=== PATIENT | female | born 1975 | race African-American/Black ===

== ENCOUNTER 2017-03-23 15:27 | Inpatient (IN) | payer MEDICARE, MEDICAID ==
[~2017-03-23] VITALS: Ht 160 cm; Wt 70.3 kg
[~2017-03-23 15:27] MED LIST: ALPR1TAB2 PO; CARI350T PO; DCS100C PO; OXYC15TA79 PO; OXYC80TA39 PO; PANT40TA2 PO; SENN-1 PO
[2017-03-23] MEDS ORDERED: DEXAMETHASONE 4 MG TAB (DECADRON) PO SCH (20:00)
--- OUTSIDE RECORDS SUMMARY | 2017-03-23 21:21 | XMS REPORT | CCD ---
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 Name Role Phone LILIAN MEREDITH, EDY Guerra Attphys EDY QUINTANA MDsuyasir Allergies Allergy Code Allergy Type Reaction Status No Known Drug Allergies 0 Drug allergy Active Active Medications Medication Code Dose Units Frequency Route Modification Start Date/Time Nafcillin Sodium 10GM Injection Powder for Solution 763072 1 TABLET DAILY BY MOUTH 10/29/2015 12:08 Prescription Detail 1 TABLET BY MOUTH DAILY Polyethylene Glycol 3350 17GM/1Dose Oral Powder for Solution 935145 17 GRAM BEDTIME BY MOUTH 10/22/2015 14: 14 Prescription Detail 17 GRAM BY MOUTH BEDTIME Senna-Time S 50MG-8.6MG Oral Tablet 303912 2 EACH TWO TIMES A DAY BY MOUTH 10/22/2015 14:14 Prescription Detail 2 EACH BY MOUTH TWO TIMES A DAY Lidoderm 5% Topical application Patch, Extended Release 3370180 1 PATCH NEEDED TOPICAL APPLICATION 10/21 14:13 Prescription Detail 1 PATCH TOPICAL APPLICATION NEEDED 12 hours on 12 hours off Milk Of Magnesia 400MG/5ML Oral Suspension 192912 30 MILLILITER NEEDED BY MOUTH 10/22/2015 14:13 Prescription Detail 30 MILLILITER BY MOUTH NEEDED Bisac-Evac 10MG Rectal Suppository 016551 10 MILLIGRAMS NEEDED RECTALLY 10/22/2015 14:11 Prescription Detail 10 MILLIGRAMS RECTALLY NEEDED take if go without stool 48 hours OxyCONTIN 80MG Oral Tablet, Extended Release 1105045 110 MILLIGRAMS EVERY 12 HOURS ORAL 10/04/2015 10:23 Prescription Detail 110 MILLIGRAMS ORAL EVERY 12 HOURS ALPRAZolam 2MG Oral Tablet 664399 2 MILLIGRAMS THREE TIMES A DAY ORAL 08/11/2015 14:08 Prescription Detail 2 MILLIGRAMS ORAL THREE TIMES A DAY Soma 350MG Oral Tablet 426250 350 MILLIGRAMS THREE TIMES A DAY ORAL 11/27/2013 09:50 Prescription Detail 350 MILLIGRAMS ORAL THREE TIMES A DAY Problems Problem Code Start Date Resolved Date Status Constipation 68625669 Active Bacteremia 2306859 10/23/2015 Active Procedures Procedure Code Procedure Type Date CX CHEST 1 VIEW [id number] [facility] 05/21/2016 CULTURE BLOOD 82305297 [facility] 05/21/2016 COMPREHENSIVE METABOLIC PANEL 698442295 [facility] 2016 CBC W/ AUTO DIFF (RFLX MAN DIFF IF IND) 6050856 [facility] 05/21/2016 LACTIC ACID 0662252 [facility] 05/21/2016 ^CBC W/AUTO DIFF 6611852 [facility] 05/21/2016 Results COMPREHENSIVE METABOLIC PANEL - Collect Date/Time: 05/21/2016 20:44 Test Name Code Test Result Test Units Test Ref Range GLUCOSE 2345-7 154 MG/DL L=70 H=100 SODIUM 2951-2 140 MEQ/L L=135 H=148 POTASSIUM 2823-3 3.7 MEQ/L L=3.5 H=5.3 CHLORIDE 2075-0 108 MEQ/L L=96 H=110 CO2 2028-9 23 MEQ/L L=22 H=29 BUN 3094-0 15 MG/DL L=8 H=22 CREATININE 2160-0 0.8 MG/DL L=0.6 H=1.6 SGOT/AST 1920-8 25 IU/L L=10 H=40 SGPT/ALT 1742-6 14 IU/L L=8 H=54 ALK PHOS 6768-6 67 IU/L L=35 H=115 TOTAL PROTEIN 2885-2 7.4 G/DL L=5.5 H=8.5 ALBUMIN 1751-7 3.2 G/DL L=3.1 H=5.4 TOTAL BILI 1975-2 0.7 MG/DL L=0.0 H=1.5 CALCIUM 87817-1 9.0 MG/DL L=8.2 H=10.6 AGE 41 yrs GFR NonAA 78 GFR AA 95 eGFR >60 N/A eGFR AA* >60 N/A CBC W/ AUTO DIFF (RFLX MAN DIFF IF IND) - Collect Date/Time: 05/21/2016 20:44 Test Name Code Test Result Test Units Test Ref Range WBC 33978-1 9.4 TH/CMM L=4.5 H=10.8 RBC 789-8 3.39 ML/CMM L=4.20 H=5.40 HGB 718-7 7.5 G/DL L=12.0 H=16.0 HCT 4544-3 27.1 % L=37.0 H=47.0 MCV 80 FL L=81 H=99 MCH 22.1 PG L=27.0 H=33.0 MCHC 27.7 G/DL L=31.0 H=36.0 RDW SD 63 FL L=36 H=50 RDW CV 22.4 % L=0.0 H=14.8 MPV 9.4 FL L=9.3 H=12.5 PLT 777-3 200 TH/CMM L=130 H=440 NRBC# 0.00 TH/CMM L=0.00 H=0.00 NRBC% 0.0 /100WBC L=0.0 H=2.0 %NEUT 73.0 % %LYMP 20.8 % %MONO 4.9 % %EOS 0.1 % %BASO 0.2 % #NEUT 6.85 TH/CMM L=2.10 H=8.20 #LYMP 1.95 TH/CMM L=0.90 H=5.20 #MONO 0.46 TH/CMM L=0.16 H=1.00 #EOS 0.01 TH/CMM L=0.00 H=0.80 #BASO 0.02 TH/CMM L=0.00 H=0.20 MANUAL DIFF NOT IND N/A LACTIC ACID - Collect Date/Time: 05/21/2016 20:44 Test Name Code Test Result Test Units Test Ref Range LACTIC ACID 2524-7 2.1 mmol/L L=0.5 H=1.6 Function Status Unknown or Not Available. History of Immunizations Unknown or Not Available. Plan of Treatment Unknown or Not Available. Social History Smoking Status Code Start Date End Date Never smoker [id number] Vital Signs Unknown or Not Available. Function Status Unknown or Not Available. Goals Unknown or Not Available. ASSESSMENTS Unknown or Not Available. Health Concerns Section Unknown or Not Available.
--- OUTSIDE RECORDS SUMMARY | 2017-03-23 21:21 | XMS REPORT | CCD ---
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 Name Role Phone [facility], XIOMARA DO Attphys [facility], XIOMARA DO Prisurg Allergies Allergy Code Allergy Type Reaction Status No Known Drug Allergies 0 Drug allergy Active Active Medications Medication Code Dose Units Frequency Route Modification Start Date/Time ALPRAZolam 1MG Oral Tablet 090375 1 MILLIGRAMS THREE TIMES A DAY ORAL 10/23/2016 15:55 Prescription Detail 1 MILLIGRAMS ORAL THREE TIMES A DAY Atenolol 25MG Oral Tablet 603801 25 MILLIGRAMS DAILY ORAL 10/23/2016 15:55 Prescription Detail 25 MILLIGRAMS ORAL DAILY Dexamethasone 2MG Oral Tablet 735918 2 MILLIGRAMS DAILY ORAL 10/23/2016 15:55 Prescription Detail 2 MILLIGRAMS ORAL DAILY Keflex 500MG Oral Capsule 650276 1 TABLET DAILY BY MOUTH 10/23/2016 15:55 Prescription Detail 1 TABLET BY MOUTH DAILY Klor-Con 10 10MEQ Oral Tablet, Extended Release 436472 10 MEQ TWO TIMES A DAY ORAL 10/23/2016 15:55 Prescription Detail 10 MEQ ORAL TWO TIMES A DAY levETIRAcetam 750MG Oral Tablet 350086 2 TABLET TWO TIMES A DAY ORAL 10/23/2016 15:55 Prescription Detail 2 TABLET ORAL TWO TIMES A DAY OxyCONTIN 40MG Oral Tablet, Extended Release 7007741 80 MILLIGRAMS EVERY 12 HOURS BY MOUTH 10/23/2016 15: 55 Prescription Detail 80 MILLIGRAMS BY MOUTH EVERY 12 HOURSMay increase to home doses pending review with PCP raNITIdine 150 150MG Oral Tablet 592927 150 MILLIGRAMS TWO TIMES A DAY ORAL 10/23/2016 15:55 Prescription Detail 150 MILLIGRAMS ORAL TWO TIMES A DAY Sucralfate 1GM Oral Tablet 652845 1 GM BEFORE MEALS AND BED ORAL 10/23/2016 15:55 Prescription Detail 1 GM ORAL BEFORE MEALS AND BED oxyCODONE HCl 5MG Oral Tablet 9544252 4 TABLET NEEDED EVERY 4 HR BY MOUTH 10/23/2016 15:54 Prescription Detail 4 TABLET BY MOUTH NEEDED EVERY 4 HRMay increase per PCP to home doses pending review Protonix 40MG Oral Tablet, Enteric Coated 911835 40 MILLIGRAMS DAILY BY MOUTH 10/23/2016 15:54 Prescription Detail 40 MILLIGRAMS BY MOUTH DAILY Polyethylene Glycol 3350 17GM/1Dose Oral Powder for Solution 297843 17 GRAM BEDTIME BY MOUTH 10/22/2015 14: 14 Prescription Detail 17 GRAM BY MOUTH BEDTIME Milk Of Magnesia 400MG/5ML Oral Suspension 988025 30 MILLILITER NEEDED BY MOUTH 10/22/2015 14:13 Prescription Detail 30 MILLILITER BY MOUTH NEEDED Bisac-Evac 10MG Rectal Suppository 742376 10 MILLIGRAMS NEEDED RECTALLY 10/22/2015 14:11 Prescription Detail 10 MILLIGRAMS RECTALLY NEEDED take if go without stool 48 hours Problems Problem Code Start Date Resolved Date Status Metastatic cancer to the breast 04969820 10/22/2016 Active UTI 73046443 10/22/2016 Active Constipation 88355138 10/22/2016 Resolved Bacteremia 8723462 10/23/2015 10/22/2016 Resolved Procedures Procedure Code Procedure Type Date CT CERVICAL W/O CONTRAST 961749771 SNOMED CT 06/24/2016 CT HEAD W/O CONTRAST 379767325 SNOMED CT 06/24/2016 CULTURE BLOOD 54608550 SNOMED CT 06/24/2016 UA ROUTINE C&S IF IND 993963538 SNOMED CT 06/24/[address] 06/24/2016 C REACTIVE PROTEIN 09105383 SNOMED CT 06/24/2016 TROPONIN-I ADV 471392632 SNOMED CT 06/24/2016 COMPREHENSIVE METABOLIC PANEL 800742870 SNOMED CT 2016 CBC W/ AUTO DIFF (RFLX MAN DIFF IF IND) 4855585 SNOMED CT 06/24/2016 HOLTER MONITOR UP TO [address] 2016 ^UA WITH MICRO 520574480 SNOMED CT 06/24/2016 ^CBC W/ MANUAL DIFF 60481008 SNOMED CT 06/24/2016 Results COMPREHENSIVE METABOLIC PANEL - Collect Date/Time: 06/24/2016 19:30 Test Name Code Test Result Test Units Test Ref Range GLUCOSE 2345-7 186 MG/DL L=70 H=100 SODIUM 2951-2 140 MEQ/L L=135 H=148 POTASSIUM 2823-3 3.9 MEQ/L L=3.5 H=5.3 CHLORIDE 2075-0 110 MEQ/L L=96 H=110 CO2 2028-9 22 MEQ/L L=22 H=29 BUN 3094-0 21 MG/DL L=8 H=22 CREATININE 2160-0 0.8 MG/DL L=0.6 H=1.6 SGOT/AST 1920-8 36 IU/L L=10 H=40 SGPT/ALT 1742-6 23 IU/L L=8 H=54 ALK PHOS 6768-6 64 IU/L L=35 H=115 TOTAL PROTEIN 2885-2 7.3 G/DL L=5.5 H=8.5 ALBUMIN 1751-7 3.5 G/DL L=3.1 H=5.4 TOTAL BILI 1975-2 0.6 MG/DL L=0.0 H=1.5 CALCIUM 80550-0 8.9 MG/DL L=8.2 H=10.6 AGE 41 yrs GFR NonAA 78 GFR AA 95 eGFR >60 N/A eGFR AA* >60 N/A CPK - Collect Date/Time: 06/24/2016 19:30 Test Name Code Test Result Test Units Test Ref Range CPK 2157-6 46 IU/L L=0 H=235 CBC W/ AUTO DIFF (RFLX MAN DIFF IF IND) - Collect Date/Time: 06/24/2016 19:30 Test Name Code Test Result Test Units Test Ref Range WBC 16855-2 11.0 TH/CMM L=4.5 H=10.8 RBC 789-8 3.87 ML/CMM L=4.20 H=5.40 HGB 718-7 9.6 G/DL L=12.0 H=16.0 HCT 4544-3 32.0 % L=37.0 H=47.0 MCV 83 FL L=81 H=99 MCH 24.8 PG L=27.0 H=33.0 MCHC 30.0 G/DL L=31.0 H=36.0 RDW SD 60 FL L=36 H=50 RDW CV 20.1 % L=0.0 H=14.8 MPV 9.8 FL L=9.3 H=12.5 PLT 777-3 139 TH/CMM L=130 H=440 NRBC# 0.00 TH/CMM L=0.00 H=0.00 NRBC% 0.0 /100WBC L=0.0 H=2.0 %NEUT 74.8 % %LYMP 18.5 % %MONO 5.6 % %EOS 0.1 % %BASO 0.1 % #NEUT 8.25 TH/CMM L=2.10 H=8.20 #LYMP 2.04 TH/CMM L=0.90 H=5.20 #MONO 0.62 TH/CMM L=0.16 H=1.00 #EOS 0.01 TH/CMM L=0.00 H=0.80 #BASO 0.01 TH/CMM L=0.00 H=0.20 SEGS 64 % BANDS 12 % LYMPHS 19 % MONOS 5 % MANUAL DIFF SEE BELOW N/A ANISO 1+ N/A POIK 1+ N/A HYPO 1+ N/A PT/PTT - Collect Date/Time: 06/24/2016 19:30 Test Name Code Test Result Test Units Test Ref Range PROTIME 5964-2 10.6 SEC L=9.9 H=11.9 INR 57552-6 1.0 PTT 3173-2 24.7 SEC L=22.2 H=37.2 UA ROUTINE C&S IF IND - Collect Date/Time: 06/24/2016 21:12 Test Name Code Test Result Test Units Test Ref Range COLOR YELLOW N/A NL: YELLOW APPEARANCE CLEAR N/A NL: CLEAR SPEC GRAV 1.020 N/A NL: 1.002 - 1.022 pH 6.5 N/A NL: 5 - 9 PROTEIN NEGATIVE N/A NL: NEGATIVE mg/dl GLUCOSE 250 N/A NL: NEGATIVE mg/dl KETONE NEGATIVE N/A NL: NEGATIVE mg/dl BILIRUBIN NEGATIVE N/A NL: NEGATIVE BLOOD NEGATIVE N/A NL: NEGATIVE NITRITE NEGATIVE N/A NL: NEGATIVE LEUK SCREEN NEGATIVE N/A NL: NEGATIVE MICRO INDICATED? SEE BELOW N/A WBC/HPF 0-5 N/A NL: NEGATIVE RBC/HPF RARE N/A NL: NEGATIVE CASTS/LPF NEGATIVE N/A NL: NEGATIVE CRYSTALS NEGATIVE N/A NL: NEGATIVE MUCOUS THRDS FEW N/A NL: NEGATIVE BACTERIA NEGATIVE N/A NL: NEGATIVE EPITH CELLS FEW SQUAMOUS N/A NL: NEGATIVE TRICHOMONAS NEGATIVE N/A NL: NEGATIVE YEAST NEGATIVE N/A NL: NEGATIVE CULT SET UP? NO N/A C REACTIVE PROTEIN - Collect Date/Time: 06/24/2016 19:30 Test Name Code Test Result Test Units Test Ref Range C REACTIVE PROTEIN 1987- 0.7 MG/DL L=0.0 H= 1.0 TROPONIN-I ADV - Collect Date/Time: 06/24/2016 19:30 Test Name Code Test Result Test Units [place] [address]-3 <0.04 ng/mL L=0.04 H= 0.40 Function Status Unknown or Not Available. History of Immunizations Unknown or Not Available. Plan of Treatment Unknown or Not Available. Social History Smoking Status Code Start Date End Date Never smoker [id number] Vital Signs Unknown or Not Available. Function Status Unknown or Not Available. Goals Unknown or Not Available. ASSESSMENTS Unknown or Not Available. Health Concerns Section Unknown or Not Available.
--- OUTSIDE RECORDS SUMMARY | 2017-03-23 21:21 | XMS REPORT | CCD ---
Author Author KENISHA KANG Organization Unknown Address [address] [facility] [address] [place], [place] [id number] Care Team Providers Care Technical Support Representative Name Role Phone ADALI BERNAL DO Attphys [facility], LORNA Lauren W., DOMINIQUE Guerra NASST B., AL NASST M., STEVEN Rodríguez NASST C., BRIAN NASST G., JACOB NASST F., HUDSON NASST B., KIERA NASST Vital Signs Vital Sign Value Unit Date/Time Recent/Initial? Weight Measured 123 lbs 08/10/2015 02:22 Initial VS Height 63 in 08/10/2015 02:22 Initial VS BMI (Body Mass Index) 21.79 kg/m^2 08/10/2015 02:22 Initial VS BSA (Body Surface Area) 1.57 m^2 08/10/2015 02:22 Initial VS Weight Measured 123 lbs 08/10/2015 02:30 Most Recent VS Height 63 in 08/10/2015 02:30 Most Recent VS BMI (Body Mass Index) 21.79 kg/m^2 08/10/2015 02:30 Most Recent VS BSA (Body Surface Area) 1.57 m^2 08/10/2015 02:30 Most Recent VS BP Systolic 123 mmHg 08/10/2015 02:30 Initial VS BP Diastolic 85 mmHg 08/10/2015 02:30 Initial VS Respiratory Rate 20 bpm 08/10/2015 02:30 Initial VS Heart Rate 83 bpm 08/10/2015 02:30 Initial VS O2 % BldC Oximetry 99 % 08/10/2015 02:30 Initial VS Body Temperature 96.2 degrees 08/10/2015 02:30 Initial VS BP Systolic 102 mmHg 08/11/2015 10:51 Most Recent VS BP Diastolic 61 mmHg 08/11/2015 10:51 Most Recent VS Respiratory Rate 16 bpm 08/11/2015 10:51 Most Recent VS Heart Rate 85 bpm 08/11/2015 10:51 Most Recent VS O2 % BldC Oximetry 97 % 08/11/2015 10:51 Most Recent VS Body Temperature 98.1 degrees 08/11/2015 10:51 Most Recent VS Allergies Allergy Code Allergy Type Reaction Status No Known Drug Allergies 0 No known drug allergies Active Procedures Procedure Code Procedure Type Date CT CERVICAL W/O CONTRAST 242557981 SNOMED CT 08/09/2015 CT HEAD W/O CONTRAST 186532888 SNOMED CT 08/09/2015 TROPONIN-I ADV 547412472 SNOMED CT 08/10/2015 COMPREHENSIVE METABOLIC PANEL 150108294 [facility] CT 2015 CBC W/ AUTO DIFF (RFLX MAN DIFF IF IND) 0629266 SNOMED CT 08/09/2015 ^CBC W/AUTO DIFF 5339477 SNOMED CT 08/09/2015 History of Immunizations Unknown or Not Available. Problems Problem Code Start Date Resolved Date Status Constipation 30465332 Active Bacteremia 7511984 10/23/2015 Active Esophageal dysmotility 663468549 11/08/2014 08/10/2015 Resolved Chronic intractable pain 125464874 11/08/2014 08/10/2015 Resolved Syncope and collapse 541789720 08/10/2015 10/03/2015 Resolved Acute chest pain 951027341 10/03/2015 10/20/2015 Resolved Anemia 214283378 10/03/2015 10/20/2015 Resolved Hypokalemia 78766163 10/03/2015 10/20/2015 Resolved Closed injury of head 691031945137 08/10/2015 10/03/2015 Resolved Results COMPREHENSIVE METABOLIC PANEL - Collect Date/Time: 08/10/2015 00:15 Test Name Code Test Result Test Units Test Ref Range GLUCOSE 2345-7 129 MG/DL L=70 H=100 SODIUM 2951-2 140 MEQ/L L=135 H=148 POTASSIUM 2823-3 3.9 MEQ/L L=3.5 H=5.3 CHLORIDE 2075-0 107 MEQ/L L=96 H=110 CO2 2028-9 24 MEQ/L L=22 H=29 BUN 3094-0 12 MG/DL L=8 H=22 CREATININE 2160-0 0.8 MG/DL L=0.6 H=1.6 SGOT/AST 1920-8 37 IU/L L=10 H=40 SGPT/ALT 1742-6 26 IU/L L=8 H=54 ALK PHOS 6768-6 56 IU/L L=35 H=115 TOTAL PROTEIN 2885-2 6.9 G/DL L=5.5 H=8.5 ALBUMIN 1751-7 3.8 G/DL L=3.1 H=5.4 TOTAL BILI 1975-2 0.4 MG/DL L=0.0 H=1.5 CALCIUM 06408-6 9.2 MG/DL L=8.2 H=10.6 AGE 40 yrs GFR NonAA 79 GFR AA 96 eGFR >60 N/A eGFR AA* >60 N/A CBC W/ AUTO DIFF (RFLX MAN DIFF IF IND) - Collect Date/Time: 08/10/2015 00:15 Test Name Code Test Result Test Units Test Ref Range WBC 78916-5 5.9 TH/CMM L=4.5 H=10.8 RBC 789-8 3.72 ML/CMM L=4.20 H=5.40 HGB 718-7 9.7 G/DL L=12.0 H=16.0 HCT 4544-3 31.9 % L=37.0 H=47.0 MCV 86 FL L=81 H=99 MCH 26.1 PG L=27.0 H=33.0 MCHC 30.4 G/DL L=31.0 H=36.0 RDW SD 55 FL L=36 H=50 RDW CV 17.7 % L=0.0 H=14.8 MPV 12.1 FL L=9.3 H=12.5 PLT 777-3 187 TH/CMM L=130 H=440 NRBC# 0.00 TH/CMM L=0.00 H=0.00 NRBC% 0.0 /100WBC L=0.0 H=2.0 %NEUT 78.3 % %LYMP 18.1 % %MONO 2.7 % %EOS 0.0 % %BASO 0.2 % #NEUT 4.62 TH/CMM L=2.10 H=8.20 #LYMP 1.07 TH/CMM L=0.90 H=5.20 #MONO 0.16 TH/CMM L=0.16 H=1.00 #EOS 0.00 TH/CMM L=0.00 H=0.80 #BASO 0.01 TH/CMM L=0.00 H=0.20 MANUAL DIFF NOT IND N/A PT/PTT - Collect Date/Time: 08/10/2015 00:15 Test Name Code Test Result Test Units Test Ref Range PROTIME 69986-9 10.7 SEC L=9.9 H=11.9 INR 1.0 PTT 3173-2 27.0 SEC L=22.2 H=37.2 TROPONIN-I ADV - Collect Date/Time: 08/10/2015 00:15 Test Name Code Test Result Test Units [place] [address]-6 <0.04 ng/mL L=0.04 H= 0.40 Active Medications Medications Administered During Visit Medication Dose Units Frequency Route Date/ Time of Last Dose ALPRAZOLAM [XANAX] TABLET : 1 MG 2 MG TID PO 08/11/2015 13:33 ZOLPIDEM [AMBIEN] TABLET : 5 MG 10 MG BEDTIME PO 08/10/2015 20:46 CARISOPRODOL [SOMA] TAB : 350 MG 350 MG TID PO 08/11/2015 13:33 OXYCODONE 5 MG IMMEDIATE RELEASE TAB 50 MG BID PO 08/11/2015 08:45 OXYCODONE E-R (OXYCONTIN)TAB: 40 MG 80 MG X1 PO 08/10/2015 14:53 OXYCODONE E-R (OXYCONTIN)TAB: 40 MG 80 MG DAILY PO 08/11/2015 08:46 OXYCODONE E-R (OXYCONTIN)TAB: 40 MG 30 MG BEDTIME PO 08/10/2015 20:46 Encounters Encounter Diagnosis Diagnosis Code Start Date Syncope and collapse R55 08/10/2015 Social History Smoking Status Code Start Date End Date Never smoker [id number] Patient Decision Aids Patient Decision Aid PAIN MANAGEMENT AT HOME Syncope Discharge Instructions You were admitted to [facility] on 08/10/2015 01:40 with a principal diagnosis of Syncope and collapse You had the following tests done: CBC W/ AUTO DIFF (RFLX MAN DIFF IF IND) COMPREHENSIVE METABOLIC PANEL PT/PTT TROPONIN-I ADV You were discharged from [facility] on 08/11/2015 17:20 Should you have any questions prior to discharge, please contact a member of your healthcare team. If you have left the hospital and have any questions, please contact your primary care physician. HOME DIET: Regular, As tolerated. CONDITION AT DISMISSAL Stable. HOME MEDICATION INSTRUCTIONS: Take only the medications listed , Verbalizes understanding of instructions. HOME MEDS RETURNED TO PATIENT: Yes, home medication Oxycontin 30mg returned to pt in home bottle (6) tabs ACTIVITY INSTRUCTIONS(list limitations): Activity as Tolerated , if someone could stay or check on you tonight until home health nurse arrives in am RETURN TO WORK/SCHOOL: N/A. WEIGHT MONITORING DISCUSSED (CHF PT) No. SPECIAL INSTRUCTIONS: NA RELEVANT CONTACT INFORMATION: Physician:Dr Quinn, Specialist: Dr Priest. SCRIPTS WRITTEN BY DOCTOR GIVEN TO PATIENT? No-none written by physician:,Dr Bernal IMMUNIZATIONS GIVEN DURING HOSPITALIZATION: patient requesting not to receive either vaccination, none given PAIN MANAGEMENT: "Pain Management at Home" instruct given. Verbalizes understanding of instructions, CCD report and information on syncope FOLLOW UP CARE - SEE YOUR PHYSICIAN: Please call in the morning August [address] Quinn needs to see you on follow up from hospital stay; keep scheduled appointments with Dr Priest-as Dr at appointment time in regards to the Oxycodone immediate release if the dosage needs to be adjusted due to break through pain FOLLOW UP APPOINTMENT: Call to make appt when office is open , unable to schedule any appts due to weekend hrs PENDINGS TESTS: as scheduled with Dr Priest FOLLOW-UP OUTPATIENT SERVICES: [facility] arranged, nurse should call you in the morning to start services daily and per routine for safety/physical-occupational therapies for strengthening, medication monitoring for pain control, possible bath ai for bathing due to weakness, and bowel mangement due to constipation RETURN TO HOSPITAL FOR RE-ADMISSION ON: NA PRIMARY CARE PHYSICIAN OR PRACTITIONER: Chapito Quinn DO, [phone]. Dr Priest CONTACT PHYSICIAN IF YOU EXPERIENCE ANY: call Dr Bernal with any questions or concerns PERSONAL ITEMS RETURNED: Yes. Bring these instructions to next visit? Yes. INSTRUCTIONS GIVEN AND DISCHARGE TO: Patient/family VOICES UNDERSTANDING OF INSTRUCTIONS: Yes. INSTRUCTIONS GIVEN BY (TYPE IN NAME AND DATE) Dominique Crystal RN on 08-11-15 CHIEF COMPLAINT: Syncope, Fall Chief Complaint and Reason For Visit Chief Complaint Date of Onset SYNCOPE HEAD INJURY Function Status Unknown or Not Available. Plan of Care Unknown or Not Available. Referral/Transition of Care Unknown or Not Available.
--- OUTSIDE RECORDS SUMMARY | 2017-03-23 21:21 | XMS REPORT | CCD ---
Author Author LALO MARRUFO Unknown Address [address] [address] [place] [address] Care Team Providers Care Account Leader Name Role Phone ALO DOBHAVANI Attphys ALO KU BHAVANI Stephanie Prisurg Allergies Allergy Code Allergy Type Reaction Status No Known Drug Allergies 0 Drug allergy Active Active Medications Medication Code Dose Units Frequency Route Modification Start Date/Time ALPRAZolam 1MG Oral Tablet 953945 1 MILLIGRAMS THREE TIMES A DAY ORAL 10/23/2016 15:55 Prescription Detail 1 MILLIGRAMS ORAL THREE TIMES A DAY Atenolol 25MG Oral Tablet [id number] 25 MILLIGRAMS DAILY ORAL 10/23/2016 15:55 Prescription Detail 25 MILLIGRAMS ORAL DAILY Dexamethasone 2MG Oral Tablet 272618 2 MILLIGRAMS DAILY ORAL 10/23/2016 15:55 Prescription Detail 2 MILLIGRAMS ORAL DAILY Keflex 500MG Oral Capsule 760652 1 TABLET DAILY BY MOUTH 10/23/2016 15:55 Prescription Detail 1 TABLET BY MOUTH DAILY Klor-Con 10 10MEQ Oral Tablet, Extended Release 345587 10 MEQ TWO TIMES A DAY ORAL 10/23/2016 15:55 Prescription Detail 10 MEQ ORAL TWO TIMES A DAY levETIRAcetam 750MG Oral Tablet 358310 2 TABLET TWO TIMES A DAY ORAL 10/23/2016 15:55 Prescription Detail 2 TABLET ORAL TWO TIMES A DAY OxyCONTIN 40MG Oral Tablet, Extended Release 3181124 80 MILLIGRAMS EVERY 12 HOURS BY MOUTH 10/23/2016 15: 55 Prescription Detail 80 MILLIGRAMS BY MOUTH EVERY 12 HOURSMay increase to home doses pending review with PCP raNITIdine 150 150MG Oral Tablet 726937 150 MILLIGRAMS TWO TIMES A DAY ORAL 10/23/2016 15:55 Prescription Detail 150 MILLIGRAMS ORAL TWO TIMES A DAY Sucralfate 1GM Oral Tablet 817477 1 GM BEFORE MEALS AND BED ORAL 10/23/2016 15:55 Prescription Detail 1 GM ORAL BEFORE MEALS AND BED oxyCODONE HCl 5MG Oral Tablet 7502242 4 TABLET NEEDED EVERY 4 HR BY MOUTH 10/23/2016 15:54 Prescription Detail 4 TABLET BY MOUTH NEEDED EVERY 4 HRMay increase per PCP to home doses pending review Protonix 40MG Oral Tablet, Enteric Coated 875395 40 MILLIGRAMS DAILY BY MOUTH 10/23/2016 15:54 Prescription Detail 40 MILLIGRAMS BY MOUTH DAILY Polyethylene Glycol 3350 17GM/1Dose Oral Powder for Solution 702482 17 GRAM BEDTIME BY MOUTH 10/22/2015 14: 14 Prescription Detail 17 GRAM BY MOUTH BEDTIME Milk Of Magnesia 400MG/5ML Oral Suspension 130347 30 MILLILITER NEEDED BY MOUTH 10/22/2015 14:13 Prescription Detail 30 MILLILITER BY MOUTH NEEDED Bisac-Evac 10MG Rectal Suppository 894383 10 MILLIGRAMS NEEDED RECTALLY 10/22/2015 14:11 Prescription Detail 10 MILLIGRAMS RECTALLY NEEDED take if go without stool 48 hours Problems Problem Code Start Date Resolved Date Status Metastatic cancer to the breast 60078726 10/22/2016 Active UTI 06434081 10/22/2016 Active Constipation 20066048 10/22/2016 Resolved Bacteremia 4176593 10/23/2015 10/22/2016 Resolved Procedures Procedure Code Procedure Type Date CT HEAD W/O CONTRAST 542156242 SNOMED CT 07/27/2016 CX CHEST [address] 07/27/2016 CULTURE URINE 120905248 SNOMED CT 07/27/[address] 07/27/2016 RAPID DRUG SCREEN 644944685 SNOMED CT 07/27/2016 UA ROUTINE C&S IF IND 891956765 SNOMED CT 07/27/2016 TROPONIN-I ADV 239511491 SNOMED CT 07/27/2016 COMPREHENSIVE METABOLIC PANEL 387165088 SNOMED CT 2016 CBC W/ AUTO DIFF (RFLX MAN DIFF IF IND) 8200766 SNOMED CT 07/27/2016 ^CULTURE AEROBIC ID [id number] SNOMED CT 07/27/2016 ^CULTURE URINE IDENTIFICATION 938287223 SNOMED CT 2016 ^CBC W/ MANUAL DIFF 42119610 SNOMED CT 07/27/2016 ^UA WITH MICRO 486705478 SNOMED CT 07/27/2016 Results COMPREHENSIVE METABOLIC PANEL - Collect Date/Time: 07/27/2016 06:45 Test Name Code Test Result Test Units Test Ref Range GLUCOSE 2345-7 101 MG/DL L=70 H=100 SODIUM 2951-2 140 MEQ/L L=135 H=148 POTASSIUM 2823-3 3.2 MEQ/L L=3.5 H=5.3 CHLORIDE 2075-0 107 MEQ/L L=96 H=110 CO2 2028-9 23 MEQ/L L=22 H=29 BUN 3094-0 16 MG/DL L=8 H=22 CREATININE 2160-0 0.7 MG/DL L=0.6 H=1.6 SGOT/AST 1920-8 31 IU/L L=10 H=40 SGPT/ALT 1742-6 21 IU/L L=8 H=54 ALK PHOS 6768-6 71 IU/L L=35 H=115 TOTAL PROTEIN 2885-2 7.7 G/DL L=5.5 H=8.5 ALBUMIN 1751-7 3.5 G/DL L=3.1 H=5.4 TOTAL BILI 1975-2 0.8 MG/DL L=0.0 H=1.5 CALCIUM 04888-0 9.2 MG/DL L=8.2 H=10.6 AGE 41 yrs GFR NonAA 91 GFR AA 110 eGFR >60 N/A eGFR AA* >60 N/A CPK - Collect Date/Time: 07/27/2016 06:45 Test Name Code Test Result Test Units Test Ref Range CPK 2157-6 105 IU/L L=0 H=235 RAPID DRUG SCREEN - Collect Date/Time: 07/27/2016 06:48 Test Name Code Test Result Test Units Test Ref Range Cannabinoids (THC) NEGATIVE N/A NEG: < 50 ng/ ml Phencyclidine (PCP) NEGATIVE N/A NEG: < 25 ng/ ml Cocaine NEGATIVE N/A NEG: < 300 ng/ml Methamphetamine NEGATIVE N/A NEG: < 1000 ng/ml Opiates NEGATIVE N/A NEG: < 300 ng/ml Amphetamine NEGATIVE N/A NEG: < 1000 ng/ml Benzodiazepines NON-NEGATIVE N/A NEG: < 300 ng/ ml Tricyclic Antidepres NEGATIVE N/A NEG: < 300 ng/ ml Methadone NEGATIVE N/A NEG: < 300 ng/ml Barbiturates NEGATIVE N/A NEG: < 200 ng/ml Oxycodone NON-NEGATIVE N/A NEG: < 100 ng/ml Propoxyphene (PPX) NEGATIVE N/A NEG: < 300 ng/ ml CBC W/ AUTO DIFF (RFLX MAN DIFF IF IND) - Collect Date/Time: 07/27/2016 06:45 Test Name Code Test Result Test Units Test Ref Range WBC 66850-5 7.6 TH/CMM L=4.5 H=10.8 RBC 789-8 4.24 ML/CMM L=4.20 H=5.40 HGB 718-7 10.5 G/DL L=12.0 H=16.0 HCT 4544-3 35.0 % L=37.0 H=47.0 MCV 83 FL L=81 H=99 MCH 24.8 PG L=27.0 H=33.0 MCHC 30.0 G/DL L=31.0 H=36.0 RDW SD 62 FL L=36 H=50 RDW CV 20.9 % L=0.0 H=14.8 MPV 9.5 FL L=9.3 H=12.5 PLT 777-3 131 TH/CMM L=130 H=440 NRBC# 0.00 TH/CMM L=0.00 H=0.00 NRBC% 0.0 /100WBC L=0.0 H=2.0 %NEUT 60.9 % %LYMP 29.9 % %MONO 6.9 % %EOS 1.3 % %BASO 0.3 % #NEUT 4.60 TH/CMM L=2.10 H=8.20 #LYMP 2.26 TH/CMM L=0.90 H=5.20 #MONO 0.52 TH/CMM L=0.16 H=1.00 #EOS 0.10 TH/CMM L=0.00 H=0.80 #BASO 0.02 TH/CMM L=0.00 H=0.20 SEGS 60 % BANDS 7 % LYMPHS 28 % MONOS 4 % EOS 1 % MANUAL DIFF SEE BELOW N/A ANISO 1+ N/A POIK 1+ N/A PT/PTT - Collect Date/Time: 07/27/2016 06:45 Test Name Code Test Result Test Units Test Ref Range PROTIME 5964-2 10.7 SEC L=9.9 H=11.9 INR 87543-6 1.0 PTT 3173-2 27.4 SEC L=22.2 H=37.2 UA ROUTINE C&S IF IND - Collect Date/Time: 07/27/2016 06:48 Test Name Code Test Result Test Units Test Ref Range COLOR YELLOW N/A NL: YELLOW APPEARANCE CLEAR N/A NL: CLEAR SPEC GRAV 1.020 N/A NL: 1.002 - 1.022 pH 6.5 N/A NL: 5 - 9 PROTEIN TRACE N/A NL: NEGATIVE mg/dl GLUCOSE NEGATIVE N/A NL: NEGATIVE mg/dl KETONE NEGATIVE N/A NL: NEGATIVE mg/dl BILIRUBIN NEGATIVE N/A NL: NEGATIVE BLOOD NEGATIVE N/A NL: NEGATIVE NITRITE NEGATIVE N/A NL: NEGATIVE LEUK SCREEN LARGE N/A NL: NEGATIVE MICRO INDICATED? SEE BELOW N/A WBC/HPF 100-200 N/A NL: NEGATIVE RBC/HPF 0-5 N/A NL: NEGATIVE CASTS/LPF NEGATIVE N/A NL: NEGATIVE CRYSTALS NEGATIVE N/A NL: NEGATIVE MUCOUS THRDS FEW N/A NL: NEGATIVE BACTERIA FEW N/A NL: NEGATIVE EPITH CELLS FEW SQUAMOUS N/A NL: NEGATIVE TRICHOMONAS NEGATIVE N/A NL: NEGATIVE YEAST NEGATIVE N/A NL: NEGATIVE CULT SET UP? YES N/A TROPONIN-I ADV - Collect Date/Time: 07/27/2016 06:45 Test Name Code Test Result Test Units [place] [address]-3 <0.04 ng/mL L=0.04 H= 0.40 Function Status Unknown or Not Available. History of Immunizations Unknown or Not Available. Plan of Treatment Unknown or Not Available. Social History Smoking Status Code Start Date End Date Never smoker [id number] Vital Signs Unknown or Not Available. Function Status Unknown or Not Available. Goals Unknown or Not Available. ASSESSMENTS Unknown or Not Available. Health Concerns Section Unknown or Not Available.
--- OUTSIDE RECORDS SUMMARY | 2017-03-23 21:21 | XMS REPORT ---
Author Author Indio Westfall [facility] Address [address] [place], [place] [address] Care Team Providers Care Contracts Intern Name Role Phone Indio Westfall PCP Unavailable Allergies and Adverse Reactions Name Reaction Notes NO KNOWN DRUG ALLERGIES Plan of Treatment Not available. Medications Active Name Start Date Estimated Completion Date SIG Comments Tykerb 250 mg oral tablet take 1 tablet by oral route daily Dr Priest OxyContin 80 mg oral tablet,oral only,ext.rel.12 hr take 1 tablet (80 mg ) by oral route every 12 hours and 30 mg Oxycontin BID Soma 350 mg oral tablet take 1 tablet (350 mg) by oral route 3 times per day and at bedtime Xanax 1 mg oral tablet take 1 tablet (1 mg) by oral route 3 times per day oxycodone 30 mg oral tablet take 1 tablet by oral route every 6 hours as needed Reglan 10 mg oral tablet 11/19/2014 02/17/2015 take 1 tablet (10 mg) by oral route 4 times per day 30 minutes before meals and at bedtime for 30 days Name Start Date Expiration Date SIG Comments zolpidem 10 mg oral tablet 09/17/2009 12/16/2009 take 1 tablet (10 mg) by oral route daily for 30 days OxyContin 20 mg oral tablet extended release 12 hr 10/08/2009 11/07/2009 take 1 tablet by oral route 2 times a day for 30 days Lortab 7.5-500 mg oral tablet 10/21/2009 11/04/2009 take 1 tablet by oral route every 6 hours as needed for pain for 14 days Protonix 40 mg oral tablet,delayed release (/EC) 11/19/2014 12/19/2014 take 1 tablet (40 mg) by oral route 2 for 30 days Discontinued Name Start Date Discontinued Date SIG Comments tamoxifen 20 mg oral tablet 11/19/2014 take 1 tablet (20 mg) by oral route once daily Dr Nabbout Paxil 20 mg oral tablet 09/11/2009 09/11/2009 take 1 tablet (20 mg) by oral route once daily for 30 days does not mix with tamoxifen that she is also on bupropion HCl 100 mg oral tablet 09/11/2009 09/11/2009 take 1 tablet by oral route daily for 30 days can't take with tamoxifen Ativan 0.5 mg oral tablet 09/11/2009 09/11/2009 take 1 tablet by oral route 2 times a day for 30 days carisoprodol 350 mg oral tablet 10/25/2014 11/19/2014 take 1 tablet (350 mg) by oral route 3 times per day and at bedtime for 30 days Xanax 1 mg oral tablet 10/25/2014 11/19/2014 take 1 tablet (1 mg) by oral route 3 times per day for 30 days Reglan 10 mg oral tablet 11/19/2014 take 1 tablet by oral route Problem List Description Status Onset Helicobacter Pylori (H. Pylori) Infection Active Vital Signs Date Time BP-Sys(mm[Hg] BP-Anisa(mm[Hg]) HR(bpm) RR(rpm) Temp WT HT HC BMI BSA BMI Percentile O2 Sat(%) 12/24/2014 11:52:00 AM 96 mmHg 52 mmHg 101 bpm 16 rpm 98.1 F 100 lbs 63 in 17.71 kg/m2 1.42 m2 98 % 11/19/2014 10:59:00 AM 94 mmHg 66 mmHg 108 bpm 20 rpm 97.9 F 101.562 lbs 63 in 17.9908 kg/m 1.431 m 10/02/2009 11:36:00 AM 90 mmHg 60 mmHg 112 lbs 09/10/2009 9:16:00 AM 98 mmHg 60 mmHg 64 bpm 16 rpm 96.9 F 111.5 lbs 07/15/2009 3:27:00 PM 110 mmHg 60 mmHg 113.562 lbs 05/13/2009 10:49:00 AM 120 mmHg 70 mmHg 113 lbs Social History Name Description Comments Tobacco Current some day smoker History of Procedures Date Ordered Description Order Status 10/02/2009 12:00 AM Toradol 60 Mg IM,[facility]#[id number]~[place] Reviewed 10/08/2009 12:00 AM OSTEOPATH MANJ 1-2 REGIONS Reviewed 11/20/2014 6:39 AM EGD DIAGNOSTIC BRUSH WASH Reviewed Results Summary Data and Description Results 11/26/2013 5:30 AM WBC 4.4 RBC 3.50 HGB 10.0 g/dLHCT 30.60 %MCV 87.0 fLMCH 28.60 pgMCHC 32.70 g/dLRDW CV 14.30 %MPV 10.80 fLPLT 106 %NEUT 39.60 %%LYMP 50.20 %%MONO 6.80 %%EOS 3.20 %%BASO 0.20 %#NEUT 1.75 #LYMP 2.22 #MONO 0.30 #EOS 0.14 #BASO 0.01 GLUCOSE 94.0 mg/dLSODIUM 141.0 mmol/LPOTASSIUM 3.30 mmol/ LCHLORIDE 109.0 mmol/LCO2 23.0 mmol/LBUN 4.0 mg/dLCREATININE 0.60 mg/dLSGOT/AST 22.0 IU/LSGPT/ALT 8.0 IU/LALK PHOS 58.0 IU/LTOTAL PROTEIN 6.20 g/dLALBUMIN 3.10 g/dLTOTAL BILI 0.30 mg/dLCALCIUM 7.80 mg/dLeGFR 60 11/11/2014 3:00 PM WBC 4.6 RBC 4.14 HGB 11.40 g/dLHCT 35.70 %MCV 86.0 fLMCH 27.50 pgMCHC 31.90 g/dLRDW CV 14.60 %MPV 11.10 fLPLT 126 %NEUT 51.60 %%LYMP 40.10 %%MONO 6.10 %%EOS 2.20 %%BASO 0.0 %#NEUT 2.37 #LYMP 1.84 #MONO 0.28 #EOS 0.10 #BASO 0.00 PREALBUMIN 16.0 mg/dLGLUCOSE 107.0 mg/dLSODIUM 140.0 mmol/ LPOTASSIUM 3.80 mmol/LCHLORIDE 107.0 mmol/LCO2 25.0 mmol/LBUN 7.0 mg/ dLCREATININE 0.70 mg/dLSGOT/AST 33.0 IU/LSGPT/ALT 14.0 IU/LALK PHOS 79.0 IU/ LTOTAL PROTEIN 6.90 g/dLALBUMIN 3.50 g/dLTOTAL BILI 0.40 mg/dLCALCIUM 9.0 mg/ dLeGFR >60 mL/min/1.73 m2 History Of Immunizations Not available. 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 Pylori) Infection History of Breast Cancer, Stage IV Nov 19 2014 11:08AM Dysphagia Nov 19 2014 11:08AM Dyskinesia of esophagus Nov 19 2014 11:08AM Dysphagia Dec 24 2014 11:55AM Breast Neoplasm, Malignant Dec 24 2014 11:55AM Payers Insurance Name Company Name Plan Name Plan Number Policy Number Policy Group Number Start Date Medicare Part B Medicare Of [place] [id number] N/A [employer] [place] [employer] [place] [id number] N/A [place] [employer] [place] [employer] [place]g [id number] N/A History of Encounters Visit Date Visit Type Provider 12/24/2014 Office visit Indio Westfall MD 11/19/2014 Office visit Indio Westfall MD 11/08/2014 [facility] Indio Westfall MD 08/11/2014 [facility] Orquidea Dorman MD 11/25/2013 [facility] Indio Westfall MD 11/24/2013 [facility] Indio Westfall MD 11/23/2013 [facility] Indio Westfall MD 10/08/2009 Office visit Chapito Quinn DO 10/02/2009 Office visit Chapito Contrerasr DO 09/10/2009 Office visit Chapito Contrerasr DO 09/09/2009 Voided Tish Radha FARLEYP 07/15/2009 Office visit Chapito Quinn DO 05/13/2009 Office visit Chapito Contrerasr DO 03/07/2009 Office visit Chapito Quinn DO 02/20/2009 Office visit Chapito Quinn DO 01/24/2009 Office visit Chapito Quinn DO 12/24/2008 Office visit Chapito Quinn DO
--- OUTSIDE RECORDS SUMMARY | 2017-03-23 21:22 | XMS REPORT | Referral Summary ---
Author Author [facility] Organization [facility] Address Unknown Phone Unavailable Care Team Providers Care Sand Car Worker Name Role Phone No PCP, Pt States PCP Encounter VC Date(s): 03/10/15 - 03/11/15 [facility] [address] [place] [address] Discharge Disposition: 01-Home or Self Care Attending Physician: Homar Barbour DO Admitting Physician: Homar Barbour DO Vital Signs Most recent to 1 oldest [Reference Range]: Temperature Tympanic 37.1 degC [36.6-38.1 degC] (03/10/15 2:24 PM) Temperature Temporal 36.6 degC Artery [36.3-37.8 (03/11/15 8:01 AM) degC] Peripheral Pulse 74 bpm Rate [60-100 bpm] (03/10/15 2:24 PM) Heart Rate Monitored 92 bpm [60-100 bpm] (03/11/15 1:00 PM) Respiratory Rate 16 br/min [14-20 br/min] (03/10/15 2:24 PM) Blood Pressure 108/77 mmHg [90-140/60-90 mmHg] (03/11/15 1:00 PM) Mean Arterial 87 mmHg Pressure, Cuff (03/11/15 1:00 PM) SpO2 99 % (03/11/15 1:00 PM) Problem List Condition Effective Dates Status Health Status Informant Acute Resolved pain(Confirmed) Knowledge Resolved deficit(Confirmed)1 Tissue perfusion Resolved alteration(Confirmed )2 Tobacco Active patient user(Confirmed) 1Problem added automatically by system based on initiation of Knowledge Deficit Plan of Care 2Problem added automatically by system based on initiation of Tissue Perfusion Cerebral Plan of Care Allergies, Adverse Reactions, Alerts No Known Allergies Medications dexamethasone 4 mg oral tablet 4 mg 1 tabs, Oral, q6hr (scheduled), # 120 tabs, 0 Refill(s), Indication: cerebral edema Start Date: 03/11/15 Stop Date: 04/11/15 Status: Ordered oxyCODONE 40 mg, Oral, q3hr, as needed for pain, every 3 to 4 hour, 0 Refill(s) Start Date: 03/10/15 Status: Ordered OxyCONTIN 30 mg, Oral, q12hr, 0 Refill(s) Start Date: 03/10/15 Status: Ordered OxyCONTIN 80 mg, Oral, q12hr, 0 Refill(s) Start Date: 03/10/15 Status: Ordered Soma 350 mg, Oral, TID, 0 Refill(s) Start Date: 03/10/15 Status: Ordered Xanax 2 mg, Oral, TID, as needed for anxiety, 0 Refill(s) Start Date: 03/10/15 Status: Ordered Results Hematology Most recent to 1 oldest [Reference Range]: WBC [4.8-10.8 6.2 10*3/uL 10*3/uL] (03/10/15 2:52 PM) RBC [4.00-5.20] 3.94 *LOW* (03/10/15 2:52 PM) Hgb [12.0-16.0 10.8 gm/dL gm/dL] *LOW* (03/10/15 2:52 PM) Hct [37.0-47.0 %] 34.4 % *LOW* (03/10/15 2:52 PM) MCV [82.0-99.0 fL] 87.3 fL (03/10/15 2:52 PM) MCH [27.0-32.0 pg] 27.4 pg (03/10/15 2:52 PM) MCHC [32.0-36.0 31.4 gm/dL gm/dL] *LOW* (03/10/15 2:52 PM) RDW [11.5-14.5 %] 16.0 % *HI* (03/10/15 2:52 PM) Platelet [150-400 129 10*3/uL 10*3/uL] *LOW* (03/10/15 2:52 PM) MPV [9.4-12.4 fL] 10.2 fL (03/10/15 2:52 PM) Immature 0.2 % Granulocytes (03/10/15 2:52 PM) [0.0-1.0 %] Neutrophils [51-75 84 % %] *HI* (03/10/15 2:52 PM) Lymphocytes [20-46 15 % %] *LOW* (03/10/15 2:52 PM) Monocytes [4-11 %] 1 % *LOW* (03/10/15 2:52 PM) Eosinophils [0-4 %] 0 % (03/10/15 2:52 PM) Basophils [0-2 %] 0 % (03/10/15 2:52 PM) Neutro Absolute 5.20 10*3 [1.90-7.00 10*3] (03/10/15 2:52 PM) Lymph Absolute 0.90 10*3 [0.80-3.30 10*3] (03/10/15 2:52 PM) [place] Absolute 0.05 10*3 [0.30-1.00 10*3] *LOW* (03/10/15 2:52 PM) Eos Absolute 0.00 10*3 [0.00-0.50 10*3] (03/10/15 2:52 PM) Baso Absolute 0.00 10*3 [0.00-0.20 10*3] (03/10/15 2:52 PM) Nucleated RBC 0.0 /100 WBC Automated [0 /100 (03/10/15 2:52 PM) WBC] Chemistry Most recent to 1 oldest [Reference Range]: Sodium Lvl [136-144 138 mEq/L mEq/L] (03/10/15 2:52 PM) Potassium Lvl 4.0 mEq/L [3.6-5.1 mEq/L] (03/10/15 2:52 PM) Chloride [99-109 106 mEq/L mEq/L] (03/10/15 2:52 PM) CO2 [22-32 mEq/L] 25 mEq/L (03/10/15 2:52 PM) AGAP [3-20] 7 (03/10/15 2:52 PM) BUN [4-20 mg/dL] 11 mg/dL (03/10/15 2:52 PM) Glucose Lvl [70-100 102 mg/dL mg/dL] *HI* (03/10/15 2:52 PM) Creatinine Lvl 0.63 mg/dL [0.44-1.03 mg/dL] (03/10/15 2:52 PM) eGFR [>60] >60 1 (03/10/15 2:52 PM) Calcium Lvl 8.7 mg/dL [8.6-10.0 mg/dL] (03/10/15 2:52 PM) Albumin Lvl [3.5-4.8 3.5 gm/dL gm/dL] (03/10/15 2:52 PM) Magnesium Lvl 2.3 mg/dL [1.8-2.5 mg/dL] (03/10/15 2:52 PM) Phosphorus [2.4-4.7 2.7 mg/dL 2 mg/dL] (03/10/15 2:52 PM) Chol [0-200 mg/dL] 148 mg/dL (03/10/15 2:52 PM) Trig [0-150 mg/dL] 105 mg/dL (03/10/15 2:52 PM) HDL [>40 mg/dL] 50 mg/dL (03/10/15 2:52 PM) LDL [0-100 mg/dL] 77 mg/dL (03/10/15 2:52 PM) VLDL Cholesterol 21 mg/dL [0-30 mg/dL] (03/10/15 2:52 PM) Cardiac Risk 3.0 [0.0-5.0] (03/10/15 2:52 PM) Hgb A1c [4.1-5.6 %] 5.4 % (03/10/15 2:52 PM) eAvg Glucose 108.3 mg/dL (03/10/15 2:52 PM) 1Result Comment: Multiply eGFR results by 1.21 for race. 2Result Comment: High dosages of liposomal Amphotericin B (AmBisome) therapy or other drug preparations that use a liposomal envelope to facilitate drug delivery may cause falsely elevated results for phosphorus. Toxicology Most recent to 1 oldest [Reference Range]: U Amphetamine Scrn Negative (03/10/15 4:45 PM) U Cocaine Scrn Negative (03/10/15 4:45 PM) U Cannab Scrn Negative (03/10/15 4:45 PM) U Opiate Scrn Positive *ABN* (03/10/15 4:45 PM) U PCP Scrn Negative (03/10/15 4:45 PM) U Benzodiazepine Positive Scrn *ABN* (03/10/15 4:45 PM) U Barbiturate Scrn Negative (03/10/15 4:45 PM) Methadone Lvl Negative (03/10/15 4:45 PM) Tricyclics Not Detected 1 (03/10/15 4:45 PM) 1Result Comment: Cut-off concentrations: Amphetamines: 1000 ng/mL Cocaine: 300 ng/mL Cannabinoid: 50 ng/mL Opiate: 300 ng/mL Phencyclidine (PCP): 25 ng/mL Benzodiazepine: 200 ng/mL Barbiturate: 200 ng/mL Methadone: 300 ng/mL Tricyclic: 300 ng/mL The urine drug screen assays are qualitative screens. A more specific GC/MS method must be performed to obtain a confirmed analytical result. Unconfirmed screening results must not be used for non-medical purposes(e.g. employment or legal testing) Urinalysis Most recent to 1 oldest [Reference Range]: UA Color Dk Yellow (03/10/15 4:46 PM) UA Appear Clear (03/10/15 4:46 PM) UA pH [5.0-8.0] 8.0 (03/10/15 4:46 PM) UA Leuk Est Negative [Negative] (03/10/15 4:46 PM) UA Nitrite Negative [Negative] (03/10/15 4:46 PM) UA Protein Negative [Negative] (03/10/15 4:46 PM) UA Glucose Trace [Negative] *ABN* (03/10/15 4:46 PM) UA Ketones Pos 2+ [Negative] *ABN* (03/10/15 4:46 PM) UA Urobilinogen 8.0 mg/dL [<1.0 mg/dL] *ABN* (03/10/15 4:46 PM) UA Bili [Negative] Negative (03/10/15 4:46 PM) UA Blood [Negative] Negative (03/10/15 4:46 PM) UA Spec Grav 1.020 [1.003-1.030] (03/10/15 4:46 PM) Type Clean Catch (03/10/15 4:46 PM) Immunizations No data available for this section Procedures Procedure Date Related Diagnosis Body Site Hysterectomy 2004 Breast augmentation 2004 Mastectomy 2004 Social History Social History Type Response Smoking Status Current some day smoker; Type: Cigarettes Assessment and Plan No data available for this section
--- OUTSIDE RECORDS SUMMARY | 2017-03-23 21:22 | XMS REPORT | CCD ---
Author Author LALO MARRUFO Unknown Address [address] [place], [place] [address] Care Team Providers Care Grip Assembler Name Role Phone LILIAN MEREDITH, EDY Wilhelm EDY QUINTANA MD Vital Signs Unknown or Not Available. Allergies Allergy Code Allergy Type Reaction Status No Known Drug Allergies 0 No known drug allergies Active Procedures Unknown or Not Available. History of Immunizations Unknown or Not Available. Problems Problem Code Start Date Resolved Date Status Constipation 68299114 Active Bacteremia [id number] 10/23/2015 Active Results Unknown or Not Available. Active Medications Medications Administered During Visit Unknown or Not Available. Encounters Encounter Diagnosis Diagnosis Code Start Date Hypokalemia E876 11/12/2015 Social History Smoking Status Code Start Date End Date Never smoker [id number] Patient Decision Aids Unknown or Not Available. Discharge Instructions You were admitted to [facility] on 11/12/2015 13:05 with a principal diagnosis of Hypokalemia You were discharged from [facility] on 11/12/2015 14:54 Should you have any questions prior to discharge, please contact a member of your healthcare team. If you have left the hospital and have any questions, please contact your primary care physician. Chief Complaint and Reason For Visit Chief Complaint Date of Onset LOW POTASSIUM Function Status Unknown or Not Available. Plan of Care Unknown or Not Available. Referral/Transition of Care Unknown or Not Available.
--- OUTSIDE RECORDS SUMMARY | 2017-03-23 21:22 | XMS REPORT ---
Author Author Chapito Quinn V [facility] Address [address] [place], [place] [id number] Care Team Providers Care Fisher Scallop Name Role Phone Chapito Quinn V PCP Unavailable Allergies and Adverse Reactions Name Reaction Notes NO KNOWN DRUG ALLERGIES Plan of Treatment Not available. Medications Active Name Start Date Estimated Completion Date SIG Comments Tykerb Oral Tablet 250 mg take 1 tablet by oral route daily Dr Priest OxyContin oral tablet,oral only,ext.rel.12 hr 80 mg take 1 tablet (80 mg ) by oral route every 12 hours and 30 mg Oxycontin BID Soma oral tablet 350 mg take 1 tablet (350 mg) by oral route 3 times per day and at bedtime Xanax oral tablet 1 mg take 1 tablet (1 mg) by oral route 3 times per day oxycodone oral tablet 30 mg take 1 tablet by oral route every 6 hours as needed Protonix oral tablet,delayed release (DR/EC) 40 mg 11/19/2014 12/19/2014 take 1 tablet (40 mg) by oral route 2 for 30 days Reglan oral tablet 10 mg 11/19/2014 02/17/2015 take 1 tablet (10 mg) by oral route 4 times per day 30 minutes before meals and at bedtime for 30 days Name Start Date Expiration Date SIG Comments Zolpidem Oral Tablet 10 mg 09/17/2009 12/16/2009 take 1 tablet (10 mg) by oral route daily for 30 days OxyContin Oral Tablet Sustained Release 12 hr 20 mg 10/08/2009 11/07/2009 take 1 tablet by oral route 2 times a day for 30 days Lortab Oral Tablet 7.5-500 mg 10/21/2009 11/04/2009 take 1 tablet by oral route every 6 hours as needed for pain for 14 days Discontinued Name Start Date Discontinued Date SIG Comments Tamoxifen Oral Tablet 20 mg 11/19/2014 take 1 tablet (20 mg) by oral route once daily Dr Priest Paxil Oral Tablet 20 mg 09/11/2009 09/11/2009 take 1 tablet (20 mg) by oral route once daily for 30 days does not mix with tamoxifen that she is also on Bupropion HCl Oral Tablet 100 mg 09/11/2009 09/11/2009 take 1 tablet by oral route daily for 30 days can't take with tamoxifen Ativan Oral Tablet 0.5 mg 09/11/2009 09/11/2009 take 1 tablet by oral route 2 times a day for 30 days carisoprodol oral tablet 350 mg 10/25/2014 11/19/2014 take 1 tablet (350 mg) by oral route 3 times per day and at bedtime for 30 days Xanax Oral Tablet 1 mg 10/25/2014 11/19/2014 take 1 tablet (1 mg) by oral route 3 times per day for 30 days Reglan oral tablet 10 mg 11/19/2014 take 1 tablet by oral route Problem List Description Status Onset Helicobacter Pylori (H. Pylori) Infection Active Vital Signs Date Time BP-Sys(mm[Hg] BP-Anisa(mm[Hg]) HR(bpm) RR(rpm) Temp WT HT HC BMI BSA BMI Percentile O2 Sat(%) 11/19/2014 10:59:00 AM 94 mmHg 66 mmHg 108 bpm 20 rpm 97.9 F 101.562 lbs 63 in 17.99 kg/m2 1.43 m2 10/02/2009 11:36:00 AM 90 mmHg 60 mmHg 112 lbs 09/10/2009 9:16:00 AM 98 mmHg 60 mmHg 64 bpm 16 rpm 96.9 F 111.5 lbs 07/15/2009 3:27:00 PM 110 mmHg 60 mmHg 113.562 lbs 05/13/2009 10:49:00 AM 120 mmHg 70 mmHg 113 lbs Social History Name Description Comments Tobacco Current some day smoker History of Procedures Date Ordered Description Order Status 10/08/2009 12:00 AM OSTEOPATH MANJ 1-2 REGIONS [...] Dyskinesia of esophagus Nov 19 2014 11:08AM Payers Insurance Name Company Name Plan Name Plan Number Policy Number Policy Group Number Start Date Medicare Part B Medicare Of [place] [id number] N/A [employer] [place] [employer] [place] [facility] [id number] N/A [place] [employer] [place] [employer] [id number] N/A History of Encounters Visit Date Visit Type Provider 11/19/2014 Office visit Indio Westfall MD 08/11/2014 [facility] Orquidea Dorman MD 11/25/2013 [facility] Indio Westfall MD 11/24/2013 [facility] Indio Westfall MD 11/23/2013 [facility] Indio Westfall MD 10/08/2009 Office visit Chapito Gifford Cheyenne DO 10/02/2009 Office visit Chapito V. Cheyenne DO 09/10/2009 Office visit Chapito V. Cheyenne DO 09/09/2009 Voided Tish Radha [employer] 07/15/2009 Office visit Chapito V. Cheyenne DO 05/13/2009 Office visit Chapito V. Cheyenne DO 03/07/2009 Office visit Chapito V. Cheyenne DO 02/20/2009 Office visit Chapito V. Cheyenne DO 01/24/2009 Office visit Chapito V. Cheyenne DO 12/24/2008 Office visit Chapito V. Cheyenne DO
--- OUTSIDE RECORDS SUMMARY | 2017-03-23 21:22 | XMS REPORT | Referral Summary ---
Author Author [facility] Organization [facility] Address Unknown Phone Unavailable Care Team Providers Care Helix Coil Winder Name Role Phone No PCP, Pt States PCP Encounter VC Date(s): 03/13/15 - 04/18/15 [facility] [address] [place] [address] Final: Malignant neoplasm of unspecified site of left female breast Final: Secondary malignant neoplasm of brain Final: Personal history of antineoplastic chemotherapy Final: Personal history of irradiation Discharge Disposition: 01-Home or Self Care Attending Physician: Luis E Cat MD Referring Physician: Mario Priest MD Vital Signs No data available for this section Problem List Condition Effective Dates Status Health Status Informant Acute Resolved pain(Confirmed) Knowledge Resolved deficit(Confirmed)1 Tissue perfusion Resolved alteration(Confirmed )2 Tobacco Active patient user(Confirmed) 1Problem added automatically by system based on initiation of Knowledge Deficit Plan of Care 2Problem added automatically by system based on initiation of Tissue Perfusion Cerebral Plan of Care Allergies, Adverse Reactions, Alerts No Known Allergies Medications oxyCODONE 40 mg, Oral, q3hr, as needed [...] Refill(s) Start Date: 03/10/15 Status: Ordered Results No data available for this section Immunizations No data available for this section Procedures Procedure Date Related Diagnosis Body Site Hysterectomy 2005 Breast augmentation 2004 Mastectomy 2004 Social History Social History Type Response Smoking Status Current some day smoker; Type: Cigarettes Assessment and Plan No data available for this section
--- OUTSIDE RECORDS SUMMARY | 2017-03-23 21:23 | XMS REPORT | CCD ---
Author Author LALO MARRUFO Unknown Address [address] [place], [place] [id number] Care Team Providers Care Museum Guide Name Role Phone MARIO HOSPITALISTMIRI MD Attphys [facility], LORNA MEREDITH Prisurg S., MORIS Brown NASST G., KARLEE NASST B., GARLAND NASST M., LATISHA NASST C., MICHELLE FUENTES NASST M., SOURAV Manning NASST K., RICHARD Rodríguez NASST R., LATISHA Rodríguez NASST R., GLORIA Reardon NASST O., JEREMY Curtis NASST Vital Signs Vital Sign Value Unit Date/Time Recent/Initial? Weight Measured 127.6 lbs 10/19/2015 09:00 Initial VS Height 63 in 10/19/2015 09:00 Initial VS BMI (Body Mass Index) 22.6 kg/m^2 10/19/2015 09:00 Initial VS BSA (Body Surface Area) 1.6 m^2 10/19/2015 09:00 Initial VS BP Systolic 106 mmHg 10/19/2015 09:00 Initial VS BP Diastolic 69 mmHg 10/19/2015 09:00 Initial VS Respiratory Rate 18 bpm 10/19/2015 09:00 Initial VS Heart Rate 108 bpm 10/19/2015 09:00 Initial VS O2 % BldC Oximetry 95 % 10/19/2015 09:00 Initial VS Body Temperature 99.6 degrees 10/19/2015 09:00 Initial VS BP Systolic 124 mmHg 10/22/2015 10:38 Most Recent VS BP Diastolic 82 mmHg 10/22/2015 10:38 Most Recent VS Respiratory Rate 18 bpm 10/22/2015 10:38 Most Recent VS Heart Rate 89 bpm 10/22/2015 10:38 Most Recent VS O2 % BldC Oximetry 96 % 10/22/2015 10:38 Most Recent VS Body Temperature 97.6 degrees 10/22/2015 10:38 Most Recent VS Allergies Allergy Code Allergy Type Reaction Status No Known Drug Allergies 0 No known drug allergies Active Procedures Procedure Code Procedure Type Date ABDOMEN 2 VIEW DECUB/UPRIGHT 577094330 SNOMED CT 2015 CX CHEST [address] 10/19/2015 ABDOMEN 2 VIEW DECUB/UPRIGHT 148648286 SNOMED CT 2015 BASIC METABOLIC PANEL 721955724 SNOMED CT 10/22/2015 CBC W/ AUTO DIFF (RFLX MAN DIFF IF IND) 1444170 SNOMED CT 10/22/2015 VANCOMYCIN TROUGH 830496540 SNOMED CT 10/22/2015 COMPREHENSIVE METABOLIC PANEL 903205556 SNOMED CT 2015 CBC W/ AUTO DIFF (RFLX MAN DIFF IF IND) 5797520 SNOMED CT 10/21/[address] 10/20/2015 RENAL FUNCTION PANEL 373039894 SNOMED CT 10/20/2015 CBC W/ AUTO DIFF (RFLX MAN DIFF IF IND) 1269574 SNOMED CT 10/20/2015 CULTURE BLOOD 93474205 SNOMED CT 10/19/2015 CULTURE BLOOD 05944408 SNOMED CT 10/19/2015 UA ROUTINE C&S IF IND 783890912 SNOMED CT 10/19/[address] 10/19/2015 COMPREHENSIVE METABOLIC PANEL 824744961 SNOMED CT 2015 CBC W/ AUTO DIFF (RFLX MAN DIFF IF IND) 5748715 SNOMED CT 10/19/2015 ^CBC W/AUTO DIFF 9219891 SNOMED CT 10/22/2015 ^CBC W/AUTO DIFF 0914065 SNOMED CT 10/21/2015 ^CBC W/AUTO DIFF 9369348 SNOMED CT 10/20/2015 ^UA AUTO DIPSTICK ONLY 816751027 SNOMED CT 10/19/2015 ^CBC W/AUTO DIFF 4933646 SNOMED CT 10/19/2015 History of Immunizations Unknown or Not Available. Problems Problem Code Start Date Resolved Date Status Constipation 95884931 Active Bacteremia 8922909 10/23/2015 Active Acute chest pain 356043763 10/03/2015 10/20/2015 Resolved Anemia 130715142 10/03/2015 10/20/2015 Resolved Hypokalemia 67386815 10/03/2015 10/20/2015 Resolved Results BASIC METABOLIC PANEL - Collect Date/Time: 10/22/2015 06:55 Test Name Code Test Result Test Units Test Ref Range GLUCOSE 2345-7 94 MG/DL L=70 H=100 SODIUM 2951-2 140 MEQ/L L=135 H=148 POTASSIUM 2823-3 3.8 MEQ/L L=3.5 H=5.3 CHLORIDE 2075-0 108 MEQ/L L=96 H=110 CO2 2028-9 28 MEQ/L L=22 H=29 BUN 3094-0 5 MG/DL L=8 H=22 CREATININE 2160-0 0.7 MG/DL L=0.6 H=1.6 CALCIUM 88321-3 8.6 MG/DL L=8.2 H=10.6 AGE 40 yrs GFR NonAA 92 GFR AA 112 eGFR >60 N/A eGFR AA* >60 N/A COMPREHENSIVE METABOLIC PANEL - Collect Date/Time: 10/21/2015 06:15 Test Name Code Test Result Test Units Test Ref Range GLUCOSE 2345-7 87 MG/DL L=70 H=100 SODIUM 2951-2 142 MEQ/L L=135 H=148 POTASSIUM 2823-3 3.6 MEQ/L L=3.5 H=5.3 CHLORIDE 2075-0 110 MEQ/L L=96 H=110 CO2 2028-9 26 MEQ/L L=22 H=29 BUN 3094-0 5 MG/DL L=8 H=22 CREATININE 2160-0 0.6 MG/DL L=0.6 H=1.6 SGOT/AST 1920-8 25 IU/L L=10 H=40 SGPT/ALT 1742-6 16 IU/L L=8 H=54 ALK PHOS 6768-6 49 IU/L L=35 H=115 TOTAL PROTEIN 2885-2 5.3 G/DL L=5.5 H=8.5 ALBUMIN 1751-7 3.0 G/DL L=3.1 H=5.4 TOTAL BILI 1975-2 0.5 MG/DL L=0.0 H=1.5 CALCIUM 68088-4 8.2 MG/DL L=8.2 H=10.6 AGE 40 yrs GFR NonAA 110 GFR AA 133 eGFR >60 N/A eGFR AA* >60 N/A COMPREHENSIVE METABOLIC PANEL - Collect Date/Time: 10/19/2015 02:45 Test Name Code Test Result Test Units Test Ref Range GLUCOSE 2345-7 139 MG/DL L=70 H=100 SODIUM 2951-2 139 MEQ/L L=135 H=148 POTASSIUM 2823-3 4.1 MEQ/L L=3.5 H=5.3 CHLORIDE 2075-0 107 MEQ/L L=96 H=110 CO2 2028-9 21 MEQ/L L=22 H=29 BUN 3094-0 12 MG/DL L=8 H=22 CREATININE 2160-0 0.7 MG/DL L=0.6 H=1.6 SGOT/AST 1920-8 37 IU/L L=10 H=40 SGPT/ALT 1742-6 18 IU/L L=8 H=54 ALK PHOS 6768-6 65 IU/L L=35 H=115 TOTAL PROTEIN 2885-2 7.2 G/DL L=5.5 H=8.5 ALBUMIN 1751-7 3.9 G/DL L=3.1 H=5.4 TOTAL BILI 1975-2 0.8 MG/DL L=0.0 H=1.5 CALCIUM 35157-9 9.4 MG/DL L=8.2 H=10.6 AGE 40 yrs GFR NonAA 92 GFR AA 112 eGFR >60 N/A eGFR AA* >60 N/A RENAL FUNCTION PANEL - Collect Date/Time: 10/20/2015 06:15 Test Name Code Test Result Test Units Test Ref Range GLUCOSE 2345-7 109 MG/DL L=70 H=100 SODIUM 2951-2 140 MEQ/L L=135 H=148 POTASSIUM 2823-3 3.9 MEQ/L L=3.5 H=5.3 CHLORIDE 2075-0 110 MEQ/L L=96 H=110 CO2 2028-9 22 MEQ/L L=22 H=29 BUN 3094-0 11 MG/DL L=8 H=22 CREATININE 2160-0 0.7 MG/DL L=0.6 H=1.6 ALBUMIN 1751-7 3.1 G/DL L=3.1 H=5.4 CALCIUM 92368-0 8.3 MG/DL L=8.2 H=10.6 PHOSPHORUS 2777-1 3.2 MG/DL L=2.5 H=4.5 AGE 40 yrs GFR NonAA 92 GFR AA 112 eGFR >60 N/A eGFR AA* >60 N/A VANCOMYCIN TROUGH - Collect Date/Time: 10/22/2015 08:30 Test Name Code Test Result Test Units Test Ref Range VANC TROUGH 4092-3 13.2 UG/ML L=10.0 H=20.0 CBC W/ AUTO DIFF (RFLX MAN DIFF IF IND) - Collect Date/Time: 10/22/2015 06:55 Test Name Code Test Result Test Units Test Ref Range WBC 29285-2 5.7 TH/CMM L=4.5 H=10.8 RBC 789-8 3.29 ML/CMM L=4.20 H=5.40 HGB 718-7 8.2 G/DL L=12.0 H=16.0 HCT 4544-3 27.0 % L=37.0 H=47.0 MCV 82 FL L=81 H=99 MCH 24.9 PG L=27.0 H=33.0 MCHC 30.4 G/DL L=31.0 H=36.0 RDW SD 52 FL L=36 H=50 RDW CV 17.6 % L=0.0 H=14.8 MPV 10.1 FL L=9.3 H=12.5 PLT 777-3 152 TH/CMM L=130 H=440 NRBC# 0.00 TH/CMM L=0.00 H=0.00 NRBC% 0.0 /100WBC L=0.0 H=2.0 %NEUT 54.4 % %LYMP 34.6 % %MONO 8.4 % %EOS 2.1 % %BASO 0.2 % #NEUT 3.11 TH/CMM L=2.10 H=8.20 #LYMP 1.98 TH/CMM L=0.90 H=5.20 #MONO 0.48 TH/CMM L=0.16 H=1.00 #EOS 0.12 TH/CMM L=0.00 H=0.80 #BASO 0.01 TH/CMM L=0.00 H=0.20 MANUAL DIFF NOT IND N/A CBC W/ AUTO DIFF (RFLX MAN DIFF IF IND) - Collect Date/Time: 10/21/2015 06:15 Test Name Code Test Result Test Units Test Ref Range WBC 83619-0 5.0 TH/CMM L=4.5 H=10.8 RBC 789-8 3.21 ML/CMM L=4.20 H=5.40 HGB 718-7 8.1 G/DL L=12.0 H=16.0 HCT 4544-3 26.7 % L=37.0 H=47.0 MCV 83 FL L=81 H=99 MCH 25.2 PG L=27.0 H=33.0 MCHC 30.3 G/DL L=31.0 H=36.0 RDW SD 54 FL L=36 H=50 RDW CV 17.7 % L=0.0 H=14.8 MPV 11.6 FL L=9.3 H=12.5 PLT 777-3 163 TH/CMM L=130 H=440 NRBC# 0.00 TH/CMM L=0.00 H=0.00 NRBC% 0.0 /100WBC L=0.0 H=2.0 %NEUT 51.6 % %LYMP 38.0 % %MONO 7.8 % %EOS 2.2 % %BASO 0.2 % #NEUT 2.56 TH/CMM L=2.10 H=8.20 #LYMP 1.89 TH/CMM L=0.90 H=5.20 #MONO 0.39 TH/CMM L=0.16 H=1.00 #EOS 0.11 TH/CMM L=0.00 H=0.80 #BASO 0.01 TH/CMM L=0.00 H=0.20 MANUAL DIFF NOT IND N/A CBC W/ AUTO DIFF (RFLX MAN DIFF IF IND) - Collect Date/Time: 10/20/2015 06:15 Test Name Code Test Result Test Units Test Ref Range WBC 09413-8 5.2 TH/CMM L=4.5 H=10.8 RBC 789-8 3.18 ML/CMM L=4.20 H=5.40 HGB 718-7 7.9 G/DL L=12.0 H=16.0 HCT 4544-3 26.6 % L=37.0 H=47.0 MCV 84 FL L=81 H=99 MCH 24.8 PG L=27.0 H=33.0 MCHC 29.7 G/DL L=31.0 H=36.0 RDW SD 55 FL L=36 H=50 RDW CV 18.2 % L=0.0 H=14.8 MPV 9.9 FL L=9.3 H=12.5 PLT 777-3 151 TH/CMM L=130 H=440 NRBC# 0.00 TH/CMM L=0.00 H=0.00 NRBC% 0.0 /100WBC L=0.0 H=2.0 %NEUT 52.0 % %LYMP 37.9 % %MONO 7.6 % %EOS 2.1 % %BASO 0.2 % #NEUT 2.68 TH/CMM L=2.10 H=8.20 #LYMP 1.95 TH/CMM L=0.90 H=5.20 #MONO 0.39 TH/CMM L=0.16 H=1.00 #EOS 0.11 TH/CMM L=0.00 H=0.80 #BASO 0.01 TH/CMM L=0.00 H=0.20 MANUAL DIFF NOT IND N/A CBC W/ AUTO DIFF (RFLX MAN DIFF IF IND) - Collect Date/Time: 10/19/2015 02:45 Test Name Code Test Result Test Units Test Ref Range WBC 00205-9 4.7 TH/CMM L=4.5 H=10.8 RBC 789-8 3.74 ML/CMM L=4.20 H=5.40 HGB 718-7 9.2 G/DL L=12.0 H=16.0 HCT 4544-3 30.6 % L=37.0 H=47.0 MCV 82 FL L=81 H=99 MCH 24.6 PG L=27.0 H=33.0 MCHC 30.1 G/DL L=31.0 H=36.0 RDW SD 51 FL L=36 H=50 RDW CV 17.6 % L=0.0 H=14.8 MPV 10.7 FL L=9.3 H=12.5 PLT 777-3 191 TH/CMM L=130 H=440 NRBC# 0.00 TH/CMM L=0.00 H=0.00 NRBC% 0.0 /100WBC L=0.0 H=2.0 %NEUT 77.3 % %LYMP 21.0 % %MONO 1.3 % %EOS 0.0 % %BASO 0.0 % #NEUT 3.65 TH/CMM L=2.10 H=8.20 #LYMP 0.99 TH/CMM L=0.90 H=5.20 #MONO 0.06 TH/CMM L=0.16 H=1.00 #EOS 0.00 TH/CMM L=0.00 H=0.80 #BASO 0.00 TH/CMM L=0.00 H=0.20 MANUAL DIFF NOT IND N/A UA ROUTINE C&S IF IND - Collect Date/Time: 10/19/2015 07:55 Test Name Code Test Result Test Units Test Ref Range COLOR YELLOW N/A NL: YELLOW APPEARANCE CLEAR N/A NL: CLEAR SPEC GRAV >=1.030 N/A NL: 1.002 - 1.022 pH 5.0 N/A NL: 5 - 9 PROTEIN NEGATIVE N/A NL: NEGATIVE mg/dl GLUCOSE NEGATIVE N/A NL: NEGATIVE mg/dl KETONE NEGATIVE N/A NL: NEGATIVE mg/dl BILIRUBIN NEGATIVE N/A NL: NEGATIVE BLOOD NEGATIVE N/A NL: NEGATIVE NITRITE NEGATIVE N/A NL: NEGATIVE LEUK SCREEN NEGATIVE N/A NL: NEGATIVE MICRO INDICATED? NOT INDICATED N/A AMYLASE - Collect Date/Time: 10/19/2015 02:45 Test Name Code Test Result Test Units Test Ref Range AMYLASE 1798-8 84 IU/L L=25 H=125 MAGNESIUM - Collect Date/Time: 10/20/2015 06:15 Test Name Code Test Result Test Units Test Ref Range MAGNESIUM 31996-3 2.0 MG/DL L=1.7 H=2.8 Active Medications Medication Code Dose Units Frequency Route Modification Start Date/Time Nafcillin Sodium 10GM Injection Powder for Solution 728718 1 TABLET DAILY BY MOUTH 10/29/2015 12:08 Prescription Detail 1 TABLET BY MOUTH DAILY Polyethylene Glycol 3350 17GM/1Dose Oral Powder for Solution 690381 17 GRAM BEDTIME BY MOUTH 10/22/2015 14: 14 Prescription Detail 17 GRAM BY MOUTH BEDTIME Senna-Time S 50MG-8.6MG Oral Tablet 738214 2 EACH TWO TIMES A DAY BY MOUTH 10/22/2015 14:14 Prescription Detail 2 EACH BY MOUTH TWO TIMES A DAY Lidoderm 5% Topical application Patch, Extended Release 1854764 1 PATCH NEEDED TOPICAL APPLICATION 10/21 14:13 Prescription Detail 1 PATCH TOPICAL APPLICATION NEEDED 12 hours on 12 hours off Milk Of Magnesia 400MG/5ML Oral Suspension 313333 30 MILLILITER NEEDED BY MOUTH 10/22/2015 14:13 Prescription Detail 30 MILLILITER BY MOUTH NEEDED Bisac-Evac 10MG Rectal Suppository 350316 10 MILLIGRAMS NEEDED RECTALLY 10/22/2015 14:11 Prescription Detail 10 MILLIGRAMS RECTALLY NEEDED take if go without stool 48 hours OxyCONTIN 80MG Oral Tablet, Extended Release [id number] 110 MILLIGRAMS EVERY 12 HOURS ORAL 10/04/2015 10:23 Prescription Detail 110 MILLIGRAMS ORAL EVERY 12 HOURS ALPRAZolam 2MG Oral Tablet 867500 2 MILLIGRAMS THREE TIMES A DAY ORAL 08/11/2015 14:08 Prescription Detail 2 MILLIGRAMS ORAL THREE TIMES A DAY Soma 350MG Oral Tablet 673352 350 MILLIGRAMS THREE TIMES A DAY ORAL 11/27/2013 09:50 Prescription Detail 350 MILLIGRAMS ORAL THREE TIMES A DAY Medications Administered During Visit Medication Dose Units Frequency Route Date/ Time of Last Dose NS 1000 ML IV [PREDEFINED] (7983) CONT IV IV 10/22/2015 07:02 HYDROmorphone [DILAUDID] INJ: 2MG/ML 1 MG PRN Q 1 HR IVP 10/22/2015 03:08 CARISOPRODOL [SOMA] TAB : 350 MG 350 MG TID PO 10/22/2015 08:28 ALPRAZOLAM [XANAX] TABLET : 1 MG 2 MG PRN Q 8 HRS PO 10/22/2015 03:01 OXYCODONE E-R (OXYCONTIN)TAB: 40 MG 120 MG Q12H PO 10/22/2015 08:28 MILK OF MAGNESIA:12OZ 30 ML PRN PO 2015 13:23 JAMILA-COLACE (NEW FORMULATION) TABLET 2 TAB BID PO 10/22/2015 08:28 POLYETHYLENE [MIRALAX] POWDER: 17 GM 17 GM BEDTIME PO 10/21/2015 21:32 ENOXAPARIN 40 MG/0.4ML YELLOW [LOVENOX] 40 MG DAILY SUB Q 10/19/2015 17:02 MAGNESIUM CITRATE SOLUTION 10 OZ 10 OZ X1 PO 10/20/2015 11:44 VANCOMYCIN [PREDEFINED] ADV IV : 1000MG DAILY IVPB 10/20/2015 16:33 VANCOMYCIN [PREDEFINED] ADV IV : 750MG Q8H IVPB 10/22/2015 08:28 LIDOCAINE [LIDODERM] PATCH 5% 1 PATCH PRN TOPICAL 10/22/2015 08:28 MAGNESIUM CITRATE SOLUTION 10 OZ 10 OZ X1 PO 10/21/2015 16:50 BISACODYL [DULCOLAX] SUPP : 10 MG 10 MG PRN RECTALLY 10/22/2015 08:28 Encounters Encounter Diagnosis Diagnosis Code Start Date Other constipation K5909 10/20/2015 Social History Smoking Status Code Start Date End Date Never smoker [id number] Patient Decision Aids Unknown or Not Available. Discharge Instructions You were admitted to [facility] on 10/20/2015 21:05 with a principal diagnosis of Other constipation You had the following tests done: AMYLASE BASIC METABOLIC PANEL CBC W/ AUTO DIFF (RFLX MAN DIFF IF IND) CBC W / AUTO DIFF (RFLX MAN DIFF IF IND) CBC W/ AUTO DIFF (RFLX MAN DIFF IF IND) CBC W/ AUTO DIFF (RFLX MAN DIFF IF IND) COMPREHENSIVE METABOLIC PANEL COMPREHENSIVE METABOLIC PANEL MAGNESIUM RENAL FUNCTION PANEL UA ROUTINE C&S IF IND VANCOMYCIN TROUGH You were discharged from [facility] on 10/22/2015 15:00 Should you have any questions prior to discharge, please contact a member of your healthcare team. If you have left the hospital and have any questions, please contact your primary care physician. HOME DIET: PREVIOUS CONDITION AT DISMISSAL Stable. HOME MEDICATION INSTRUCTIONS: Take only the medications listed above.. HOME MEDS RETURNED TO PATIENT: N/A. ACTIVITY INSTRUCTIONS(list limitations): TOLERATED WEIGHT MONITORING DISCUSSED (CHF PT) Weigh daily, at same time. SCRIPTS WRITTEN BY DOCTOR GIVEN TO PATIENT? Yes, for what?. MIRALAX AT BEDTIME, SENNA S TWO TIMES A DAY, MILK OF MAGNESIA 30 CC NEEDED, LIDODERM TOPICAL PATCH NEEDED 12 HOURS ON, 12 HOURS OFF, BISAC- EVAC 10 MG RECTAL SUPPOSITORY NEEDED IF GO WITHOUT STOOL FOR 48 HOURS IMMUNIZATIONS GIVEN DURING HOSPITALIZATION: NONE FOLLOW UP CARE - SEE YOUR PHYSICIAN: DR. QUINN October AT 9: 45 AM PRIMARY CARE PHYSICIAN OR PRACTITIONER: Chapito Quinn DO, [phone]. CONTACT PHYSICIAN IF YOU EXPERIENCE ANY: ANY FURTHER FEVERS, CHILLS, ALTERED MENTAL STATUS, SHORTNESS OF AIR, CHEST PAIN, NO STOOL FOR TWO DAYS. PERSONAL ITEMS RETURNED: Yes. Bring these instructions to next visit? Yes. INSTRUCTIONS GIVEN AND DISCHARGE TO: Patient. VOICES UNDERSTANDING OF INSTRUCTIONS: Yes. INSTRUCTIONS GIVEN BY (TYPE IN NAME AND DATE) IRIS GOOD SMOKING CESSATION: Smoking and second hand smoke is harmful, to your health.. Smoking has been linked to cancer, cardiac disease, COPD, and asthma.. For more information you can call:, [phone]-FQL-STOP, or [phone]-[facility].. A pamphlet on smoking was given to you, at admission.. CHIEF COMPLAINT: PT COMPLAINS OF NO BM-CONSTIPATED. Chief Complaint and Reason For Visit Chief Complaint Date of Onset CONSTIPATION Function Status Unknown or Not Available. Plan of Care Unknown or Not Available. Referral/Transition of Care Unknown or Not Available.
--- OUTSIDE RECORDS SUMMARY | 2017-03-23 21:23 | XMS REPORT | CCD ---
Author Author ADALGISA APONTE Organization Unknown Address [address] [facility] [address] [place] [address] Care Team Providers Care Swine Extension Field Specialist Name Role Phone RYLIE PHYS, MILDRED ER Attphys RYLIE PHYS, MILDRED ER Prisurg Allergies Allergy Code Allergy Type Reaction Status No Known Drug Allergies 0 Drug allergy Active Active Medications Medication Code Dose Units Frequency Route Modification Start Date/Time Nafcillin Sodium 10GM Injection Powder for Solution 368408 1 TABLET DAILY BY MOUTH 10/29/2015 12:08 Prescription Detail 1 TABLET BY MOUTH DAILY Polyethylene Glycol 3350 17GM/1Dose Oral Powder for Solution 620588 17 GRAM BEDTIME BY MOUTH 10/22/2015 14: 14 Prescription Detail 17 GRAM BY MOUTH BEDTIME Senna-Time S 50MG-8.6MG Oral Tablet 801833 2 EACH TWO TIMES A DAY BY MOUTH 10/22/2015 14:14 Prescription Detail 2 EACH BY MOUTH TWO TIMES A DAY Lidoderm 5% Topical application Patch, Extended Release 0297980 1 PATCH NEEDED TOPICAL APPLICATION 10/21 14:13 Prescription Detail 1 PATCH TOPICAL APPLICATION NEEDED 12 hours on 12 hours off Milk Of Magnesia 400MG/5ML Oral Suspension 487135 30 MILLILITER NEEDED BY MOUTH 10/22/2015 14:13 Prescription Detail 30 MILLILITER BY MOUTH NEEDED Bisac-Evac 10MG Rectal Suppository 298862 10 MILLIGRAMS NEEDED RECTALLY 10/22/2015 14:11 Prescription Detail 10 MILLIGRAMS RECTALLY NEEDED take if go without stool 48 hours OxyCONTIN 80MG Oral Tablet, Extended Release 9366766 110 MILLIGRAMS EVERY 12 HOURS ORAL 10/04/2015 10:23 Prescription Detail 110 MILLIGRAMS ORAL EVERY 12 HOURS ALPRAZolam 2MG Oral Tablet 995497 2 MILLIGRAMS THREE TIMES A DAY ORAL 08/11/2015 14:08 Prescription Detail 2 MILLIGRAMS ORAL THREE TIMES A DAY Soma 350MG Oral Tablet 585612 350 MILLIGRAMS THREE TIMES A DAY ORAL 11/27/2013 09:50 Prescription Detail 350 MILLIGRAMS ORAL THREE TIMES A DAY Problems Problem Code Start Date Resolved Date Status Constipation 28698364 Active Bacteremia 4717348 10/23/2015 Active Procedures Procedure Code Procedure Type Date BEDSIDE GLUCOSE 50737051 SNOMED CT 02/13/2016 UA ROUTINE C&S IF IND 097194961 SNOMED CT 02/13/2016 COMPREHENSIVE METABOLIC PANEL 333554758 [facility] CT 2015 CBC W/ AUTO DIFF (RFLX MAN DIFF IF IND) 4042449 [facility] CT 02/13/2016 ^UA WITH MICRO 406673823 SNOMED CT 02/13/2016 ^CBC W/ MANUAL DIFF 24872841 [facility] CT 02/13/2016 Results BEDSIDE GLUCOSE - Collect Date/Time: 02/13/2016 11:54 Test Name Code Test Result Test Units Test Ref Range GLUCOSE POCT 120 MG/DL L=70 H=100 COMPREHENSIVE METABOLIC PANEL - Collect Date/Time: 02/13/2016 12:15 Test Name Code Test Result Test Units Test Ref Range GLUCOSE 2345-7 115 MG/DL L=70 H=100 SODIUM 2951-2 143 MEQ/L L=135 H=148 POTASSIUM 2823-3 2.9 MEQ/L L=3.5 H=5.3 CHLORIDE 2075-0 110 MEQ/L L=96 H=110 CO2 2028-9 22 MEQ/L L=22 H=29 BUN 3094-0 12 MG/DL L=8 H=22 CREATININE 2160-0 0.7 MG/DL L=0.6 H=1.6 SGOT/AST 1920-8 39 IU/L L=10 H=40 SGPT/ALT 1742-6 11 IU/L L=8 H=54 ALK PHOS 6768-6 73 IU/L L=35 H=115 TOTAL PROTEIN 2885-2 6.9 G/DL L=5.5 H=8.5 ALBUMIN 1751-7 3.8 G/DL L=3.1 H=5.4 TOTAL BILI 1975-2 0.8 MG/DL L=0.0 H=1.5 CALCIUM 23690-3 9.4 MG/DL L=8.2 H=10.6 AGE 40 yrs GFR NonAA 92 GFR AA 112 eGFR >60 N/A eGFR AA* >60 N/A CBC W/ AUTO DIFF (RFLX MAN DIFF IF IND) - Collect Date/Time: 02/13/2016 12:15 Test Name Code Test Result Test Units Test Ref Range WBC 40734-5 5.4 TH/CMM L=4.5 H=10.8 RBC 789-8 3.35 ML/CMM L=4.20 H=5.40 HGB 718-7 8.0 G/DL L=12.0 H=16.0 HCT 4544-3 26.4 % L=37.0 H=47.0 MCV 79 FL L=81 H=99 MCH 23.9 PG L=27.0 H=33.0 MCHC 30.3 G/DL L=31.0 H=36.0 RDW SD 44 FL L=36 H=50 RDW CV 15.6 % L=0.0 H=14.8 PLT 777-3 111 TH/CMM L=130 H=440 NRBC# 0.00 TH/CMM L=0.00 H=0.00 NRBC% 0.0 /100WBC L=0.0 H=2.0 %NEUT 69.1 % %LYMP 22.7 % %MONO 7.8 % %EOS 0.0 % %BASO 0.2 % #NEUT 3.71 TH/CMM L=2.10 H=8.20 #LYMP 1.22 TH/CMM L=0.90 H=5.20 #MONO 0.42 TH/CMM L=0.16 H=1.00 #EOS 0.00 TH/CMM L=0.00 H=0.80 #BASO 0.01 TH/CMM L=0.00 H=0.20 SEGS 67 % BANDS 8 % LYMPHS 21 % MONOS 4 % MANUAL DIFF SEE BELOW N/A HYPO 2++ N/A PT/PTT - Collect Date/Time: 02/13/2016 12:15 Test Name Code Test Result Test Units Test Ref Range PROTIME 5964-2 11.7 SEC L=9.9 H=11.9 INR 38140-6 1.1 PTT 3173-2 28.4 SEC L=22.2 H=37.2 UA ROUTINE C&S IF IND - Collect Date/Time: 02/13/2016 12:30 Test Name Code Test Result Test Units Test Ref Range COLOR YELLOW N/A NL: YELLOW APPEARANCE CLEAR N/A NL: CLEAR SPEC GRAV <=1.005 N/A NL: 1.002 - 1.022 pH 6.5 N/A NL: 5 - 9 PROTEIN NEGATIVE N/A NL: NEGATIVE mg/dl GLUCOSE NEGATIVE N/A NL: NEGATIVE mg/dl KETONE NEGATIVE N/A NL: NEGATIVE mg/dl BILIRUBIN NEGATIVE N/A NL: NEGATIVE BLOOD TRACE-INTACT N/A NL: NEGATIVE NITRITE NEGATIVE N/A NL: NEGATIVE LEUK SCREEN NEGATIVE N/A NL: NEGATIVE MICRO INDICATED? SEE BELOW N/A WBC/HPF RARE N/A NL: NEGATIVE RBC/HPF 0-5 N/A NL: NEGATIVE CASTS/LPF NEGATIVE N/A NL: NEGATIVE CRYSTALS NEGATIVE N/A NL: NEGATIVE MUCOUS THRDS NEGATIVE N/A NL: NEGATIVE BACTERIA NEGATIVE N/A NL: NEGATIVE EPITH CELLS NEGATIVE N/A NL: NEGATIVE TRICHOMONAS NEGATIVE N/A NL: NEGATIVE YEAST NEGATIVE N/A NL: NEGATIVE CULT SET UP? NO N/A Function Status Unknown or Not Available. History of Immunizations Unknown or Not Available. Plan of Treatment Unknown or Not Available. Social History Smoking Status Code Start Date End Date Never smoker [id number] Vital Signs Unknown or Not Available. Function Status Unknown or Not Available. Goals Unknown or Not Available. ASSESSMENTS Unknown or Not Available. Health Concerns Section Unknown or Not Available.
--- OUTSIDE RECORDS SUMMARY | 2017-03-23 21:23 | XMS REPORT | CCD ---
Author Author KENISHA KANG Organization Unknown Address [address] [facility] [address] [place] [address] Care Team Providers Care Anchorman Name Role Phone RYLIE PHYS, MILDRED ER Attphys RYLIE PHYS, MILDRED ER Prisurg Allergies Allergy Code Allergy Type Reaction Status No Known Drug Allergies 0 Drug allergy Active Active Medications Medication Code Dose Units Frequency Route Modification Start Date/Time Nafcillin Sodium 10GM Injection Powder for Solution 927634 1 TABLET DAILY BY MOUTH 10/29/2015 12:08 Prescription Detail 1 TABLET BY MOUTH DAILY Polyethylene Glycol 3350 17GM/1Dose Oral Powder for Solution 304533 17 GRAM BEDTIME BY MOUTH 10/22/2015 14: 14 Prescription Detail 17 GRAM BY MOUTH BEDTIME Senna-Time S 50MG-8.6MG Oral Tablet 944748 2 EACH TWO TIMES A DAY BY MOUTH 10/22/2015 14:14 Prescription Detail 2 EACH BY MOUTH TWO TIMES A DAY Lidoderm 5% Topical application Patch, Extended Release 9186473 1 PATCH NEEDED TOPICAL APPLICATION 10/21 14:13 Prescription Detail 1 PATCH TOPICAL APPLICATION NEEDED 12 hours on 12 hours off Milk Of Magnesia 400MG/5ML Oral Suspension 255941 30 MILLILITER NEEDED BY MOUTH 10/22/2015 14:13 Prescription Detail 30 MILLILITER BY MOUTH NEEDED Bisac-Evac 10MG Rectal Suppository 517158 10 MILLIGRAMS NEEDED RECTALLY 10/22/2015 14:11 Prescription Detail 10 MILLIGRAMS RECTALLY NEEDED take if go without stool 48 hours OxyCONTIN 80MG Oral Tablet, Extended Release 9595257 110 MILLIGRAMS EVERY 12 HOURS ORAL 10/04/2015 10:23 Prescription Detail 110 MILLIGRAMS ORAL EVERY 12 HOURS ALPRAZolam 2MG Oral Tablet 535983 2 MILLIGRAMS THREE TIMES A DAY ORAL 08/11/2015 14:08 Prescription Detail 2 MILLIGRAMS ORAL THREE TIMES A DAY Soma 350MG Oral Tablet 823532 350 MILLIGRAMS THREE TIMES A DAY ORAL 11/27/2013 09:50 Prescription Detail 350 MILLIGRAMS ORAL THREE TIMES A DAY Problems Problem Code Start Date Resolved Date Status Constipation 73782751 Active Bacteremia 6194887 10/23/2015 Active Procedures Procedure Code Procedure Type Date BEDSIDE GLUCOSE 54598858 [facility] CT 02/13/2016 UA ROUTINE C&S IF IND 981092002 SNOMED CT 02/13/2016 COMPREHENSIVE METABOLIC PANEL 249508718 [facility] CT 2015 CBC W/ AUTO DIFF (RFLX MAN DIFF IF IND) 0548959 [facility] CT 02/13/2016 ^UA WITH MICRO 138778022 SNOMED CT 02/13/2016 ^CBC W/ MANUAL DIFF 33511937 [facility] CT 02/13/2016 Results BEDSIDE GLUCOSE - Collect [...] BILI 1975-2 0.8 MG/DL L=0.0 H=1.5 CALCIUM 15079-7 9.4 MG/DL L=8.2 H=10.6 AGE 40 yrs GFR NonAA 92 GFR AA 112 eGFR >60 N/A eGFR AA* >60 N/A CBC W/ AUTO DIFF (RFLX MAN DIFF IF IND) - Collect Date/Time: 02/13/2016 12:15 Test Name Code Test Result Test Units Test Ref Range WBC 02432-5 5.4 TH/CMM L=4.5 H=10.8 RBC 789-8 3.35 [...] PROTIME 5964-2 11.7 SEC L=9.9 H=11.9 INR 53247-0 1.1 PTT 3173-2 28.4 SEC L=22.2 H=37.2 [...] Code Start Date End Date Never smoker [id number] Vital Signs Unknown or Not Available. Function Status Unknown or Not Available. Goals Unknown or Not Available. ASSESSMENTS Unknown or Not Available. Health Concerns Section Unknown or Not Available.
--- OUTSIDE RECORDS SUMMARY | 2017-03-23 21:23 | XMS REPORT | CCD ---
Author Author LALO MARRUFO Unknown Address [address] [facility] [address] [place], [place] [id number] Care Team Providers Care Child Care Name Role Phone ANA LILIA SINGER MD Attphys S., MORIS Brown NASST M., SOURAV Manning NASST L., ELIANE Ibarra NASST S., DEION NASST K., MIRI NASST S., GREGORY Rodríguez NASST V., MARSHALL A NASST G., SUNSHINE NASST R., BALBIR NASST F., MARIAH NASST R., CHEO L NASST J., KENISHA NASST S., TINA NASST D., KRIS S NASST B., KIERA NASST T., TOBY PAZ NASST G., VALENTINA NASST B., GARLAND NASST A., WALTER NASST W., ANNALISA NASST M., LATISHA NASST B., AL NASST S., ALEIDA NASST C., RICHARD L NASST Vital Signs Vital Sign Value Unit Date/Time Recent/Initial? Weight Measured 130.8 lbs 10/23/2015 12:10 Initial VS Height 63 in 10/23/2015 12:10 Initial VS BMI (Body Mass Index) 23.17 kg/m^2 10/23/2015 12:10 Initial VS BSA (Body Surface Area) 1.62 m^2 10/23/2015 12:10 Initial VS BP Systolic 111 mmHg 10/23/2015 12:10 Initial VS BP Diastolic 68 mmHg 10/23/2015 12:10 Initial VS Respiratory Rate 18 bpm 10/23/2015 12:10 Initial VS Heart Rate 108 bpm 10/23/2015 12:10 Initial VS O2 % BldC Oximetry 98 % 10/23/2015 12:10 Initial VS Body Temperature 98.6 degrees 10/23/2015 12:10 Initial VS BP Systolic 142 mmHg 10/29/2015 14:57 Most Recent VS BP Diastolic 89 mmHg 10/29/2015 14:57 Most Recent VS Respiratory Rate 18 bpm 10/29/2015 14:57 Most Recent VS Heart Rate 72 bpm 10/29/2015 14:57 Most Recent VS O2 % BldC Oximetry 97 % 10/29/2015 14:57 Most Recent VS Body Temperature 98.6 degrees 10/29/2015 14:57 Most Recent VS Allergies Allergy Code Allergy Type Reaction Status No Known Drug Allergies 0 No known drug allergies Active Procedures Procedure Code Procedure Type Date Removal of Vascular Access Device from Trunk Subcutaneous Tissue and Fasci [id number] ICD-10 PCS 10/29/2015 Insertion of Infusion Device into Right Subclavian Vein, Percutaneous Appr [id number] ICD-10 PCS 10/29/2015 CX CHEST [address] 10/29/2015 US VENOUS UPP OR LOW EXT BILATERAL 192919377 SNOMED CT CX CHEST [address] 10/23/2015 US ECHO 2D COMP WITH DOPP AND COLOR 54776254 SNOMED CT CULTURE MISC 274095540 SNOMED CT 10/29/2015 CULTURE MISC 080002875 SNOMED CT 10/29/[address] 10/29/2015 RENAL FUNCTION PANEL 494542231 SNOMED CT 10/29/2015 CBC W/ AUTO DIFF (RFLX MAN DIFF IF IND) 9067788 SNOMED CT 10/29/[address] 10/28/2015 RENAL FUNCTION PANEL 838350655 SNOMED CT 10/28/2015 CBC W/ AUTO DIFF (RFLX MAN DIFF IF IND) 6588340 SNOMED CT 10/28/2015 CULTURE BLOOD 24551405 SNOMED CT 10/27/[address] 10/27/2015 RENAL FUNCTION PANEL 897200738 SNOMED CT 10/27/2015 CBC W/ AUTO DIFF (RFLX MAN DIFF IF IND) 2040844 SNOMED CT 10/27/2015 RENAL FUNCTION PANEL 984911852 SNOMED CT 10/26/[address] 10/26/2015 CBC W/ AUTO DIFF (RFLX MAN DIFF IF IND) 3498276 SNOMED CT 10/26/2015 CULTURE BLOOD 04268571 SNOMED CT 10/24/2015 CULTURE BLOOD 93827813 SNOMED CT 10/24/2015 CBC W/ AUTO DIFF (RFLX MAN DIFF IF IND) 1649095 SNOMED CT 10/25/2015 BASIC METABOLIC PANEL 640427183 SNOMED CT 10/25/2015 BASIC METABOLIC PANEL 949411116 SNOMED CT 10/24/2015 CBC W/ AUTO DIFF (RFLX MAN DIFF IF IND) 6391452 SNOMED CT 10/24/2015 COMPREHENSIVE METABOLIC PANEL 037407097 SNOMED CT 2015 CBC W/ AUTO DIFF (RFLX MAN DIFF IF IND) 3961127 SNOMED CT 10/23/2015 CULTURE BLOOD 54503974 SNOMED CT 10/23/2015 CULTURE BLOOD 67135467 SNOMED CT 10/23/2015 ^CBC W/AUTO DIFF 2334790 SNOMED CT 10/29/2015 ^CBC W/AUTO DIFF 8302507 SNOMED CT 10/28/2015 ^SENSITIVITY 940894746 SNOMED CT 10/23/2015 ^CBC W/AUTO DIFF 6769840 SNOMED CT 10/27/2015 ^CBC W/AUTO DIFF 5233870 SNOMED CT 10/26/2015 ^CBC W/AUTO DIFF 2917870 SNOMED CT 10/25/2015 ^CBC W/AUTO DIFF 5306754 SNOMED CT 10/24/2015 ^CBC W/AUTO DIFF 5764112 SNOMED CT 10/23/2015 History of Immunizations Unknown or Not Available. Problems Problem Code Start Date Resolved Date Status Constipation [id number] Active Bacteremia 8827251 10/23/2015 Active Results BASIC METABOLIC PANEL - Collect Date/Time: 10/25/2015 07:00 Test Name Code Test Result Test Units Test Ref Range GLUCOSE 2345-7 95 MG/DL L=70 H=100 SODIUM 2951-2 140 MEQ/L L=135 H=148 POTASSIUM 2823-3 3.2 MEQ/L L=3.5 H=5.3 CHLORIDE 2075-0 106 MEQ/L L=96 H=110 CO2 2028-9 27 MEQ/L L=22 H=29 BUN 3094-0 4 MG/DL L=8 H=22 CREATININE 2160-0 0.7 MG/DL L=0.6 H=1.6 CALCIUM 36362-3 8.2 MG/DL L=8.2 H=10.6 AGE 40 yrs GFR NonAA 92 GFR AA 112 eGFR >60 N/A eGFR AA* >60 N/A BASIC METABOLIC PANEL - Collect Date/Time: 10/24/2015 06:15 Test Name Code Test Result Test Units Test Ref Range GLUCOSE 2345-7 100 MG/DL L=70 H=100 SODIUM 2951-2 143 MEQ/L L=135 H=148 POTASSIUM 2823-3 3.5 MEQ/L L=3.5 H=5.3 CHLORIDE 2075-0 108 MEQ/L L=96 H=110 CO2 2028-9 27 MEQ/L L=22 H=29 BUN 3094-0 12 MG/DL L=8 H=22 CREATININE 2160-0 0.7 MG/DL L=0.6 H=1.6 CALCIUM 04531-3 8.8 MG/DL L=8.2 H=10.6 AGE 40 yrs GFR NonAA 92 GFR AA 112 eGFR >60 N/A eGFR AA* >60 N/A COMPREHENSIVE METABOLIC PANEL - Collect Date/Time: 10/23/2015 13:00 Test Name Code Test Result Test Units Test Ref Range GLUCOSE 2345-7 96 MG/DL L=70 H=100 SODIUM 2951-2 139 MEQ/L L=135 H=148 POTASSIUM 2823-3 3.4 MEQ/L L=3.5 H=5.3 CHLORIDE 2075-0 104 MEQ/L L=96 H=110 CO2 2028-9 28 MEQ/L L=22 H=29 BUN 3094-0 12 MG/DL L=8 H=22 CREATININE 2160-0 0.7 MG/DL L=0.6 H=1.6 SGOT/AST 1920-8 47 IU/L L=10 H=40 SGPT/ALT 1742-6 24 IU/L L=8 H=54 ALK PHOS 6768-6 70 IU/L L=35 H=115 TOTAL PROTEIN 2885-2 6.9 G/DL L=5.5 H=8.5 ALBUMIN 1751-7 3.9 G/DL L=3.1 H=5.4 TOTAL BILI 1975-2 0.8 MG/DL L=0.0 H=1.5 CALCIUM 50048-1 10.0 MG/DL L=8.2 H=10.6 AGE 40 yrs GFR NonAA 92 GFR AA 112 eGFR >60 N/A eGFR AA* >60 N/A RENAL FUNCTION PANEL - Collect Date/Time: 10/29/2015 06:45 Test Name Code Test Result Test Units Test Ref Range GLUCOSE 2345-7 99 MG/DL L=70 H=100 SODIUM 2951-2 140 MEQ/L L=135 H=148 POTASSIUM 2823-3 3.1 MEQ/L L=3.5 H=5.3 CHLORIDE 2075-0 104 MEQ/L L=96 H=110 CO2 2028-9 27 MEQ/L L=22 H=29 BUN 3094-0 9 MG/DL L=8 H=22 CREATININE 2160-0 0.8 MG/DL L=0.6 H=1.6 ALBUMIN 1751-7 3.5 G/DL L=3.1 H=5.4 CALCIUM 28429-8 9.3 MG/DL L=8.2 H=10.6 PHOSPHORUS 2777-1 4.4 MG/DL L=2.5 H=4.5 AGE 40 yrs GFR NonAA 79 GFR AA 96 eGFR >60 N/A eGFR AA* >60 N/A RENAL FUNCTION PANEL - Collect Date/Time: 10/28/2015 07:10 Test Name Code Test Result Test Units Test Ref Range GLUCOSE 2345-7 130 MG/DL L=70 H=100 SODIUM 2951-2 139 MEQ/L L=135 H=148 POTASSIUM 2823-3 3.6 MEQ/L L=3.5 H=5.3 CHLORIDE 2075-0 103 MEQ/L L=96 H=110 CO2 2028-9 25 MEQ/L L=22 H=29 BUN 3094-0 7 MG/DL L=8 H=22 CREATININE 2160-0 0.7 MG/DL L=0.6 H=1.6 ALBUMIN 1751-7 3.5 G/DL L=3.1 H=5.4 CALCIUM 67466-9 9.6 MG/DL L=8.2 H=10.6 PHOSPHORUS 2777-1 4.4 MG/DL L=2.5 H=4.5 AGE 40 yrs GFR NonAA 92 GFR AA 112 eGFR >60 N/A eGFR AA* >60 N/A RENAL FUNCTION PANEL - Collect Date/Time: 10/27/2015 06:25 Test Name Code Test Result Test Units Test Ref Range GLUCOSE 2345-7 140 MG/DL L=70 H=100 SODIUM 2951-2 139 MEQ/L L=135 H=148 POTASSIUM 2823-3 3.3 MEQ/L L=3.5 H=5.3 CHLORIDE 2075-0 103 MEQ/L L=96 H=110 CO2 2028-9 25 MEQ/L L=22 H=29 BUN 3094-0 5 MG/DL L=8 H=22 CREATININE 2160-0 0.7 MG/DL L=0.6 H=1.6 ALBUMIN 1751-7 3.7 G/DL L=3.1 H=5.4 CALCIUM 09026-0 9.6 MG/DL L=8.2 H=10.6 PHOSPHORUS 2777-1 3.9 MG/DL L=2.5 H=4.5 AGE 40 yrs GFR NonAA 92 GFR AA 112 eGFR >60 N/A eGFR AA* >60 N/A RENAL FUNCTION PANEL - Collect Date/Time: 10/26/2015 10:20 Test Name Code Test Result Test Units Test Ref Range GLUCOSE 2345-7 105 MG/DL L=70 H=100 SODIUM 2951-2 139 MEQ/L L=135 H=148 POTASSIUM 2823-3 3.3 MEQ/L L=3.5 H=5.3 CHLORIDE 2075-0 104 MEQ/L L=96 H=110 CO2 2028-9 27 MEQ/L L=22 H=29 BUN 3094-0 5 MG/DL L=8 H=22 CREATININE 2160-0 0.7 MG/DL L=0.6 H=1.6 ALBUMIN 1751-7 3.8 G/DL L=3.1 H=5.4 CALCIUM 50644-0 9.1 MG/DL L=8.2 H=10.6 PHOSPHORUS 2777-1 3.6 MG/DL L=2.5 H=4.5 AGE 40 yrs GFR NonAA 92 GFR AA 112 eGFR >60 N/A eGFR AA* >60 N/A CBC W/ AUTO DIFF (RFLX MAN DIFF IF IND) - Collect Date/Time: 10/29/2015 06:45 Test Name Code Test Result Test Units Test Ref Range WBC 21362-9 7.0 TH/CMM L=4.5 H=10.8 RBC 789-8 3.47 ML/CMM L=4.20 H=5.40 HGB 718-7 8.5 G/DL L=12.0 H=16.0 HCT 4544-3 28.0 % L=37.0 H=47.0 MCV 81 FL L=81 H=99 MCH 24.5 PG L=27.0 H=33.0 MCHC 30.4 G/DL L=31.0 H=36.0 RDW SD 55 FL L=36 H=50 RDW CV 18.9 % L=0.0 H=14.8 MPV 8.7 FL L=9.3 H=12.5 PLT 777-3 136 TH/CMM L=130 H=440 NRBC# 0.00 TH/CMM L=0.00 H=0.00 NRBC% 0.0 /100WBC L=0.0 H=2.0 %NEUT 61.3 % %LYMP 27.4 % %MONO 9.2 % %EOS 1.9 % %BASO 0.1 % #NEUT 4.26 TH/CMM L=2.10 H=8.20 #LYMP 1.91 TH/CMM L=0.90 H=5.20 #MONO 0.64 TH/CMM L=0.16 H=1.00 #EOS 0.13 TH/CMM L=0.00 H=0.80 #BASO 0.01 TH/CMM L=0.00 H=0.20 MANUAL DIFF NOT IND N/A CBC W/ AUTO DIFF (RFLX MAN DIFF IF IND) - Collect Date/Time: 10/28/2015 07:10 Test Name Code Test Result Test Units Test Ref Range WBC 72880-0 5.4 TH/CMM L=4.5 H=10.8 RBC 789-8 3.55 ML/CMM L=4.20 H=5.40 HGB 718-7 8.8 G/DL L=12.0 H=16.0 HCT 4544-3 28.9 % L=37.0 H=47.0 MCV 81 FL L=81 H=99 MCH 24.8 PG L=27.0 H=33.0 MCHC 30.4 G/DL L=31.0 H=36.0 RDW SD 56 FL L=36 H=50 RDW CV 18.6 % L=0.0 H=14.8 MPV 9.5 FL L=9.3 H=12.5 PLT 777-3 145 TH/CMM L=130 H=440 NRBC# 0.00 TH/CMM L=0.00 H=0.00 NRBC% 0.0 /100WBC L=0.0 H=2.0 %NEUT 52.6 % %LYMP 35.3 % %MONO 8.9 % %EOS 2.8 % %BASO 0.2 % #NEUT 2.85 TH/CMM L=2.10 H=8.20 #LYMP 1.91 TH/CMM L=0.90 H=5.20 #MONO 0.48 TH/CMM L=0.16 H=1.00 #EOS 0.15 TH/CMM L=0.00 H=0.80 #BASO 0.01 TH/CMM L=0.00 H=0.20 MANUAL DIFF NOT IND N/A CBC W/ AUTO DIFF (RFLX MAN DIFF IF IND) - Collect Date/Time: 10/27/2015 06:25 Test Name Code Test Result Test Units Test Ref Range WBC 33479-0 5.8 TH/CMM L=4.5 H=10.8 RBC 789-8 3.64 ML/CMM L=4.20 H=5.40 HGB 718-7 8.9 G/DL L=12.0 H=16.0 HCT 4544-3 29.6 % L=37.0 H=47.0 MCV 81 FL L=81 H=99 MCH 24.5 PG L=27.0 H=33.0 MCHC 30.1 G/DL L=31.0 H=36.0 RDW SD 55 FL L=36 H=50 RDW CV 18.6 % L=0.0 H=14.8 MPV 9.4 FL L=9.3 H=12.5 PLT 777-3 135 TH/CMM L=130 H=440 NRBC# 0.00 TH/CMM L=0.00 H=0.00 NRBC% 0.0 /100WBC L=0.0 H=2.0 %NEUT 63.8 % %LYMP 25.8 % %MONO 7.6 % %EOS 2.2 % %BASO 0.3 % #NEUT 3.71 TH/CMM L=2.10 H=8.20 #LYMP 1.50 TH/CMM L=0.90 H=5.20 #MONO 0.44 TH/CMM L=0.16 H=1.00 #EOS 0.13 TH/CMM L=0.00 H=0.80 #BASO 0.02 TH/CMM L=0.00 H=0.20 MANUAL DIFF NOT IND N/A CBC W/ AUTO DIFF (RFLX MAN DIFF IF IND) - Collect Date/Time: 10/26/2015 10:20 Test Name Code Test Result Test Units Test Ref Range WBC 08203-7 7.2 TH/CMM L=4.5 H=10.8 RBC 789-8 3.54 ML/CMM L=4.20 H=5.40 HGB 718-7 8.8 G/DL L=12.0 H=16.0 HCT 4544-3 28.8 % L=37.0 H=47.0 MCV 81 FL L=81 H=99 MCH 24.9 PG L=27.0 H=33.0 MCHC 30.6 G/DL L=31.0 H=36.0 RDW SD 56 FL L=36 H=50 RDW CV 18.6 % L=0.0 H=14.8 MPV 9.3 FL L=9.3 H=12.5 PLT 777-3 139 TH/CMM L=130 H=440 NRBC# 0.00 TH/CMM L=0.00 H=0.00 NRBC% 0.0 /100WBC L=0.0 H=2.0 %NEUT 61.9 % %LYMP 28.4 % %MONO 6.1 % %EOS 3.0 % %BASO 0.3 % #NEUT 4.47 TH/CMM L=2.10 H=8.20 #LYMP 2.05 TH/CMM L=0.90 H=5.20 #MONO 0.44 TH/CMM L=0.16 H=1.00 #EOS 0.22 TH/CMM L=0.00 H=0.80 #BASO 0.02 TH/CMM L=0.00 H=0.20 MANUAL DIFF NOT IND N/A CBC W/ AUTO DIFF (RFLX MAN DIFF IF IND) - Collect Date/Time: 10/25/2015 07:00 Test Name Code Test Result Test Units Test Ref Range WBC 04159-8 5.9 TH/CMM L=4.5 H=10.8 RBC 789-8 3.07 ML/CMM L=4.20 H=5.40 HGB 718-7 7.5 G/DL L=12.0 H=16.0 HCT 4544-3 25.1 % L=37.0 H=47.0 MCV 82 FL L=81 H=99 MCH 24.4 PG L=27.0 H=33.0 MCHC 29.9 G/DL L=31.0 H=36.0 RDW SD 55 FL L=36 H=50 RDW CV 18.6 % L=0.0 H=14.8 MPV 8.9 FL L=9.3 H=12.5 PLT 777-3 110 TH/CMM L=130 H=440 NRBC# 0.00 TH/CMM L=0.00 H=0.00 NRBC% 0.0 /100WBC L=0.0 H=2.0 %NEUT 51.5 % %LYMP 37.5 % %MONO 8.4 % %EOS 2.0 % %BASO 0.3 % #NEUT 3.05 TH/CMM L=2.10 H=8.20 #LYMP 2.23 TH/CMM L=0.90 H=5.20 #MONO 0.50 TH/CMM L=0.16 H=1.00 #EOS 0.12 TH/CMM L=0.00 H=0.80 #BASO 0.02 TH/CMM L=0.00 H=0.20 MANUAL DIFF NOT IND N/A CBC W/ AUTO DIFF (RFLX MAN DIFF IF IND) - Collect Date/Time: 10/24/2015 06:15 Test Name Code Test Result Test Units Test Ref Range WBC 24853-5 6.9 TH/CMM L=4.5 H=10.8 RBC 789-8 3.21 ML/CMM L=4.20 H=5.40 HGB 718-7 8.0 G/DL L=12.0 H=16.0 HCT 4544-3 26.2 % L=37.0 H=47.0 MCV 82 FL L=81 H=99 MCH 24.9 PG L=27.0 H=33.0 MCHC 30.5 G/DL L=31.0 H=36.0 RDW SD 54 FL L=36 H=50 RDW CV 18.4 % L=0.0 H=14.8 MPV 10.8 FL L=9.3 H=12.5 PLT 777-3 156 TH/CMM L=130 H=440 NRBC# 0.00 TH/CMM L=0.00 H=0.00 NRBC% 0.0 /100WBC L=0.0 H=2.0 %NEUT 57.1 % %LYMP 34.7 % %MONO 6.8 % %EOS 1.0 % %BASO 0.1 % #NEUT 3.92 TH/CMM L=2.10 H=8.20 #LYMP 2.39 TH/CMM L=0.90 H=5.20 #MONO 0.47 TH/CMM L=0.16 H=1.00 #EOS 0.07 TH/CMM L=0.00 H=0.80 #BASO 0.01 TH/CMM L=0.00 H=0.20 MANUAL DIFF NOT IND N/A CBC W/ AUTO DIFF (RFLX MAN DIFF IF IND) - Collect Date/Time: 10/23/2015 13:00 Test Name Code Test Result Test Units Test Ref Range WBC 07130-1 8.0 TH/CMM L=4.5 H=10.8 RBC 789-8 3.35 ML/CMM L=4.20 H=5.40 HGB 718-7 8.3 G/DL L=12.0 H=16.0 HCT 4544-3 26.9 % L=37.0 H=47.0 MCV 80 FL L=81 H=99 MCH 24.8 PG L=27.0 H=33.0 MCHC 30.9 G/DL L=31.0 H=36.0 RDW SD 52 FL L=36 H=50 RDW CV 17.9 % L=0.0 H=14.8 MPV 11.5 FL L=9.3 H=12.5 PLT 777-3 176 TH/CMM L=130 H=440 NRBC# 0.00 TH/CMM L=0.00 H=0.00 NRBC% 0.0 /100WBC L=0.0 H=2.0 %NEUT 66.4 % %LYMP 22.8 % %MONO 10.3 % %EOS 0.0 % %BASO 0.1 % #NEUT 5.33 TH/CMM L=2.10 H=8.20 #LYMP 1.83 TH/CMM L=0.90 H=5.20 #MONO 0.83 TH/CMM L=0.16 H=1.00 #EOS 0.00 TH/CMM L=0.00 H=0.80 #BASO 0.01 TH/CMM L=0.00 H=0.20 MANUAL DIFF NOT IND N/A MAGNESIUM - Collect Date/Time: 10/29/2015 06:45 Test Name Code Test Result Test Units Test Ref Range MAGNESIUM 16817-8 1.9 MG/DL L=1.7 H=2.8 MAGNESIUM - Collect Date/Time: 10/28/2015 07:10 Test Name Code Test Result Test Units Test Ref Range MAGNESIUM 58353-8 1.9 MG/DL L=1.7 H=2.8 MAGNESIUM - Collect Date/Time: 10/27/2015 06:25 Test Name Code Test Result Test Units Test Ref Range MAGNESIUM 73799-4 2.1 MG/DL L=1.7 H=2.8 MAGNESIUM - Collect Date/Time: 10/26/2015 10:20 Test Name Code Test Result Test Units Test Ref Range MAGNESIUM 89209-3 2.4 MG/DL L=1.7 H=2.8 Active Medications Medication Code Dose Units Frequency Route Modification Start Date/Time Nafcillin Sodium 10GM Injection Powder for Solution 187767 1 TABLET DAILY BY MOUTH 10/29/2015 12:08 Prescription Detail 1 TABLET BY MOUTH DAILY Polyethylene Glycol 3350 17GM/1Dose Oral Powder for Solution 006710 17 GRAM BEDTIME BY MOUTH 10/22/2015 14: 14 Prescription Detail 17 GRAM BY MOUTH BEDTIME Senna-Time S 50MG-8.6MG Oral Tablet 676147 2 EACH TWO TIMES A DAY BY MOUTH 10/22/2015 14:14 Prescription Detail 2 EACH BY MOUTH TWO TIMES A DAY Lidoderm 5% Topical application Patch, Extended Release 3194057 1 PATCH NEEDED TOPICAL APPLICATION 10/21 14:13 Prescription Detail 1 PATCH TOPICAL APPLICATION NEEDED 12 hours on 12 hours off Milk Of Magnesia 400MG/5ML Oral Suspension 544414 30 MILLILITER NEEDED BY MOUTH 10/22/2015 14:13 Prescription Detail 30 MILLILITER BY MOUTH NEEDED Bisac-Evac 10MG Rectal Suppository 478914 10 MILLIGRAMS NEEDED RECTALLY 10/22/2015 14:11 Prescription Detail 10 MILLIGRAMS RECTALLY NEEDED take if go without stool 48 hours OxyCONTIN 80MG Oral Tablet, Extended Release 5334694 110 MILLIGRAMS EVERY 12 HOURS ORAL 10/04/2015 10:23 Prescription Detail 110 MILLIGRAMS ORAL EVERY 12 HOURS ALPRAZolam 2MG Oral Tablet 379449 2 MILLIGRAMS THREE TIMES A DAY ORAL 08/11/2015 14:08 Prescription Detail 2 MILLIGRAMS ORAL THREE TIMES A DAY Soma 350MG Oral Tablet 421131 350 MILLIGRAMS THREE TIMES A DAY ORAL 11/27/2013 09:50 Prescription Detail 350 MILLIGRAMS ORAL THREE TIMES A DAY Medications Administered During Visit Medication Dose Units Frequency Route Date/ Time of Last Dose NS 1000 ML IV [PREDEFINED] (7983) CONT IV IV 10/24/2015 22:27 NAFCILLIN CONTINUOUS INFUS (PREDEFINED) CONT IV IV 10/29/2015 05:03 CARISOPRODOL [SOMA] TAB : 350 MG 350 MG TID PO 10/28/2015 14:34 ALPRAZOLAM [XANAX] TABLET : 1 MG 2 MG TID PO 10/28/2015 14:34 OXYCODONE E-R (OXYCONTIN)TAB: 40 MG 120 MG Q12H PO 10/28/2015 21:06 SENNOSIDES 8.6 MG [SENOKOT] TABLET 2 MG BID PO 10/28/2015 08:47 POLYETHYLENE [MIRALAX] POWDER: 17 GM 17 GM BEDTIME PO 10/26/2015 21:43 MILK OF MAGNESIA:12OZ 30 ML PRN PO 2015 16:24 LIDOCAINE [LIDODERM] PATCH 5% 1 PATCH DAILY TOPICAL 10/29/2015 10:50 LIDOCAINE PATCH REMOVAL 1 EA HS TOPICAL 06/2015 21:02 ENOXAPARIN 40 MG/0.4ML YELLOW [LOVENOX] 40 MG DAILY SUB Q 10/29/2015 10:50 LACTULOSE SOLN 10GM/15 ML(PO) UDC 15 ML Q8H PO 10/27/2015 05:21 BISACODYL [DULCOLAX] SUPP : 10 MG 10 MG X1 RECTALLY 10/24/2015 10:35 OXYCODONE 5 MG IMMEDIATE RELEASE TAB 1 TAB PRN Q 6 HRS PO 10/29/2015 10:50 POTASSIUM CHL [K DUR] TABLET: 20 MEQ 40 MEQ X1 PO 10/26/2015 12:00 CARISOPRODOL [SOMA] TAB : 350 MG 350 MG TID PO 10/29/2015 10:50 ALPRAZOLAM [XANAX] TABLET : 1 MG 2 MG TID PO 10/29/2015 10:50 Encounters Encounter Diagnosis Diagnosis Code Start Date Bloodstream infection due to central venous catheter, initial encounter [id number] 10/23/2015 Social History Smoking Status Code Start Date End Date Never smoker [id number] Patient Decision Aids Unknown or Not Available. Discharge Instructions You were admitted to [facility] on 10/23/2015 11:55 with a principal diagnosis of Bloodstream infection due to central venous catheter, initial encounter You had the following procedures done: Removal of Vascular Access Device from Trunk Subcutaneous Tissue and Fasci Insertion of Infusion Device into Right Subclavian Vein, Percutaneous Appr You had the following tests done: BASIC METABOLIC PANEL BASIC METABOLIC PANEL CBC W/ AUTO DIFF (RFLX MAN DIFF IF IND) CBC W/ AUTO DIFF (RFLX MAN DIFF IF IND) CBC W/ AUTO DIFF (RFLX MAN DIFF IF IND) CBC W/ AUTO DIFF (RFLX MAN DIFF IF IND) CBC W/ AUTO DIFF (RFLX MAN DIFF IF IND) CBC W/ AUTO DIFF (RFLX MAN DIFF IF IND ) CBC W/ AUTO DIFF (RFLX MAN DIFF IF IND) COMPREHENSIVE METABOLIC PANEL MAGNESIUM MAGNESIUM MAGNESIUM MAGNESIUM RENAL FUNCTION PANEL RENAL FUNCTION PANEL RENAL FUNCTION PANEL RENAL FUNCTION PANEL You were discharged from [facility] on 10/29/2015 16:00 Should you have any questions prior to discharge, please contact a member of your healthcare team. If you have left the hospital and have any questions, please contact your primary care physician. HOME DIET: Regular. CONDITION AT DISMISSAL Stable. ACTIVITY INSTRUCTIONS(list limitations): Activity as Tolerated. FOLLOW UP CARE - SEE YOUR PHYSICIAN: primary care physcian in one week, Make own appointment. VOICES UNDERSTANDING OF INSTRUCTIONS: Yes. INSTRUCTIONS GIVEN BY (TYPE IN NAME AND DATE) A BRIDGER RN FOLLOW UP APPOINTMENT: DR. DIEZ IN A MONTH, MAKE YOUR OWN APPT. CONTACT PHYSICIAN IF YOU EXPERIENCE ANY: Shortness of Breath, fever, CHILLS AND SWEATS FOLLOW-UP OUTPATIENT SERVICES: Blood Work to be drawn on: WEDNESDAY, SEND TO PCP CBC WITH DIFF, BMP, ESR, CRP CHIEF COMPLAINT: PATIENT WAS CALLED WITH RESULTS OF BLOOD CULTURE-STAPH AUREUS AND INSTRUCTED TO COME BACK TO HOSPITAL FOR DIRECT ADMISSION. Chief Complaint and Reason For Visit Chief Complaint Date of Onset STAPH AUREUS IN BLOOD Function Status Unknown or Not Available. Plan of Care Unknown or Not Available. Referral/Transition of Care Unknown or Not Available.
--- OUTSIDE RECORDS SUMMARY | 2017-03-23 21:23 | XMS REPORT | CCD ---
Author Author JENNIFER RAMÍREZ Organization Unknown Address [address] [place], [place] [id number] Care Team Providers Care Export Manager Name Role Phone JAROCHO ER, XIOMARA DO Attphys DRYDEN ER, XIOMARA DO Prisurg Vital Signs Unknown or Not Available. Allergies Allergy Code Allergy Type Reaction Status No Known Drug Allergies 0 No known drug allergies Active Procedures Procedure Code Procedure Type Date CBC W/ AUTO DIFF (RFLX MAN DIFF IF IND) 8996239 SNOMED CT 04/22/2015 COMPREHENSIVE METABOLIC PANEL 894385282 SNOMED CT 2014 ^CBC W/AUTO DIFF [id number] SNOMED CT 04/22/2015 MRI BRAIN INC STEM W/WO CONTRAST 448787789 SNOMED CT 04/22 History of Immunizations Unknown or Not Available. Problems Problem Code Start Date Resolved Date Status Esophageal dysmotility 585520774 11/08/2014 Active Chronic intractable pain 715291632 11/08/2014 Active Results COMPREHENSIVE METABOLIC PANEL - Collect Date/Time: 04/22/2015 08:15 Test Name Code Test Result Test Units Test Ref Range GLUCOSE 2345-7 210 MG/DL L=70 H=100 SODIUM 2951-2 140 MEQ/L L=135 H=148 POTASSIUM 2823-3 3.9 MEQ/L L=3.5 H=5.3 CHLORIDE 2075-0 106 MEQ/L L=96 H=110 CO2 2028-9 23 MEQ/L L=22 H=29 BUN 3094-0 14 MG/DL L=8 H=22 CREATININE 2160-0 0.7 MG/DL L=0.6 H=1.6 SGOT/AST 1920-8 25 IU/L L=10 H=40 SGPT/ALT 1742-6 17 IU/L L=8 H=54 ALK PHOS 6768-6 63 IU/L L=35 H=115 TOTAL PROTEIN 2885-2 6.7 G/DL L=5.5 H=8.5 ALBUMIN 1751-7 3.6 G/DL L=3.1 H=5.4 TOTAL BILI 1975-2 0.3 MG/DL L=0.0 H=1.5 CALCIUM 34282-8 9.0 MG/DL L=8.2 H=10.6 AGE 40 yrs GFR NonAA 92 GFR AA 112 eGFR >60 N/A eGFR AA* >60 N/A CBC W/ AUTO DIFF (RFLX MAN DIFF IF IND) - Collect Date/Time: 04/22/2015 08:15 Test Name Code Test Result Test Units Test Ref Range WBC 40795-6 6.1 TH/CMM L=4.5 H=10.8 RBC 789-8 3.49 ML/CMM L=4.20 H=5.40 HGB 718-7 9.6 G/DL L=12.0 H=16.0 HCT 4544-3 30.5 % L=37.0 H=47.0 MCV 87 FL L=81 H=99 MCH 27.5 PG L=27.0 H=33.0 MCHC 31.5 G/DL L=31.0 H=36.0 RDW SD 54 FL L=36 H=50 RDW CV 17.0 % L=0.0 H=14.8 MPV 8.8 FL L=9.3 H=12.5 PLT 777-3 145 TH/CMM L=130 H=440 NRBC# 0.00 TH/CMM L=0.00 H=0.00 NRBC% 0.0 /100WBC L=0.0 H=2.0 %NEUT 81.6 % %LYMP 16.3 % %MONO 2.1 % %EOS 0.0 % %BASO 0.0 % #NEUT 4.96 TH/CMM L=2.10 H=8.20 #LYMP 0.99 TH/CMM L=0.90 H=5.20 #MONO 0.13 TH/CMM L=0.16 H=1.00 #EOS 0.00 TH/CMM L=0.00 H=0.80 #BASO 0.00 TH/CMM L=0.00 H=0.20 MANUAL DIFF NOT IND N/A Active Medications Medication Code Dose Units Frequency Route Modification Start Date/Time OxyCONTIN 40MG Oral Tablet, Extended Release [id number] 80 MILLIGRAMS EVERY 12 HOURS BY MOUTH 11/15/2014 15: 16 Prescription Detail 80 MILLIGRAMS BY MOUTH EVERY 12 HOURS PARoxetine HCl 20MG Oral Tablet 245824 20 MILLIGRAMS DAILY BY MOUTH 11/15/2014 15:16 Prescription Detail 20 MILLIGRAMS BY MOUTH DAILY ALPRAZolam 1MG Oral Tablet 213225 1 MILLIGRAMS NEEDED BY MOUTH 11/15/2014 15:15 Prescription Detail 1 MILLIGRAMS BY MOUTH NEEDED Omeprazole 20MG Oral Capsule, Delayed Release 583788 20 MILLIGRAMS DAILY ORAL 11/15/2014 15:15 Prescription Detail 20 MILLIGRAMS ORAL DAILY oxyCODONE HCl 30MG Oral Tablet [id number] 30 MILLIGRAMS NEEDED EVERY 4 HR ORAL 11/15/2014 15:15 Prescription Detail 30 MILLIGRAMS ORAL NEEDED EVERY 4 HR PARoxetine HCl 20MG Oral Tablet 014977 20 MILLIGRAMS DAILY ORAL 11/15/2014 15:15 Prescription Detail 20 MILLIGRAMS ORAL DAILY Polyethylene Glycol 3350 17GM/1Dose Oral Powder for Solution 955672 17 GRAM DAILY BY MOUTH 11/15/2014 15: 15 Prescription Detail 17 GRAM BY MOUTH DAILY Zolpidem Tartrate 5MG Oral Tablet 308922 10 MILLIGRAMS NEEDED BY MOUTH 11/15/2014 15:15 Prescription Detail 10 MILLIGRAMS BY MOUTH NEEDED Oxycontin 40MG Oral Tablet, Extended Release [id number] 80 MILLIGRAMS EVERY 12 HOURS BY MOUTH 11/27/2013 09: 50 Prescription Detail 80 MILLIGRAMS BY MOUTH EVERY 12 HOURS Soma 350MG Oral Tablet 729519 350 MILLIGRAMS THREE TIMES A DAY ORAL 11/27/2013 09:50 Prescription Detail 350 MILLIGRAMS ORAL THREE TIMES A DAY Sucralfate 1GM/10ML Oral Suspension 096950 1 GRAM BEFORE MEALS AND BED BY MOUTH 11/27/2013 09:50 Prescription Detail 1 GRAM BY MOUTH BEFORE MEALS AND BED Xanax 1MG Oral Tablet 215591 1 MILLIGRAMS THREE TIMES A DAY ORAL 11/27/2013 09:50 Prescription Detail 1 MILLIGRAMS ORAL THREE TIMES A DAY Medications Administered During Visit Unknown or Not Available. Encounters Encounter Diagnosis Diagnosis Code Start Date Malignant neoplasm of unspecified site of left female breast [id number] 04/22/2015 Social History Smoking Status Code Start Date End Date Never smoker [id number] Patient Decision Aids Unknown or Not Available. Discharge Instructions You were admitted to [facility] on 04/22/2015 with a principal diagnosis of Malignant neoplasm of unspecified site of left female breast. You were discharged from [facility] on 04/22/2015. Should you have any questions prior to discharge, please contact a member of your healthcare team. If you have left the hospital and have any questions, please contact your primary care physician. Chief Complaint and Reason For Visit Chief Complaint Date of Onset SYNCOPE Function Status Unknown or Not Available. Plan of Care Unknown or Not Available. Referral/Transition of Care Unknown or Not Available.
--- OUTSIDE RECORDS SUMMARY | 2017-03-23 21:24 | XMS REPORT ---
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 Name Role Phone Indio Westfall PCP Unavailable [...] Status 10/02/2009 12:00 AM Toradol 60 Mg IM,[facility]#[id number]~[place] Reviewed 10/08/2009 12:00 AM OSTEOPATH MANJ 1-2 [...] Breast Neoplasm, Malignant Dec 24 2014 11:55AM Dysphagia, oral phase Feb 15 2015 7:35AM Breast Cancer, Personal History Feb 15 2015 7:35AM Payers Insurance Name Company Name Plan Name Plan Number Policy Number Policy Group Number Start Date Medicare Part B Medicare Of [place] [id number] N/A [employer] [place] [employer] [place] [facility] [id number] N/A [place] Prog [id number] N/A History of Encounters Visit Date Visit Type Provider 02/12/2015 Procedures Indio Westfall MD 12/24/2014 Office visit Indio Westfall MD 11/19/2014 Office visit Indio Westfall MD 11/08/2014 Hospital Indio Westfall MD 08/11/2014 [facility] Orquidea Dorman MD 11/25/2013 [facility] Indio Westfall MD 11/24/2013 [facility] Indio Westfall MD 11/23/2013 [facility] Indio Westfall MD 10/08/2009 Office visit Chapito Quinn DO 10/02/2009 Office visit Chapito Quinn DO 09/10/2009 Office visit Chapito Quinn DO 09/09/2009 Voided Tish HAAS 07/15/2009 Office visit Chapito Quinn DO 05/13/2009 Office visit Chapito Quinn DO 03/07/2009 Office visit Chapito Quinn DO 02/20/2009 Office visit Chapito Quinn DO 01/24/2009 Office visit Chapito Quinn DO 12/24/2008 Office visit Chapito Quinn DO
--- OUTSIDE RECORDS SUMMARY | 2017-03-23 21:24 | XMS REPORT | CCD ---
Author Author KENISHA KANG Organization Unknown Address [address] [facility] [address] [place] [address] Care Team Providers Care Superintendent Service Name Role Phone LILIAN MEREDITH, EDY Guerra Attphys EDY QUINTANA MDsuyasir Allergies Allergy Code Allergy Type Reaction Status No Known Drug Allergies 0 Drug allergy Active Active Medications Medication Code Dose Units Frequency Route Modification Start Date/Time Nafcillin Sodium 10GM Injection Powder for Solution 634571 1 TABLET DAILY BY MOUTH 10/29/2015 12:08 Prescription Detail 1 TABLET BY MOUTH DAILY Polyethylene Glycol 3350 17GM/1Dose Oral Powder for Solution 964591 17 GRAM BEDTIME BY MOUTH 10/22/2015 14: 14 Prescription Detail 17 GRAM BY MOUTH BEDTIME Senna-Time S 50MG-8.6MG Oral Tablet 530778 2 EACH TWO TIMES A DAY BY MOUTH 10/22/2015 14:14 Prescription Detail 2 EACH BY MOUTH TWO TIMES A DAY Lidoderm 5% Topical application Patch, Extended Release 5422333 1 PATCH NEEDED TOPICAL APPLICATION 10/21 14:13 Prescription Detail 1 PATCH TOPICAL APPLICATION NEEDED 12 hours on 12 hours off Milk Of Magnesia 400MG/5ML Oral Suspension 377663 30 MILLILITER NEEDED BY MOUTH 10/22/2015 14:13 Prescription Detail 30 MILLILITER BY MOUTH NEEDED Bisac-Evac 10MG Rectal Suppository 362943 10 MILLIGRAMS NEEDED RECTALLY 10/22/2015 14:11 Prescription Detail 10 MILLIGRAMS RECTALLY NEEDED take if go without stool 48 hours OxyCONTIN 80MG Oral Tablet, Extended Release [id number] 110 MILLIGRAMS EVERY 12 HOURS ORAL 10/04/2015 10:23 Prescription Detail 110 MILLIGRAMS ORAL EVERY 12 HOURS ALPRAZolam 2MG Oral Tablet 542242 2 MILLIGRAMS THREE TIMES A DAY ORAL 08/11/2015 14:08 Prescription Detail 2 MILLIGRAMS ORAL THREE TIMES A DAY Soma 350MG Oral Tablet 791663 350 MILLIGRAMS THREE TIMES A DAY ORAL 11/27/2013 09:50 Prescription Detail 350 MILLIGRAMS ORAL THREE TIMES A DAY Problems Problem Code Start Date Resolved Date Status Constipation 77074379 Active Bacteremia 9829723 10/23/2015 Active Procedures Procedure Code Procedure Type Date CX CHEST 1 VIEW 034589644 [facility] 05/21/2016 CULTURE BLOOD 44403741 [facility] 05/21/2016 COMPREHENSIVE METABOLIC PANEL 291056381 [facility] 2016 CBC W/ AUTO DIFF (RFLX MAN DIFF IF IND) 5604935 [facility] 05/21/2016 LACTIC ACID 4269058 [facility] 05/21/2016 ^CBC W/AUTO DIFF 9760720 [facility] 05/21/2016 Results COMPREHENSIVE METABOLIC PANEL - [...] BILI 1975-2 0.7 MG/DL L=0.0 H=1.5 CALCIUM 96199-8 9.0 MG/DL L=8.2 H=10.6 AGE 41 yrs GFR NonAA 78 GFR AA 95 eGFR >60 N/A eGFR AA* >60 N/A CBC W/ AUTO DIFF (RFLX MAN DIFF IF IND) - Collect Date/Time: 05/21/2016 20:44 Test Name Code Test Result Test Units Test Ref Range WBC 93240-3 9.4 TH/CMM L=4.5 H=10.8 RBC 789-8 3.39 [...] Code Start Date End Date Never smoker 676002037 Vital Signs Unknown or Not Available. Function Status Unknown or Not Available. Goals Unknown or Not Available. ASSESSMENTS Unknown or Not Available. Health Concerns Section Unknown or Not Available.
--- OUTSIDE RECORDS SUMMARY | 2017-03-23 21:24 | XMS REPORT ---
Author Author [facility] Organization [facility] Address [address] [place], [place] [address] Care Team Providers Care Supervisor Show Operations Name Role Phone PCP Unavailable Allergies and Adverse Reactions Name Reaction Notes NO KNOWN DRUG ALLERGIES Plan of Treatment Not available. Medications Active Name Start Date Estimated Completion Date SIG Comments Tykerb Oral Tablet 250 mg take 1 tablet by oral route daily Dr Priest Tamoxifen Oral Tablet 20 mg take 1 tablet (20 mg) by oral route once daily Dr Priest carisoprodol oral tablet 350 mg 10/25/2014 11/24/2014 take 1 tablet (350 mg) by oral route 3 times per day and at bedtime for 30 days Xanax Oral Tablet 1 mg 10/25/2014 02/22/2015 take 1 tablet (1 mg) by oral route 3 times per day for 30 days Name Start Date Expiration [...] Name Start Date Discontinued Date SIG Comments Paxil Oral Tablet 20 mg 09/11/2009 09/11/2009 [...] 2 times a day for 30 days Problem List Description Status Onset Helicobacter Pylori (H. Pylori) Infection Active Vital Signs Date Time BP-Sys(mm[Hg] BP-Anisa(mm[Hg]) HR(bpm) RR(rpm) Temp WT HT HC BMI BSA BMI Percentile O2 Sat(%) 10/02/2009 11:36:00 AM 90 mmHg 60 mmHg 112 lbs 09/10/2009 9:16:00 AM 98 mmHg 60 mmHg 64 bpm 16 rpm 96.9 F 111.5 lbs 07/15/2009 3:27:00 PM 110 mmHg 60 mmHg 113.562 lbs 05/13/2009 10:49:00 AM 120 mmHg 70 mmHg 113 lbs Social History Not available. History of Procedures Date Ordered Description Order Status 10/08/2009 12:00 AM OSTEOPATH MANJ 1-2 REGIONS Reviewed Results Summary Data and Description Results [...] g/dLTOTAL BILI 0.30 mg/dLCALCIUM 7.80 mg/dLeGFR 60 History Of Immunizations Not available. History of [...] 2009 11:35AM Helicobacter Pylori (H. Pylori) Infection Payers Insurance Name Company Name Plan Name Plan Number Policy Number Policy Group Number Start Date Medicare Part B Medicare Of [place] [id number] N/A [employer] [place] State Plan [employer] [place] State [facility] [id number] N/A [place] Program [place] Prog [id number] N/A History of Encounters Visit Date Visit Type Provider 08/11/2014 [facility] Orquidea Dorman MD 11/25/2013 [facility] Indio Westfall MD 11/24/2013 [facility] Indio Westfall MD 11/23/2013 [facility] Indio Westfall MD 10/08/2009 Office visit Chapito Gifford [place] DO 10/02/2009 Office visit Chapito VYing [place] DO 09/10/2009 Office visit Chapito VYing [place] DO 09/09/2009 Voided Tish Radha HAAS 07/15/2009 Office visit Chapito Gifford [place] DO 05/13/2009 Office visit Chapito VYing [place] DO 03/07/2009 Office visit Chapito Gifford [place] DO 02/20/2009 Office visit Chapito Gifford [place] DO 01/24/2009 Office visit Chapito VYing [place] DO 12/24/2008 Office visit Chapito V. [place] DO
--- OUTSIDE RECORDS SUMMARY | 2017-03-23 21:24 | XMS REPORT | Referral Summary ---
Author Author [facility] Organization [facility] Address Unknown Phone Unavailable Care Team Providers Care Shipfitter Helper Name Role Phone No PCP, Pt States PCP Encounter VC Date(s): 02/13/16 - 02/16/16 [facility] [address] [place] [address] [phone] Discharge Disposition: 01-Home or Self Care Attending Physician: Ildefonso Trmamell MD Admitting Physician: Dashawn De Leon JR, MD Vital Signs Most recent to 1 oldest [Reference Range]: Temperature Axillary 36.6 degC [35.2-36.7 degC] (02/16/16 11:54 AM) Temperature Oral 36.5 degC [35.8-37.3 degC] (02/16/16 4:00 PM) Temperature Tympanic 36.8 degC [36.6-38.1 degC] (02/13/16 4:21 PM) Temperature Temporal 37.1 degC Artery [36.3-37.8 (02/14/16 11:27 AM) degC] Peripheral Pulse 71 bpm Rate [60-100 bpm] (02/16/16 4:00 PM) Heart Rate Monitored 76 bpm [60-100 bpm] (02/14/16 9:00 AM) Respiratory Rate 18 br/min [14-20 br/min] (02/16/16 4:00 PM) Blood Pressure 129/79 mmHg [90-140/60-90 mmHg] (02/16/16 4:00 PM) Mean Arterial 84 mmHg Pressure, Cuff (02/14/16 9:00 AM) SpO2 98 % (02/16/16 4:00 PM) Problem List Condition Effective Dates Status Health Status Informant Acute Active pain(Confirmed) Alteration in Active nutrition(Confirmed) 1 At risk of pressure Active sore(Confirmed) Knowledge Resolved deficit(Confirmed)2 Tissue perfusion Resolved alteration(Confirmed )3 Tobacco Active patient user(Confirmed) 1Problem added automatically by system based on initiation of Alteration in Nutrition Plan of Care 2Problem added automatically by system based on initiation of Knowledge Deficit Plan of Care 3Problem added automatically by system based on initiation of Tissue Perfusion Cerebral Plan of Care Allergies, Adverse Reactions, Alerts No Known Allergies Medications dexamethasone 4 mg oral tablet 4 mg 1 tabs, Oral, q6hr, Dr Priest will decide next week on F/U how to do the taper dose, # 90 tabs, 0 Refill(s) Start Date: 02/16/16 Stop Date: 03/19/16 Status: Ordered Dilantin 100 mg oral capsule, extended release 300 mg 3 caps, Oral, Daily, # 270 caps, 0 Refill(s) Start Date: 02/16/16 Status: Ordered Keppra 750 mg oral tablet 1,500 mg 2 tabs, Oral, BID, # 120 tabs, 0 Refill(s) Start Date: 02/16/16 Status: Ordered oxyCODONE 40 mg, Oral, q3hr, as needed for pain, every 3 to 4 hour, 0 Refill(s) Start Date: 03/10/15 Status: Ordered OxyCONTIN 80 mg, Oral, q12hr, 0 Refill(s) Start Date: 03/10/15 Status: Ordered pantoprazole 40 mg oral delayed release tablet 40 mg 1 tabs, Oral, Before Breakfast, # 30 tabs, 0 Refill(s) Start Date: 02/16/16 Status: Ordered Senokot 8.6 mg oral tablet 8.6 mg 1 tabs, Oral, Daily, Constipation, # 30 tabs, 0 Refill(s) Start Date: 02/16/16 Stop Date: 03/19/16 Status: Ordered Xanax 2 mg, Oral, TID, as needed for anxiety, 0 Refill(s) Start Date: 03/10/15 Status: Ordered Results Hematology Most recent to 1 oldest [Reference Range]: WBC [4.8-10.8 5.4 10*3/uL 10*3/uL] (02/16/16 6:11 AM) RBC [4.00-5.20] 3.10 *LOW* (02/16/16 6:11 AM) Hgb [12.0-16.0 7.4 gm/dL gm/dL] *LOW* (02/16/16 6:11 AM) Hct [37.0-47.0 %] 23.8 % *LOW* (02/16/16 6:11 AM) MCV [82.0-99.0 fL] 76.8 fL *LOW* (02/16/16 6:11 AM) MCH [27.0-32.0 pg] 23.9 pg *LOW* (02/16/16 6:11 AM) MCHC [32.0-36.0 31.1 gm/dL gm/dL] *LOW* (02/16/16 6:11 AM) RDW [11.5-14.5 %] 15.9 % *HI* (02/16/16 6:11 AM) Platelet [150-400 100 10*3/uL 10*3/uL] *LOW* (02/16/16 6:11 AM) Immature 0.4 % Granulocytes (02/15/16 4:50 AM) [0.0-1.0 %] Neutrophils [51-75 90 % %] *HI* (02/16/16 6:11 AM) Band Man [0-8 %] 1 % (02/16/16 6:11 AM) Lymphocytes [20-46 8 % %] *LOW* (02/16/16 6:11 AM) Monocytes [4-11 %] 1 % *LOW* (02/16/16 6:11 AM) Eosinophils [0-4 %] 0 % (02/16/16 6:11 AM) Basophils [0-2 %] 0 % (02/16/16 6:11 AM) Neutro Absolute 4.91 10*3 [1.90-7.00 10*3] (02/16/16 6:11 AM) Lymph Absolute 0.43 10*3 [0.80-3.30 10*3] *LOW* (02/16/16 6:11 AM) [place] Absolute 0.05 10*3 [0.30-1.00 10*3] *LOW* (02/16/16 6:11 AM) Eos Absolute 0.00 10*3 [0.00-0.50 10*3] (02/16/16 6:11 AM) Baso Absolute 0.00 10*3 [0.00-0.20 10*3] (02/16/16 6:11 AM) Hypochrom Occasional *ABN* (02/16/16 6:11 AM) Microcyte Present *ABN* (02/16/16 6:11 AM) Schistocyte Occasional *ABN* (02/16/16 6:11 AM) Nucleated RBC 0.0 /100 WBC Automated [0 /100 (02/16/16 6:11 AM) WBC] Differential Reviewed (02/16/16 6:11 AM) Chemistry Most recent to 1 oldest [Reference Range]: Sodium Lvl [136-144 136 mEq/L mEq/L] (02/16/16 6:11 AM) Potassium Lvl 3.7 mEq/L [3.6-5.1 mEq/L] (02/16/16 6:11 AM) Chloride [99-109 108 mEq/L mEq/L] (02/16/16 6:11 AM) CO2 [22-32 mEq/L] 22 mEq/L (02/16/16 6:11 AM) AGAP [3-20] 6 (02/16/16 6:11 AM) BUN [4-20 mg/dL] 13 mg/dL (02/16/16 6:11 AM) Glucose Lvl [70-100 122 mg/dL mg/dL] *HI* (02/16/16 6:11 AM) Creatinine Lvl 0.67 mg/dL [0.44-1.03 mg/dL] (02/16/16 6:11 AM) eGFR [>60] >60 1 (02/16/16 6:11 AM) Calcium Lvl 8.5 mg/dL [8.6-10.0 mg/dL] *LOW* (02/16/16 6:11 AM) Albumin Lvl [3.5-4.8 3.4 gm/dL gm/dL] *LOW* (02/15/16 4:50 AM) Total Protein 7.0 gm/dL [6.1-7.9 gm/dL] (02/15/16 4:50 AM) ALT [14-54 U/L] 14 U/L (02/15/16 4:50 AM) AST [15-41 U/L] 39 U/L (02/15/16 4:50 AM) Alk Phos [26-104 60 U/L U/L] (02/15/16 4:50 AM) Bili Total [0.2-1.2 1.1 mg/dL 2 mg/dL] (02/15/16 4:50 AM) Bili Direct [0.0-0.2 0.2 mg/dL mg/dL] (02/15/16 4:50 AM) Bili Indirect 0.9 mg/dL [0.0-1.0 mg/dL] (02/15/16 4:50 AM) Magnesium Lvl 2.3 mg/dL [1.8-2.5 mg/dL] (02/16/16 6:11 AM) Phosphorus [2.4-4.7 3.2 mg/dL 3 mg/dL] (02/14/16 4:19 AM) Troponin [<0.06 <0.05 ng/mL ng/mL] (02/13/16 3:03 PM) Blood Glucose, 139 mg/dL Capillary [70-100 *HI* mg/dL] (02/16/16 11:50 AM) 1Result Comment: Multiply eGFR results by 1.21 for race. 2Result Comment: Naproxen, specifically the metabolite O-desmethylnaproxen, may cause spurious elevation in Total Bilirubin levels. 3Result Comment: High dosages of liposomal Amphotericin B (AmBisome) therapy or other drug preparations that use a liposomal envelope to facilitate drug delivery may cause falsely elevated results for phosphorus. Therapeutic Drug Monitoring Most recent to 1 oldest [Reference Range]: Phenytoin Total Lvl 8 ug/mL [10-20 ug/mL] *LOW* (02/16/16 6:11 AM) Phenytoin Free 0.9 ug/mL [1.0-2.0 ug/mL] *LOW* (02/16/16 6:11 AM) Urinalysis Most recent to 1 oldest [Reference Range]: UA Color Yellow (02/13/16 5:13 PM) UA Appear Clear (02/13/16 5:13 PM) UA pH [5.0-8.0] 7.0 (02/13/16 5:13 PM) UA Leuk Est Negative [Negative] (02/13/16 5:13 PM) UA Nitrite Negative [Negative] (02/13/16 5:13 PM) UA Protein Negative [Negative] (02/13/16 5:13 PM) UA Glucose Negative [Negative] (02/13/16 5:13 PM) UA Ketones Negative [Negative] (02/13/16 5:13 PM) UA Urobilinogen Negative [<1.0] (02/13/16 5:13 PM) UA Bili [Negative] Negative (02/13/16 5:13 PM) UA Blood [Negative] Pos 1+ *ABN* (02/13/16 5:13 PM) UA Spec Grav 1.010 [1.003-1.030] (02/13/16 5:13 PM) Type Clean Catch (02/13/16 5:13 PM) UA WBC [0-4] 0-2 (02/13/16 5:13 PM) UA RBC [0-2] 0-2 (02/13/16 5:13 PM) Epithelial Cells 0-2 (02/13/16 5:13 PM) UA Bacteria None Seen (02/13/16 5:13 PM) Immunizations No data available for this section Procedures Procedure Date Related Diagnosis Body Site Hysterectomy 2004 Breast augmentation 2003 Mastectomy 2004 Social History Social History Type Response Smoking Status Current some day smoker; Type: Cigarettes Assessment and Plan No data available for this section
--- OUTSIDE RECORDS SUMMARY | 2017-03-23 21:25 | XMS REPORT | CCD ---
Author Author LALO MARRUFO Unknown Address [address] [facility] [address] [place], [place] [address] Care Team Providers Care Stenocaptioner Name Role Phone JORGE WATTS MD Attphys JORGE WATTS MD Prisurg Vital Signs Unknown or Not Available. Allergies Allergy Code Allergy Type Reaction Status No Known Drug Allergies 0 No known drug allergies Active Procedures Procedure Code Procedure Type Date CT HEAD W/O CONTRAST 818291594 SNOMED CT 10/10/2015 CX CHEST [address] 10/10/2015 TROPONIN-I ADV 241188032 SNOMED CT 10/10/2015 COMPREHENSIVE METABOLIC PANEL 523912633 SNOMED CT 2015 CBC W/ AUTO DIFF (RFLX MAN DIFF IF IND) 0236133 SNOMED CT 10/10/2015 ^CBC W/AUTO DIFF 5225082 SNOMED CT 10/10/2015 History of Immunizations Unknown or Not Available. Problems Problem Code Start Date Resolved Date Status Constipation 08668195 Active Bacteremia 6973078 10/23/2015 Active Acute chest pain 648603929 10/03/2015 10/20/2015 Resolved Anemia 213214293 10/03/2015 10/20/2015 Resolved Hypokalemia 25280532 10/03/2015 10/20/2015 Resolved Results COMPREHENSIVE METABOLIC PANEL - Collect Date/Time: 10/10/2015 12:30 Test Name Code Test Result Test Units Test Ref Range GLUCOSE 2345-7 109 MG/DL L=70 H=100 SODIUM 2951-2 141 MEQ/L L=135 H=148 POTASSIUM 2823-3 3.8 MEQ/L L=3.5 H=5.3 CHLORIDE 2075-0 106 MEQ/L L=96 H=110 CO2 2028-9 25 MEQ/L L=22 H=29 BUN 3094-0 9 MG/DL L=8 H=22 CREATININE 2160-0 0.6 MG/DL L=0.6 H=1.6 SGOT/AST 1920-8 48 IU/L L=10 H=40 SGPT/ALT 1742-6 21 IU/L L=8 H=54 ALK PHOS 6768-6 71 IU/L L=35 H=115 TOTAL PROTEIN 2885-2 7.1 G/DL L=5.5 H=8.5 ALBUMIN 1751-7 3.9 G/DL L=3.1 H=5.4 TOTAL BILI 1975-2 0.8 MG/DL L=0.0 H=1.5 CALCIUM 46314-9 9.6 MG/DL L=8.2 H=10.6 AGE 40 yrs GFR NonAA 110 GFR AA 133 eGFR >60 N/A eGFR AA* >60 N/A CBC W/ AUTO DIFF (RFLX MAN DIFF IF IND) - Collect Date/Time: 10/10/2015 12:30 Test Name Code Test Result Test Units Test Ref Range WBC 84837-4 4.2 TH/CMM L=4.5 H=10.8 RBC 789-8 3.72 ML/CMM L=4.20 H=5.40 HGB 718-7 9.3 G/DL L=12.0 H=16.0 HCT 4544-3 30.6 % L=37.0 H=47.0 MCV 82 FL L=81 H=99 MCH 25.0 PG L=27.0 H=33.0 MCHC 30.4 G/DL L=31.0 H=36.0 RDW SD 52 FL L=36 H=50 RDW CV 17.5 % L=0.0 H=14.8 MPV 10.5 FL L=9.3 H=12.5 PLT 777-3 171 TH/CMM L=130 H=440 NRBC# 0.00 TH/CMM L=0.00 H=0.00 NRBC% 0.0 /100WBC L=0.0 H=2.0 %NEUT 63.7 % %LYMP 27.9 % %MONO 7.4 % %EOS 0.0 % %BASO 0.0 % #NEUT 2.68 TH/CMM L=2.10 H=8.20 #LYMP 1.17 TH/CMM L=0.90 H=5.20 #MONO 0.31 TH/CMM L=0.16 H=1.00 #EOS 0.00 TH/CMM L=0.00 H=0.80 #BASO 0.00 TH/CMM L=0.00 H=0.20 MANUAL DIFF NOT IND N/A TROPONIN-I ADV - Collect Date/Time: 10/10/2015 12:30 Test Name Code Test Result Test Units [place] [address]-1 <0.04 ng/mL L=0.04 H= 0.40 Active Medications Medication Code Dose Units Frequency Route Modification Start Date/Time Nafcillin Sodium 10GM Injection Powder for Solution 628907 1 TABLET DAILY BY MOUTH 10/29/2015 12:08 Prescription Detail 1 TABLET BY MOUTH DAILY Polyethylene Glycol 3350 17GM/1Dose Oral Powder for Solution 955722 17 GRAM BEDTIME BY MOUTH 10/22/2015 14: 14 Prescription Detail 17 GRAM BY MOUTH BEDTIME Senna-Time S 50MG-8.6MG Oral Tablet 526431 2 EACH TWO TIMES A DAY BY MOUTH 10/22/2015 14:14 Prescription Detail 2 EACH BY MOUTH TWO TIMES A DAY Lidoderm 5% Topical application Patch, Extended Release 4215105 1 PATCH NEEDED TOPICAL APPLICATION 10/21 14:13 Prescription Detail 1 PATCH TOPICAL APPLICATION NEEDED 12 hours on 12 hours off Milk Of Magnesia 400MG/5ML Oral Suspension 016852 30 MILLILITER NEEDED BY MOUTH 10/22/2015 14:13 Prescription Detail 30 MILLILITER BY MOUTH NEEDED Bisac-Evac 10MG Rectal Suppository 245621 10 MILLIGRAMS NEEDED RECTALLY 10/22/2015 14:11 Prescription Detail 10 MILLIGRAMS RECTALLY NEEDED take if go without stool 48 hours OxyCONTIN 80MG Oral Tablet, Extended Release 1135534 110 MILLIGRAMS EVERY 12 HOURS ORAL 10/04/2015 10:23 Prescription Detail 110 MILLIGRAMS ORAL EVERY 12 HOURS ALPRAZolam 2MG Oral Tablet 298409 2 MILLIGRAMS THREE TIMES A DAY ORAL 08/11/2015 14:08 Prescription Detail 2 MILLIGRAMS ORAL THREE TIMES A DAY Soma 350MG Oral Tablet 723742 350 MILLIGRAMS THREE TIMES A DAY ORAL 11/27/2013 09:50 Prescription Detail 350 MILLIGRAMS ORAL THREE TIMES A DAY Medications Administered During Visit Unknown or Not Available. Encounters Encounter Diagnosis Diagnosis Code Start Date Syncope and collapse R55 10/10/2015 Social History Smoking Status Code Start Date End Date Never smoker 374496240 Patient Decision Aids Unknown or Not Available. Discharge Instructions You were admitted to [facility] on 10/10/2015 11:48 with a principal diagnosis of Syncope and collapse You had the following tests done: CBC W/ AUTO DIFF (RFLX MAN DIFF IF IND) COMPREHENSIVE METABOLIC PANEL TROPONIN-I ADV You were discharged from [facility] on 10/10/2015 13:46 Should you have any questions prior to [...]
--- OUTSIDE RECORDS SUMMARY | 2017-03-23 21:25 | XMS REPORT | Continuity of Care Document ---
Author Author [facility] Organization [facility] Address Unknown Phone Unavailable Allergies Active Description Code Type Severity Reaction Onset Reported/Identified Relationship to Patient Clinical Status Yes NKANo Known Allergies NKA Miscellaneous Allergy Unknown N/ A 10/08/2005 Medications Problems Date Dx Coded Attending Type Code Diagnosis Diagnosed By 02/25/2009 Ot 198.89 02/25/2009 Ot 300.00 02/25/2009 Ot V10.3 03/04/2009 Ot 198.89 03/04/2009 Ot V10.3 03/04/2009 Ot V58.11 08/10/2014 Ot 198.89 08/10/2014 Ot 300.00 08/10/2014 Ot V10.3 08/10/2014 Ot 198.89 08/10/2014 Ot V10.3 08/10/2014 Ot V58.11 08/10/2014 Ot 174.9 08/11/2014 RENETTA TOMLINSON DO Ot 174.9 MALIGN NEOPL BREAST NOS 08/11/2014 RENETTA TOMLINSON DO Ot 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 Visit Date/Time Discharge Status Pt. Type Provider Facility Loc./Unit Complaint [id number] 08/10/2014 10:51:00 2014 12:35:00 DIS Outpatient REENTTA TOMLINSON DO [facility] SDC ESOPHAGEAL STRICTURE [id number] 03/23/2017 21:16:00 ACT Inpatient FUAD MEREDITH, TOBI Reardon [facility] IRF HEMORRHAGIC BRAIN TUMOR, SEIZURE [id number] 08/10/2014 10:13:00 Document Registration [id number] 03/20/2009 10:42:00 Document Registration [id number] 03/05/2009 00:00:00 Document Registration [id number] 12/04/2008 10:34:00 Document Registration [id number] 11/27/2008 17:14:00 Document Registration [id number] 03/09/2017 15:53:07 03/09/2017 23: 59:59 CLS Outpatient Jeancarlos, W Lucho [id number] 03/05/2017 12:21:23 03/05/2017 23: 59:59 CLS Outpatient JeancarlosMarylou [id number] 02/11/2017 16:30:25 02/11/2017 23: 59:59 CLS Outpatient Jeancarlos, Marylou Yepez [id number] 11/06/2016 12:58:23 11/06/2016 23: 59:59 CLS Outpatient Zeb Lomas [id number] 10/08/2016 13:23:18 10/08/2016 23: 59:59 CLS Outpatient Jeancarlos, W Lucho [id number] 10/02/2016 11:29:49 10/02/2016 23: 59:59 CLS Outpatient JeancarlosMarylou [id number] 04/06/2016 14:48:07 04/06/2016 23: 59:59 CLS Outpatient Jeancarlos Marylou Yepez [id number] 01/01/2016 15:42:39 01/01/2016 23: 59:59 CLS Outpatient Dorothea Bethea [id number] 12/20/2015 10:32:32 12/20/2015 23: 59:59 CLS Outpatient JeancarlosMarylou [id number] 11/08/2015 09:46:03 11/08/2015 23: 59:59 CLS Outpatient Dorothea Bethea [id number] 11/03/2015 21:28:04 11/03/2015 23: 59:59 CLS Outpatient Indio Westfall [id number] 10/28/2015 08:41:34 10/28/2015 23: 59:59 CLS Outpatient Marylou Arshad [id number] 10/28/2015 08:39:53 10/28/2015 23: 59:59 CLS Outpatient Marylou Arshad [id number] 10/28/2015 08:00:24 10/28/2015 23: 59:59 CLS Outpatient Marylou Arshad [id number] 10/25/2015 00:09:28 10/25/2015 23: 59:59 CLS Outpatient Dorothea Bethea [id number] 10/21/2015 11:27:42 10/21/2015 23: 59:59 CLS Outpatient Jaime Lagos [id number] 07/24/2015 17:46:44 07/24/2015 23: 59:59 CLS Outpatient Marylou Arshad [id number] 06/16/2015 19:10:06 06/16/2015 23: 59:59 CLS Outpatient Marylou Arshad [id number] 04/28/2015 18:15:59 04/28/2015 23: 59:59 CLS Outpatient Marylou Arshad [id number] 03/26/2015 12:55:30 03/26/2015 23: 59:59 CLS Outpatient Malou Indio [id number] 02/12/2015 12:11:05 02/12/2015 23: 59:59 CLS Outpatient Indio Westfall [id number] 12/26/2014 16:15:21 12/26/2014 23: 59:59 CLS Outpatient Cebolla Indio [id number] 12/24/2014 12:39:29 12/24/2014 23: 59:59 CLS Outpatient Cebolla Indio [id number] 12/03/2014 22:24:00 12/03/2014 23: 59:59 CLS Outpatient CebollaIndio [id number] 01/31/2014 11:47:31 01/31/2014 23: 59:59 CLS Outpatient CebollaIndio [id number] 12/07/2013 16:58:15 12/07/2013 23: 59:59 CLS Outpatient CebollaIndio [id number] 11/27/2013 22:28:54 11/27/2013 23: 59:59 NAA Outpatient Indio Westfall
--- OUTSIDE RECORDS SUMMARY | 2017-03-23 21:25 | XMS REPORT | CCD ---
Author Author LALO MARRUFO Unknown Address [address] [facility] [address] [place], [place] [id number] Care Team Providers Care Webbing Seamer Pound Net Name Role Phone [facility] MD Attphys [facility], LORNA MEREDITH Prisurg S., MORIS Brown [...] Procedure Type Date ABDOMEN 2 VIEW DECUB/UPRIGHT 961104590 SNOMED CT 2015 CX CHEST [address] 10/19/2015 ABDOMEN 2 VIEW DECUB/UPRIGHT 683478795 SNOMED CT 2015 BASIC METABOLIC PANEL 029965120 SNOMED CT 10/22/2015 CBC W/ AUTO DIFF (RFLX MAN DIFF IF IND) 7771069 SNOMED CT 10/22/2015 VANCOMYCIN TROUGH 639763116 SNOMED CT 10/22/2015 COMPREHENSIVE METABOLIC PANEL 044108714 SNOMED CT 2015 CBC W/ AUTO DIFF (RFLX MAN DIFF IF IND) 6686233 SNOMED CT 10/21/[address] 10/20/2015 RENAL FUNCTION PANEL 595576021 SNOMED CT 10/20/2015 CBC W/ AUTO DIFF (RFLX MAN DIFF IF IND) 2652826 SNOMED CT 10/20/2015 CULTURE BLOOD 54068435 SNOMED CT 10/19/2015 CULTURE BLOOD 12368851 SNOMED CT 10/19/2015 UA ROUTINE C&S IF IND 032072886 SNOMED CT 10/19/[address] 10/19/2015 COMPREHENSIVE METABOLIC PANEL 983417628 SNOMED CT 2015 CBC W/ AUTO DIFF (RFLX MAN DIFF IF IND) 1549043 SNOMED CT 10/19/2015 ^CBC W/AUTO DIFF 8709253 SNOMED CT 10/22/2015 ^CBC W/AUTO DIFF 6255537 SNOMED CT 10/21/2015 ^CBC W/AUTO DIFF 3191643 SNOMED CT 10/20/2015 ^UA AUTO DIPSTICK ONLY 776802402 SNOMED CT 10/19/2015 ^CBC W/AUTO DIFF 1529458 SNOMED CT 10/19/2015 History of Immunizations Unknown or Not Available. Problems Problem Code Start Date Resolved Date Status Constipation 92470311 Active Bacteremia 2168707 10/23/2015 Active Acute chest pain 447258170 10/03/2015 10/20/2015 Resolved Anemia 172893284 10/03/2015 10/20/2015 Resolved Hypokalemia 97673944 10/03/2015 10/20/2015 Resolved Results BASIC METABOLIC PANEL [...] CREATININE 2160-0 0.7 MG/DL L=0.6 H=1.6 CALCIUM 81850-4 8.6 MG/DL L=8.2 H=10.6 AGE 40 yrs [...] BILI 1975-2 0.5 MG/DL L=0.0 H=1.5 CALCIUM 77645-6 8.2 MG/DL L=8.2 H=10.6 AGE 40 yrs [...] BILI 1975-2 0.8 MG/DL L=0.0 H=1.5 CALCIUM 61865-9 9.4 MG/DL L=8.2 H=10.6 AGE 40 yrs [...] ALBUMIN 1751-7 3.1 G/DL L=3.1 H=5.4 CALCIUM 29035-5 8.3 MG/DL L=8.2 H=10.6 PHOSPHORUS 2777-1 3.2 [...] Result Test Units Test Ref Range WBC 84869-3 5.7 TH/CMM L=4.5 H=10.8 RBC 789-8 3.29 [...] Result Test Units Test Ref Range WBC 44395-5 5.0 TH/CMM L=4.5 H=10.8 RBC 789-8 3.21 [...] Result Test Units Test Ref Range WBC 23115-7 5.2 TH/CMM L=4.5 H=10.8 RBC 789-8 3.18 [...] Result Test Units Test Ref Range WBC 36653-8 4.7 TH/CMM L=4.5 H=10.8 RBC 789-8 3.74 [...] Result Test Units Test Ref Range MAGNESIUM 67090-7 2.0 MG/DL L=1.7 H=2.8 Active Medications Medication Code Dose Units Frequency Route Modification Start Date/Time Nafcillin Sodium 10GM Injection Powder for Solution 573416 1 TABLET DAILY BY MOUTH 10/29/2015 12:08 Prescription Detail 1 TABLET BY MOUTH DAILY Polyethylene Glycol 3350 17GM/1Dose Oral Powder for Solution 904508 17 GRAM BEDTIME BY MOUTH 10/22/2015 14: 14 Prescription Detail 17 GRAM BY MOUTH BEDTIME Senna-Time S 50MG-8.6MG Oral Tablet 953290 2 EACH TWO TIMES A DAY BY MOUTH 10/22/2015 14:14 Prescription Detail 2 EACH BY MOUTH TWO TIMES A DAY Lidoderm 5% Topical application Patch, Extended Release 6919560 1 PATCH NEEDED TOPICAL APPLICATION 10/21 14:13 Prescription Detail 1 PATCH TOPICAL APPLICATION NEEDED 12 hours on 12 hours off Milk Of Magnesia 400MG/5ML Oral Suspension 377068 30 MILLILITER NEEDED BY MOUTH 10/22/2015 14:13 Prescription Detail 30 MILLILITER BY MOUTH NEEDED Bisac-Evac 10MG Rectal Suppository 464894 10 MILLIGRAMS NEEDED RECTALLY 10/22/2015 14:11 Prescription Detail 10 MILLIGRAMS RECTALLY NEEDED take if go without stool 48 hours OxyCONTIN 80MG Oral Tablet, Extended Release 6921777 110 MILLIGRAMS EVERY 12 HOURS ORAL 10/04/2015 10:23 Prescription Detail 110 MILLIGRAMS ORAL EVERY 12 HOURS ALPRAZolam 2MG Oral Tablet 154102 2 MILLIGRAMS THREE TIMES A DAY ORAL 08/11/2015 14:08 Prescription Detail 2 MILLIGRAMS ORAL THREE TIMES A DAY Soma 350MG Oral Tablet 939904 350 MILLIGRAMS THREE TIMES A DAY ORAL [...] Code Start Date End Date Never smoker 103893477 Patient Decision Aids Unknown or Not Available. Discharge Instructions You were admitted to [facility] on 10/20/2015 21:05 with a principal [...] IND VANCOMYCIN TROUGH You were discharged from [facility] on 10/22/2015 15:00 Should you have [...] CARE PHYSICIAN OR PRACTITIONER: Chapito Quinn DO, . CONTACT PHYSICIAN IF YOU EXPERIENCE ANY: ANY [...] asthma.. For more information you can call:, [phone]-STOP, or [phone].. A pamphlet on smoking was given to you, at admission.. CHIEF COMPLAINT: PT COMPLAINS OF NO BM-CONSTIPATED. Chief Complaint and Reason For Visit Chief Complaint Date of Onset CONSTIPATION Function Status Unknown or Not Available. Plan of Care Unknown or Not Available. Referral/Transition of Care Unknown or Not Available.
--- NOTE | 2017-03-23 23:15 | HISTORY AND PHYSICAL ---
DATE OF SERVICE: CHIEF COMPLAINT: The patient is aphasic. HISTORY OF PRESENT ILLNESS: The patient is a 42-year-old female with history of breast cancer with prior metastases to the left frontal lobe region, which was treated with CyberKnife radiosurgery. She showed progressive enlargement of the cystic component of the mass and showed worsening aphasia as well as increased weakness. The patient was admitted to [facility] in [place], [place] and underwent left frontal craniotomy with resection of cystic brain tumor. The patient unfortunately sustained aphasia and right hemiparesis from left frontal parietal parafalcine cortex ischemic stroke associated with left frontal necrotic cystic cavity. The patient was placed on steroids to decrease edema, placed on Keppra for continued treatment of seizure history. The patient had a decline in functional independence and was referred to inpatient rehabilitation unit [facility]. The patient lives in [place] with her daughter assisting. Her daughter presents with her to unit this evening. She states the patient had been independent prior to this, although disabled due to cancer. Case was discussed with hospitalist from [place] with Dr. Blandon. The family still wants ongoing therapy. They declined hospice or DNR status. The patient had steroid-induced hyperglycemia and Levemir was added to treatment. She has a right hemiparesis, is mute, aphasic and has involuntary movements, tremors in the right arm. The patient's daughter does not appear to be concerned regarding this. The patient is able to squeeze my hand with her left hand. She is on a pureed diet with honey-thickened liquids, crushed pills. Her Dobbhoff has been removed this morning. The patient had urinary retention and a Griffiths catheter was placed. Hyponatremia was mild and resolved. She has had pancytopenia from chemo which is mild stable. There was concern for a pneumonia, but this apparently has resolved. The patient is on a steroid taper. She is utilizing generic Percocet for pain control. Hypertension has been controlled with atenolol. Currently, she is fairly dependent. PAST MEDICAL HISTORY: Right breast cancer with mets to bone and brain status post chemo, seizure disorder controlled with Keppra, recent stroke as per above, urinary retention, hyponatremia, steroid-induced hyperglycemia, hypertension, pancytopenia from prior chemotherapy, improved. PAST SURGICAL HISTORY: Right mastectomy, craniotomy on 03/12/2017. ALLERGIES: No known medication allergies. FAMILY HISTORY: Noncontributory. SOCIAL HISTORY: Disabled, daughter reports had been independent with her at home in [facility]. REVIEW OF SYSTEMS: Ten-point review of systems significant for swallowing disorder, aphasia, right-sided weakness, tremors. MEDICATIONS: Atenolol 25 mg p.o. daily, Keppra 2000 mg p.o. b.i.d., Protonix 40 mg p.o. b.i.d., MiraLax 17 grams p.o. at bedtime, Senokot-S 1 tablet p.o. b.i.d., Carafate 1 gram p.o. b.i.d., Decadron 4 mg p.o. q.8 hours for five days, Zofran 4 mg p.o. q.6 hours, Percocet 7.5/325 one tablet p.o. q.4 hours p.r.n. moderate pain.Insulin for steroid induced Hyperglycemia. PHYSICAL EXAMINATION: GENERAL: Significant for a female appearing stated age, lying in bed in no acute distress with involuntary seizure like movement noted in the right upper limb. VITAL SIGNS: Within normal limits. She is afebrile. HEENT: She has a dysphagia, on modified diet. She has aphasia. Vision and hearing appears grossly intact. No oral lesion is noted. NECK: Supple without mass. The craniotomy site is clean and dry, incision healing. HEART: Regular rhythm. LUNGS: Clear. ABDOMEN: Soft, nontender. Bowel sounds present. EXTREMITIES: No leg edema, no calf tenderness. MUSCULOSKELETAL: The patient has functional passive range of motion of all four extremities. NEUROLOGIC: She has a flaccid right upper limb. Strength decreased in the right lower limb as well. She has involuntary movements in the right upper limb suggestive of seizure activity. Sensation difficult to assess. She has a fair + strength on the left. Cognition difficult to fully assess. Fuctional status.Bladder griffiths She is dependent. ASSESSMENT AND PLAN: 1. Ambulatory dysfunction secondary to left cerebrovascular accident with left ischemic cerebrovascular accident with right hemiparesis, aphasia, and dysphagia. 2. Hypertension, controlled with medication. 3. History of right breast cancer with metastases to bone and brain, status post chemotherapy. 4. Status post craniotomy with resection of cystic brain tumor on 03/12/2017, Dr. Grundmeyer. 5. Seizure disorder on Keppra. 6. Urinary retention. 7. History of pancytopenia from chemotherapy. We will recheck labs 8. History of hyponatremia. We will recheck labs. 9. Gastrointestinal prophylaxis, proton-pump inhibitors. 10. Deep vein thrombosis prophylaxis, sequential compression devices. 11. POstop steroid taper 12. Steroid induced hyperglycemia PLAN: The patient will have a comprehensive program of inpatient rehabilitation with a goal of maximizing level of functional independence prior to discharge home with her daughter. The therapies will be with cardiac and seizure and fall precautions and on a 07/11 schedule due to the patients debility. The patient will have PT, OT 90 minutes per day each discipline 5 days a week when not being seen by speech therapy for gait, strengthening, conditioning, balance, ADLs, any patient, family, caregiver training necessary, any adaptive equipment and training necessary. Speech therapy do cognitive speech and swallow assessment and treat as indicated five days a week, 30 to 45 minutes per day for 2 weeks. Rehabilitation nursing to assist with bowel, bladder, skin, wound care, medication administration, pain management. Social service to assist with discharge planning and community reentry. We will consult Dr. Joel to assist with postoperative medical care for this out of town patient.Consult Pastoral care.Monitor accucheks and adjuste insulin as needed ESTIMATED LENGTH OF STAY: Three weeks. PROGNOSIS: Rehab prognosis appears fair at least short term for maximizing level functional independence prior to discharge home with family. DIET: Pureed with honey-thick liquids. CODE STATUS: Assumed full code from hospitalist's communication by phone today. Check admission labs. Job ID: [id number] DocumentID: [id number] Dictated Date: 03/23/2017 22:01:06 Reversing [place] Date: 03/23/2017 23:14:15 Dictated By: TOBI BLANDON MD [facility]
[2017-03-24] MEDS: ONDANSETRON 4 MG (ZOFRAN) ORAL DISSOLVE TAB PO SCH ×5 (00:36→20:53)
[2017-03-24] MEDS: LEVETIRACETAM 1,000 MG (KEPPRA) TABLET PO SCH ×3 (02:57→20:54)
[2017-03-24 05:46] LABS: BASOPHILS % (AUTO) 0 % (0-10); EOSINOPHILS # (AUTO) 0.1 10^3/uL (0.0-0.3); EOSINOPHILS % (AUTO) 1 % (0-10); LYMPHOCYTES # (AUTO) 1.2 X 10^3 (1.0-4.0); LYMPHOCYTES % (AUTO) 13 % (12-44); MEAN CORPUSCULAR HEMOGLOBIN 27 PG (25-34); MEAN CORPUSCULAR HGB CONC 32 G/DL (32-36); MEAN CORPUSCULAR VOLUME 85 FL (80-99); MONOCYTES # (AUTO) 0.5 X 10^3 (0.0-1.0); MONOCYTES % (AUTO) 6 % (0-12); NEUTROPHILS # (AUTO) 7.6 X 10^3 (1.8-7.8); NEUTROPHILS % (AUTO) 81 % (42-75); PLATELET COUNT 85 10^3/uL (130-400); RED BLOOD COUNT 4.25 10^6/uL (4.35-5.85); RED CELL DISTRIBUTION WIDTH 21.4 % (10.0-14.5); WHITE BLOOD COUNT 9.4 10^3/uL (4.3-11.0)
[2017-03-24 06:00] VITALS: BP 105/66
[2017-03-24 06:12] LABS: ALANINE AMINOTRANSFERASE 86 U/L (0-55); ALBUMIN 2.9 GM/DL (3.2-4.5); ANION GAP 8 MMOL/L (5-14); ASPARTATE AMINO TRANSFERASE 47 U/L (5-34); BILIRUBIN,TOTAL 1.8 MG/DL (0.1-1.0); BLOOD UREA NITROGEN 29 MG/DL (7-18); BUN/CREATININE RATIO 53; CALCIUM 8.4 MG/DL (8.5-10.1); CARBON DIOXIDE 27 MMOL/L (21-32); CHLORIDE 109 MMOL/L (98-107); CREATININE SERUM 0.55 MG/DL (0.60-1.30); GFR ESTIMATED > 60; GLUCOSE 78 MG/DL (70-105); POTASSIUM 3.6 MMOL/L (3.6-5.0); SODIUM 144 MMOL/L (135-145); TOTAL PROTEIN 5.8 GM/DL (6.4-8.2)
[2017-03-24] MEDS ORDERED: INFLUENZA TRIvalent 2017-2018 0.5 ML/45 MCG SYR IM ONE (07:30)
--- NOTE | 2017-03-24 09:00 | Physical Therapy Evaluation ---
PT Evaluation-General Medical Diagnosis Admission Date Mar 23, 2017 at 21:16 Medical Diagnosis: R Hemiparesis, Stroke, Seizure Onset Date: Mar 12, 2017 Therapy Diagnosis Therapy Diagnosis: R sided weakness, impaired mobility, balance Height/Weight Height (Feet): 5 Height (Inches): 3.00 Weight (Pounds): 104 Weight (Ounces): 8.0 Precautions Precautions/Isolations: Fall Prevention, Standard Precautions Weight Bear Status Right Lower Extremity: Right Weight Bearing/Tolerated Left Lower Extremity: Left Weight Bearing/Tolerated Referral Physician: Barber Reason for Referral: Evaluation/Treatment Medical History Pertinent Medical History: HTN Additional Medical History R breast cancer, seizure disorder, stroke, hyponatremia, urinary retention, hyperglycemia, HTN Surg-R mastectomy, craniometry Reviewed History: Yes Social History Unable to assess due to patient lack of responsiveness verbally and nonverbally Prior/Core FIM Prior Level of Function Functional [place]ablo Measure 0=Not Assessed/NA 4=Minimal Assistance 1=Total Assistance 5=Supervision or Setup 2=Maximal Assistance 6=Modified [place] 3=Moderate Assistance 7=Complete Diablo unable to obtain PT Evaluation-Current Subjective Patient is heavily sleeping in bed upon PT entering the room. PT is able to wake up this patient. Patient appeared to be mute. When asked yes or no questions, patient has a seizure-like or tremor response typically. Patient does respond "yes" verbally one time when asked if she is tired. Pain Comment: Patient may have reported yes when asked if she was in pain. Pt/Family Goals Patient goals for therapy are not known due to nonverbal status. Objective Patient Orientation: Unable to Assess, Non-Verbal/Aphasic Attachments: Spicer Catheter Patient occasionally responds to a yes or no question with a tremor-like response. It is hard to tell what she is trying to signify by her movement. ROM/Strength ROM Upper Extremities PROM of the upper extremities are grossly WNL. ROM Lower Extremities Patient lower extremities can be moved passively WNL. Strength Upper Extremities Unable to assess. Patient has some voluntary control of L UE shown by resisting PT when tried to move. Strenght Lower Extremities Unable to assess. Patient demonstrated being able to lift L foot slightly when seated. Integumentary/Posture Integumentary Grossly intact Bowel Incontinence: Yes Bladder Incontinence: Spicer Cath Posture Very little trunk and head control noted. Neuromuscular (Tone, Coordination, Reflexes) Tone appears flaccid throughout R side. Coordination hard to assess due to lack of movement. Sensory Vision: Unable to Assess Hearing: Unable to Assess Sensation Up. Extremities Unable to assess due to aphasic nature. Sensation Lower Extremities Unable to assess due to aphasic nature. Transfers Functional Diablo Measure 0=Not Assessed/NA 4=Minimal Assistance 1=Total Assistance 5=Supervision or Setup 2=Maximal Assistance 6=Modified [place] 3=Moderate Assistance 7=Complete IndependenceIRFPAI Quality Coding Scale 6 Independent with activity with or without an assistive device 5 Patient requires set up or clean up by helper. Patient completes activity by themselves 4 Supervision or touching assist (CGA). [place] provide cues , steadying assist 3 The helper provides less than half the effort to complete the activity 2 The helper provides more than half the effort to complete the activity 1 Dependent. The helper does all the effort to complete an activity 7 Patient refused to complete or attempt activity 9 The patient did not perform the activity before the current illness or injury 88 Not attempted due to Medical conditions or safety concerns Transfers (B, C, W/C) (FIM): 1 Scootin Rollin Roll Left to Right (QC): 1 Supine to/from Sit: 1 Sit to/from Stand: 1 bed t/f WC(FIM only if WC use): 1 Sit to Lying (QC): 1 Lying to Sitting/Side of Bed(Q: 1 Sit to Stand (QC): 1 Chair/Lxy-ld-Hlmrj Xfer(QC): 1 Car Transfer (QC): 88 PT completes all transfers as patient seems completely dependent. Patient effort and understanding is hard to assess due to aphasic nature. Gait Does the Patient Walk?: No and Walking Goal IS indicated Mode of Locomotion: Wheelchair Wheelchair Training Does the Pt Use a Wheelchair?: Yes Wheelchair (FIM): 1 Wheelchair Distance (FIM): 1=up to 49 ft Distance: 40' Wheelchair Level of Assist: 1 Wheel 50 ft with 2 turns (QC): 1 Wheel 150 ft (QC): 1 Type of Wheelchair: Manual Patient either does not understand PT instructions for W/C propulsion or is resistive to attempt propulsion with left hand. Patient seemed resistant to place L hand on W/C for propulsion when PT attempted cueing. Stairs If not tested on admit;explain Patient is dependent for mobility. Balance Sitting Static: Poor Sitting Dynamic: Poor Standing Static: Poor Standing Dynamic: Poor Special Test Comments Patient requires max assist from PT to maintain sitting balance. Treatment PT performed sit to stand transfers in the parallel bars as well as working on sitting balance in a chair. Assessment/Needs Patient is currently functioning at a low level. Patient being aphasic makes it difficult to assess patient pain, effort, or understanding of cueing or direction. PT will continue to work with patient on weight bearing activities as well as balance training to promote neuroplasticity in an effort to improve patient trunk and extremity control. Rehab Potential: Poor PT Short Term Goals Short Term Goals Time Frame: Mar 31, 2017 Transfers (B,C,W/C) (FIM): 2 Wheelchair (FIM): 2 Wheelchair Distance: 50' Wheelchair Level of Assist: 4 PT Occupational Health Nurse Supervisor Goals Snf Goals PT Occupational Health Nurse Supervisor Goals Time Frame: Apr 14, 2017 Transfers (B,C,W/C) (FIM): 3 Sit to Lying (QC): 2 Lying-Sitting on Side/Bed(QC): 2 Sit to Stand (QC): 2 Rollin Roll Left to Right (QC): 2 Chair/Fzd-vm-Zgzop Xfer(QC): 2 Car Transfer (QC): 2 Does the Patient Walk: No and Walking Goal NOT indicated Wheelchair (FIM): 4 Distance: 150' Wheelchair Level of Assist: 4 Wheel 50 feet with 2 turns (QC: 3 PT Plan Problem List Problem List: Activity Tolerance, Functional Strength, Safety, Balance, Transfer, Bed Mobility, ROM Treatment/Plan Treatment Plan: Continue Plan of Care Treatment Plan: Bed Mobility, Concurrent Therapy, Education, Functional Activity Tony, Functional Strength, Group Therapy, Safety, Therapeutic Exercise , Transfers Treatment Duration: Apr 19, 2017 Frequency: Modified Program (IRF) Estimated Hrs Per Day: 1.5 hours per day Patient and/or Family Agrees t: Yes 07/11 Safety Risks/Education Patient Education: Transfer Techniques, Reviewed Precautions, Correct Positioning, W/C Management, Safety Issues Teaching Recipient: Patient Teaching Methods: Demonstration, Discussion Response to Teaching: Unable to Return Demonstration, Reinforcement Needed Discharge Recommendations Plan Patient will perform bed mobility and transfer training, balance and endurance training, functional strengthening, and education to improve functional mobility and independence at home. Therapy D/C Recommendations: Assisted Living, Home w/ Family Support, Detention Placement, Retirement (TCU/NH) Equpiment Recommendations-D/C: Manual Wheelchair Time/GCodes Time In: 800 Time Out: 900 Total Billed Treatment Time: 60 Total Billed Treatment 1 visit CAITLYNHigh 30 min FA x 2 30 min VALDEMAR LALA PT Mar 24, 2017 09:00
[2017-03-24] MEDS: SUCRALFATE 1 GM (CARAFATE) TAB PO SCH ×3 (09:11→20:55)
[2017-03-24] MEDS: POLYETHYLENE GLYCOL 17 GM (MIRALAX) PACK PO SCH ×2 (09:11→20:58)
[2017-03-24] MEDS: PANTOPRAZOLE 20 MG TABLET (PROTONIX) PO SCH ×2 (09:11→09:12)
[2017-03-24] MEDS: SENNA W/DOCUSATE (SENOKOT S) TABLET PO SCH ×2 (09:12→09:13)
[2017-03-24] MEDS: oxyCODONE/APAP 7.5-325 MG (PERCOCET 7.5) TABLET PO PRN ×2 (09:13→18:56)
[2017-03-24] MEDS: ATENOLOL 25 MG (TENORMIN) TAB PO SCH (09:14)
--- NOTE | 2017-03-24 09:33 | PM&R Post Admission Assessment ---
Post Admission Physician Asses The preadmission screen agrees with the post admission assessment that the patient is a fair candidate for inpatient rehabilitation. The patient will have a comprehensive program of inpatient rehabilitation with a goal of maximizing level of functional independence prior to discharge home with family. The patient will have PT/OT ninety minutes per day, each discipline, five days a week for gait, strengthening, conditioning, balance, ADLs, any patient/family/caregiver training as necessary. Speech therapy to do cognitive speech and dysphaiga assessment and treat as indicated 5 days a week for 30-45 minutes per day for 2 weeks with PT/Ot seeing the patient less those days to make a total of 3 hours of therapy per day. Rehabilitation nursing to assist with bowel, bladder, skin, wound care, medication administration, pain management Spicer catheter care. Sewing Teacher to assist with discharge planning, community reentry. SCD's for DVT prophylaxis. She appears to be motivated to participate in three hours of therapy a day. and has a supportive daughter who presents to unit with her upon admission . She should hopefully be able to tolerate three hours of therapy a day from a medical and surgical standpoint although she may require a 15/7 therapy schedule initially. She should hopefully benefit from the three hours of therapy a day. She has a reasonable discharge plan, reasonable discharge rehabilitation goals and a supportive family. She has various comorbidities that need to be closely monitored with medications and treatments adjusted on a daily basis as needed. These include: Metastatic breast ca to the brain Seizure disorder Thrombocytopenia CVA with RT HP aphasia and dysphagia Electrolyte disorder Barriers to discharge for this patient who had been independent prior to this are for her to be modified independent to supervision for ADLs and mobility skills prior to discharge home with her daughter, so as to lessen the burden of the caregivers. Risks for this patient include: 1. Fall 2. Fracture 3. DVT 4. Pulmonary embolism 5. Wound infection 6. Skin breakdown 7. Contractures 8. Poorly controlled pain 9. Ongoing Urinary retention 10. UTI 11. Respiratory infection 12. Aspiration 13. recurrent seizure 14. Poorly controlled HTN Estimated Length of Stay: 21 days Prognosis: Rehab prognosis appears fair for goal of discharge home with daughter supervision to min assist for ADLs and mobility skills..The family declines hospice or DNR status at this time TOBI MERIDA MD Mar 24, 2017 09:33
[2017-03-24] MEDS ORDERED: ATEN25TA PO (10:56)
[2017-03-24] MEDS ORDERED: OXYC80TA35 PO (11:05)
[2017-03-24] MEDS ORDERED: DEXA2TAB PO (11:05)
[2017-03-24] MEDS ORDERED: ALPR1TAB7 PO (11:05)
[2017-03-24] MEDS ORDERED: CARI350T27 PO (11:05)
[2017-03-24] MEDS ORDERED: OXYC20TA3 PO (11:05)
[2017-03-24] MEDS ORDERED: LEVE750T5 PO (11:05)
[2017-03-24] MEDS ORDERED: POTA10TA10 PO (11:05)
[2017-03-24] MEDS ORDERED: RANI150T11 PO (11:05)
[2017-03-24] MEDS ORDERED: OXYC30TA77 PO (11:05)
[2017-03-24] MEDS ORDERED: SUCR1TAB PO (11:05)
--- NOTE | 2017-03-24 13:00 | Occupational Therapy Eval ---
OT Evaluation-General/PLF Medical Diagnosis Admission Date Mar 23, 2017 at 21:16 Medical Diagnosis: R Hemiparesis, Stroke, Seizure Onset Date: Mar 12, 2017 Therapy Diagnosis Therapy Diagnosis: impaired self care skills Height/Weight Height (Feet): 5 Height (Inches): 3.00 Weight (Pounds): 104 Weight (Ounces): 8.0 Precautions Precautions/Isolations: Seizure, Fall Prevention, Standard Precautions Safety Interventions: Bed Exit Alarm, Move Closer to Desk Referral Physician: Barber Medical History Pertinent Medical History: HTN Additional Medical History breast cancer with mets to left frontal region ,seizure, hyponatremia, steroid induced hyperglycemia Current History pt had left frontal craniotomy with resection of cystic brain tumor on 03/12/17 Reviewed History: Yes Social History Pt unable to provide information regarding home set up and no family is available ADL-Prior Level of Function ADL PLOF Comments Pt is non-verbal, unable to answer questions regarding PLOF. OT Current Status Subjective Pt sitting in chair with RN present. Pt is non-verbal except for an occasional "yes" during treatment, but unknown if accurate. Pt also states "hey" several times, but no further verbalizations during session. Mental Status/Objective Patient Orientation: Unable to Assess Attachments: Spicer Catheter Current Upper Extremity ROM UE PROM is grossly functional. Pt does not demonstrate any active movement of right UE. Right thumb is in adducted position. Pt is unable to follow commands for ROM testing of left UE, but moves extremity actively. Upper Extremity Coordination Impaired right side. Left UE difficult to assess secondary to inability to follow commands and pt's impaired ability to participate in functional tasks. Upper Extremity Sensation Unable to assess at this time. Upper Extremity Strength Right UE 0/5 Left UE: unable to formally assess secondary to impaired ability to follow commands. ADL-Treatment ADL-Current Pt sitting in chair with RN present when therapist arrives. RN is feeding pt breakfast. Pt is on a modified diet. Assisted pt with feeding. Pt requires total assist to scoop and bring every bite to mouth. Pt is able to chew and swallow. Pt able to hold banana in left hand, but unable to manage bite size without assistance. Increased time required for feeding. Oral care completed with mouth swab after eating. Total assist required. Sponge bath completed with pt seated in chair. Attempted to have pt wash face. Washcloth was placed in left hand and pt was assisted to bring to face. Pt does not initiate washing face and requires total assist to complete task. Pt does not assist with bathing tasks, requires total assist. Pt dependent to stand while buttocks is washed. Pt does not initiate UE dressing even with verbal and tactile cues. Dons pullover nightgown with total assist. Pt dependent to doff/don socks. Comb was placed in pt's left hand, but pt does not raise arm or attempt to bring toward head. Pt dependent to comb hair. Pt sitting in recliner chair with needs met after session. Functional [place] Measure 0=Not Assessed/NA 4=Minimal Assistance 1=Total Assistance 5=Supervision or Setup 2=Maximal Assistance 6=Modified [place] 3=Moderate Assistance 7=Complete IndependenceIRFPAI Quality Coding Scale 6 Independent with activity with or without an assistive device 5 Patient requires set up or clean up by helper. Patient completes activity by themselves 4 Supervision or touching assist (CGA). [place] provide cues , steadying assist 3 The helper provides less than half the effort to complete the activity 2 The helper provides more than half the effort to complete the activity 1 Dependent. The helper does all the effort to complete an activity 7 Patient refused to complete or attempt activity 9 The patient did not perform the activity before the current illness or injury 88 Not attempted due to Medical conditions or safety concerns Eating (FIM): 1 Eating (QC): 1 Grooming (FIM): 1 Oral Hygiene (QC): 1 Bathing (FIM): 1 Shower/Bathe Self (QC): 1 Upper Body Dressing (FIM): 1 Upper Body Dressing (QC): 1 On/Off Footwear (QC): 1 Education OT Patient Education: Rehab process Teaching Recipient: Patient Response to Teaching: Unable to Comprehend OT Short Term Goals Short Term Goals Time Frame: Mar 31, 2017 Grooming(FIM): 2 Toilet/Commode Transfer(FIM): 2 Additional Short Term Goals: 3-ImproveStrength/Tony 1=Demonstrate adherence to instructed precautions during ADL tasks. 2=Patient will verbalize/demonstrate understanding of assistive devices/ modifications for ADL. 3=Patient will improve strength/tolerance for activity to enable patient to perform ADL's. OT Treer Goals Treer Goals Time Frame: Apr 14, 2017 Eating (FIM): 3 Eating (QC): 3 Groomin Oral Hygiene (QC): 3 Bathing(FIM): 2 Shower/Bathe Self (QC): 2 Upper Body Dressing(FIM): 3 Upper Body Dressing (QC): 3 Lower Body Dressing(FIM): 2 Lower Body Dressing (QC): 2 On/Off Footwear (QC): 2 Toileting(FIM): 3 Toileting Hygiene (QC): 3 Toilet/Commode Transfer(FIM): 3 Toilet/Commode Transfer (QC): 3 Shower Transfer(FIM): 3 Additional Goals: 3-ImproveStrength/Tony 1=Demonstrate adherence to instructed precautions during ADL tasks. 2=Patient will verbalize/demonstrate understanding of assistive devices/ modifications for ADL. 3=Patient will improve strength/tolerance for activity to enable patient to perform ADL's. Goals established to promote increased functional independence and decrease caregiver burden OT Education/Plan Problem List/Assessment Assessment: Decreased Activ Tolerance, Decreased Safety Aware, Decreased UE Strength, Dependent Transfers, Impaired Bed Mobility, Impaired Cognition, Impaired Coordination, Impaired Funct Balance, Impaired I ADL's, Impaired Self- Care Skills Pt demonstrated impaired ability to perform functional tasks and mobility. Pt has no active movement of right UE and is essentially non-verbal. Pt to benefit from skilled OT intervention for ADL training, transfers, strengthening, and caregiver training to promote increased functional performance and decrease caregiver burden. Discharge Recommendations Plan/Recommendations: Continue POC Treatment Plan/Plan of Care Treatment,Training & Education: Yes Patient would benefit from OT for education, treatment and training to promote independence in ADL's, mobility, safety and/or upper extremity function for ADL' s. Plan of Care: ADL Retraining, Cognitive Retraining, Functional Mobility, Group Exercise/Act as Ind, UE Funct Exercise/Act, UE Neuromus Re-Ed/Coord, Visual/ Perceptual Retrain Treatment Duration: Apr 14, 2017 Frequency: Modified Program (IRF) (07/11) Estimated Hrs Per Day: 1.5 hours per day Rehab Potential: Poor Time/GCodes Start Time: 10:00 Stop Time: 11:00 Total Time Billed (hr/min): 60 Billed Treatment Time 1 visit, EVH(15minutes), ADLx3(45minutes) REMIGIO IVY OT Mar 24, 2017 13:00
--- NOTE | 2017-03-24 13:53 | Physical Therapy Daily Note ---
PT Daily Note-Current Subjective Patient is seated in recliner with cover on upon PT entering the room. PT explains the plan to perform range of motion on her extremities and try to have her voluntarily move some extremities. Patient is mostly unresponsive with only making some noises throughout the treatment, not specifically responding to any requests or yes or no questions. Pain Comment: patient cannot verbalize or point ot any pain Appearance Patient appears drowsy and sleepy. She is left post tx in recliner with call light in reach. Mental Status Patient Orientation: Unable to Assess, Non-Verbal/Aphasic Attachments: Spicer Catheter Transfers Functional [place] Measure 0=Not Assessed/NA 4=Minimal Assistance 1=Total Assistance 5=Supervision or Setup 2=Maximal Assistance 6=Modified [place] 3=Moderate Assistance 7=Complete IndependenceIRFPAI Quality Coding Scale 6 Independent with activity with or without an assistive device 5 Patient requires set up or clean up by helper. Patient completes activity by themselves 4 Supervision or touching assist (CGA). [place] provide cues , steadying assist 3 The helper provides less than half the effort to complete the activity 2 The helper provides more than half the effort to complete the activity 1 Dependent. The helper does all the effort to complete an activity 7 Patient refused to complete or attempt activity 9 The patient did not perform the activity before the current illness or injury 88 Not attempted due to Medical conditions or safety concerns no transfers are observed this visit. Patient does not voluntarily move any extremities and right side has flaccid tone. Weight Bearing Right Lower Extremity: Right Weight Bearing/Tolerated Left Lower Extremity: Left Weight Bearing/Tolerated Treatments PT performs PROM to shoulder, elbow, and wrist or both UEs as well as hip, knee and ankle of both LEs. It is noted that patient is able to grab a blanket with arm at her side when it is pulled away from her, but will not voluntarily move left arm upon request. Assessment Current Status: Poor Progress Patient's unresponsiveness makes it hard to assess any pain or motivation of this patient. PT will continue to try to promote WB as well as movement of extremities to address patient weakness and flaccidity. PT Short Term Goals Short Term Goals Time Frame: Mar 31, 2017 Transfers (B,C,W/C) (FIM): 2 Wheelchair (FIM): 2 Wheelchair Distance: 50' Wheelchair Level of Assist: 4 PT Custodial Goals Respite Provider Goals PT Custodial Goals Time Frame: Apr 14, 2017 Transfers (B,C,W/C) (FIM): 3 Wheelchair (FIM): 4 Distance: 150' Wheelchair Level of Assist: 4 PT Plan Problem List Problem List: Activity Tolerance, Functional Strength, Safety, Balance, Transfer, Bed Mobility, ROM Treatment/Plan Treatment Plan: Continue Plan of Care Treatment Plan: Bed Mobility, Concurrent Therapy, Education, Functional Activity Tony, Functional Strength, Group Therapy, Safety, Therapeutic Exercise , Transfers Treatment Duration: Apr 19, 2017 Frequency: Modified Program (IRF) Estimated Hrs Per Day: 1.5 hours per day Patient and/or Family Agrees t: Yes Safety Risks/Education Patient Education: Correct Positioning, Safety Issues Teaching Recipient: Patient Teaching Methods: Demonstration, Discussion Response to Teaching: Reinforcement Needed Time/GCodes Time In: 1245 Time Out: 1315 Total Billed Treatment Time: 30 Total Billed Treatment 1 visit FA x 2 30 min VALDEMAR LALA PT Mar 24, 2017 13:53
[2017-03-24] MEDS: DEXAMETHASONE 4 MG TAB (DECADRON) PO SCH ×2 (14:02→20:53)
--- NOTE | 2017-03-24 14:22 | Occupational Ther Daily Note ---
OT Current Status-Daily Note Subjective Pt sitting in recliner with lunch tray in front of her. Took over care from nrsg. Assisted pt in feeding. Mental Status/Objective Patient Orientation: Non-Verbal/Aphasic Functional [place] Measure 0=Not Assessed/NA 4=Minimal Assistance 1=Total Assistance 5=Supervision or Setup 2=Maximal Assistance 6=Modified [place] 3=Moderate Assistance 7=Complete [place] Attachments: Spicer Catheter ADL-Treatment Functional [place] Measure 0=Not Assessed/NA 4=Minimal Assistance 1=Total Assistance 5=Supervision or Setup 2=Maximal Assistance 6=Modified [place] 3=Moderate Assistance 7=Complete IndependenceIRFPAI Quality Coding Scale 6 Independent with activity with or without an assistive device 5 Patient requires set up or clean up by helper. Patient completes activity by themselves 4 Supervision or touching assist (CGA). [place] provide cues , steadying assist 3 The helper provides less than half the effort to complete the activity 2 The helper provides more than half the effort to complete the activity 1 Dependent. The helper does all the effort to complete an activity 7 Patient refused to complete or attempt activity 9 The patient did not perform the activity before the current illness or injury 88 Not attempted due to Medical conditions or safety concerns Eating (FIM): 1 (Pt dependent with feeding. Pt is able to choose between 2 choices. When given a choice of 2 food items or drink pt is able to use eye gaze to choose preferred choice. Pt has loose lip closure to partially scrape food off of bowl of spoon. Dependent for holding cup and drinking.) Eating (QC): 1 Nrsg took over care of pt and continued to feed pt. All needs met in room. OT Short Term Goals Short Term Goals Transfers (B,C,W/C) (FIM): 2 1=Demonstrate adherence to instructed precautions during ADL tasks. 2=Patient will verbalize/demonstrate understanding of assistive devices/ modifications for ADL. 3=Patient will improve strength/tolerance for activity to enable patient to perform ADL's. OT Assisted Goals Assisted Goals 1=Demonstrate adherence to instructed precautions during ADL tasks. 2=Patient will verbalize/demonstrate understanding of assistive devices/ modifications for ADL. 3=Patient will improve strength/tolerance for activity to enable patient to perform ADL's. OT Education/Plan Discharge Recommendations Plan/Recommendations: Continue POC Treatment Plan/Plan of Care Patient would benefit from OT for education, treatment and training to promote independence in ADL's, mobility, safety and/or upper extremity function for ADL' s. Treatment Duration: Apr 14, 2017 Frequency: Modified Program (IRF) (07/11) Estimated Hrs Per Day: 1.5 hours per day Rehab Potential: Poor Time/GCodes Start Time: 11:50 Stop Time: 12:00 Total Time Billed (hr/min): 10 Billed Treatment Time 1 visit-FA 1 (10 min) JADE GARCIA Mar 24, 2017 14:22
--- NOTE | 2017-03-24 15:06 | Occupational Ther Daily Note ---
OT Current Status-Daily Note Subjective Pt sitting in chair, opens eyes when spoken to. Mental Status/Objective Functional [place] Measure 0=Not Assessed/NA 4=Minimal Assistance 1=Total Assistance 5=Supervision or Setup 2=Maximal Assistance 6=Modified [place] 3=Moderate Assistance 7=Complete [place] ADL-Treatment Functional [place] Measure 0=Not Assessed/NA 4=Minimal Assistance 1=Total Assistance 5=Supervision or Setup 2=Maximal Assistance 6=Modified [place] 3=Moderate Assistance 7=Complete IndependenceIRFPAI Quality Coding Scale 6 Independent with activity with or without an assistive device 5 Patient requires set up or clean up by helper. Patient completes activity by themselves 4 Supervision or touching assist (CGA). [place] provide cues , steadying assist 3 The helper provides less than half the effort to complete the activity 2 The helper provides more than half the effort to complete the activity 1 Dependent. The helper does all the effort to complete an activity 7 Patient refused to complete or attempt activity 9 The patient did not perform the activity before the current illness or injury 88 Not attempted due to Medical conditions or safety concerns Other Treatment Pt awakens, but is lethargic throughout session. RN states she recently had a pain pill that might have made her drowsy. Attempted to have pt complete UE ROM exercises. PROM completed right UE x10 reps at all joints. Pt has no active movement noted on right side. Pt's thumb ROM is limited. Pt is observed to actively move left UE, but she does not follow commands or participate in ROM exercises at this time. PROM is completed at all joints. Pt is non-verbal throughout treatment. Pt does not indicate non-verbal signs of pain during ROM. Pt transferred chair to bed with total assist. Dependent for sit to supine and for rolling in bed for positioning. Dependent to scoot to HOB. Pt positioned in bed with needs met after session. OT Short Term Goals Short Term Goals Time Frame: Mar 31, 2017 Grooming(FIM): 2 Toilet/Commode Transfer(FIM): 2 Additional Short Term Goals: 3-ImproveStrength/Tony 1=Demonstrate adherence to instructed precautions during ADL tasks. 2=Patient will verbalize/demonstrate understanding of assistive devices/ modifications for ADL. 3=Patient will improve strength/tolerance for activity to enable patient to perform ADL's. OT Group Home Goals Biomedical Specialist Goals Time Frame: Apr 14, 2017 Eating (FIM): 3 Eating (QC): 3 Groomin Oral Hygiene (QC): 3 Bathing(FIM): 2 Shower/Bathe Self (QC): 2 Upper Body Dressing(FIM): 3 Upper Body Dressing (QC): 3 Lower Body Dressing(FIM): 2 Lower Body Dressing (QC): 2 On/Off Footwear (QC): 2 Toileting(FIM): 3 Toileting Hygiene (QC): 3 Toilet/Commode Transfer(FIM): 3 Toilet/Commode Transfer (QC): 3 Shower Transfer(FIM): 3 Additional Goals: 3-ImproveStrength/Tony 1=Demonstrate adherence to instructed precautions during ADL tasks. 2=Patient will verbalize/demonstrate understanding of assistive devices/ modifications for ADL. 3=Patient will improve strength/tolerance for activity to enable patient to perform ADL's. OT Education/Plan Discharge Recommendations Plan/Recommendations: Continue POC Treatment Plan/Plan of Care Patient would benefit from OT for education, treatment and training to promote independence in ADL's, mobility, safety and/or upper extremity function for ADL' s. Plan of Care: ADL Retraining, Cognitive Retraining, Functional Mobility, Group Exercise/Act as Ind, UE Funct Exercise/Act, UE Neuromus Re-Ed/Coord, Visual/ Perceptual Retrain Treatment Duration: Apr 14, 2017 Frequency: Modified Program (IRF) (07/11) Estimated Hrs Per Day: 1.5 hours per day Rehab Potential: Poor Time/GCodes Start Time: 13:15 Stop Time: 14:00 Total Time Billed (hr/min): 45 Billed Treatment Time 1 visit, EXx2(30minutes), FA(15minutes) REMIGIO IVY OT Mar 24, 2017 15:06
[2017-03-24] MEDS: inSUlin ASPART (NovoLOG) 1 UNIT/0.01 ML (CHARGE PER UNIT) SC SCH (16:31)
[2017-03-24 18:00] VITALS: BP 113/74
--- NOTE | 2017-03-24 18:45 | PM & R (SOAP) Progress Note ---
Subjective Time Seen by Provider: 09:05 Subjective/Events-last exam Patient was seen in her room this AM Patient somewhat somnolent but no involuntary movements at this time.Patient fairly dependent Bladder managed with indwelling Spicer catheter.Discussed case with staff and DR Wisam Fernandeziscussed case with Clinical Pharmacist at the [facility] clarified Accucheck 400 this evening Patient has sliding scla einsulin regimen Patient felt to have steroid induced Hyperglycemia -will check [id number] orders. Review of Systems Neurological: Weakness, Other (aphasia and dysphagia) Objective Exam Last Set of Vital Signs Vital Signs Date Time Temp Pulse Resp B/P (MAP) Pulse Ox O2 Delivery O2 Flow Rate FiO2 03/24/17 09:00 Room Air 03/24/17 06:00 98.8 73 18 105/66 94 Capillary Refill : I&O Intake and Output 03/25/17 00:00 Intake Total 0 ml Output Total 225 ml Balance -225 ml Intake Oral 0 ml Output Urine Total 225 ml General: Alert, Oriented X3, Cooperative, No Acute Distress HEENT: PERRLA, EOMI, Mucous Memb Moist/[place], Other (incision healing well) Neck: Supple, No JVD Lungs: Clear to Auscultation Heart: Regular Rate Abdomen: Normal Bowel Sounds, Soft Extremities: No Edema Neuro: Other (Flaccid RT side patient fatiques easily patient with dysphagia and aphasia) Results Lab Laboratory Tests 03/24/17 05:35: White Blood Count 9.4, Red Blood Count 4.25L, Hemoglobin 11.4L, Hematocrit 36, Mean Corpuscular Volume 85, Mean Corpuscular Hemoglobin 27, Mean Corpuscular Hemoglobin Concent 32, Red Cell Distribution Width 21.4H, Platelet Count 85L, Mean Platelet Volume , Neutrophils (%) (Auto) 81H, Lymphocytes (%) (Auto) 13, Monocytes (%) (Auto) 6, Eosinophils (%) (Auto) 1, Basophils (%) (Auto) 0, Neutrophils # (Auto) 7.6, Lymphocytes # (Auto) 1.2, Monocytes # (Auto) 0.5, Eosinophils # (Auto) 0.1, Basophils # (Auto) 0.0, Sodium Level 144, Potassium Level 3.6, Chloride Level 109H, Carbon Dioxide Level 27, Anion Gap 8, Blood Urea Nitrogen 29H, Creatinine 0.55L, Estimat Glomerular Filtration Rate > 60, BUN/Creatinine Ratio 53, Glucose Level 78, Calcium Level 8.4L, Total Bilirubin 1.8H, Aspartate Amino Transf (AST/SGOT) 47H, Alanine Aminotransferase (ALT/SGPT ) 86H, Alkaline Phosphatase 83, Total Protein 5.8L, Albumin 2.9L 03/24/17 16:28: Glucometer 400*H Assessment/Plan Assessment 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 S/P crani and excision cystic mass 03-12-17 OSH Hx of rt breast mastectomy for ca with mets to brain and bone Steroid induced hyperglycemia Seizures controlled with meds Keppra dose adjusted Urinary retention managed with Indwelling Spicer catheter Steroid taper Plan Continue PT/OT ST to assess Team Conference held earlier today-See report for full functional update and POC and ELOS 15/7 therapy schedule ordered due to patients debility Pastoral consult placed SW to follow up with family if Palliative care consult appropriate Adjust meds for Eleavated Accucheks as needed Check HGBA1C See orders. TOBI MERIDA MD Mar 24, 2017 18:45
[2017-03-24] MEDS: inSUlin DETERMIR 1 UNIT/0.01 ML (LEVEMIR) CHARGE PER UNIT SQ SCH (20:54)
[2017-03-25] MEDS ORDERED: inSUlin ASPART (NovoLOG) 1 UNIT/0.01 ML (CHARGE PER UNIT) SC ONE ×2 (00:15→20:45)
[2017-03-25] MEDS: ONDANSETRON 4 MG (ZOFRAN) ORAL DISSOLVE TAB PO SCH ×4 (02:16→20:00)
[2017-03-25 04:14] LABS: KETONES,URINE 1+ (NEGATIVE); LEUKOCYTE ESTERASE ,URINE 3+ (NEGATIVE); NITRITE,URINE NEGATIVE (NEGATIVE); PH,URINE 6.5 (5-9); PROTEIN,URINE 2+ (NEGATIVE); UROBILINOGEN,URINE 12 MG/DL (NORMAL)
[2017-03-25 04:27] LABS: BILIRUBIN,URINE 1+ (NEGATIVE)
[2017-03-25 04:30] LABS: SQUAMOUS EPITHELIAL CELL,UR 0-2 /HPF; YEAST,URINE FEW /HPF
[2017-03-25] MEDS: DEXAMETHASONE 4 MG TAB (DECADRON) PO SCH ×3 (04:59→21:19)
[2017-03-25 05:57] LABS: BASOPHILS % (AUTO) 0 % (0-10); EOSINOPHILS % (AUTO) 0 % (0-10); LYMPHOCYTES # (AUTO) 0.8 X 10^3 (1.0-4.0); LYMPHOCYTES % (AUTO) 8 % (12-44); MEAN CORPUSCULAR HEMOGLOBIN 27 PG (25-34); MEAN CORPUSCULAR HGB CONC 32 G/DL (32-36); MEAN CORPUSCULAR VOLUME 86 FL (80-99); MONOCYTES # (AUTO) 0.4 X 10^3 (0.0-1.0); MONOCYTES % (AUTO) 4 % (0-12); NEUTROPHILS # (AUTO) 8.6 X 10^3 (1.8-7.8); NEUTROPHILS % (AUTO) 88 % (42-75); PLATELET COUNT 104 10^3/uL (130-400); RED BLOOD COUNT 3.99 10^6/uL (4.35-5.85); RED CELL DISTRIBUTION WIDTH 21.2 % (10.0-14.5); WHITE BLOOD COUNT 9.8 10^3/uL (4.3-11.0)
[2017-03-25 06:00] VITALS: BP 108/68
[2017-03-25 06:22] LABS: ANION GAP 8 MMOL/L (5-14); BLOOD UREA NITROGEN 24 MG/DL (7-18); BUN/CREATININE RATIO 43; CALCIUM 8.4 MG/DL (8.5-10.1); CARBON DIOXIDE 25 MMOL/L (21-32); CHLORIDE 108 MMOL/L (98-107); CREATININE SERUM 0.56 MG/DL (0.60-1.30); GFR ESTIMATED > 60; GLUCOSE 73 MG/DL (70-105); POTASSIUM 3.8 MMOL/L (3.6-5.0); SODIUM 141 MMOL/L (135-145)
--- NOTE | 2017-03-25 08:17 | Consultation ---
History of Present Illness History of Present Illness Patient Consulted On(shante/time) 03/25/17 08:12 Time Seen by Provider: 08:10 History of Present Illness patient lives in [facility]. Patient has history of breast cancer. 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 Patient on Keppra for seizure precautions. I don't know patient understands what's told her Allergies and Home Medications Allergies Coded Allergies: No Known Allergies (Verified Allergy, Unknown, 10/08/05) Home Medications Alprazolam 1 Mg Tablet, 1 MG PO QID PRN for ANXIETY, (Reported) Atenolol 25 Mg Tablet, 25 MG PO DAILY, (Reported) Carisoprodol 350 Mg Tablet, 350 MG PO TID PRN for MUSCLE SPASMS, (Reported) Dexamethasone 2 Mg Tablet, 4 MG PO DAILY, (Reported) TAKES 2 (2MG) TABLETS Levetiracetam 750 Mg Tablet, 1,500 MG PO BID, (Reported) TAKES 2 (750MG) TABLETS Oxycodone HCl 20 Mg Tablet, 60 MG PO Q4H PRN for BREAKTHROUGH PAIN, (Reported) TAKES 3 (20MG) TABLETS Oxycodone HCl 30 Mg Tab.er.12h, 30 MG PO Q12H, (Reported) Oxycodone HCl 80 Mg Tab.er.12h, 80 MG PO Q12H PRN for PAIN-SEVERE, (Reported) Potassium Chloride 10 Meq Tablet.er, 10 MEQ PO BID, (Reported) Ranitidine HCl 150 Mg Tablet, 150 MG PO DAILY PRN for HEARTBURN, (Reported) Sucralfate 1 Gm Tablet, 1 GM PO BID, (Reported) Past Napelne-Cpwaan-Ovbjtr Hx Patient Social History Alcohol Use: Denies Use Recreational Drug Use: No Smoking Status: Current Someday Smoker Type Used: Cigarettes Recent Foreign Travel: No Contact w/Someone Who Travel: No Recent Infectious Disease Expo: No Recent Hopitalizations: Yes Immunizations Up To Date Tetanus Booster (TDap): Unknown PED Vaccines UTD: No Seasonal Allergies Seasonal Allergies: No Respiratory History of Respiratory Disorde: No Cardiovascular History of Cardiac Disorders: No Reproductive System Hx Reproductive Disorders: No Gastrointestinal History of Gastrointestinal Di: No Gastrointestinal Disorders: Esophagitis, Ulcer Musculoskeletal History of Musculoskeletal Dis: No Musculoskeletal Disorders: Chronic Back Pain Endocrine History of Endocrine Disorders: No HEENT History of HEENT Disorders: No Cancer Cancer: Brain, Bone, Lung, Breast Did You Recieve Any Treatments: Yes Type of Tx Receive: Chemotherapy, Radiation, Surgical Intervention Psychosocial Behavioral Health Disorders: Anxiety, Depression Integumentary History of Skin or Integumenta: No Blood Transfusions History of Blood Disorders: No Adverse Reaction to a Blood Tr: No Family Medical History Family Medial History: Patient reports no known family medical history. Review of Systems-General Constitutional: malaise, weakness EENTM: no symptoms reported Respiratory: no symptoms reported Cardiovascular: no symptoms reported Gastrointestinal: no symptoms reported, other (keeps food in mouth) Genitourinary: no symptoms reported Physical Exam-General Problems Physical Exam Vital Signs Vital Sign - Last 12Hours 03/23/17 03/24/17 22:12 06:00 Temp 98.8 Pulse 73 Resp 18 B/P (MAP) 105/66 Pulse Ox 94 O2 Delivery Room Air Capillary Refill : General Appearance: no apparent distress Eyes: Bilateral Eye Normal Inspection HEENT: other (has an angle) Respiratory: normal breath sounds, no respiratory distress, no accessory muscle use Cardiovascular: regular rate, rhythm Gastrointestinal: non tender, soft Assessment/Plan Assessment/Plan Admission Diagnosis/Plan breast cancer with metastasis to brain and bone. cortisone-induced hyperglycemia. Aphasia. Clinical Quality Measures DVT/VTE Risk/Contraindication: Risk Factor Score Per Nursin RFS Level Per Nursing on Admit: 4+=Very High SUNDAR SELLERS DO Mar 25, 2017 08:17
[2017-03-25] MEDS: ATENOLOL 25 MG (TENORMIN) TAB PO SCH (09:03)
[2017-03-25] MEDS: LEVETIRACETAM 1,000 MG (KEPPRA) TABLET PO SCH ×2 (09:03→21:18)
[2017-03-25] MEDS: SUCRALFATE 1 GM (CARAFATE) TAB PO SCH ×2 (09:03→21:19)
[2017-03-25] MEDS: PANTOPRAZOLE 20 MG TABLET (PROTONIX) PO SCH (09:03)
--- NOTE | 2017-03-25 09:06 | PM & R (SOAP) Progress Note ---
Subjective Time Seen by Provider: 08:15 Subjective/Events-last exam Patient was seen in her room this AM Discussed case with RN and DR sánchez Called last night re Accucheck >400 Orders given and meds /Insulin adjusted.Patient awake this am with eyes open Patient fairly dependent Spicer to DD Objective Exam Last Set of Vital Signs Vital Signs Date Time Temp Pulse Resp B/P (MAP) Pulse Ox O2 Delivery O2 Flow Rate FiO2 03/25/17 06:00 98.6 77 16 108/68 97 Room Air Capillary Refill : I&O Intake and Output 03/26/17 00:00 Intake Total 100 ml Output Total 300 ml Balance -200 ml Intake Oral 100 ml Output Urine Total 300 ml General: Alert, Oriented X3, Cooperative, No Acute Distress HEENT: PERRLA, EOMI, Mucous Memb Moist/[place], Other (incision healing well) Neck: Supple, No JVD Lungs: Clear to Auscultation Heart: Regular Rate Abdomen: Normal Bowel Sounds, Soft Extremities: No Edema Neuro: Other (Flaccid RT side patient fatiques easily patient with dysphagia and aphasia) Results Lab Laboratory Tests 03/24/17 05:35: White Blood Count 9.4, Red Blood Count 4.25L, Hemoglobin 11.4L, Hematocrit 36, Mean Corpuscular Volume 85, Mean Corpuscular Hemoglobin 27, Mean Corpuscular Hemoglobin Concent 32, Red Cell Distribution Width 21.4H, Platelet Count 85L, Mean Platelet Volume , Neutrophils (%) (Auto) 81H, Lymphocytes (%) (Auto) 13, Monocytes (%) (Auto) 6, Eosinophils (%) (Auto) 1, Basophils (%) (Auto) 0, Neutrophils # (Auto) 7.6, Lymphocytes # (Auto) 1.2, Monocytes # (Auto) 0.5, Eosinophils # (Auto) 0.1, Basophils # (Auto) 0.0, Sodium Level 144, Potassium Level 3.6, Chloride Level 109H, Carbon Dioxide Level 27, Anion Gap 8, Blood Urea Nitrogen 29H, Creatinine 0.55L, Estimat Glomerular Filtration Rate > 60, BUN/Creatinine Ratio 53, Glucose Level 78, Calcium Level 8.4L, Total Bilirubin 1.8H, Aspartate Amino Transf (AST/SGOT) 47H, Alanine Aminotransferase (ALT/SGPT ) 86H, Alkaline Phosphatase 83, Total Protein 5.8L, Albumin 2.9L 03/24/17 16:28: Glucometer 400*H 03/24/17 20:06: Glucometer 341H 03/24/17 23:40: Glucometer 475*H 03/25/17 03:25: Urine Color YELLOW, Urine Clarity SLIGHTLY CLOUDY, Urine pH 6.5, Urine Specific [place] 1.015L, Urine Protein 2+H, Urine Glucose (UA) NEGATIVE, Urine Ketones 1+ H, Urine Nitrite NEGATIVE, Urine Bilirubin 1+H, Urine Urobilinogen 12H, Urine Leukocyte Esterase 3+H, Urine RBC (Auto) 3+H, Urine RBC 2-5H, Urine WBC 2-5, Urine Squamous Epithelial Cells 0-2, Urine Crystals NONE, Urine Bacteria TRACE, Urine Casts NONE, Urine Mucus SMALLH, Urine Yeast FEWH, Urine Culture Indicated NO 03/25/17 04:58: Glucometer 82 03/25/17 05:15: White Blood Count 9.8, Red Blood Count 3.99L, Hemoglobin 10.8L, Hematocrit 34L, Mean Corpuscular Volume 86, Mean Corpuscular Hemoglobin 27, Mean Corpuscular Hemoglobin Concent 32, Red Cell Distribution Width 21.2H, Platelet Count 104L, Mean Platelet Volume , Neutrophils (%) (Auto) 88H, Lymphocytes (%) (Auto) 8L, Monocytes (%) (Auto) 4, Eosinophils (%) (Auto) 0, Basophils (%) (Auto) 0, Neutrophils # (Auto) 8.6H, Lymphocytes # (Auto) 0.8L, Monocytes # (Auto) 0.4, Eosinophils # (Auto) 0.0, Basophils # (Auto) 0.0, Sodium Level 141, Potassium Level 3.8, Chloride Level 108H, Carbon Dioxide Level 25, Anion Gap 8, Blood Urea Nitrogen 24H, Creatinine 0.56L, Estimat Glomerular Filtration Rate > 60, BUN/Creatinine Ratio 43, Glucose Level 73, Hemoglobin A1c 8.2H, Calcium Level 8.4L Assessment/Plan Assessment 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 S/P crani and excision cystic mass 03-12-17 OSH 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 Seizures controlled with meds Keppra dose adjusted Urinary retention managed with Indwelling Spicer catheter Steroid taper Plan Continue PT/OT ST to assess Team Conference held yesterday-See report for full functional update and POC and ELOS 07/11 therapy schedule ordered due to patients debility Pastoral consult placed SW to follow up with family if Palliative care consult appropriate Adjust meds for Eleavated Accucheks as needed Check [id number] Adjust Insulin See orders. TOBI MERIDA MD Mar 25, 2017 09:06
[2017-03-25] MEDS: inSUlin ASPART (NovoLOG) 1 UNIT/0.01 ML (CHARGE PER UNIT) SC SCH ×3 (09:08→16:46)
--- NOTE | 2017-03-25 10:00 | Occupational Ther Daily Note ---
OT Current Status-Daily Note Subjective Pt sleeping in bed with blanket pulled over head. Pt aphasic, unable at this time to effectively communicate if in pain. Co-treat with PT due to pt's decreased activity tolerance and mobility. Mental Status/Objective Patient Orientation: Non-Verbal/Aphasic Functional [place] Measure 0=Not Assessed/NA 4=Minimal Assistance 1=Total Assistance 5=Supervision or Setup 2=Maximal Assistance 6=Modified [place] 3=Moderate Assistance 7=Complete [place] ADL-Treatment Pt not following simple one step directions. Hand over hand is needed for pt to initiate movement. Verbal prompts attempted throughout treatment and pt did not acknowledge. PT worked on transfers, sitting balance and LE AROM. OT worked on ADLs and UE AROM/PROM. Pt was given a shower in large shower room. Transfer from w/c to shower chair, good sitting balance in shower chair. Washcloth was placed in pt's hand and directed to wash face, hand over hand to raise arm up to face then pt swiped face 1x then assistance to finish task. Pt was dependent for all other bathing and dressing. Pt vocalized at beginning of treatment and did not want to get out of bed, demonstrated by pt holding/ grabbing onto blanket and pulling it back up to face. Oral care completed by ZAPATA, pt did not attempt to hold onto oral swab. After therapy, pt lying in bed on L side. All needs met in room. Functional [place] Measure 0=Not Assessed/NA 4=Minimal Assistance 1=Total Assistance 5=Supervision or Setup 2=Maximal Assistance 6=Modified [place] 3=Moderate Assistance 7=Complete IndependenceIRFPAI Quality Coding Scale 6 Independent with activity with or without an assistive device 5 Patient requires set up or clean up by helper. Patient completes activity by themselves 4 Supervision or touching assist (CGA). [place] provide cues , steadying assist 3 The helper provides less than half the effort to complete the activity 2 The helper provides more than half the effort to complete the activity 1 Dependent. The helper does all the effort to complete an activity 7 Patient refused to complete or attempt activity 9 The patient did not perform the activity before the current illness or injury 88 Not attempted due to Medical conditions or safety concerns Grooming (FIM): 1 Oral Hygiene (QC): 1 Bathing (FIM): 1 Shower/Bathe Self (QC): 1 Upper Body (FIM): 1 Upper Body Dressing (QC): 1 Lower Body Dressing (FIM): 1 Lower Body Dressing (QC): 1 On/Off Footwear (QC): 1 Shower Transfer(FIM): 1 OT Short Term Goals Short Term Goals Time Frame: Mar 31, 2017 Grooming(FIM): 2 Toilet/Commode Transfer(FIM): 2 Additional Short Term Goals: 3-ImproveStrength/Tony 1=Demonstrate adherence to instructed precautions during ADL tasks. 2=Patient will verbalize/demonstrate understanding of assistive devices/ modifications for ADL. 3=Patient will improve strength/tolerance for activity to enable patient to perform ADL's. OT Oil Field Pumper Goals Oil Field Pumper Goals Time Frame: Apr 14, 2017 Eating (FIM): 3 Eating (QC): 3 Groomin Oral Hygiene (QC): 3 Bathing(FIM): 2 Shower/Bathe Self (QC): 2 Upper Body Dressing(FIM): 3 Upper Body Dressing (QC): 3 Lower Body Dressing(FIM): 2 Lower Body Dressing (QC): 2 On/Off Footwear (QC): 2 Toileting(FIM): 3 Toileting Hygiene (QC): 3 Toilet/Commode Transfer(FIM): 3 Toilet/Commode Transfer (QC): 3 Shower Transfer(FIM): 3 Additional Goals: 3-ImproveStrength/Tony 1=Demonstrate adherence to instructed precautions during ADL tasks. 2=Patient will verbalize/demonstrate understanding of assistive devices/ modifications for ADL. 3=Patient will improve strength/tolerance for activity to enable patient to perform ADL's. OT Education/Plan Discharge Recommendations Plan/Recommendations: Continue POC Treatment Plan/Plan of Care Patient would benefit from OT for education, treatment and training to promote independence in ADL's, mobility, safety and/or upper extremity function for ADL' s. Plan of Care: ADL Retraining, Cognitive Retraining, Functional Mobility, Group Exercise/Act as Ind, UE Funct Exercise/Act, UE Neuromus Re-Ed/Coord, Visual/ Perceptual Retrain Treatment Duration: Apr 14, 2017 Frequency: Modified Program (IRF) (07/11) Estimated Hrs Per Day: 1.5 hours per day Rehab Potential: Poor Time/GCodes Start Time: 08:30 Stop Time: 10:00 Total Time Billed (hr/min): 90 Billed Treatment Time 1 visit-ADL 6 (90 min) cotreat 60 min ([id number]) individual 30 min (4030 [id number], [id number]) JADE GARCIA Mar 25, 2017 10:00
--- NOTE | 2017-03-25 12:06 | Physical Therapy Daily Note ---
PT Daily Note-Current Subjective Pt in bed with blanket over head upon this clinician entering room. Pt resists the blanket being taken down, although requested gently and removed gently; pt groans and pulls blanket back up. Initially, she groans (as if saying she does not want to participate with therapy) but eventually stops as treatment continues. Pt keeps eyes closed throughout most of treatment. Mental Status Patient Orientation: Unable to Assess Transfers Functional [place] Measure 0=Not Assessed/NA 4=Minimal Assistance 1=Total Assistance 5=Supervision or Setup 2=Maximal Assistance 6=Modified [place] 3=Moderate Assistance 7=Complete IndependenceIRFPAI Quality Coding Scale 6 Independent with activity with or without an assistive device 5 Patient requires set up or clean up by helper. Patient completes activity by themselves 4 Supervision or touching assist (CGA). [place] provide cues , steadying assist 3 The helper provides less than half the effort to complete the activity 2 The helper provides more than half the effort to complete the activity 1 Dependent. The helper does all the effort to complete an activity 7 Patient refused to complete or attempt activity 9 The patient did not perform the activity before the current illness or injury 88 Not attempted due to Medical conditions or safety concerns Transfers (B, C, W/C) (FIM): 1 Scootin (assist of 2 with no participation from patient) Rollin (max assist; pt does not participate) Roll Left to Right (QC): 1 Supine to/from Sit: 1 Sit to/from Stand: 2 Sit to Lying (QC): 1 Sit to Stand (QC): 2 (max assist of 1 to stand) Chair/Fxc-wx-[id number] Xfer(QC): 2 (max assist of 1 to stand and to turn; pt does attempt to take steps with left LE; she is able to come to full stand and mantian.) SPT performed x 4 reps, max assist with pt attempting to turn the left LE; pt does engage in upright stance but does not use UE's to hold on; attempts to assist with turning to transfer. Pt is dependent to scoot forward or back in the chair and does not attempt to move either direction herself. Weight Bearing Right Lower Extremity: Right Weight Bearing/Tolerated Left Lower Extremity: Left Weight Bearing/Tolerated Treatments Co treat with OT due to the severity in nature of patient and need for multiple skilled cues and hand placement to complete therapy. Pt was transferred bed to chair to shower chair. Assist OT with showering as OT addressed self care and bathing, PT addressed seated posture, balance and head control while in the shower. Pt tends to slump and lean side to side with limited head control as well. PT provided transfer tasks as OT worked on guiding and use of UEs to assist. Pt able to sit EOB 2-3 minutes x 2 with CGA and close monitoring. Pt in bed post treatment with needs met positioned on her left side. Assessment Little to no participation during therapy session. Pt does extend hips and knees in standing and try to take steps but does not engage in bed mobility, positioning on chair or even particpation with shower. Tends to slump and allow head to fall forward or to the side, however, she seems to also have the abiltiy to control her head at times. Moans frequently, pulls the blanket over her head, keeps eyes closed. Unsure how much she does or doesn't understand and unsure how much she is or isn't able to participate. She does engage her core when sitting EOB. PT Short Term Goals Short Term Goals Time Frame: Mar 31, 2017 Wheelchair (FIM): 2 Wheelchair Distance: 50' Wheelchair Level of Assist: 4 PT Gaming Pit Boss Goals Detention Goals PT Gaming Pit Boss Goals Time Frame: Apr 14, 2017 Transfers (B,C,W/C) (FIM): 3 Sit to Lying (QC): 2 Lying-Sitting on Side/Bed(QC): 2 Sit to Stand (QC): 2 Rollin Roll Left to Right (QC): 2 Chair/Ohu-ix-Hqjnx Xfer(QC): 2 Car Transfer (QC): 2 Does the Patient Walk: No and Walking Goal NOT indicated Wheelchair (FIM): 4 Distance: 150' Wheelchair Level of Assist: 4 Wheel 50 feet with 2 turns (QC: 3 PT Plan Problem List Problem List: Activity Tolerance, Functional Strength, Safety, Balance, Gait, Transfer, Bed Mobility Treatment/Plan Treatment Plan: Continue Plan of Care Treatment Plan: Bed Mobility, Concurrent Therapy, Education, Functional Activity Tony, Functional Strength, Group Therapy, Safety, Therapeutic Exercise , Transfers Treatment Duration: Apr 19, 2017 Frequency: Modified Program (IRF) Estimated Hrs Per Day: 1.5 hours per day Patient and/or Family Agrees t: Yes Safety Risks/Education Patient Education: Disease Process Teaching Recipient: Patient Teaching Methods: Discussion Response to Teaching: Reinforcement Needed Talked through each step of treatment and why participation is important. Educated on importance of participation. Discharge Recommendations Plan [place] to work on functional transfers and patient participation with therapy services. Recommend family training to begin soon. Barriers to Progress Limited participation with therapy Time/GCodes Time In: 845 Time Out: 945 Total Billed Treatment Time: 60 Total Billed Treatment visit FA 60 JADE KEENE PT Mar 25, 2017 12:06
--- NOTE | 2017-03-25 15:12 | ST Cognitive Linguistic Eval ---
Speech Evaluation-General Medical Diagnosis R Hemiparesis, Stroke, Seizure Onset Date: Mar 12, 2017 Therapy Diagnosis Therapy Diagnosis: Severe Global Aphasia Precautions Precautions/Isolations: Fall Prevention, Standard Precautions Referral Referring Physician: Dr. Geovani Blandon Reason for Referral: Evaluation/Treatment Cognitive Evaluation Medical History Pertinent Medical History: HTN Reviewed History: Yes Speech PLF-Current Status Prior Level of Function The patient was unable to provide the clinician with prior level of function information. Subjective The patient was laying in bed upon entrance, gazing upward to the right. The patient did not respond to verbal greeting through any communication mode. Language Eval: Auditory Comprehends Simple Yes/No Ques: Severe Indent/Objects Multiple Andrade: Severe Ident/Pics in Multiple Andrade: Severe Follows 1-Step Commands: Severe Follows Complex Directions: Severe Follows General Conversations: Severe Language Eval: Verbal Language Completes Spontaneous Greeting: Severe Produces Auto, Serial Info: Severe Imitates Simple Words/Phrases: Severe Word Finding: Severe Requests Basic Needs: Severe States Basic Personal Info: Severe Expresses Complex Ideas: Severe Objective Impression The patient displays severe global aphasia. The patient did not attempt verbalizations or communication throughout the assessment. The patient was unable to respond to yes and no questions, follow one-step commands or provide nonverbal feedback to the clinician. The patient made audible moans throughout the session. At this time, the patient's cognition could not be assessed due to her severe language deficit. Communication/Social Cognition Comprehension: 1 Expression: 1 Social Interaction: 1 Speech Patient Assess Expression of Ideas/Wants: Rarely/Never (1) Understanding [place] Content: Rarely/Never Understand (1) Brief Interview-Mental Status: No(pt is rarely/never understood) Memory/Recall Ability: None of the above were recalled Speech Short Term Goals Short Term Goals Short Term Goals 1. The patient will complete yes and no questions via head nod with 40% accuracy. 2. The patient will follow one step commands with direct modeling and 40% accuracy. Time Frame-STG: One Week Speech Furnace Tender Goals Chcf Goals 1. The patient will demonstrate improved cognitive linguistic skills for increased function and safety in the least restrictive setting. Time Frame: Three Weeks Comprehension: 2 Expression: 2 Social Interaction: 2 Problem Solvin Memory: 2 Speech-Plan Treatment Plan Speech Therapy Treatment Plan: Continue Plan of Care Continue skilled speech pathology in attempts to elicit functional communication. Treatment Duration: Apr 15, 2017 Frequency: Modified Program (IRF) (Four to five times per week.) Estimated Hrs Per Day: .5 hour per day Rehab Potential: Poor Safety Risks/Education Teaching Recipient: Patient Teaching Methods: Discussion Response to Teaching: Unable to Comprehend Education Topics Provided: Results, Recommendations, Plan of Care Time Speech Therapy Time In: 11:30 Speech Therapy Time Out: 12:00 Total Billed Time: 30 Billed Treatment Time 1, WILBERTO HENRY Mar 25, 2017 15:12
--- NOTE | 2017-03-25 15:23 | Physical Therapy Daily Note ---
PT Daily Note-Current Subjective Pulls blanket over face when PT enters; moans and seems to be saying "No" to therapy. Pt does make eye contact with this therapist. Transfers Functional [place] Measure 0=Not Assessed/NA 4=Minimal Assistance 1=Total Assistance 5=Supervision or Setup 2=Maximal Assistance 6=Modified [place] 3=Moderate Assistance 7=Complete IndependenceIRFPAI Quality Coding Scale 6 Independent with activity with or without an assistive device 5 Patient requires set up or clean up by helper. Patient completes activity by themselves 4 Supervision or touching assist (CGA). [place] provide cues , steadying assist 3 The helper provides less than half the effort to complete the activity 2 The helper provides more than half the effort to complete the activity 1 Dependent. The helper does all the effort to complete an activity 7 Patient refused to complete or attempt activity 9 The patient did not perform the activity before the current illness or injury 88 Not attempted due to Medical conditions or safety concerns Weight Bearing Right Lower Extremity: Right Weight Bearing/Tolerated Left Lower Extremity: Left Weight Bearing/Tolerated Treatments Gently encouraged pt to get out of bed, pt resistive. Pt is dep to transfer to sit EOB and even resists sitting up, able to put left LE back up on bed and resists this therapist moving it. Eventually, pt does comply. Pt sits EOB with CGA. SPT bed to from chair with max assist; again, pt able to WB and stand with assist, difficulty with taking steps to turn but she does bear her weight. Pt in wheelchair and dep for wheelchair mobility, working on upright posture, head control and looking to her right. Moved about the unit encouraging pt to sit up, look around. Pt in bed post treatment in right sidelying. Assessment Resistant to treatment this afternoon and no participation with PT. Pt does make eye contact, but unable to assess if she is understanding/processing what this therapist is saying. Brought up topics such as her children with no response verbally or non verbally, just eye contact. PT Short Term Goals Short Term Goals Time Frame: Mar 31, 2017 Wheelchair (FIM): 2 Wheelchair Distance: 50' Wheelchair Level of Assist: 4 PT Senior Care Goals Senior Care Goals PT Senior Care Goals Time Frame: Apr 14, 2017 Transfers (B,C,W/C) (FIM): 3 Sit to Lying (QC): 2 Lying-Sitting on Side/Bed(QC): 2 Sit to Stand (QC): 2 Rollin (max assist; pt does not participate) Roll Left to Right (QC): 2 Chair/[id number] Xfer(QC): 2 Car Transfer (QC): 2 Does the Patient Walk: No and Walking Goal NOT indicated Wheelchair (FIM): 4 Distance: 150' Wheelchair Level of Assist: 4 Wheel 50 feet with 2 turns (QC: 3 PT Plan Problem List Problem List: Activity Tolerance, Functional Strength, Safety, Balance, Transfer, Bed Mobility Treatment/Plan Treatment Plan: Continue Plan of Care Treatment Plan: Bed Mobility, Concurrent Therapy, Education, Functional Activity Tony, Functional Strength, Group Therapy, Safety, Therapeutic Exercise , Transfers Treatment Duration: Apr 19, 2017 Frequency: Modified Program (IRF) Estimated Hrs Per Day: 1.5 hours per day Patient and/or Family Agrees t: Yes Time/GCodes Time In: 1300 Time Out: 1330 Total Billed Treatment Time: 30 Total Billed Treatment visit FA 30 JADE KEENE PT Mar 25, 2017 15:23
[2017-03-25 17:55] VITALS: BP 107/69
[2017-03-25] MEDS: POLYETHYLENE GLYCOL 17 GM (MIRALAX) PACK PO SCH (21:18)
[2017-03-25] MEDS: inSUlin DETERMIR 1 UNIT/0.01 ML (LEVEMIR) CHARGE PER UNIT SQ SCH (21:19)
[2017-03-26] MEDS: ONDANSETRON 4 MG (ZOFRAN) ORAL DISSOLVE TAB PO SCH ×4 (01:56→20:09)
[2017-03-26] MEDS: DEXAMETHASONE 4 MG TAB (DECADRON) PO SCH ×3 (05:38→20:09)
[2017-03-26 06:00] VITALS: BP 104/61
--- NOTE | 2017-03-26 08:33 | Progress Note (SOAP) ---
Subjective Time Seen by Provider: 08:32 Subjective/Events-last exam hemorrhagic brain tumor. Seizure. Patient resting comfortably. 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 cortisone-induced hyperglycemia. Aphasia.. . 03/26/17. 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 Hypoglycemia due to cortisone. Patient sleeping is not awake this a.m. Clinical Quality Measures DVT/VTE Risk/Contraindication: Risk Factor Score Per Nursin RFS Level Per Nursing on Admit: 4+=Very High SUNDAR SELLERS DO Mar 26, 2017 08:32
[2017-03-26] MEDS: LEVETIRACETAM 1,000 MG (KEPPRA) TABLET PO SCH ×2 (08:57→20:09)
[2017-03-26] MEDS: SUCRALFATE 1 GM (CARAFATE) TAB PO SCH ×2 (08:57→20:09)
[2017-03-26] MEDS: PANTOPRAZOLE 20 MG TABLET (PROTONIX) PO SCH (08:57)
[2017-03-26] MEDS: ATENOLOL 25 MG (TENORMIN) TAB PO SCH (08:57)
[2017-03-26] MEDS: inSUlin ASPART (NovoLOG) 1 UNIT/0.01 ML (CHARGE PER UNIT) SC SCH ×3 (08:58→18:02)
--- NOTE | 2017-03-26 10:01 | Physical Therapy Daily Note ---
PT Daily Note-Current Subjective Patient in bed pre tx, non-communicative. Appearance Patient in recliner post tx with nurse call, alexandriay, all needs met. Mental Status Patient Orientation: Unable to Assess, Non-Verbal/Aphasic Attachments: Spicer Catheter Transfers Functional [place] Measure 0=Not Assessed/NA 4=Minimal Assistance 1=Total Assistance 5=Supervision or Setup 2=Maximal Assistance 6=Modified [place] 3=Moderate Assistance 7=Complete IndependenceIRFPAI Quality Coding Scale 6 Independent with activity with or without an assistive device 5 Patient requires set up or clean up by helper. Patient completes activity by themselves 4 Supervision or touching assist (CGA). [place] provide cues , steadying assist 3 The helper provides less than half the effort to complete the activity 2 The helper provides more than half the effort to complete the activity 1 Dependent. The helper does all the effort to complete an activity 7 Patient refused to complete or attempt activity 9 The patient did not perform the activity before the current illness or injury 88 Not attempted due to Medical conditions or safety concerns Transfers (B, C, W/C) (FIM): 1 Scootin Rollin Supine to/from Sit: 1 Sit to/from Stand: 3 Bed to/from Chair: 2 Weight Bearing Right Lower Extremity: Right Weight Bearing/Tolerated Left Lower Extremity: Left Weight Bearing/Tolerated Treatments Patient rolled several times with dependence to get cleaned up and dressed and then sat at the edge of the bed and transferred to the wheelchair. She was taken to the therapy gym and put in the standing frame for about 15'. She was then put back into her wheelchair, taken back to her room and transferred to the recliner. PT co-treated with OT for the whole 60 min. PT worked on rolling , bed mobility, siting balance, transfers, and trunk balance in the the standing frame while OT worked on dressing, grooming and and UE activities in the standing frame. Assessment Current Status: Poor Progress no change in mobility. PT Short Term Goals Short Term Goals Time Frame: Mar 31, 2017 Wheelchair (FIM): 2 Wheelchair Distance: 50' Wheelchair Level of Assist: 4 PT Wheelchair Rental Clerk Goals Correction Goals PT Wheelchair Rental Clerk Goals Time Frame: Apr 14, 2017 Transfers (B,C,W/C) (FIM): 3 Sit to Lying (QC): 2 Lying-Sitting on Side/Bed(QC): 2 Sit to Stand (QC): 2 Rollin (max assist; pt does not participate) Roll Left to Right (QC): 2 Chair/[id number] Xfer(QC): 2 Car Transfer (QC): 2 Does the Patient Walk: No and Walking Goal NOT indicated Wheelchair (FIM): 4 Distance: 150' Wheelchair Level of Assist: 4 Wheel 50 feet with 2 turns (QC: 3 PT Plan Problem List Problem List: Activity Tolerance, Functional Strength, Safety, Balance, Gait, Transfer, Bed Mobility Treatment/Plan Treatment Plan: Continue Plan of Care Treatment Plan: Bed Mobility, Concurrent Therapy, Education, Functional Activity Tony, Functional Strength, Group Therapy, Safety, Therapeutic Exercise , Transfers Treatment Duration: Apr 19, 2017 Frequency: Modified Program (IRF) Estimated Hrs Per Day: 1.5 hours per day Patient and/or Family Agrees t: Yes Safety Risks/Education Patient Education: Transfer Techniques, Correct Positioning, Safety Issues Teaching Recipient: Patient Teaching Methods: Demonstration, Discussion Response to Teaching: Reinforcement Needed Time/GCodes Time In: 900 Time Out: 1000 Total Billed Treatment Time: 60 Total Billed Treatment 1 visit FA 60' VALDEMAR LALA PT Mar 26, 2017 10:01
--- NOTE | 2017-03-26 10:48 | Occupational Ther Daily Note ---
OT Current Status-Daily Note Subjective Pt lying in bed, nrsg feeding pt breakfast. Pt non-verbal/aphasia. Mental Status/Objective Patient Orientation: Non-Verbal/Aphasic Functional [place] Measure 0=Not Assessed/NA 4=Minimal Assistance 1=Total Assistance 5=Supervision or Setup 2=Maximal Assistance 6=Modified [place] 3=Moderate Assistance 7=Complete [place] Attachments: Spicer Catheter ADL-Treatment OT/PT co-treat due to decreased activity tolerance and mobility. PT worked on transfers and standing. OT worked on dressing, grooming. Pt did not initiate any functional movement. Max A for stand pivot transfers. Attempted to give pt cleansing cloth, pt did not grasp, then assist to wash face. Pt stood in standing frame and attempted to get pt to work with theraputty. Pt did visually attend to theraputty though did not attempt to squeeze or hold. Mirror placed in front of pt and brush placed in hand. Pt would not grasp brush , hand over hand lifted brush to hair. Pt did not initiate any movement. Pt then was taken back to room and transferred into recliner. Pt positioned in recliner with call light/phone in reach, after therapy. All needs met in room. Functional [place] Measure 0=Not Assessed/NA 4=Minimal Assistance 1=Total Assistance 5=Supervision or Setup 2=Maximal Assistance 6=Modified [place] 3=Moderate Assistance 7=Complete IndependenceIRFPAI Quality Coding Scale 6 Independent with activity with or without an assistive device 5 Patient requires set up or clean up by helper. Patient completes activity by themselves 4 Supervision or touching assist (CGA). [place] provide cues , steadying assist 3 The helper provides less than half the effort to complete the activity 2 The helper provides more than half the effort to complete the activity 1 Dependent. The helper does all the effort to complete an activity 7 Patient refused to complete or attempt activity 9 The patient did not perform the activity before the current illness or injury 88 Not attempted due to Medical conditions or safety concerns OT Short Term Goals Short Term Goals Time Frame: Mar 31, 2017 Grooming(FIM): 2 Toilet/Commode Transfer(FIM): 2 Additional Short Term Goals: 3-ImproveStrength/Tony 1=Demonstrate adherence to instructed precautions during ADL tasks. 2=Patient will verbalize/demonstrate understanding of assistive devices/ modifications for ADL. 3=Patient will improve strength/tolerance for activity to enable patient to perform ADL's. OT Senior Living Goals Bar Hostess Goals Time Frame: Apr 14, 2017 Eating (FIM): 3 Eating (QC): 3 Groomin Oral Hygiene (QC): 3 Bathing(FIM): 2 Shower/Bathe Self (QC): 2 Upper Body Dressing(FIM): 3 Upper Body Dressing (QC): 3 Lower Body Dressing(FIM): 2 Lower Body Dressing (QC): 2 On/Off Footwear (QC): 2 Toileting(FIM): 3 Toileting Hygiene (QC): 3 Toilet/Commode Transfer(FIM): 3 Toilet/Commode Transfer (QC): 3 Shower Transfer(FIM): 3 Comprehension(FIM): 2 Expression (FIM): 2 Social Interaction(FIM): 2 Problem Solving(FIM): 2 Memory(FIM): 2 Additional Goals: 3-ImproveStrength/Tony 1=Demonstrate adherence to instructed precautions during ADL tasks. 2=Patient will verbalize/demonstrate understanding of assistive devices/ modifications for ADL. 3=Patient will improve strength/tolerance for activity to enable patient to perform ADL's. OT Education/Plan Discharge Recommendations Plan/Recommendations: Continue POC Treatment Plan/Plan of Care Patient would benefit from OT for education, treatment and training to promote independence in ADL's, mobility, safety and/or upper extremity function for ADL' s. Plan of Care: ADL Retraining, Cognitive Retraining, Functional Mobility, Group Exercise/Act as Ind, UE Funct Exercise/Act, UE Neuromus Re-Ed/Coord, Visual/ Perceptual Retrain Treatment Duration: Apr 14, 2017 Frequency: Modified Program (IRF) (07/11) Estimated Hrs Per Day: 1.5 hours per day Rehab Potential: Poor Time/GCodes Start Time: 09:00 Stop Time: 10:00 Total Time Billed (hr/min): 60 Billed Treatment Time 1 visit-FA 4 (60 min) co-treat [id number] (60 min) JADE GARCIA Mar 26, 2017 10:48
--- NOTE | 2017-03-26 13:30 | Speech Therapy Daily Note ---
Speech Daily Progress Note Subjective Date Seen by Provider: Mar 26, 2017 Time Seen by Provider: 10:30 The patient was seated upright in recliner upon entrance. The patient did not attempt eye gaze, verbal, or nonverbal greeting of the clinician. Objective Regardless of maximum clinician cueing, the patient would not remain alert and appropriate for PO intake. Due to this, a swallow evaluation could not occur. The patient continuously kept eyes closed throughout the treatment session, with head and eye gaze pointed downwards. Yes/No: The patient would not respond to yes/no questions via head nod/shake, eye gaze, verbalization, or pointing to yes and no words. 1-Step: The patient was unable to follow simple one step commands with direct clinician modeling and maximum verbal prompting. Assessment Assessment Current Status: Poor Progress Treatment Plan Continue Plan of Care Communication Comprehension: 1 Expression: 1 Social Cognition Social Interaction: 1 Problem Solvin Memory: 1 Speech Short Term Goals Short Term Goals Short Term Goals 1. The patient will complete yes and no questions via head nod with 40% accuracy. 2. The patient will follow one step commands with direct modeling and 40% accuracy. Time Frame-STG: One Week Speech Prison Goals Warp Preparer Goals 1. The patient will demonstrate improved cognitive linguistic skills for increased function and safety in the least restrictive setting. Time Frame: Three Weeks Comprehension: 2 Expression: 2 Social Interaction: 2 Problem Solvin Memory: 2 Speech-Plan Treatment Plan Speech Therapy Treatment Plan: Continue Plan of Care Continue skilled speech therapy to target functional communication. Treatment Duration: Apr 15, 2017 Frequency: Modified Program (IRF) (Four to five times per week.) Estimated Hrs Per Day: .5 hour per day Rehab Potential: Poor Safety Risks/Education Teaching Recipient: Patient Teaching Methods: Discussion Response to Teaching: Unable to Comprehend Education Topics Provided: Plan of Care Time Speech Therapy Time In: 10:30 Speech Therapy Time Out: 11:00 Total Billed Time: 30 Billed Treatment Time 1TIFFANIELYDIA WILBRETO FARAH Mar 26, 2017 13:30
--- NOTE | 2017-03-26 14:02 | Occupational Ther Daily Note ---
OT Current Status-Daily Note Subjective Pt sitting in recliner. Pt non-verbal/aphasic. Mental Status/Objective Patient Orientation: Non-Verbal/Aphasic Functional [place] Measure 0=Not Assessed/NA 4=Minimal Assistance 1=Total Assistance 5=Supervision or Setup 2=Maximal Assistance 6=Modified [place] 3=Moderate Assistance 7=Complete [place] ADL-Treatment Functional [place] Measure 0=Not Assessed/NA 4=Minimal Assistance 1=Total Assistance 5=Supervision or Setup 2=Maximal Assistance 6=Modified [place] 3=Moderate Assistance 7=Complete IndependenceIRFPAI Quality Coding Scale 6 Independent with activity with or without an assistive device 5 Patient requires set up or clean up by helper. Patient completes activity by themselves 4 Supervision or touching assist (CGA). [place] provide cues , steadying assist 3 The helper provides less than half the effort to complete the activity 2 The helper provides more than half the effort to complete the activity 1 Dependent. The helper does all the effort to complete an activity 7 Patient refused to complete or attempt activity 9 The patient did not perform the activity before the current illness or injury 88 Not attempted due to Medical conditions or safety concerns Other Treatment Pt initially taken to OT/PT group in recliner. Pt began to vocalize loudly then had to be taken out of group, could not be consoled. Pt transported to room with recliner. Pt continued to vocalize loudly, son present. ZAPATA attempted to calm pt down. Pt calmed down 15 min after returning to room. Provided pt snack, pudding and applesauce choices. Pt used gaze to choose between chocolate pudding, vanilla pudding and apple sauce 5x's. Pt stopped choosing and looked between choices and opened mouth for a bite. Pt's lip closure was enough to scape of top layer of pudding/apple sauce. After therapy , son present in room. Call light in reach, all needs met in room. OT Short Term Goals Short Term Goals Time Frame: Mar 31, 2017 Grooming(FIM): 2 Toilet/Commode Transfer(FIM): 2 Additional Short Term Goals: 3-ImproveStrength/Tony 1=Demonstrate adherence to instructed precautions during ADL tasks. 2=Patient will verbalize/demonstrate understanding of assistive devices/ modifications for ADL. 3=Patient will improve strength/tolerance for activity to enable patient to perform ADL's. OT Sponge Maker Goals Custodial Goals Time Frame: Apr 14, 2017 Eating (FIM): 3 Eating (QC): 3 Groomin Oral Hygiene (QC): 3 Bathing(FIM): 2 Shower/Bathe Self (QC): 2 Upper Body Dressing(FIM): 3 Upper Body Dressing (QC): 3 Lower Body Dressing(FIM): 2 Lower Body Dressing (QC): 2 On/Off Footwear (QC): 2 Toileting(FIM): 3 Toileting Hygiene (QC): 3 Toilet/Commode Transfer(FIM): 3 Toilet/Commode Transfer (QC): 3 Shower Transfer(FIM): 3 Comprehension(FIM): 2 Expression (FIM): 2 Social Interaction(FIM): 2 Problem Solving(FIM): 2 Memory(FIM): 2 Additional Goals: 3-ImproveStrength/Tony 1=Demonstrate adherence to instructed precautions during ADL tasks. 2=Patient will verbalize/demonstrate understanding of assistive devices/ modifications for ADL. 3=Patient will improve strength/tolerance for activity to enable patient to perform ADL's. OT Education/Plan Discharge Recommendations Plan/Recommendations: Continue POC Treatment Plan/Plan of Care Patient would benefit from OT for education, treatment and training to promote independence in ADL's, mobility, safety and/or upper extremity function for ADL' s. Plan of Care: ADL Retraining, Cognitive Retraining, Functional Mobility, Group Exercise/Act as Ind, UE Funct Exercise/Act, UE Neuromus Re-Ed/Coord, Visual/ Perceptual Retrain Treatment Duration: Apr 14, 2017 Frequency: Modified Program (IRF) (07/11) Estimated Hrs Per Day: 1.5 hours per day Rehab Potential: Poor Time/GCodes Start Time: 13:00 Stop Time: 14:00 Total Time Billed (hr/min): 60 Billed Treatment Time 1 visit-FA 4 (60 min) JADE GARCIA Mar 26, 2017 14:02
[2017-03-26 18:00] VITALS: BP 112/69
[2017-03-26] MEDS: POLYETHYLENE GLYCOL 17 GM (MIRALAX) PACK PO SCH (20:09)
[2017-03-26] MEDS: inSUlin DETERMIR 1 UNIT/0.01 ML (LEVEMIR) CHARGE PER UNIT SQ SCH (20:13)
[2017-03-27] MEDS: ONDANSETRON 4 MG (ZOFRAN) ORAL DISSOLVE TAB PO SCH ×4 (02:17→20:26)
[2017-03-27 05:00] VITALS: BP 113/70
[2017-03-27] MEDS: DEXAMETHASONE 4 MG TAB (DECADRON) PO SCH ×3 (05:29→20:26)
[2017-03-27] MEDS: inSUlin ASPART (NovoLOG) 1 UNIT/0.01 ML (CHARGE PER UNIT) SC SCH ×3 (08:42→18:37)
[2017-03-27] MEDS: LEVETIRACETAM 1,000 MG (KEPPRA) TABLET PO SCH ×2 (08:42→20:26)
[2017-03-27] MEDS: SUCRALFATE 1 GM (CARAFATE) TAB PO SCH ×2 (08:43→20:26)
[2017-03-27] MEDS: PANTOPRAZOLE 20 MG TABLET (PROTONIX) PO SCH (08:43)
[2017-03-27] MEDS: ATENOLOL 25 MG (TENORMIN) TAB PO SCH (08:43)
--- NOTE | 2017-03-27 12:12 | Occupational Ther Daily Note ---
OT Current Status-Daily Note Subjective Pt. begins to yell "hey, hey, hey" when OT and PT tell her about getting out of bed. Appearance Pt. in bed. Becomes agitated when therapy attempts to get her out of bed. Spoke with nursing. Pt. has not been agitated today. Mental Status/Objective Patient Orientation: Confused Functional [place] Measure 0=Not Assessed/NA 4=Minimal Assistance 1=Total Assistance 5=Supervision or Setup 2=Maximal Assistance 6=Modified [place] 3=Moderate Assistance 7=Complete [place] ADL-Treatment Functional [place] Measure 0=Not Assessed/NA 4=Minimal Assistance 1=Total Assistance 5=Supervision or Setup 2=Maximal Assistance 6=Modified [place] 3=Moderate Assistance 7=Complete IndependenceIRFPAI Quality Coding Scale 6 Independent with activity with or without an assistive device 5 Patient requires set up or clean up by helper. Patient completes activity by themselves 4 Supervision or touching assist (CGA). [place] provide cues , steadying assist 3 The helper provides less than half the effort to complete the activity 2 The helper provides more than half the effort to complete the activity 1 Dependent. The helper does all the effort to complete an activity 7 Patient refused to complete or attempt activity 9 The patient did not perform the activity before the current illness or injury 88 Not attempted due to Medical conditions or safety concerns Bathing (FIM): 1 (Pt. required dependent assist to bathe while sitting up in chair.) Shower/Bathe Self (QC): 1 Lower Body Dressing (FIM): 1 (Pt. was dependent for doffing/donning socks and brief.) Lower Body Dressing (QC): 1 On/Off Footwear (QC): 1 Toileting (FIM): 1 (Pt. has catheter.) Toileting Hygiene (QC): 1 Transfers (B, C, W/C) (FIM): 1 (Please see note below.) Other Treatment Pt. in bed. OT/PT co-treated due to level of assistance required. When OT/PT stated who they were, and attempted to assist pt. to side of bed, pt became very agitated and started to yell "hey" over and over. Would grab at covers with left hand and pullman conductor. Attempted gentle encouragement and prompting, but pt. did not want to get out of bed. OT/PT transferred pt. to side fo bed with dependent assistance. Stood with max assist and assist of another person to guide hips over to chair. Pt. would "shut down" intermittently and put her head down. Quit listening or looking at therapists. OT/PT encouraged pt. to stand at parallel bars to assist with strengthening for return home. Pt. just shakes head. Would not engage with therapists. OT stood pt. while standing in front of her and PT stood behind and engaged hips and glutes. Pt. stood approximately 2-3 minutes, 2 times. Would engage legs but then they would " give out" and pt. had to be sat down. Went back to room and attempted to get pt. to participate in her bath. Pt. would not. OT/PT bathed pt. with dependent assist while up in chair. No street clothing available so a hospital gown was put on pt. Transferred her back to bed. OT facilitated ADL tasks while PT facilitated leg placement and mobility tasks. Together, the goals of increased strength was pursued. After Pt. postioned and all needs were met, OT spoke with pt's friend in [facility] regarding pt's progress. She was concerned because pt. would not engage with her today as well. Education OT Patient Education: Correct positioning, Instructions to caregiver, Modified ADL techniques, Progress toward Goal/Update tx plan, Purpose of tx/functional activities, Reviewed precautions, Rehab process, Safety issues, Transfer techniques Teaching Recipient: Patient, Family Teaching Methods: Demonstration, Discussion Response to Teaching: Verbalize Understanding, Return Demonstration OT Short Term Goals Short Term Goals Time Frame: Mar 31, 2017 Grooming(FIM): 2 Toilet/Commode Transfer(FIM): 2 Additional Short Term Goals: 3-ImproveStrength/Tony 1=Demonstrate adherence to instructed precautions during ADL tasks. 2=Patient will verbalize/demonstrate understanding of assistive devices/ modifications for ADL. 3=Patient will improve strength/tolerance for activity to enable patient to perform ADL's. OT Care Home Goals Care Home Goals Time Frame: Apr 14, 2017 Eating (FIM): 3 Eating (QC): 3 Groomin Oral Hygiene (QC): 3 Bathing(FIM): 2 Shower/Bathe Self (QC): 2 Upper Body Dressing(FIM): 3 Upper Body Dressing (QC): 3 Lower Body Dressing(FIM): 2 Lower Body Dressing (QC): 2 On/Off Footwear (QC): 2 Toileting(FIM): 3 Toileting Hygiene (QC): 3 Toilet/Commode Transfer(FIM): 3 Toilet/Commode Transfer (QC): 3 Shower Transfer(FIM): 3 Comprehension(FIM): 2 Expression (FIM): 2 Social Interaction(FIM): 2 Problem Solving(FIM): 2 Memory(FIM): 2 Additional Goals: 3-ImproveStrength/Tony 1=Demonstrate adherence to instructed precautions during ADL tasks. 2=Patient will verbalize/demonstrate understanding of assistive devices/ modifications for ADL. 3=Patient will improve strength/tolerance for activity to enable patient to perform ADL's. OT Education/Plan Problem List/Assessment Assessment: Decreased Activ Tolerance, Decreased Safety Aware, Decreased UE Strength, Dependent Transfers, Impaired Bed Mobility, Impaired Cognition, Impaired Coordination, Impaired Funct Balance, Impaired I ADL's, Impaired Self- Care Skills, Restricted Funct UE ROM, Visual-Perceptual Deficit Discharge Recommendations Plan/Recommendations: Continue POC Therapy D/C Recommendations: 24 hr Supervision, Home w/ Family Support, Scheduled Assistance Barriers to Progress Pt. refused to participate today. Became agitated and demonstrated difficulty with all tasks. Target Placement Pt's friend states that she has a schedule set up for when pt. returns home, that will consist of family and friends to take care of pt. Treatment Plan/Plan of Care Treatment,Training & Education: Yes Patient would benefit from OT for education, treatment and training to promote independence in ADL's, mobility, safety and/or upper extremity function for ADL' s. Plan of Care: ADL Retraining, Cognitive Retraining, Functional Mobility, Group Exercise/Act as Ind, UE Funct Exercise/Act, UE Neuromus Re-Ed/Coord, Visual/ Perceptual Retrain Treatment Duration: Apr 14, 2017 Frequency: Modified Program (IRF) (07/11) Estimated Hrs Per Day: 1.5 hours per day Agreement: Yes Rehab Potential: Poor Time/GCodes Start Time: 09:00 Stop Time: 09:45 Total Time Billed (hr/min): 45 Billed Treatment Time 1, ADL x3 ASIM FREITAS OT Mar 27, 2017 12:12
--- NOTE | 2017-03-27 12:38 | Physical Therapy Daily Note ---
PT Daily Note-Current Subjective Pt. in bed upon arrival, perseverates on repeating "no", "ok" throughout session. Mental Status Attachments: Spicer Catheter Transfers Functional [place] Measure 0=Not Assessed/NA 4=Minimal Assistance 1=Total Assistance 5=Supervision or Setup 2=Maximal Assistance 6=Modified [place] 3=Moderate Assistance 7=Complete IndependenceIRFPAI Quality Coding Scale 6 Independent with activity with or without an assistive device 5 Patient requires set up or clean up by helper. Patient completes activity by themselves 4 Supervision or touching assist (CGA). [place] provide cues , steadying assist 3 The helper provides less than half the effort to complete the activity 2 The helper provides more than half the effort to complete the activity 1 Dependent. The helper does all the effort to complete an activity 7 Patient refused to complete or attempt activity 9 The patient did not perform the activity before the current illness or injury 88 Not attempted due to Medical conditions or safety concerns Transfers (B, C, W/C) (FIM): 1 Rollin Supine to/from Sit: 1 Sit to/from Stand: 1 Bed to/from Chair: 1 Weight Bearing Right Lower Extremity: Right Weight Bearing/Tolerated Left Lower Extremity: Left Weight Bearing/Tolerated Gait Training Does the Patient Walk?: No and Walking Goal NOT indicated Treatments transfers, worked on sit to stand transfers. Co-tx with OT due to level of impairment and poor cognitive function. Assessment Current Status: Fair Progress Pt. continues to be dependent for all transfers. She becomes agitated during session, yelling out during session and then becoming despondent. Pt. does not follow any therapist cues for mobility or treatment. She needs max A with sitting balance at side of bed. Pt. returned to bed post session, positioned left sidelying. PT Short Term Goals Short Term Goals Time Frame: Mar 31, 2017 Wheelchair (FIM): 2 Wheelchair Distance: 50' Wheelchair Level of Assist: 4 PT Half-Way Goals Photography Colorist Goals PT Half-Way Goals Time Frame: Apr 14, 2017 Transfers (B,C,W/C) (FIM): 3 Sit to Lying (QC): 2 Lying-Sitting on Side/Bed(QC): 2 Sit to Stand (QC): 2 Rollin Roll Left to Right (QC): 2 Chair/Tho-an-Brffw Xfer(QC): 2 Car Transfer (QC): 2 Does the Patient Walk: No and Walking Goal NOT indicated Wheelchair (FIM): 4 Distance: 150' Wheelchair Level of Assist: 4 Wheel 50 feet with 2 turns (QC: 3 PT Plan Treatment/Plan Treatment Plan: Continue Plan of Care Treatment Plan: Bed Mobility, Concurrent Therapy, Education, Functional Activity Tony, Functional Strength, Group Therapy, Safety, Therapeutic Exercise , Transfers Treatment Duration: Apr 19, 2017 Frequency: Modified Program (IRF) Estimated Hrs Per Day: 1.5 hours per day Patient and/or Family Agrees t: Yes Time/GCodes Time In: 858 Time Out: 943 Total Billed Treatment Time: 45 Total Billed Treatment 1, FA 45' (co-tx with OT) RJ SOMMERS PT Mar 27, 2017 12:38
[2017-03-27 18:44] VITALS: BP 104/67
[2017-03-27] MEDS: POLYETHYLENE GLYCOL 17 GM (MIRALAX) PACK PO SCH (20:26)
[2017-03-27] MEDS: inSUlin DETERMIR 1 UNIT/0.01 ML (LEVEMIR) CHARGE PER UNIT SQ SCH (20:27)
[2017-03-28] MEDS: ONDANSETRON 4 MG (ZOFRAN) ORAL DISSOLVE TAB PO SCH ×4 (02:16→20:52)
[2017-03-28 05:05] VITALS: BP 102/61
[2017-03-28] MEDS: DEXAMETHASONE 4 MG TAB (DECADRON) PO SCH ×3 (05:09→20:52)
[2017-03-28] MEDS: inSUlin ASPART (NovoLOG) 1 UNIT/0.01 ML (CHARGE PER UNIT) SC SCH ×3 (07:17→17:00)
[2017-03-28] MEDS: PANTOPRAZOLE 20 MG TABLET (PROTONIX) PO SCH (09:00)
[2017-03-28] MEDS: LEVETIRACETAM 1,000 MG (KEPPRA) TABLET PO SCH ×2 (09:00→20:52)
[2017-03-28] MEDS: SUCRALFATE 1 GM (CARAFATE) TAB PO SCH ×2 (09:00→20:52)
[2017-03-28] MEDS: ATENOLOL 25 MG (TENORMIN) TAB PO SCH (09:00)
[2017-03-28 18:00] VITALS: BP 99/60
--- NOTE | 2017-03-28 18:50 | Individualized Plan of Care ---
Individualized Plan of Care Rehab Nursing IPOC Order Admission Date Mar 23, 2017 at 21:16 Current Orders Orders Admission-Acute Rehab Unit (03/23/17 19:39) Vital Signs: Routine 08,16,00 (03/23/17 19:39) Sequential Compression Device 08,20 (03/23/17 19:39) Whipper Beater-Inpt Rehab (03/23/17 19:39) Rehab Nursing Orders-Ipoc (03/23/17 19:39) Physical Therapy Rehab Orders (03/23/17 19:39) Occupational Therapy Rehab Ord (03/23/17 19:39) Speech Therapy Rehab Orders (03/23/17 19:39) Intake & Output 06,14,22 (03/23/17 19:39) Precautions (Aru) (03/23/17 19:39) Weekly Weight (Lbs) WEEK (03/23/17 19:39) Consult Physician (03/23/17 19:44) Cbc With Automated Diff (03/24/17 06:00) Comprehensive Metabolic Panel (03/24/17 06:00) Atenolol Tablet (Tenormin Tablet) (03/24/17 09:00) Dexamethasone Tablet (Decadron Tablet) (03/23/17 20:00) Levetiracetam Tablet (Keppra Tablet) (03/23/17 21:00) Pantoprazole Tablet (Protonix Tablet) (03/23/17 21:00) Ondansetron Oral Dissolve Tab (Zofran (03/23/17 20:00) Oxycodone/Apap 7.5/325mg Tab (Percocet (03/23/17 20:00) Polyethylene Glycol Powder Pkt (Miralax (03/23/17 21:00) Senna S Tablet (Senokot S Tablet) (03/23/17 21:00) Sucralfate Tablet (Carafate Tablet) (03/23/17 21:00) Nursing Communication (Patient (03/23/17 19:56) Ambulate TID (03/23/17 23:03) Sequential Compression Device 08,20 (03/23/17 23:03) Dvt/Vte Risk - Notifiy Physici (03/23/17 23:03) Influenza Vac Order Indicated (03/23/17 23:03) Influenza Trivalent [id number] (Afluria (03/24/17 07:30) Dys1 Pureed (03/24/17 Lunch) Automatic Tray (03/24/17 10:11) Levetiracetam Tablet (Keppra Tablet) (03/24/17 21:00) Dexamethasone Tablet (Decadron Tablet) (03/24/17 13:00) Insulin Aspart (Novolog) (Novolog (Charg (03/24/17 16:00) Pantoprazole Tablet (Protonix Tablet) (03/25/17 09:00) Insulin Determir (Per Unit) (Levemir (Pe (03/24/17 21:00) Senna S Tablet (Senokot S Tablet) (03/24/17 13:00) Nursing Communication (Patient (03/24/17 14:11) Pastoral Consult (03/24/17 14:12) Patient Visit (03/24/17 ) Pt Eval High Complexity (03/24/17 ) Functional Activities, Ea 15 (03/24/17 ) Insulin Aspart (Novolog) (Novolog (Charg (03/25/17 00:15) Hemoglobin A1c (03/25/17 05:00) Cbc With Automated Diff (03/25/17 05:00) Basic Metabolic Panel (03/25/17 05:00) Ua Culture If Indicated (03/25/17 03:25) Patient Visit (03/25/17 ) Functional Activities, Ea 15 (03/25/17 ) Patient Visit (03/25/17 ) Speech Sound Lang Comp (03/25/17 ) Insulin Aspart (Novolog) (Novolog (Charg (03/25/17 20:45) Patient Visit (03/26/17 ) Functional Activities, Ea 15 (03/26/17 ) Patient Visit (03/26/17 ) Treat. Speech/Lang/Voice (03/26/17 ) Patient Visit (03/27/17 ) Functional Activities, Ea 15 (03/27/17 ) Automatic Tray (03/28/17 16:00) Rehab Nursing Orders: Diseage Management, Edu in Press Rel Techn, Hydration Management, Nutrition Management, Pain Management Other Nursing Orders: Lopez CATHETER CARE mONITOR FOR POSTOP CONSTIPATION Intensity of Therapy to be met Patient to be seen: Min.3h per day/5 of 7d PT IPOC Problem List: Activity Tolerance, Functional Strength, Safety, Balance, Gait, Transfer, Bed Mobility Treatment Plan: Continue Plan of Care Bed Mobility, Concurrent Therapy, Education, Functional Activity Tony, Functional Strength, Group Therapy, Safety, Therapeutic Exercise, Transfers Treatment Duration: Apr 19, 2017 Frequency: Modified Program (IRF) Estimated Hrs Per Day: 1.5 hours per day OT IPOC Problems: Decreased Activ Tolerance, Decreased Safety Aware, Decreased UE Strength, Dependent Transfers, Impaired Bed Mobility, Impaired Cognition, Impaired Coordination, Impaired Funct Balance, Impaired I ADL's, Impaired Self- Care Skills, Restricted Funct UE ROM, Visual-Perceptual Deficit OT Treatment, Training and Edu: Yes Plan of Care: ADL Retraining, Cognitive Retraining, Functional Mobility, Group Exercise/Act as Ind, UE Funct Exercise/Act, UE Neuromus Re-Ed/Coord, Visual/ Perceptual Retrain Treatment Duration: Apr 14, 2017 Frequency: Modified Program (IRF) (07/11) Estimated Hrs Per Day: 1.[address] IPOC Speech Therapy Treatment Plan: Continue Plan of Care Treatment Duration: Apr 15, 2017 Frequency: Modified Program (IRF) (Four to five times per week.) Estimated Hrs Per Day: .5 hour per day Whipper Beater/Case Mgmt Whipper Beater/Case Managemen: Discharge Planning, Patient/Family Counseling Physician IPOC Medical Issues being managed closely and that require the 24 hour availability of a physician: STROKE DYSPHAGIA SEIZURES S/P CRAN FI EXCISION METASTATIC BREAST CA TO BRAIN Medical Issues: Bowel/Bladder Function, DVT Prophylaxis, Falls Precautions, Fluid/Electrolyte/Nutrition Balance, Infection Protection, Pain Management, Swallowing Precautions, Wound Care, Other (List) Brief Synthesis of Preadmission Screen, Post-Admission Evaluation, and Therapy Evaluations:42 YO FEMALE WHO FAMILY REPORTS HAD BEEN MODIFIED INDEPENDENT PRIOR TO RECURRENT TUMOR FROM METASTATIC BREAST CA S/P CRANI AND EXCISION AT OSH WHO SUSTAINED A 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
[2017-03-28] MEDS: POLYETHYLENE GLYCOL 17 GM (MIRALAX) PACK PO SCH (20:52)
[2017-03-28] MEDS: inSUlin DETERMIR 1 UNIT/0.01 ML (LEVEMIR) CHARGE PER UNIT SQ SCH (20:54)
[2017-03-29] MEDS: ONDANSETRON 4 MG (ZOFRAN) ORAL DISSOLVE TAB PO SCH ×4 (02:09→21:36)
[2017-03-29] MEDS: DEXAMETHASONE 4 MG TAB (DECADRON) PO SCH ×2 (05:42→21:37)
[2017-03-29 05:48] VITALS: BP 105/59
[2017-03-29] MEDS: inSUlin ASPART (NovoLOG) 1 UNIT/0.01 ML (CHARGE PER UNIT) SC SCH ×3 (08:02→18:56)
[2017-03-29] MEDS: ATENOLOL 25 MG (TENORMIN) TAB PO SCH (08:02)
[2017-03-29] MEDS: SUCRALFATE 1 GM (CARAFATE) TAB PO SCH ×2 (08:02→21:36)
[2017-03-29] MEDS: PANTOPRAZOLE 20 MG TABLET (PROTONIX) PO SCH (08:02)
[2017-03-29] MEDS: LEVETIRACETAM 1,000 MG (KEPPRA) TABLET PO SCH ×2 (08:02→21:37)
--- NOTE | 2017-03-29 08:37 | Progress Note (SOAP) ---
Subjective Time Seen by Provider: 08:35 Subjective/Events-last exam patient only says thigh. Patient does not follow commands. Patient told to move arms and picker / packer legs which she does not to hemorrhagic brain tumor. Seizure. Patient awake Objective Exam Vital Signs Date Time Temp Pulse Resp B/P (MAP) Pulse Ox O2 Delivery O2 Flow Rate FiO2 03/29/17 05:48 97.0 82 17 105/59 (74) 95 Room Air 03/28/17 20:00 Room Air 03/28/17 18:00 100.2 75 20 99/60 (73) 97 Room Air Capillary Refill : General Appearance: No Apparent Distress Results Lab Laboratory Tests 03/28/17 11:02: Glucometer 321H 03/28/17 15:56: Glucometer 238H 03/28/17 20:59: Glucometer 263H 03/29/17 05:45: Glucometer 164H Assessment/Plan Assessment/Plan Assess & Plan/Chief Complaint breast cancer with metastasis to brain and bone. cortisone-induced hyperglycemia. Aphasia.. . 03/26/17. 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 Hypoglycemia due to cortisone. Patient sleeping is not awake this a.m.. . 05/30/16. 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 Diabetes area Patient awake this a.m. but nonverbal Clinical Quality Measures DVT/VTE Risk/Contraindication: Risk Factor Score Per Nursin RFS Level Per Nursing on Admit: 4+=Very High SUNDAR SELLERS DO Mar 29, 2017 08:37
--- NOTE | 2017-03-29 10:57 | Physical Therapy Daily Note ---
PT Daily Note-Current Subjective Patient in bed pre tx, is reluctant to participate in therapy. Will be co- treating with OT due to very poor patient mobility, endurance, and balance. Patient has no complaints of pain but is also non-verbal for the most part. Appearance Patient in recliner post tx with nurse call, tray, legs elevated and head down, OT will stay with her to finish up. Mental Status Patient Orientation: Unable to Assess, Non-Verbal/Aphasic Attachments: Spicer Catheter Transfers Functional [place] Measure 0=Not Assessed/NA 4=Minimal Assistance 1=Total Assistance 5=Supervision or Setup 2=Maximal Assistance 6=Modified [place] 3=Moderate Assistance 7=Complete IndependenceIRFPAI Quality Coding Scale 6 Independent with activity with or without an assistive device 5 Patient requires set up or clean up by helper. Patient completes activity by themselves 4 Supervision or touching assist (CGA). [place] provide cues , steadying assist 3 The helper provides less than half the effort to complete the activity 2 The helper provides more than half the effort to complete the activity 1 Dependent. The helper does all the effort to complete an activity 7 Patient refused to complete or attempt activity 9 The patient did not perform the activity before the current illness or injury 88 Not attempted due to Medical conditions or safety concerns Transfers (B, C, W/C) (FIM): 1 Scootin Rollin Supine to/from Sit: 1 Sit to/from Stand: 3 Bed to/from Chair: 3 Patient resists sitting up from supine, requires 2-3 people to get her up. Weight Bearing Right Lower Extremity: Right Weight Bearing/Tolerated Left Lower Extremity: Left Weight Bearing/Tolerated Gait Training Gait (FIM): 1 Distance: 6'x2 Gait Level of Assist: 2 Gait Persons Needed: 2 Gait Assistive Device: Parallel Bars wheelchair follow, patient can advance her left leg and needs assist advancing her right Wheelchair Training Does the Pt Use a Wheelchair?: Yes Wheelchair (FIM): 1 Exercises patient stood in the parallel bars x2 for about 30 sec each time Treatments bed mobility and transfers, ambulation, standing in parallel bars Assessment Current Status: Fair Progress patient did improve with ambulation but she is very resistant to participating PT Short Term Goals Short Term Goals Time Frame: Mar 31, 2017 Wheelchair (FIM): 2 Wheelchair Distance: 50' Wheelchair Level of Assist: 4 PT Assisted Goals Product Controller Goals PT Assisted Goals Time Frame: Apr 14, 2017 Transfers (B,C,W/C) (FIM): 3 Sit to Lying (QC): 2 Lying-Sitting on Side/Bed(QC): 2 Sit to Stand (QC): 2 Rollin Roll Left to Right (QC): 2 Chair/Ugl-km-Fpcnx Xfer(QC): 2 Car Transfer (QC): 2 Does the Patient Walk: No and Walking Goal NOT indicated Wheelchair (FIM): 4 Distance: 150' Wheelchair Level of Assist: 4 Wheel 50 feet with 2 turns (QC: 3 PT Plan Problem List Problem List: Activity Tolerance, Functional Strength, Safety, Balance, Gait, Transfer, Bed Mobility, ROM Treatment/Plan Treatment Plan: Continue Plan of Care Treatment Plan: Bed Mobility, Concurrent Therapy, Education, Functional Activity Tony, Functional Strength, Group Therapy, Safety, Therapeutic Exercise , Transfers Treatment Duration: Apr 19, 2017 Frequency: Modified Program (IRF) Estimated Hrs Per Day: 1.5 hours per day Patient and/or Family Agrees t: Yes Safety Risks/Education Patient Education: Gait Training, Transfer Techniques, Correct Positioning, Safety Issues Teaching Recipient: Patient Teaching Methods: Demonstration, Discussion Response to Teaching: Reinforcement Needed Time/GCodes Time In: 1000 Time Out: 1059 Total Billed Treatment Time: 59 Total Billed Treatment 1 visit GT 20' FA 40' Co-treated with OT for the whole 60'. PT worked on bed mobility, transfers, ambulation. OT worked on transfers, sitting balance, left arm during ambulation , dressing. VALDEMAR LALA PT Mar 29, 2017 10:57
--- NOTE | 2017-03-29 12:50 | ST Dysphagia Evaluation ---
Speech Evaluation-General Medical Diagnosis R Hemiparesis, Stroke, Seizure Onset Date: Mar 12, 2017 Therapy Diagnosis Therapy Diagnosis: Suspected Moderate Oropharyngeal Dysphagia Precautions Precautions: Aspiration Precautions/Isolations: Fall Prevention, Standard Precautions Referral Referring Physician: Dr. Geovani Blandon Reason for Referral: Evaluation/Treatment Clinical Bedside Swallowing Evaluation Medical History Pertinent Medical History: HTN Reviewed History: Yes Speech PLF/Current-Dysphagia Prior Level of Function The patient is unable to provide prior level of function information to the clinician. Subjective The patient was laying upright in bed upon entrance. The patient made eye contact with the clinician, however, did not respond to any questions via verbalization, vocalization, or yes/no head nods. Cognitive Status Patient Orientation: Non-Verbal/Aphasic, Eyes Open Oral Motor Skills Dentition: Edentalous Current Food Consistancy: Pureed, Honey Liquids Ability to Follow Directions: Unable Oral Expression Ability: Severe Impairment Face Facial Symmetry: Symmetrical (Grossly symmetrical at rest.) The patient was unable to participate in the oral mechanism exam secondary to inability to following verbal or tactile cues by the clinician. Due to this, the clinician assessed the patient's oral structures at rest. Oral-Facial Assessment Oral-Facial Dentition: Normal Labial Seal Description: Weak Dysphagia Evaluation Consistencies Presented: Thin Liquid, [place] Thick Liquid, Honey Thick Liquid, Pureed Oral Phase: Anterior Spillage, Reduced Oral Transit Anterior spillage of secretions and all liquid consistencies presented was demonstrated from the right labial region. Pharyngeal Phase: Multiple Swallow Attempts, Reduced Laryngeal Elevation, Delayed Swallow Funct. Velo/Pharyngeal Symptom: Cough After Swallow, Wet Voice - The patient demonstrated an immediate rigorous cough following bolus trials of thin liquid. - The patient demonstrated a delayed throat clear and "wet" vocal quality following the swallow with nectar-thick liquids. - No signs/symptoms of aspiration were demonstrated with honey-thick liquids or puree consistencies tested. Dietary Recommendations: Pureed Liquid Recommendations: Honey Consistancy Swallowing Precautions: Oral Supervision Staff, Oral Supervision Caregiver, Small Bites and Sips, Sitting 90 Degrees 30 Post Intake Crush medication and place in puree for administration. Dysphagia Evaluation Summary Suspected moderate oropharyngeal dysphagia secondary to poor oral control, reduced labial strength, delayed swallow response, and an overall poorly coordinated swallow function. Barriers to Learning Cognition Speech Short Term Goals Short Term Goals Short Term Goals 1. The patient will complete yes and no questions via head nod with 40% accuracy. 2. The patient will follow one step commands with direct modeling and 40% accuracy. Time Frame-STG: One Week Speech Diesel Service Apprentice Goals Half-Way Goals 1. The patient will demonstrate improved cognitive linguistic skills for increased function and safety in the least restrictive setting. 2. The patient will tolerate the least restrictive diet without signs/symptoms of aspiration or laryngeal penetration. Time Frame: Three Weeks Comprehension: 2 Expression: 2 Social Interaction: 2 Problem Solvin Memory: 2 Speech-Plan Treatment Plan Speech Therapy Treatment Plan: Continue Plan of Care Continue skilled speech pathology to target swallowing safety. Treatment Duration: Apr 15, 2017 Frequency: Modified Program (IRF) (Four to five times per week.) Estimated Hrs Per Day: .5 hour per day Rehab Potential: Poor Safety Risks/Education Teaching Recipient: Patient Teaching Methods: Discussion Response to Teaching: Unable to Comprehend Education Topics Provided: Recommendations, Plan of Care Time Speech Therapy Time In: 09:30 Speech Therapy Time Out: 10:00 Total Billed Time: 30 Billed Treatment Time 1, WILBERTO BAEZ Mar 29, 2017 12:50
--- NOTE | 2017-03-29 13:08 | Physical Therapy Daily Note ---
PT Daily Note-Current Subjective "Hey" "Hey" "Hey"; does not specifically say this in response to any questions. Seems to get louder with it as she does not want to be moved. Makes eye contact only but does not have a response of understanding or communication with her eyes. Transfers Functional [place] Measure 0=Not Assessed/NA 4=Minimal Assistance 1=Total Assistance 5=Supervision or Setup 2=Maximal Assistance 6=Modified [place] 3=Moderate Assistance 7=Complete IndependenceIRFPAI Quality Coding Scale 6 Independent with activity with or without an assistive device 5 Patient requires set up or clean up by helper. Patient completes activity by themselves 4 Supervision or touching assist (CGA). [place] provide cues , steadying assist 3 The helper provides less than half the effort to complete the activity 2 The helper provides more than half the effort to complete the activity 1 Dependent. The helper does all the effort to complete an activity 7 Patient refused to complete or attempt activity 9 The patient did not perform the activity before the current illness or injury 88 Not attempted due to Medical conditions or safety concerns Weight Bearing Right Lower Extremity: Right Weight Bearing/Tolerated Left Lower Extremity: Left Weight Bearing/Tolerated Treatments Co treat with OT due to the heavy need of verbal cues as well as tactile cues to guide transfer. Pt transferred sit to stand with max assist and assist from OT to guide left UE; SPT chair to bed with max assist with tactile cues to guide her body as well as verbal cues of step by step sequencing. Once in bed, worked on rolling left and right with cues and hand placement to facilitate LE and UE use and positioning. Pt is dependent for bed mobility and at times resistant to being rolled. Pt placed in left sidelying post treatment with pillows placed between her knees for comfort. Pt pulls the sheet above her face /head. Assessment Limited active participation with therapy services. Unsure of her understanding or communication. Recommend family training to prepare for family to care for the patient at home. PT Short Term Goals Short Term Goals Time Frame: Mar 31, 2017 Wheelchair (FIM): 2 Wheelchair Distance: 50' Wheelchair Level of Assist: 4 PT Longterm Goals Longterm Goals PT Lithoduplicator Operator Goals Time Frame: Apr 14, 2017 Transfers (B,C,W/C) (FIM): 3 Sit to Lying (QC): 2 Lying-Sitting on Side/Bed(QC): 2 Sit to Stand (QC): 2 Rollin Roll Left to Right (QC): 2 Chair/Bgo-mm-[place]xado Xfer(QC): 2 Car Transfer (QC): 2 Does the Patient Walk: No and Walking Goal NOT indicated Wheelchair (FIM): 4 Distance: 150' Wheelchair Level of Assist: 4 Wheel 50 feet with 2 turns (QC: 3 PT Plan Problem List Problem List: Activity Tolerance, Functional Strength, Safety, Transfer Treatment/Plan Treatment Plan: Continue Plan of Care Treatment Plan: Bed Mobility, Concurrent Therapy, Education, Functional Activity Tony, Functional Strength, Group Therapy, Safety, Therapeutic Exercise , Transfers Treatment Duration: Apr 19, 2017 Frequency: Modified Program (IRF) Estimated Hrs Per Day: 1.5 hours per day Patient and/or Family Agrees t: Yes Discharge Recommendations Plan Family education and training. Therapy D/C Recommendations: 24 hr Supervision Time/GCodes Time In: 1244 Time Out: 1259 Total Billed Treatment Time: 15 Total Billed Treatment visit FA 15 JADE KEENE PT Mar 29, 2017 13:08
--- NOTE | 2017-03-29 14:01 | Occupational Ther Daily Note ---
OT Current Status-Daily Note Subjective Pt lying in bed and alert. Pt resistive to therapy. OT/PT co-treat due to decreased activity tolerance and mobility. Mental Status/Objective Patient Orientation: Non-Verbal/Aphasic Functional [place] Measure 0=Not Assessed/NA 4=Minimal Assistance 1=Total Assistance 5=Supervision or Setup 2=Maximal Assistance 6=Modified [place] 3=Moderate Assistance 7=Complete [place] Attachments: Spicer Catheter ADL-Treatment Functional [place] Measure 0=Not Assessed/NA 4=Minimal Assistance 1=Total Assistance 5=Supervision or Setup 2=Maximal Assistance 6=Modified [place] 3=Moderate Assistance 7=Complete IndependenceIRFPAI Quality Coding Scale 6 Independent with activity with or without an assistive device 5 Patient requires set up or clean up by helper. Patient completes activity by themselves 4 Supervision or touching assist (CGA). [place] provide cues , steadying assist 3 The helper provides less than half the effort to complete the activity 2 The helper provides more than half the effort to complete the activity 1 Dependent. The helper does all the effort to complete an activity 7 Patient refused to complete or attempt activity 9 The patient did not perform the activity before the current illness or injury 88 Not attempted due to Medical conditions or safety concerns Toileting (FIM): 1 (Pt resistive to completing hygiene and donning briefs. ) Toileting Hygiene (QC): 1 PT worked on transfers, bed mobility and LE mobility. OT worked on ADLs and UE mobility. Pt dependent and resistant with turning side to side in bed and completing hygiene for BM. Dependent for lower body dressing. Max A for stand pivot transfer with 2 person. Pt extended self once in w/c and pt positioned again for safety. Pt then transported to therapy gym via w/c and worked on standing, ambulation and L UE wt bearing. Pt then transported back to room via w/c and transferred to recliner, max A x2. Pt then was able to use pincer grasp to slat pickler soft food and place in mouth with physical and verbal cues. Then was able to grasp cup and bring to mouth to take drink of honey thick liquid. After therapy, pt sitting in recliner with call light/phone in reach. All needs met in room. OT Short Term Goals Short Term Goals Time Frame: Mar 31, 2017 Grooming(FIM): 2 Toilet/Commode Transfer(FIM): 2 Additional Short Term Goals: 3-ImproveStrength/Tony 1=Demonstrate adherence to instructed precautions during ADL tasks. 2=Patient will verbalize/demonstrate understanding of assistive devices/ modifications for ADL. 3=Patient will improve strength/tolerance for activity to enable patient to perform ADL's. OT Earth Science Faculty Member Goals Jail Goals Time Frame: Apr 14, 2017 Eating (FIM): 3 Eating (QC): 3 Groomin Oral Hygiene (QC): 3 Bathing(FIM): 2 Shower/Bathe Self (QC): 2 Upper Body Dressing(FIM): 3 Upper Body Dressing (QC): 3 Lower Body Dressing(FIM): 2 Lower Body Dressing (QC): 2 On/Off Footwear (QC): 2 Toileting(FIM): 3 Toileting Hygiene (QC): 3 Toilet/Commode Transfer(FIM): 3 Toilet/Commode Transfer (QC): 3 Shower Transfer(FIM): 3 Comprehension(FIM): 2 Expression (FIM): 2 Social Interaction(FIM): 2 Problem Solving(FIM): 2 Memory(FIM): 2 Additional Goals: 3-ImproveStrength/Tony 1=Demonstrate adherence to instructed precautions during ADL tasks. 2=Patient will verbalize/demonstrate understanding of assistive devices/ modifications for ADL. 3=Patient will improve strength/tolerance for activity to enable patient to perform ADL's. OT Education/Plan Discharge Recommendations Plan/Recommendations: Continue POC Treatment Plan/Plan of Care Patient would benefit from OT for education, treatment and training to promote independence in ADL's, mobility, safety and/or upper extremity function for ADL' s. Plan of Care: ADL Retraining, Cognitive Retraining, Functional Mobility, Group Exercise/Act as Ind, UE Funct Exercise/Act, UE Neuromus Re-Ed/Coord, Visual/ Perceptual Retrain Treatment Duration: Apr 14, 2017 Frequency: Modified Program (IRF) (07/11) Estimated Hrs Per Day: 1.5 hours per day Agreement: Yes Rehab Potential: Poor Time/GCodes Start Time: 10:00 Stop Time: 11:15 Total Time Billed (hr/min): 75 Billed Treatment Time 1 visit-FA 5 (75 min) [id number] co-treat with PT, [id number] individual treatment JADE GARCIA Mar 29, 2017 14:01
--- NOTE | 2017-03-29 14:14 | Occupational Ther Daily Note ---
OT Current Status-Daily Note Subjective Pt sitting in recliner, alert. Pt tolerated therapy. Mental Status/Objective Patient Orientation: Non-Verbal/Aphasic Functional [place] Measure 0=Not Assessed/NA 4=Minimal Assistance 1=Total Assistance 5=Supervision or Setup 2=Maximal Assistance 6=Modified [place] 3=Moderate Assistance 7=Complete [place] Attachments: Spicer Catheter ADL-Treatment Functional [place] Measure 0=Not Assessed/NA 4=Minimal Assistance 1=Total Assistance 5=Supervision or Setup 2=Maximal Assistance 6=Modified [place] 3=Moderate Assistance 7=Complete IndependenceIRFPAI Quality Coding Scale 6 Independent with activity with or without an assistive device 5 Patient requires set up or clean up by helper. Patient completes activity by themselves 4 Supervision or touching assist (CGA). [place] provide cues , steadying assist 3 The helper provides less than half the effort to complete the activity 2 The helper provides more than half the effort to complete the activity 1 Dependent. The helper does all the effort to complete an activity 7 Patient refused to complete or attempt activity 9 The patient did not perform the activity before the current illness or injury 88 Not attempted due to Medical conditions or safety concerns Other Treatment OT/PT co-treat due to decrease activity tolerance and mobility. PT worked on transfers and bed mobility. OT worked on ADLs. Max A x2 for stand pivot transfer from recliner with bed. Pt dependent for rolling side to side, attempted to get pt to hold onto bed rails to stay on side. Pt resistive to doffing briefs. Evant briefs due to wounds on buttocks. Positioned pt to lay on L side to decrease pressure on buttocks. Nrsg notified that pt was in bed, lying on L side. After therapy, pt lying in bed with call light/phone in reach. All needs met in room. OT Short Term Goals Short Term Goals Time Frame: Mar 31, 2017 Grooming(FIM): 2 Toilet/Commode Transfer(FIM): 2 Additional Short Term Goals: 3-ImproveStrength/Tony 1=Demonstrate adherence to instructed precautions during ADL tasks. 2=Patient will verbalize/demonstrate understanding of assistive devices/ modifications for ADL. 3=Patient will improve strength/tolerance for activity to enable patient to perform ADL's. OT Account Services Representative Goals Account Services Representative Goals Time Frame: Apr 14, 2017 Eating (FIM): 3 Eating (QC): 3 Groomin Oral Hygiene (QC): 3 Bathing(FIM): 2 Shower/Bathe Self (QC): 2 Upper Body Dressing(FIM): 3 Upper Body Dressing (QC): 3 Lower Body Dressing(FIM): 2 Lower Body Dressing (QC): 2 On/Off Footwear (QC): 2 Toileting(FIM): 3 Toileting Hygiene (QC): 3 Toilet/Commode Transfer(FIM): 3 Toilet/Commode Transfer (QC): 3 Shower Transfer(FIM): 3 Comprehension(FIM): 2 Expression (FIM): 2 Social Interaction(FIM): 2 Problem Solving(FIM): 2 Memory(FIM): 2 Additional Goals: 3-ImproveStrength/Tony 1=Demonstrate adherence to instructed precautions during ADL tasks. 2=Patient will verbalize/demonstrate understanding of assistive devices/ modifications for ADL. 3=Patient will improve strength/tolerance for activity to enable patient to perform ADL's. OT Education/Plan Discharge Recommendations Plan/Recommendations: Continue POC Treatment Plan/Plan of Care Patient would benefit from OT for education, treatment and training to promote independence in ADL's, mobility, safety and/or upper extremity function for ADL' s. Plan of Care: ADL Retraining, Cognitive Retraining, Functional Mobility, Group Exercise/Act as Ind, UE Funct Exercise/Act, UE Neuromus Re-Ed/Coord, Visual/ Perceptual Retrain Treatment Duration: Apr 14, 2017 Frequency: Modified Program (IRF) (07/11) Estimated Hrs Per Day: 1.5 hours per day Agreement: Yes Rehab Potential: Poor Time/GCodes Start Time: 12:44 Stop Time: 12:59 Total Time Billed (hr/min): 15 Billed Treatment Time 1 visit-FA 1 (15 min) co-treat [id number] JADE GARCIA Mar 29, 2017 14:14
--- NOTE | 2017-03-29 15:45 | Physical Therapy Progress Note ---
Therapy Progress Note Spoke with patient's son (Brendan) this afternoon. He asked if it would be possible to do as much therapy in her room as possible due to the fact that he feels she is embarrassed to be seen in her current state. Explained to him We will do as much as we can in the room but will also have to take her out of the room for training in the // bars and other functional activities. He agreed this was fine. He also expressed to this therapist that he feels his mother is very aware and understands all that is happening around her. Also discussed family training opportunities. He agreed to be here on Mar 31 at 10 am for training. He requested we contact his sister and ask her to come as well. His sister (Denia) said she would be here at 10:30 on Wednesday. Informed Brendan that he should be moving forward on getting their home ready and having the ramp built as her discharge time will come quickly. He verbalized understanding. He is grateful for her care and optimistic about her recovery. JADE KEENE PT Mar 29, 2017 15:45
--- NOTE | 2017-03-29 17:34 | PM & R (SOAP) Progress Note ---
Subjective Time Seen by Provider: 16:00 Subjective/Events-last exam Patient was seen in her room this afternoon Appears quite fatiqued Patient max assist for transfers Appreciate DR sánchez and current Therapy notes Review of Systems Neurological: Weakness Objective Exam Last Set of Vital Signs Vital Signs Date Time Temp Pulse Resp B/P (MAP) Pulse Ox O2 Delivery O2 Flow Rate FiO2 03/29/17 08:00 Room Air 03/29/17 05:48 97.0 82 17 105/59 (74) 95 Capillary Refill : I&O Intake and Output 03/29/17 00:00 Intake Total 240 ml Output Total 250 ml Balance -10 ml Intake Oral 240 ml Output Urine Total 250 ml General: Alert, Oriented X3, Cooperative, No Acute Distress HEENT: PERRLA, EOMI, Mucous Memb Moist/[place], Other (incision healing well) Neck: Supple, No JVD Lungs: Clear to Auscultation Heart: Regular Rate Abdomen: Normal Bowel Sounds, Soft Extremities: No Edema Neuro: Other (Flaccid RT side patient fatiques easily patient with dysphagia and aphasia) Results Lab Laboratory Tests 03/26/17 20:59: Glucometer 135H 03/27/17 05:25: Glucometer 186H 03/27/17 10:59: Glucometer 216H 03/27/17 16:00: Glucometer 117H 03/27/17 20:28: Glucometer 261H 03/28/17 05:11: Glucometer 220H 03/28/17 11:02: Glucometer 321H 03/28/17 15:56: Glucometer 238H 03/28/17 20:59: Glucometer 263H 03/29/17 05:45: Glucometer 164H 03/29/17 11:03: Glucometer 298H 03/29/17 16:18: Glucometer 154H Assessment/Plan Assessment 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 S/P crani and excision cystic mass 03-12-17 OSH 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
[2017-03-29 18:41] VITALS: BP 105/61
[2017-03-29] MEDS: POLYETHYLENE GLYCOL 17 GM (MIRALAX) PACK PO SCH (21:36)
[2017-03-29] MEDS: inSUlin DETERMIR 1 UNIT/0.01 ML (LEVEMIR) CHARGE PER UNIT SQ SCH (21:38)
[2017-03-30] MEDS: ONDANSETRON 4 MG (ZOFRAN) ORAL DISSOLVE TAB PO SCH ×4 (02:18→21:06)
[2017-03-30 05:41] VITALS: BP 114/70
--- NOTE | 2017-03-30 08:04 | Progress Note (SOAP) ---
Subjective Time Seen by Provider: 08:02 Subjective/Events-last exam patient awake this morning. Patient eating okay. Patient not talking Objective Exam Vital Signs Date Time Temp Pulse Resp B/P (MAP) Pulse Ox O2 Delivery O2 Flow Rate FiO2 03/30/17 05:41 97.7 74 16 114/70 (85) 95 Room Air 03/29/17 20:00 Room Air 03/29/17 18:41 98.5 64 16 105/61 (76) 97 Room Air I & O 03/30/17 07:00 Intake Total 225 ml Output Total 800 ml Balance -575 ml Capillary Refill : General Appearance: No Apparent Distress, WD/WN Results Lab Laboratory Tests 03/29/17 11:03: Glucometer 298H 03/29/17 16:18: Glucometer 154H 03/29/17 21:38: Glucometer 71 03/30/17 01:28: Glucometer 157H 03/30/17 05:36: Glucometer 196H Assessment/Plan Assessment/Plan Assess & Plan/Chief Complaint breast cancer with metastasis to brain and bone. cortisone-induced hyperglycemia. Aphasia.. . 03/26/17. 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 Hypoglycemia due to cortisone. Patient sleeping is not awake this a.m.. . 05/30/16. 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 Diabetes area Patient awake this a.m. but nonverbal. . 03/30/17. 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 Diabetes Patient makes sounds that I don't understand Family to speak with committee today Clinical Quality Measures DVT/VTE Risk/Contraindication: Risk Factor Score Per Nursin RFS Level Per Nursing on Admit: 4+=Very High SUNDAR SELLERS DO Mar 30, 2017 08:04
[2017-03-30] MEDS: PANTOPRAZOLE 20 MG TABLET (PROTONIX) PO SCH (08:26)
[2017-03-30] MEDS: ATENOLOL 25 MG (TENORMIN) TAB PO SCH (08:27)
[2017-03-30] MEDS: LEVETIRACETAM 1,000 MG (KEPPRA) TABLET PO SCH ×2 (08:27→21:06)
[2017-03-30] MEDS: SUCRALFATE 1 GM (CARAFATE) TAB PO SCH ×2 (08:27→21:06)
[2017-03-30] MEDS: DEXAMETHASONE 4 MG TAB (DECADRON) PO SCH ×2 (08:27→21:06)
[2017-03-30] MEDS: inSUlin ASPART (NovoLOG) 1 UNIT/0.01 ML (CHARGE PER UNIT) SC SCH ×3 (08:32→16:40)
--- NOTE | 2017-03-30 09:20 | PM & R (SOAP) Progress Note ---
Subjective Time Seen by Provider: 08:10 Subjective/Events-last exam Patient was seen in her room this AM Patient Max assist for transfers Discussed case with Nursing Patient is eating.Spicer to DD Objective Exam Last Set of Vital Signs Vital Signs Date Time Temp Pulse Resp B/P (MAP) Pulse Ox O2 Delivery O2 Flow Rate FiO2 03/30/17 05:41 97.7 74 16 114/70 (85) 95 Room Air Capillary Refill : I&O Intake and Output 03/30/17 00:00 Intake Total 425 ml Output Total 900 ml Balance -475 ml Intake Oral 425 ml Output Urine Total 900 ml General: Alert, Oriented X3, Cooperative, No Acute Distress HEENT: PERRLA, EOMI, Mucous Memb Moist/[place], Other (incision healing well) Neck: Supple, No JVD Lungs: Clear to Auscultation Heart: Regular Rate Abdomen: Normal Bowel Sounds, Soft Extremities: No Edema Neuro: Other (Flaccid RT side patient fatiques easily patient with dysphagia and aphasia) Results Lab Laboratory Tests 03/27/17 10:59: Glucometer 216H 03/27/17 16:00: Glucometer 117H 03/27/17 20:28: Glucometer 261H 03/28/17 05:11: Glucometer 220H 03/28/17 11:02: Glucometer 321H 03/28/17 15:56: Glucometer 238H 03/28/17 20:59: Glucometer 263H 03/29/17 05:45: Glucometer 164H 03/29/17 11:03: Glucometer 298H 03/29/17 16:18: Glucometer 154H 03/29/17 21:38: Glucometer 71 03/30/17 01:28: Glucometer 157H 03/30/17 05:36: Glucometer 196H Assessment/Plan Assessment 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 S/P crani and excision cystic mass 03-12-17 OSH 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 Seizures controlled with meds Keppra dose adjusted Urinary retention managed with Indwelling Spicer catheter Steroid taper Plan Continue PT/OT/ST 15/ therapy schedule ordered due to patients debility Pastoral consult placed-They have seen-Family declines Palliative care or Hospice Adjust meds for Eleavated Accucheks as needed-now beeter controlled Check [id number] Adjust Insulin as needed Next Team Conference tomorrow 03-31-17 Family to come in tomorrow for family training in anticipation of discharge to home with them Dr Joel covering my service while I am away from 03-31-17 [facility] 04-06-17 TOBI MERIDA MD Mar 30, 2017 09:20
--- NOTE | 2017-03-30 11:06 | Physical Therapy Daily Note ---
PT Daily Note-Current Subjective Patient in bed pre tx, non-communicative, will be co-treating with OT for bathing. Appearance Patient in recliner post tx with nurse call, OT in the room finishing up with her. Mental Status Patient Orientation: Unable to Assess, Non-Verbal/Aphasic Transfers Functional [place] Measure 0=Not Assessed/NA 4=Minimal Assistance 1=Total Assistance 5=Supervision or Setup 2=Maximal Assistance 6=Modified [place] 3=Moderate Assistance 7=Complete IndependenceIRFPAI Quality Coding Scale 6 Independent with activity with or without an assistive device 5 Patient requires set up or clean up by helper. Patient completes activity by themselves 4 Supervision or touching assist (CGA). [place] provide cues , steadying assist 3 The helper provides less than half the effort to complete the activity 2 The helper provides more than half the effort to complete the activity 1 Dependent. The helper does all the effort to complete an activity 7 Patient refused to complete or attempt activity 9 The patient did not perform the activity before the current illness or injury 88 Not attempted due to Medical conditions or safety concerns Transfers (B, C, W/C) (FIM): 1 Scootin Rollin Supine to/from Sit: 1 Sit to/from Stand: 3 Bed to/from Chair: 3 Patient does stand with mod assist and perform a stand pivot transfer, taking several small steps Weight Bearing Right Lower Extremity: Right Weight Bearing/Tolerated Left Lower Extremity: Left Weight Bearing/Tolerated Treatments Patient was sat up in bed at the beginning of treatment and then transferred to wheelchair with loida sling in it. She was covered and transported to the shower room and put in the upright bathtub via loida. Loida sling stayed attached to the loida during the bath to keep patient secure in case she tried to scoot forward, which has happened during sitting in the past. She was bathed and then transferred back to the wheelchair. She was dried, covered and transported back to her room, transferred back to bed, cleaned from a BM, and dressed. She was then sat up in bed again and transferred to a recliner for lunch. OT and PT co-treated for 60'. PT worked on bed mobility, transfers, and sitting balance and trunk stability during bathing, OT worked on dressing, grooming, and bathing. Assessment Current Status: Poor Progress no change in mobility PT Short Term Goals Short Term Goals Time Frame: Mar 31, 2017 Wheelchair (FIM): 2 Wheelchair Distance: 50' Wheelchair Level of Assist: 4 PT Medicare Coordinator Goals Medicare Coordinator Goals PT Medicare Coordinator Goals Time Frame: Apr 14, 2017 Transfers (B,C,W/C) (FIM): 3 Sit to Lying (QC): 2 Lying-Sitting on Side/Bed(QC): 2 Sit to Stand (QC): 2 Rollin Roll Left to Right (QC): 2 Chair/Qhk-xo-Lgpnb Xfer(QC): 2 Car Transfer (QC): 2 Does the Patient Walk: No and Walking Goal NOT indicated Wheelchair (FIM): 4 Distance: 150' Wheelchair Level of Assist: 4 Wheel 50 feet with 2 turns (QC: 3 PT Plan Problem List Problem List: Activity Tolerance, Functional Strength, Safety, Balance, Gait, Transfer, Bed Mobility, ROM Treatment/Plan Treatment Plan: Continue Plan of Care Treatment Plan: Bed Mobility, Concurrent Therapy, Education, Functional Activity Tony, Functional Strength, Group Therapy, Safety, Therapeutic Exercise , Transfers Treatment Duration: Apr 19, 2017 Frequency: Modified Program (IRF) Estimated Hrs Per Day: 1.5 hours per day Patient and/or Family Agrees t: Yes Safety Risks/Education Patient Education: Transfer Techniques, Correct Positioning, Safety Issues Teaching Recipient: Patient Teaching Methods: Demonstration, Discussion Response to Teaching: Reinforcement Needed Time/GCodes Time In: 1000 Time Out: 1100 Total Billed Treatment Time: 60 Total Billed Treatment 1 visit FA 60' VALDEMAR LALA PT Mar 30, 2017 11:06
--- NOTE | 2017-03-30 11:09 | Speech Therapy Daily Note ---
Speech Daily Progress Note Subjective Date Seen by Provider: Mar 30, 2017 Time Seen by Provider: 09:15 The patient was seated upright in bed upon entrance. The patient did not attempt eye gaze, verbal, or nonverbal greeting of the clinician. Objective The patient continuously kept eyes closed throughout the treatment session, with head and eye gaze pointed downwards. Intermittent eye contact was made, most when the clinician was seated to the right. Yes/No: The patient would not respond to yes/no questions via head nod/shake, eye gaze, verbalization, or pointing to yes and no words. The patient would continuously mumble, however, it was not specifically a yes or no response. 1-Step: The patient was unable to follow simple one step commands with direct clinician modeling and maximum verbal prompting. At this time, the patient does not appear to comprehend of express language. Assessment Assessment Current Status: Excellent Progress Treatment Plan Continue Plan of Care Communication Comprehension: 1 Expression: 1 Social Cognition Social Interaction: 1 Problem Solvin Memory: 1 Speech Short Term Goals Short Term Goals Short Term Goals 1. The patient will complete yes and no questions via head nod with 40% accuracy. 2. The patient will follow one step commands with direct modeling and 40% accuracy. Time Frame-STG: One Week Speech Dairy Farmer Goals Mcfp Goals 1. The patient will demonstrate improved cognitive linguistic skills for increased function and safety in the least restrictive setting. 2. The patient will tolerate the least restrictive diet without signs/symptoms of aspiration or laryngeal penetration. Time Frame: Three Weeks Comprehension: 2 Expression: 2 Social Interaction: 2 Problem Solvin Memory: 2 Speech-Plan Treatment Plan Speech Therapy Treatment Plan: Continue Plan of Care Continue skilled speech pathology to target functional communication (verbal or nonverbal). Treatment Duration: Apr 15, 2017 Frequency: Modified Program (IRF) (Four to five times per week.) Estimated Hrs Per Day: .5 hour per day Rehab Potential: Poor Safety Risks/Education Teaching Recipient: Patient Teaching Methods: Discussion Response to Teaching: Unable to Comprehend Education Topics Provided: Nonverbal Communication Techniques Time Speech Therapy Time In: 09:15 Speech Therapy Time Out: 09:45 Total Billed Time: 30 Billed Treatment Time FLORINA Arevalo [facility] ST Mar 30, 2017 11:09
--- NOTE | 2017-03-30 12:32 | Occupational Ther Daily Note ---
OT Current Status-Daily Note Subjective Pt alert, lying in bed. Pt nonverbal/aphasic. Mental Status/Objective Functional [place] Measure 0=Not Assessed/NA 4=Minimal Assistance 1=Total Assistance 5=Supervision or Setup 2=Maximal Assistance 6=Modified [place] 3=Moderate Assistance 7=Complete [place] Attachments: Spicer Catheter ADL-Treatment OT/PT co-treat for therapy due to pt's decreased activity tolerance and decreased mobility. PT worked on bed mobility, transfers and sitting balance. OT worked on ADLs. Max A x2 for supine to sitting EOB then assist x2 for sitting on EOB. Pt leaning toward R and back while sitting on EOB. Max A stand pivot transfer to w/c. Pt transported to large shower room to take bath in walk-in bathtub. Loida lift to bathtub. Dependent with bathing/drying. Pt was given washcloth then pt would not wash face or any other body part. Attempted hand over hand and pt resisted to complete. Pt then transported back to room and transferred into bed with max A. Dependent with [facility] gown and socks. Dependent with rolling on side to cleanse and dry buttocks. Pt had small BM and needed to be cleaned. Pt resistant to cleansing BM from buttocks/selene area. Wounds around buttocks and anal area noticed, applied lotion then nrsg notified. Pt then transferred from bed to recliner and positioned. OT continued to work with pt utilizing L UE. After encouragement to use L UE, pt was able to reach out and take cup then bring to mouth for drink. Pt then handed cup back to ZAPATA. Pt continued to complete this with breaks between each swallow. No coughing noted. Liquid honey thick. Attempted to have lunch tray sent up for therapy, tray did not arrive until after therapy. After therapy, pt sitting in recliner with call light/phone in reach. All needs met in room. Nrsg notified that lunch tray did not come during therapy. Functional [place] Measure 0=Not Assessed/NA 4=Minimal Assistance 1=Total Assistance 5=Supervision or Setup 2=Maximal Assistance 6=Modified [place] 3=Moderate Assistance 7=Complete IndependenceIRFPAI Quality Coding Scale 6 Independent with activity with or without an assistive device 5 Patient requires set up or clean up by helper. Patient completes activity by themselves 4 Supervision or touching assist (CGA). [place] provide cues , steadying assist 3 The helper provides less than half the effort to complete the activity 2 The helper provides more than half the effort to complete the activity 1 Dependent. The helper does all the effort to complete an activity 7 Patient refused to complete or attempt activity 9 The patient did not perform the activity before the current illness or injury 88 Not attempted due to Medical conditions or safety concerns Grooming (FIM): 1 Oral Hygiene (QC): 1 Bathing (FIM): 1 Upper Body (FIM): 1 Lower Body Dressing (FIM): 1 Toileting (FIM): 1 Shower Transfer(FIM): 1 OT Short Term Goals Short Term Goals Time Frame: Mar 31, 2017 Grooming(FIM): 2 Toilet/Commode Transfer(FIM): 2 Additional Short Term Goals: 3-ImproveStrength/Tony 1=Demonstrate adherence to instructed precautions during ADL tasks. 2=Patient will verbalize/demonstrate understanding of assistive devices/ modifications for ADL. 3=Patient will improve strength/tolerance for activity to enable patient to perform ADL's. OT Chief Safety Officer Goals Snf Goals Time Frame: Apr 14, 2017 Eating (FIM): 3 Eating (QC): 3 Groomin Oral Hygiene (QC): 3 Bathing(FIM): 2 Shower/Bathe Self (QC): 2 Upper Body Dressing(FIM): 3 Upper Body Dressing (QC): 3 Lower Body Dressing(FIM): 2 Lower Body Dressing (QC): 2 On/Off Footwear (QC): 2 Toileting(FIM): 3 Toileting Hygiene (QC): 3 Toilet/Commode Transfer(FIM): 3 Toilet/Commode Transfer (QC): 3 Shower Transfer(FIM): 3 Comprehension(FIM): 2 Expression (FIM): 2 Social Interaction(FIM): 2 Problem Solving(FIM): 2 Memory(FIM): 2 Additional Goals: 3-ImproveStrength/Tony 1=Demonstrate adherence to instructed precautions during ADL tasks. 2=Patient will verbalize/demonstrate understanding of assistive devices/ modifications for ADL. 3=Patient will improve strength/tolerance for activity to enable patient to perform ADL's. OT Education/Plan Discharge Recommendations Plan/Recommendations: Continue POC Treatment Plan/Plan of Care Patient would benefit from OT for education, treatment and training to promote independence in ADL's, mobility, safety and/or upper extremity function for ADL' s. Plan of Care: ADL Retraining, Cognitive Retraining, Functional Mobility, Group Exercise/Act as Ind, UE Funct Exercise/Act, UE Neuromus Re-Ed/Coord, Visual/ Perceptual Retrain Treatment Duration: Apr 14, 2017 Frequency: Modified Program (IRF) (07/11) Estimated Hrs Per Day: 1.5 hours per day Agreement: Yes Rehab Potential: Poor Time/GCodes Start Time: 10:00 Stop Time: 11:30 Total Time Billed (hr/min): 90 Billed Treatment Time 1 visit-ADL 6 (90 min) co-treat with PT [id number], individual [id number] JADE GARCIA Mar 30, 2017 12:32
[2017-03-30 19:30] VITALS: BP 109/69
[2017-03-30] MEDS: ZINC OXIDE 16% OINT (BUTT PASTE) 113 GM TUBE TOP SCH (21:06)
[2017-03-30] MEDS: POLYETHYLENE GLYCOL 17 GM (MIRALAX) PACK PO SCH (21:06)
[2017-03-30] MEDS: inSUlin DETERMIR 1 UNIT/0.01 ML (LEVEMIR) CHARGE PER UNIT SQ SCH (21:23)
[2017-03-31] MEDS: ONDANSETRON 4 MG (ZOFRAN) ORAL DISSOLVE TAB PO SCH ×4 (02:00→20:20)
[2017-03-31] MEDS: inSUlin ASPART (NovoLOG) 1 UNIT/0.01 ML (CHARGE PER UNIT) SC SCH ×3 (06:36→17:38)
[2017-03-31 06:48] VITALS: BP 108/64
--- NOTE | 2017-03-31 07:58 | Progress Note (SOAP) ---
Subjective Time Seen by Provider: 07:55 Subjective/Events-last exam patient has her eyes open today. patient does move her head as I walked. Patient only makes one sound. Hemorrhagic brain tumor. Seizure. Breast cancer with metastasis Objective Exam Vital Signs Date Time Temp Pulse Resp B/P (MAP) Pulse Ox O2 Delivery O2 Flow Rate FiO2 03/31/17 06:48 97.7 76 18 108/64 (79) 96 Room Air 03/30/17 20:20 Room Air 03/30/17 19:30 96.7 81 14 109/69 (82) 99 Room Air 03/30/17 08:00 Room Air I & O 03/31/17 07:00 Intake Total 1120 ml Output Total 1050 ml Balance 70 ml Capillary Refill : General Appearance: No Apparent Distress, WD/WN Results Lab Laboratory Tests 03/30/17 11:11: Glucometer 254H 03/30/17 16:01: Glucometer 244H 03/30/17 20:39: Glucometer 293H 03/31/17 05:06: Glucometer 201H Assessment/Plan Assessment/Plan Assess & Plan/Chief Complaint breast cancer with metastasis to brain and bone. cortisone-induced hyperglycemia. Aphasia.. . 03/26/17. 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 Hypoglycemia due to cortisone. Patient sleeping is not awake this a.m.. . 05/30/16. 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 Diabetes area Patient awake this a.m. but nonverbal. . 03/30/17. 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 Diabetes Patient makes sounds that I don't understand Family to speak with committee today Clinical Quality Measures DVT/VTE Risk/Contraindication: Risk Factor Score Per Nursin RFS Level Per Nursing on Admit: 4+=Very High SUNDAR SELLERS DO Mar 31, 2017 07:58
[2017-03-31] MEDS: SUCRALFATE 1 GM (CARAFATE) TAB PO SCH ×2 (08:22→20:20)
[2017-03-31] MEDS: ATENOLOL 25 MG (TENORMIN) TAB PO SCH (08:22)
[2017-03-31] MEDS: ZINC OXIDE 16% OINT (BUTT PASTE) 113 GM TUBE TOP SCH ×2 (08:23→20:21)
[2017-03-31] MEDS: PANTOPRAZOLE 20 MG TABLET (PROTONIX) PO SCH (08:23)
[2017-03-31] MEDS: LEVETIRACETAM 1,000 MG (KEPPRA) TABLET PO SCH ×2 (08:23→20:20)
[2017-03-31] MEDS: DEXAMETHASONE 4 MG TAB (DECADRON) PO SCH ×2 (08:23→20:36)
--- NOTE | 2017-03-31 09:48 | Speech Therapy Daily Note ---
Speech Daily Progress Note Subjective Date Seen by Provider: Mar 31, 2017 Time Seen by Provider: 08:45 The patient was seated upright in bed upon entrance. The patient's breakfast tray was present. The patient made eye contact, however, did not attempt verbalization, vocalizations, or nonverbal greetings. Objective Diet Analysis: The patient was fed and assessed with pureed eggs, pureed ham, banana, ensure (thickened), and thickened milk. No signs/symptoms of aspiration were displayed with multiple boluses of each consistency. The patient's vocal quality could not be assessed as she did not attempt communication. Assessment Assessment Current Status: Fair Progress Communication Comprehension: 1 Expression: 1 Social Cognition Social Interaction: 1 Problem Solvin Memory: 1 Speech Short Term Goals Short Term Goals Short Term Goals 1. The patient will complete yes and no questions via head nod with 40% accuracy. 2. The patient will follow one step commands with direct modeling and 40% accuracy. Time Frame-STG: One Week Speech Assisted Goals Chemist Goals 1. The patient will demonstrate improved cognitive linguistic skills for increased function and safety in the least restrictive setting. 2. The patient will tolerate the least restrictive diet without signs/symptoms of aspiration or laryngeal penetration. Time Frame: Three Weeks Comprehension: 2 Expression: 2 Social Interaction: 2 Problem Solvin Memory: 2 Speech-Plan Treatment Plan Speech Therapy Treatment Plan: Continue Plan of Care Continue skilled speech pathology to target swallowing safety. Treatment Duration: Apr 15, 2017 Frequency: Modified Program (IRF) (Four to five times per week.) Estimated Hrs Per Day: .5 hour per day Rehab Potential: Poor Safety Risks/Education Teaching Recipient: Patient Teaching Methods: Discussion Response to Teaching: Unable to Comprehend Education Topics Provided: Swallowing strategies, Diet Consistency Recommendations Time Speech Therapy Time In: 08:45 Speech Therapy Time Out: 09:15 Total Billed Time: 30 Billed Treatment Time 1ROCHELLE ELIZABETH Mar 31, 2017 09:48
--- NOTE | 2017-03-31 11:38 | Physical Therapy Daily Note ---
PT Daily Note-Current Subjective Pt's son present for transfer training and education. Pt present, awake, agrees initially by not resisting care but by the end of the treatment was adamently shaking her head no and resisting movement. When son asked if he could try to transfer her she shook her head no and resisted movement. Transfers Functional [place] Measure 0=Not Assessed/NA 4=Minimal Assistance 1=Total Assistance 5=Supervision or Setup 2=Maximal Assistance 6=Modified [place] 3=Moderate Assistance 7=Complete IndependenceIRFPAI Quality Coding Scale 6 Independent with activity with or without an assistive device 5 Patient requires set up or clean up by helper. Patient completes activity by themselves 4 Supervision or touching assist (CGA). [place] provide cues , steadying assist 3 The helper provides less than half the effort to complete the activity 2 The helper provides more than half the effort to complete the activity 1 Dependent. The helper does all the effort to complete an activity 7 Patient refused to complete or attempt activity 9 The patient did not perform the activity before the current illness or injury 88 Not attempted due to Medical conditions or safety concerns Weight Bearing Right Lower Extremity: Right Weight Bearing/Tolerated Left Lower Extremity: Left Weight Bearing/Tolerated Treatments Co treat with OT; OT demonstrated much of the transfers and PT talked through the technique with the son. Pt was max to dep with bed mobility as well as to transfer to sit EOB. Pt able to sit EOB with CGA to mod asssit for balance depending; SPT to from wheelchair with mod to max assist and pt taking steps with left foot. As OT performed the transfers, PT was discussing and showing son positioning, hand placement, use of gait belt etc. Continued with education to patient and son regarding need for participation with mobility and functional activity, positioning in chair and bed to reduce the risk of skin breakdown, safe handling techniques and equipment needs. Pt's daughter was scheduled to attend training this morning as well but she called earlier today and requested a later time. We have offered a time to work with her this afternoon as well. Assessment Pt initially cooperative with therapy session but became resistant as we progressed. She indicated she did not want her son to transfer her and he seemed apprehensive about trying as well. He watched, interacted and participated in verbal instruction during the training, but he did not actually attempt to transfer his mom or asssit with any positioning/care. He seems a bit overwhelmed and hesitant to move forward when his mom says no once. He is always willing to attend meetings and is working on getting the house set up, ramp built, caregivers obtained, etc... but patient handling seems ominous to him. Pt became resistant to treatment as we neared the end. She resisted selene care in standing as well as in supine by arching her back pushing her leg back and reaching back with her hand to push me away as I attempts to clean her selene area. PT Short Term Goals Short Term Goals Time Frame: Mar 31, 2017 Wheelchair (FIM): 2 Wheelchair Distance: 50' Wheelchair Level of Assist: 4 PT Intermediate Goals Field Insurance Sales Manager Goals PT Intermediate Goals Time Frame: Apr 14, 2017 Transfers (B,C,W/C) (FIM): 3 Sit to Lying (QC): 2 Lying-Sitting on Side/Bed(QC): 2 Sit to Stand (QC): 2 Rollin Roll Left to Right (QC): 2 Chair/Orx-vn-Jxaqh Xfer(QC): 2 Car Transfer (QC): 2 Does the Patient Walk: No and Walking Goal NOT indicated Wheelchair (FIM): 4 Distance: 150' Wheelchair Level of Assist: 4 Wheel 50 feet with 2 turns (QC: 3 PT Plan Problem List Problem List: Activity Tolerance, Functional Strength, Safety, Transfer, Bed Mobility Treatment/Plan Treatment Plan: Continue Plan of Care Treatment Plan: Bed Mobility, Concurrent Therapy, Education, Functional Activity Tony, Functional Strength, Group Therapy, Safety, Therapeutic Exercise , Transfers Treatment Duration: Apr 19, 2017 Frequency: Modified Program (IRF) Estimated Hrs Per Day: 1.5 hours per day Patient and/or Family Agrees t: Yes Safety Risks/Education Patient Education: Transfer Techniques, Safety Issues Teaching Recipient: Family Teaching Methods: Demonstration, Discussion Response to Teaching: Verbalize Understanding, Reinforcement Needed Pt will need: wheelchair, bedside commode, wheelchair cushion, ramp; possibly need: tub transfer bench, hospital bed. Discharge Recommendations Plan Continue to work on functional transfers and mobility. Continue family training as able. Time/GCodes Time In: 1000 Time Out: 1100 Total Billed Treatment Time: 60 Total Billed Treatment visit FA 60 JADE KEENE PT Mar 31, 2017 11:38
--- NOTE | 2017-03-31 15:01 | Physical Therapy Daily Note ---
PT Daily Note-Current Subjective Awake and makes eye contact but no verbalization this visit. Transfers Functional [place] Measure 0=Not Assessed/NA 4=Minimal Assistance 1=Total Assistance 5=Supervision or Setup 2=Maximal Assistance 6=Modified [place] 3=Moderate Assistance 7=Complete IndependenceIRFPAI Quality Coding Scale 6 Independent with activity with or without an assistive device 5 Patient requires set up or clean up by helper. Patient completes activity by themselves 4 Supervision or touching assist (CGA). [place] provide cues , steadying assist 3 The helper provides less than half the effort to complete the activity 2 The helper provides more than half the effort to complete the activity 1 Dependent. The helper does all the effort to complete an activity 7 Patient refused to complete or attempt activity 9 The patient did not perform the activity before the current illness or injury 88 Not attempted due to Medical conditions or safety concerns Transfers (B, C, W/C) (FIM): 1 Roll Left to Right (QC): 1 Sit to Stand (QC): 2 Chair/Nyp-ob-Pkzmr Xfer(QC): 2 Dep for bed mobility. Worked on sup to sit EOB with encouragement for pt to move her left U/LE to participate in transfer; initially pt started to reach with her left hand but then just stopped. She was dependent to sit at the EOB. Pt able to sit EOB with min to CGA with verbal and tactile cues for posture, hand placment and balance. Sit to stand with max assist and SPT to chair with max assist with pt taking steps with the left LE. Pt up in chair with legs elevated. Weight Bearing Right Lower Extremity: Right Weight Bearing/Tolerated Left Lower Extremity: Left Weight Bearing/Tolerated Treatments CO treat with OT due to pt heavy need for cues, placement of extremities and core stabilization. Assessment Limited participation actively, but she did not resist treatment this afternoon. PT Short Term Goals Short Term Goals Time Frame: Mar 31, 2017 Wheelchair (FIM): 2 Wheelchair Distance: 50' Wheelchair Level of Assist: 4 PT Superintendent Stevedoring Goals Snf Goals PT Snf Goals Time Frame: Apr 14, 2017 Transfers (B,C,W/C) (FIM): 3 Sit to Lying (QC): 2 Lying-Sitting on Side/Bed(QC): 2 Sit to Stand (QC): 2 Rollin Roll Left to Right (QC): 2 Chair/Kua-zj-Acbmz Xfer(QC): 2 Car Transfer (QC): 2 Does the Patient Walk: No and Walking Goal NOT indicated Wheelchair (FIM): 4 Distance: 150' Wheelchair Level of Assist: 4 Wheel 50 feet with 2 turns (QC: 3 PT Plan Problem List Problem List: Activity Tolerance, Functional Strength, Safety Treatment/Plan Treatment Plan: Continue Plan of Care Treatment Plan: Bed Mobility, Concurrent Therapy, Education, Functional Activity Tony, Functional Strength, Group Therapy, Safety, Therapeutic Exercise , Transfers Treatment Duration: Apr 19, 2017 Frequency: Modified Program (IRF) Estimated Hrs Per Day: 1.5 hours per day Patient and/or Family Agrees t: Yes Discharge Recommendations Plan Family training with daughter tomorrow at 11 scheduled. Therapy D/C Recommendations: 24 hr Supervision (with SKIL caregivers vs Skilled placement.) Time/GCodes Time In: 1430 Time Out: 1445 Total Billed Treatment Time: 15 Total Billed Treatment visit FA 15 JADE KEENE PT Mar 31, 2017 15:01
--- NOTE | 2017-03-31 15:50 | Occupational Ther Daily Note ---
OT Current Status-Daily Note Subjective Pt. begins to yell "hey" when she becomes agitated. Appearance Pt. in bed. Son in room for family training. Please see note. Mental Status/Objective Patient Orientation: Confused Functional [place] Measure 0=Not Assessed/NA 4=Minimal Assistance 1=Total Assistance 5=Supervision or Setup 2=Maximal Assistance 6=Modified [place] 3=Moderate Assistance 7=Complete [place] ADL-Treatment Functional [place] Measure 0=Not Assessed/NA 4=Minimal Assistance 1=Total Assistance 5=Supervision or Setup 2=Maximal Assistance 6=Modified [place] 3=Moderate Assistance 7=Complete IndependenceIRFPAI Quality Coding Scale 6 Independent with activity with or without an assistive device 5 Patient requires set up or clean up by helper. Patient completes activity by themselves 4 Supervision or touching assist (CGA). [place] provide cues , steadying assist 3 The helper provides less than half the effort to complete the activity 2 The helper provides more than half the effort to complete the activity 1 Dependent. The helper does all the effort to complete an activity 7 Patient refused to complete or attempt activity 9 The patient did not perform the activity before the current illness or injury 88 Not attempted due to Medical conditions or safety concerns Other Treatment OT/PT co-treated for family training due to level of skilled care required. Son present and here for training to determine pt's needs for home. OT and PT educate son and get sense of what he will need for home safety. Make list of equipment needs with him. OT began to talk with him regarding ADLs and home care set up, but son defers that to his sister, who is not at training presently , but who will come in at later time. OT/PT facilitated transfer training and educated for safe transfers. Pt. is educated on how to transfer pt. to side of bed, and transfer to chair with use of bed square, gait belt, and safety for right UE. Son verbalizes understanding. However, when son attempts to transfer his mother, she becomes agitated and starts to yell out "hey!" Son states that he does not want to upset his mother, and stands over by bathroom. Pt. is transferred back to bed with max assist. Noted that pt. was incontinent of stool. OT/PT facilitated standing and then lying while pt. is cleaned appropriately. Pt. uses left hand to reach back and grab therapist's hands. Becomes very agitated that she is being cleaned up. Pt. is positioned and son is educated on proper positioning. Spoke with son privately and son states that he does have a lot to do to get the home ready for her to come home such as build a ramp and clean it. Son also states that he is going to go to [employer] to set up caregiving hours for pt. Pt. facilitated education for transfer training and and equipment needs, while OT facilitated education for ADL needs and routine schedule. Family training will be ongoing to set up best possible situation for pt. Education OT Patient Education: Correct positioning, Modified ADL techniques, Progress toward Goal/Update tx plan, Purpose of tx/functional activities, Reviewed precautions, Rehab process, Transfer techniques Teaching Recipient: Patient, Family Teaching Methods: Demonstration, Discussion Response to Teaching: Verbalize Understanding, Return Demonstration OT Short Term Goals Short Term Goals Time Frame: Mar 31, 2017 Grooming(FIM): 2 Toilet/Commode Transfer(FIM): 2 Additional Short Term Goals: 3-ImproveStrength/Tony 1=Demonstrate adherence to instructed precautions during ADL tasks. 2=Patient will verbalize/demonstrate understanding of assistive devices/ modifications for ADL. 3=Patient will improve strength/tolerance for activity to enable patient to perform ADL's. OT [facility] Goals Director Learning Services Goals Time Frame: Apr 14, 2017 Eating (FIM): 3 Eating (QC): 3 Groomin Oral Hygiene (QC): 3 Bathing(FIM): 2 Shower/Bathe Self (QC): 2 Upper Body Dressing(FIM): 3 Upper Body Dressing (QC): 3 Lower Body Dressing(FIM): 2 Lower Body Dressing (QC): 2 On/Off Footwear (QC): 2 Toileting(FIM): 3 Toileting Hygiene (QC): 3 Toilet/Commode Transfer(FIM): 3 Toilet/Commode Transfer (QC): 3 Shower Transfer(FIM): 3 Comprehension(FIM): 2 Expression (FIM): 2 Social Interaction(FIM): 2 Problem Solving(FIM): 2 Memory(FIM): 2 Additional Goals: 3-ImproveStrength/Tony 1=Demonstrate adherence to instructed precautions during ADL tasks. 2=Patient will verbalize/demonstrate understanding of assistive devices/ modifications for ADL. 3=Patient will improve strength/tolerance for activity to enable patient to perform ADL's. OT Education/Plan Problem List/Assessment Assessment: Decreased Activ Tolerance, Decreased Safety Aware, Decreased UE Strength, Dependent Transfers, Impaired Bed Mobility, Impaired Cognition, Impaired Coordination, Impaired Funct Balance, Impaired I ADL's, Impaired Self- Care Skills, Restricted Funct UE ROM, Visual-Perceptual Deficit Discharge Recommendations Plan/Recommendations: Continue POC Therapy D/C Recommendations: 24 hr Supervision Target Placement Son would like to take pt. home with needed equipment and skilled workers. Equipment includes wheelchair, wheelchair cushion, hospital bed, BSC, bed squares, and possibly tub transfer bench. Treatment Plan/Plan of Care Treatment,Training & Education: Yes Patient would benefit from OT for education, treatment and training to promote independence in ADL's, mobility, safety and/or upper extremity function for ADL' s. Plan of Care: ADL Retraining, Cognitive Retraining, Functional Mobility, Group Exercise/Act as Ind, UE Funct Exercise/Act, UE Neuromus Re-Ed/Coord, Visual/ Perceptual Retrain Treatment Duration: Apr 14, 2017 Frequency: Modified Program (IRF) (07/11) Estimated Hrs Per Day: 1.5 hours per day Agreement: Yes Rehab Potential: Poor Time/GCodes Start Time: 10:00 Stop Time: 11:00 Total Time Billed (hr/min): 60 Billed Treatment Time 1,ADL x 4 co-treat with PT Please see note for designated roles. ASIM FREITAS OT Mar 31, 2017 15:50
--- NOTE | 2017-03-31 15:58 | Occupational Ther Daily Note ---
OT Current Status-Daily Note Subjective Pt. does not verbalize. Appearance Pt. in bed. Mental Status/Objective Functional [place] Measure 0=Not Assessed/NA 4=Minimal Assistance 1=Total Assistance 5=Supervision or Setup 2=Maximal Assistance 6=Modified [place] 3=Moderate Assistance 7=Complete [place] ADL-Treatment Functional [place] Measure 0=Not Assessed/NA 4=Minimal Assistance 1=Total Assistance 5=Supervision or Setup 2=Maximal Assistance 6=Modified [place] 3=Moderate Assistance 7=Complete IndependenceIRFPAI Quality Coding Scale 6 Independent with activity with or without an assistive device 5 Patient requires set up or clean up by helper. Patient completes activity by themselves 4 Supervision or touching assist (CGA). [place] provide cues , steadying assist 3 The helper provides less than half the effort to complete the activity 2 The helper provides more than half the effort to complete the activity 1 Dependent. The helper does all the effort to complete an activity 7 Patient refused to complete or attempt activity 9 The patient did not perform the activity before the current illness or injury 88 Not attempted due to Medical conditions or safety concerns Other Treatment OT/PT co-treat due to level of skilled care needed. Pt. requires max x 2 for supine-sit, and then max x 1, mod x 1 to transfer to chair. Pt. is positioned and OT completes gentle PROM to right UE. All needs met up in chair. OT facilitated right UE ROM while PT completed assist for transfer training and bed mobility. Education OT Patient Education: Correct positioning, Exercise program, Progress toward Goal/Update tx plan, Purpose of tx/functional activities, Reviewed precautions, Rehab process, Transfer techniques Teaching Recipient: Patient Teaching Methods: Demonstration, Discussion Response to Teaching: Verbalize Understanding, Return Demonstration OT Short Term Goals Short Term Goals Time Frame: Mar 31, 2017 Grooming(FIM): 2 Toilet/Commode Transfer(FIM): 2 Additional Short Term Goals: 3-ImproveStrength/Tony 1=Demonstrate adherence to instructed precautions during ADL tasks. 2=Patient will verbalize/demonstrate understanding of assistive devices/ modifications for ADL. 3=Patient will improve strength/tolerance for activity to enable patient to perform ADL's. OT Board Saw Runner Goals Custodial Goals Time Frame: Apr 14, 2017 Eating (FIM): 3 Eating (QC): 3 Groomin Oral Hygiene (QC): 3 Bathing(FIM): 2 Shower/Bathe Self (QC): 2 Upper Body Dressing(FIM): 3 Upper Body Dressing (QC): 3 Lower Body Dressing(FIM): 2 Lower Body Dressing (QC): 2 On/Off Footwear (QC): 2 Toileting(FIM): 3 Toileting Hygiene (QC): 3 Toilet/Commode Transfer(FIM): 3 Toilet/Commode Transfer (QC): 3 Shower Transfer(FIM): 3 Comprehension(FIM): 2 Expression (FIM): 2 Social Interaction(FIM): 2 Problem Solving(FIM): 2 Memory(FIM): 2 Additional Goals: 3-ImproveStrength/Tony 1=Demonstrate adherence to instructed precautions during ADL tasks. 2=Patient will verbalize/demonstrate understanding of assistive devices/ modifications for ADL. 3=Patient will improve strength/tolerance for activity to enable patient to perform ADL's. OT Education/Plan Problem List/Assessment Assessment: Decreased Activ Tolerance, Decreased Safety Aware, Decreased UE Strength, Dependent Transfers, Impaired Bed Mobility, Impaired Cognition, Impaired Coordination, Impaired Funct Balance, Impaired I ADL's, Impaired Self- Care Skills, Restricted Funct UE ROM Discharge Recommendations Plan/Recommendations: Continue POC Therapy D/C Recommendations: 24 hr Supervision Treatment Plan/Plan of Care Treatment,Training & Education: Yes Patient would benefit from OT for education, treatment and training to promote independence in ADL's, mobility, safety and/or upper extremity function for ADL' s. Plan of Care: ADL Retraining, Cognitive Retraining, Functional Mobility, Group Exercise/Act as Ind, UE Funct Exercise/Act, UE Neuromus Re-Ed/Coord, Visual/ Perceptual Retrain Treatment Duration: Apr 14, 2017 Frequency: Modified Program (IRF) (07/11) Estimated Hrs Per Day: 1.5 hours per day Agreement: Yes Rehab Potential: Poor Time/GCodes Start Time: 14:30 Stop Time: 14:45 Total Time Billed (hr/min): 15 Billed Treatment Time 1, ADL ASIM FREITAS OT Mar 31, 2017 15:58
[2017-03-31 19:02] VITALS: BP 114/67
[2017-03-31] MEDS: POLYETHYLENE GLYCOL 17 GM (MIRALAX) PACK PO SCH (20:20)
[2017-03-31] MEDS: inSUlin DETERMIR 1 UNIT/0.01 ML (LEVEMIR) CHARGE PER UNIT SQ SCH (20:33)
[2017-04-01] MEDS: ONDANSETRON 4 MG (ZOFRAN) ORAL DISSOLVE TAB PO SCH ×4 (02:46→21:19)
[2017-04-01 06:40] VITALS: BP 117/68
--- NOTE | 2017-04-01 07:49 | Progress Note (SOAP) ---
Subjective Time Seen by Provider: 07:45 Subjective/Events-last exam hemorrhagic brain tumor. Breast cancer. Metastasis to bone. Patient resting comfortably. Objective Exam Vital Signs Date Time Temp Pulse Resp B/P (MAP) Pulse Ox O2 Delivery O2 Flow Rate FiO2 04/01/17 06:40 98.3 90 18 117/68 (84) 97 Room Air 03/31/17 20:00 Room Air 03/31/17 19:02 99.1 85 16 114/67 (83) 96 Room Air 03/31/17 08:00 Room Air I & O 04/01/17 07:00 Intake Total 400 ml Output Total 1100 ml Balance -700 ml Capillary Refill : General Appearance: No Apparent Distress, WD/WN Respiratory: Normal Breath Sounds, No Accessory Muscle Use, No Respiratory Distress Results Lab Laboratory Tests 03/31/17 10:54: Glucometer 230H 03/31/17 16:06: Glucometer 288H 03/31/17 20:16: Glucometer 228H 04/01/17 05:59: Glucometer 159H Assessment/Plan Assessment/Plan Assess & Plan/Chief Complaint breast cancer with metastasis to brain and bone. cortisone-induced hyperglycemia. Aphasia.. . 03/26/17. 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 Hypoglycemia due to cortisone. Patient sleeping is not awake this a.m.. . 05/30/16. 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 Diabetes area Patient awake this a.m. but nonverbal. . 03/30/17. 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 Diabetes Patient makes sounds that I don't understand Family to speak with committee today . 06/02/16. patient seen yesterday and was awake. Patient not communicating. Patient this morning resting comfortably honestly Hemorrhagic brain tumor. Seizure. diabetes Clinical Quality Measures DVT/VTE Risk/Contraindication: Risk Factor Score Per Nursin RFS Level Per Nursing on Admit: 4+=Very High SUNDAR SELLERS DO Apr 01, 2017 07:49
[2017-04-01] MEDS: DEXAMETHASONE 4 MG TAB (DECADRON) PO SCH ×2 (08:40→21:19)
[2017-04-01] MEDS: PANTOPRAZOLE 20 MG TABLET (PROTONIX) PO SCH (08:40)
[2017-04-01] MEDS: inSUlin ASPART (NovoLOG) 1 UNIT/0.01 ML (CHARGE PER UNIT) SC SCH ×3 (08:40→17:53)
[2017-04-01] MEDS: ZINC OXIDE 16% OINT (BUTT PASTE) 113 GM TUBE TOP SCH ×2 (08:41→21:20)
[2017-04-01] MEDS: LEVETIRACETAM 1,000 MG (KEPPRA) TABLET PO SCH ×2 (08:41→21:19)
[2017-04-01] MEDS: SUCRALFATE 1 GM (CARAFATE) TAB PO SCH ×2 (08:41→21:19)
[2017-04-01] MEDS: ATENOLOL 25 MG (TENORMIN) TAB PO SCH (08:41)
--- NOTE | 2017-04-01 10:10 | Speech Therapy Daily Note ---
Speech Daily Progress Note Subjective Date Seen by Provider: Apr 01, 2017 Time Seen by Provider: 09:30 The patient was seated upright in bed upon entrance. The patient did not attempt eye gaze, verbal, or nonverbal greeting of the clinician. Objective Intermittent eye contact was made, most when the clinician was seated to the right throughout the session. No meaningful, purposeful communication was achieved. Yes/No: The patient would not respond to yes/no questions via head nod/shake, eye gaze, verbalization, or pointing to yes and no words. 1-Step: The patient was unable to follow simple one step commands with direct clinician modeling and maximum verbal prompting. Functional Sequencing: The call light was discussed and demonstrated on this date. Regardless of maximum cueing and hand over hand, the patient would not demonstrate discussed skills (RN button, toilet button, pain button, TV button). At this time, the patient does not appear to comprehend of express language. Assessment Assessment Current Status: Poor Progress Treatment Plan Continue Plan of Care Communication Comprehension: 2 Expression: 1 Social Cognition Social Interaction: 1 Problem Solvin Memory: 1 Speech Short Term Goals Short Term Goals Short Term Goals 1. The patient will complete yes and no questions via head nod with 40% accuracy. 2. The patient will follow one step commands with direct modeling and 40% accuracy. Time Frame-STG: One Week Speech [facility] Goals Crew Scheduler Goals 1. The patient will demonstrate improved cognitive linguistic skills for increased function and safety in the least restrictive setting. 2. The patient will tolerate the least restrictive diet without signs/symptoms of aspiration or laryngeal penetration. Time Frame: Three Weeks Comprehension: 2 Expression: 2 Social Interaction: 2 Problem Solvin Memory: 2 Speech-Plan Treatment Plan Speech Therapy Treatment Plan: Continue Plan of Care Continue skilled speech pathology to target functional expressive or receptive communication. Treatment Duration: Apr 15, 2017 Frequency: Modified Program (IRF) (Four to five times per week.) Estimated Hrs Per Day: .5 hour per day Rehab Potential: Poor Safety Risks/Education Teaching Recipient: Patient Teaching Methods: Discussion Response to Teaching: Unable to Comprehend Education Topics Provided: Nonverbal expressive techniques. Time Speech Therapy Time In: 09:30 Speech Therapy Time Out: 10:00 Total Billed Time: 30 Billed Treatment Time 1FLORINA WILBERTO FARAH Apr 01, 2017 10:10
--- NOTE | 2017-04-01 11:24 | Physical Therapy Daily Note ---
PT Daily Note-Current Subjective Patient in bed pre tx, has no complaints of pain but is also non-verbal, shows no non-verbal signs of pain. Will be co-treating with OT this morning, patient will be getting a shower. Appearance Patient in recliner post tx with nurse call, tray, legs elevated, all needs met. Mental Status Patient Orientation: Unable to Assess, Non-Verbal/Aphasic Transfers Functional [place] Measure 0=Not Assessed/NA 4=Minimal Assistance 1=Total Assistance 5=Supervision or Setup 2=Maximal Assistance 6=Modified [place] 3=Moderate Assistance 7=Complete IndependenceIRFPAI Quality Coding Scale 6 Independent with activity with or without an assistive device 5 Patient requires set up or clean up by helper. Patient completes activity by themselves 4 Supervision or touching assist (CGA). [place] provide cues , steadying assist 3 The helper provides less than half the effort to complete the activity 2 The helper provides more than half the effort to complete the activity 1 Dependent. The helper does all the effort to complete an activity 7 Patient refused to complete or attempt activity 9 The patient did not perform the activity before the current illness or injury 88 Not attempted due to Medical conditions or safety concerns Transfers (B, C, W/C) (FIM): 1 Scootin Rollin Supine to/from Sit: 1 Sit to/from Stand: 2 Bed to/from Chair: 2 Patient was performing sit to stand and stand pivot transfers with mod assist but was max assist today. Weight Bearing Right Lower Extremity: Right Weight Bearing/Tolerated Left Lower Extremity: Left Weight Bearing/Tolerated Exercises Patient stood in the parallel bars x3 with assist of 2 for about 1 min each time. Treatments bed mobility and transfers, standing in parallel bars, bathing, dressing Assessment Current Status: Poor Progress No change in mobility, patient does not participate or follow directions. PT Short Term Goals Short Term Goals Time Frame: Mar 31, 2017 Wheelchair (FIM): 2 Wheelchair Distance: 50' Wheelchair Level of Assist: 4 PT Shelter Goals Ceramic Design Engineer Goals PT Shelter Goals Time Frame: Apr 14, 2017 Transfers (B,C,W/C) (FIM): 3 Sit to Lying (QC): 2 Lying-Sitting on Side/Bed(QC): 2 Sit to Stand (QC): 2 Rollin Roll Left to Right (QC): 2 Chair/[id number] Xfer(QC): 2 Car Transfer (QC): 2 Does the Patient Walk: No and Walking Goal NOT indicated Wheelchair (FIM): 4 Distance: 150' Wheelchair Level of Assist: 4 Wheel 50 feet with 2 turns (QC: 3 PT Plan Problem List Problem List: Activity Tolerance, Functional Strength, Safety, Balance, Gait, Transfer, Bed Mobility, ROM Treatment/Plan Treatment Plan: Continue Plan of Care Treatment Plan: Bed Mobility, Concurrent Therapy, Education, Functional Activity Tony, Functional Strength, Group Therapy, Safety, Therapeutic Exercise , Transfers Treatment Duration: Apr 19, 2017 Frequency: Modified Program (IRF) Estimated Hrs Per Day: 1.5 hours per day Patient and/or Family Agrees t: Yes Safety Risks/Education Patient Education: Transfer Techniques, Correct Positioning, Safety Issues Teaching Recipient: Patient Teaching Methods: Demonstration, Discussion Response to Teaching: Reinforcement Needed Time/GCodes Time In: 1000 Time Out: 1115 Total Billed Treatment Time: 75 Total Billed Treatment 1 visit FA 75' Co-treated with OT for the whole treatment. PT worked on bed mobility, transfers, sitting balance during bathing and dressing and grooming, standing in parallel bars. OT worked on bed mobility, bathing and dressing and grooming , UE positioning during standing. VALDEMAR LALA PT Apr 01, 2017 11:24
--- NOTE | 2017-04-01 11:31 | Occupational Ther Daily Note ---
OT Current Status-Daily Note Subjective Pt eyes open, lying in bed. OT/PT co-treat due to level of skilled care required for transfers, mobility and ADLs. Daughter did not arrive at 1100 for family training. Mental Status/Objective Patient Orientation: Non-Verbal/Aphasic Functional [place] Measure 0=Not Assessed/NA 4=Minimal Assistance 1=Total Assistance 5=Supervision or Setup 2=Maximal Assistance 6=Modified [place] 3=Moderate Assistance 7=Complete [place] Attachments: Spicer Catheter ADL-Treatment PT worked on transfers and standing. OT worked on ADLs. Pt max A for supine to sitting EOB then min A for sitting EOB. PT transferred pt from bed to transport shower chair with max A. Pt transported to large shower room for shower. Pt given washcloth and verbal/physical cues to wash face. Pt did not wash face. Pt dependent with bathing/drying. Pt did lift L LE up to doff/doff socks. Pt dependent for all dressing and hygiene. Pt was able to hold onto cup and bring to mouth for a drink. After therapy, pt sitting in recliner with call light/phone in reach. All needs met in room. Functional [place] Measure 0=Not Assessed/NA 4=Minimal Assistance 1=Total Assistance 5=Supervision or Setup 2=Maximal Assistance 6=Modified [place] 3=Moderate Assistance 7=Complete IndependenceIRFPAI Quality Coding Scale 6 Independent with activity with or without an assistive device 5 Patient requires set up or clean up by helper. Patient completes activity by themselves 4 Supervision or touching assist (CGA). [place] provide cues , steadying assist 3 The helper provides less than half the effort to complete the activity 2 The helper provides more than half the effort to complete the activity 1 Dependent. The helper does all the effort to complete an activity 7 Patient refused to complete or attempt activity 9 The patient did not perform the activity before the current illness or injury 88 Not attempted due to Medical conditions or safety concerns Other Treatment Pt taken to therapy gym after bathing to work on standing at parallel bars. PT worked on standing, OT worked on pt holding onto bar with R hand and placing wt through UE. See PT note for amount of assist needed. Pt non-vocal throughout session. Pt would look at ZAPATA's face though did not make wants or needs known. Pt did 2x's acknowledge question with an affirmative after delayed response. OT Short Term Goals Short Term Goals Time Frame: Mar 31, 2017 Grooming(FIM): 2 Toilet/Commode Transfer(FIM): 2 Additional Short Term Goals: 3-ImproveStrength/Tony 1=Demonstrate adherence to instructed precautions during ADL tasks. 2=Patient will verbalize/demonstrate understanding of assistive devices/ modifications for ADL. 3=Patient will improve strength/tolerance for activity to enable patient to perform ADL's. OT Chain Hoist Operator Goals [facility] Goals Time Frame: Apr 14, 2017 Eating (FIM): 3 Eating (QC): 3 Groomin Oral Hygiene (QC): 3 Bathing(FIM): 2 Shower/Bathe Self (QC): 2 Upper Body Dressing(FIM): 3 Upper Body Dressing (QC): 3 Lower Body Dressing(FIM): 2 Lower Body Dressing (QC): 2 On/Off Footwear (QC): 2 Toileting(FIM): 3 Toileting Hygiene (QC): 3 Toilet/Commode Transfer(FIM): 3 Toilet/Commode Transfer (QC): 3 Shower Transfer(FIM): 3 Comprehension(FIM): 2 Expression (FIM): 2 Social Interaction(FIM): 2 Problem Solving(FIM): 2 Memory(FIM): 2 Additional Goals: 3-ImproveStrength/Tony 1=Demonstrate adherence to instructed precautions during ADL tasks. 2=Patient will verbalize/demonstrate understanding of assistive devices/ modifications for ADL. 3=Patient will improve strength/tolerance for activity to enable patient to perform ADL's. OT Education/Plan Discharge Recommendations Plan/Recommendations: Continue POC Treatment Plan/Plan of Care Patient would benefit from OT for education, treatment and training to promote independence in ADL's, mobility, safety and/or upper extremity function for ADL' s. Plan of Care: ADL Retraining, Cognitive Retraining, Functional Mobility, Group Exercise/Act as Ind, UE Funct Exercise/Act, UE Neuromus Re-Ed/Coord, Visual/ Perceptual Retrain Treatment Duration: Apr 14, 2017 Frequency: Modified Program (IRF) (07/11) Estimated Hrs Per Day: 1.5 hours per day Agreement: Yes Rehab Potential: Poor Time/GCodes Start Time: 10:00 Stop Time: 11:15 Total Time Billed (hr/min): 75 Billed Treatment Time 1 visit-FA 5 (75 min) Co-treat for 75 min KUNCE,JADE HIGH SCHOOL COUNSELOR Apr 01, 2017 11:31
--- NOTE | 2017-04-01 13:44 | Occupational Ther Daily Note ---
OT Current Status-Daily Note Subjective Pt sitting in recliner with eyes open. Mental Status/Objective Patient Orientation: Non-Verbal/Aphasic Functional [place] Measure 0=Not Assessed/NA 4=Minimal Assistance 1=Total Assistance 5=Supervision or Setup 2=Maximal Assistance 6=Modified [place] 3=Moderate Assistance 7=Complete [place] Attachments: Spicer Catheter ADL-Treatment Pt has lunch tray with pureed food. Pt demonstrated ability to use pincer front office representative to pickup driver banana slice and place in mouth. Pt did have difficulty noticing where food is on fingers, does notice if the food missed mouth. When handed cup pt is able to hold onto cup and bring to mouth. When spoon/fork placed in hand with bowl of utensil closer to fingers, pt is able to bring to mouth and place food in mouth. Food needs to be place on utensils prior to giving to pt. After therapy, nrsg took over care. All needs met in room. Functional [place] Measure 0=Not Assessed/NA 4=Minimal Assistance 1=Total Assistance 5=Supervision or Setup 2=Maximal Assistance 6=Modified [place] 3=Moderate Assistance 7=Complete IndependenceIRFPAI Quality Coding Scale 6 Independent with activity with or without an assistive device 5 Patient requires set up or clean up by helper. Patient completes activity by themselves 4 Supervision or touching assist (CGA). [place] provide cues , steadying assist 3 The helper provides less than half the effort to complete the activity 2 The helper provides more than half the effort to complete the activity 1 Dependent. The helper does all the effort to complete an activity 7 Patient refused to complete or attempt activity 9 The patient did not perform the activity before the current illness or injury 88 Not attempted due to Medical conditions or safety concerns OT Short Term Goals Short Term Goals Time Frame: Mar 31, 2017 Grooming(FIM): 2 Toilet/Commode Transfer(FIM): 2 Additional Short Term Goals: 3-ImproveStrength/Tony 1=Demonstrate adherence to instructed precautions during ADL tasks. 2=Patient will verbalize/demonstrate understanding of assistive devices/ modifications for ADL. 3=Patient will improve strength/tolerance for activity to enable patient to perform ADL's. OT Grout Machine Operator Goals Grout Machine Operator Goals Time Frame: Apr 14, 2017 Eating (FIM): 3 Eating (QC): 3 Groomin Oral Hygiene (QC): 3 Bathing(FIM): 2 Shower/Bathe Self (QC): 2 Upper Body Dressing(FIM): 3 Upper Body Dressing (QC): 3 Lower Body Dressing(FIM): 2 Lower Body Dressing (QC): 2 On/Off Footwear (QC): 2 Toileting(FIM): 3 Toileting Hygiene (QC): 3 Toilet/Commode Transfer(FIM): 3 Toilet/Commode Transfer (QC): 3 Shower Transfer(FIM): 3 Comprehension(FIM): 2 Expression (FIM): 2 Social Interaction(FIM): 2 Problem Solving(FIM): 2 Memory(FIM): 2 Additional Goals: 3-ImproveStrength/Tony 1=Demonstrate adherence to instructed precautions during ADL tasks. 2=Patient will verbalize/demonstrate understanding of assistive devices/ modifications for ADL. 3=Patient will improve strength/tolerance for activity to enable patient to perform ADL's. OT Education/Plan Discharge Recommendations Plan/Recommendations: Continue POC Treatment Plan/Plan of Care Patient would benefit from OT for education, treatment and training to promote independence in ADL's, mobility, safety and/or upper extremity function for ADL' s. Plan of Care: ADL Retraining, Cognitive Retraining, Functional Mobility, Group Exercise/Act as Ind, UE Funct Exercise/Act, UE Neuromus Re-Ed/Coord, Visual/ Perceptual Retrain Treatment Duration: Apr 14, 2017 Frequency: Modified Program (IRF) (07/11) Estimated Hrs Per Day: 1.5 hours per day Agreement: Yes Rehab Potential: Poor Time/GCodes Start Time: 11:40 Stop Time: 12:00 Total Time Billed (hr/min): 20 Billed Treatment Time 1 visit-FA 1 (20 min) JADE GARCIA Apr 01, 2017 13:44
[2017-04-01 17:31] LABS: KETONES,URINE NEGATIVE (NEGATIVE); LEUKOCYTE ESTERASE ,URINE 3+ (NEGATIVE); NITRITE,URINE POSITIVE (NEGATIVE); PH,URINE 7 (5-9); PROTEIN,URINE 2+ (NEGATIVE); UROBILINOGEN,URINE 12 MG/DL (NORMAL)
[2017-04-01 17:51] LABS: BILIRUBIN,URINE 1+ (NEGATIVE)
[2017-04-01 17:55] LABS: WBC,URINE TNTC /HPF; YEAST,URINE LARGE /HPF
[2017-04-01 18:43] VITALS: BP 114/71
[2017-04-01] MEDS: POLYETHYLENE GLYCOL 17 GM (MIRALAX) PACK PO SCH (21:19)
[2017-04-01] MEDS: inSUlin DETERMIR 1 UNIT/0.01 ML (LEVEMIR) CHARGE PER UNIT SQ SCH (21:19)
[2017-04-02] MEDS: ONDANSETRON 4 MG (ZOFRAN) ORAL DISSOLVE TAB PO SCH ×4 (02:20→19:55)
[2017-04-02 06:00] VITALS: BP 119/79
[2017-04-02] MEDS: inSUlin ASPART (NovoLOG) 1 UNIT/0.01 ML (CHARGE PER UNIT) SC SCH ×3 (07:46→17:59)
--- NOTE | 2017-04-02 08:21 | Progress Note (SOAP) ---
Subjective Time Seen by Provider: 08:20 Subjective/Events-last exam hemorrhagic brain tumor. Seizure. Metastatic cancer. patient awake this morning. Patient does not follow commands. Patient not communicating Objective Exam Vital Signs Date Time Temp Pulse Resp B/P (MAP) Pulse Ox O2 Delivery O2 Flow Rate FiO2 04/02/17 06:00 97.0 71 16 119/79 (92) 96 Room Air 04/01/17 20:00 Room Air 04/01/17 18:43 96.5 71 14 114/71 (85) 98 Room Air I & O 04/02/17 07:00 Intake Total 450 ml Output Total 450 ml Balance 0 ml Capillary Refill : General Appearance: No Apparent Distress, WD/WN HEENT: Normal ENT Inspection Neck: Normal Inspection Respiratory: No Accessory Muscle Use, No Respiratory Distress Cardiovascular: Regular Rate, Rhythm, No Murmur Gastrointestinal: non tender, soft Results Lab Laboratory Tests 04/01/17 11:58: Glucometer 99 04/01/17 16:10: Glucometer 116H 04/01/17 17:20: Urine Color AMBERH, Urine Clarity VERY CLOUDYH, Urine pH 7, Urine Specific [place] 1.015L, Urine Protein 2+H, Urine Glucose (UA) NEGATIVE, Urine Ketones NEGATIVE, Urine Nitrite POSITIVEH, Urine Bilirubin 1+H, Urine Urobilinogen 12H, Urine Leukocyte Esterase 3+H, Urine RBC (Auto) 5+H, Urine RBC >100H, Urine WBC TNTCH, Urine Crystals NONE, Urine Bacteria LARGEH, Urine Casts NONE, Urine Mucus NEGATIVE, Urine Yeast LARGEH, Urine Culture Indicated YES 04/01/17 20:54: Glucometer 241H 04/02/17 05:43: Glucometer 113H Assessment/Plan Assessment/Plan Assess & Plan/Chief Complaint breast cancer with metastasis to brain and bone. cortisone-induced hyperglycemia. Aphasia.. . 03/26/17. 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 Hypoglycemia due to cortisone. Patient sleeping is not awake this a.m.. . 05/30/16. 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 Diabetes area Patient awake this a.m. but nonverbal. . 03/30/17. 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 Diabetes Patient makes sounds that I don't understand Family to speak with committee today . 06/02/16. patient seen yesterday and was awake. Patient not communicating. Patient this morning resting comfortably honestly Hemorrhagic brain tumor. Seizure. diabetes. . . 04/02/17. patient awake this morning. Patient not listening to commands. patient just saying ah. Hemorrhagic brain tumor. Diabetes. Breast cancer with metastasis to brain and bone Clinical Quality Measures DVT/VTE Risk/Contraindication: Risk Factor Score Per Nursin RFS Level Per Nursing on Admit: 4+=Very High SUNDAR SELLERS DO Apr 02, 2017 08:21
[2017-04-02] MEDS: PANTOPRAZOLE 20 MG TABLET (PROTONIX) PO SCH (08:28)
[2017-04-02] MEDS: ATENOLOL 25 MG (TENORMIN) TAB PO SCH (08:28)
[2017-04-02] MEDS: SUCRALFATE 1 GM (CARAFATE) TAB PO SCH ×2 (08:28→19:56)
[2017-04-02] MEDS: LEVETIRACETAM 1,000 MG (KEPPRA) TABLET PO SCH ×2 (08:29→20:00)
[2017-04-02] MEDS: DEXAMETHASONE 4 MG TAB (DECADRON) PO SCH ×2 (08:29→20:00)
[2017-04-02] MEDS: ZINC OXIDE 16% OINT (BUTT PASTE) 113 GM TUBE TOP PRN (08:31)
[2017-04-02] MEDS: ZINC OXIDE 16% OINT (BUTT PASTE) 113 GM TUBE TOP SCH ×2 (08:42→21:25)
--- NOTE | 2017-04-02 09:44 | Speech Therapy Daily Note ---
Speech Daily Progress Note Subjective Date Seen by Provider: Apr 02, 2017 Time Seen by Provider: 08:45 The patient was seated upright in bed upon entrance. The patient did not greet the clinician via eye gaze, nonverbal communication, or verbalizations. Objective Intermittent eye contact was made, most when the clinician was seated to the right throughout the session. No meaningful, purposeful communication was achieved. Yes/No: The patient would not respond to yes/no questions via head nod/shake, eye gaze, verbalization, or pointing to yes and no words. 1-Step: The patient was unable to follow simple one step commands with direct clinician modeling and maximum verbal prompting. Assessment Assessment Current Status: Poor Progress Treatment Plan Continue Plan of Care Communication Comprehension: 2 Expression: 1 Social Cognition Social Interaction: 1 Problem Solvin Memory: 1 Speech Short Term Goals Short Term Goals Short Term Goals 1. The patient will complete yes and no questions via head nod with 40% accuracy. 2. The patient will follow one step commands with direct modeling and 40% accuracy. Time Frame-STG: One Week Speech Nursing Home Goals Patent Attorney Goals 1. The patient will demonstrate improved cognitive linguistic skills for increased function and safety in the least restrictive setting. 2. The patient will tolerate the least restrictive diet without signs/symptoms of aspiration or laryngeal penetration. Time Frame: Three Weeks Comprehension: 2 Expression: 2 Social Interaction: 2 Problem Solvin Memory: 2 Speech-Plan Treatment Plan Speech Therapy Treatment Plan: Continue Plan of Care Continue skilled speech pathology to target functional communication (verbal or nonverbal). Treatment Duration: Apr 15, 2017 Frequency: Modified Program (IRF) (Four to five times per week.) Estimated Hrs Per Day: .5 hour per day Rehab Potential: Poor Safety Risks/Education Teaching Recipient: Patient Teaching Methods: Discussion Response to Teaching: Unable to Comprehend Education Topics Provided: Plan of Care Time Speech Therapy Time In: 08:45 Speech Therapy Time Out: 09:15 Total Billed Time: 30 Billed Treatment Time FLORINA Arevalo ELIZABECHINO FRASER Apr 02, 2017 09:44
--- NOTE | 2017-04-02 11:04 | Physical Therapy Daily Note ---
PT Daily Note-Current Subjective Patient in bed pre tx, has no complaints of pain but she is non-verbal. Patient needs to be cleaned. Will be co-treating with OT this morning. Appearance Patient in recliner post tx with nurse angella nevarez OT in the room finishing up. Mental Status Patient Orientation: Unable to Assess, Non-Verbal/Aphasic Attachments: Spicer Catheter Transfers Functional [place] Measure 0=Not Assessed/NA 4=Minimal Assistance 1=Total Assistance 5=Supervision or Setup 2=Maximal Assistance 6=Modified [place] 3=Moderate Assistance 7=Complete IndependenceIRFPAI Quality Coding Scale 6 Independent with activity with or without an assistive device 5 Patient requires set up or clean up by helper. Patient completes activity by themselves 4 Supervision or touching assist (CGA). [place] provide cues , steadying assist 3 The helper provides less than half the effort to complete the activity 2 The helper provides more than half the effort to complete the activity 1 Dependent. The helper does all the effort to complete an activity 7 Patient refused to complete or attempt activity 9 The patient did not perform the activity before the current illness or injury 88 Not attempted due to Medical conditions or safety concerns Transfers (B, C, W/C) (FIM): 1 Scootin Rollin Supine to/from Sit: 1 Sit to/from Stand: 2 Bed to/from Chair: 2 Patient assisted with standing and transfers a little more than yesterday but still max assist. Weight Bearing Right Lower Extremity: Right Weight Bearing/Tolerated Left Lower Extremity: Left Weight Bearing/Tolerated Treatments Patient was rolled several times for cleaning and to perform bed mobility, then sat up with assist of 2 and transferred to the wheelchair. She was taken to the therapy gym and transferred to the therapy table and they layed down for ROM (PT performed PROM to bilateral lower extremities and OT worked on upper extremities). She was then sat up and worked on sitting balance, limits of stability, encouraged to use her left arm. Then she was transferred back to her wheelchair, taken back to her room, and then transferred to her recliner. Assessment Current Status: Poor Progress No change in mobility, patient does not actively participate PT Short Term Goals Short Term Goals Time Frame: Mar 31, 2017 Wheelchair (FIM): 2 Wheelchair Distance: 50' Wheelchair Level of Assist: 4 PT Senior Software Qa Engineer Goals Senior Software Qa Engineer Goals PT Senior Software Qa Engineer Goals Time Frame: Apr 14, 2017 Transfers (B,C,W/C) (FIM): 3 Sit to Lying (QC): 2 Lying-Sitting on Side/Bed(QC): 2 Sit to Stand (QC): 2 Rollin Roll Left to Right (QC): 2 Chair/Don-ir-Gyrau Xfer(QC): 2 Car Transfer (QC): 2 Does the Patient Walk: No and Walking Goal NOT indicated Wheelchair (FIM): 4 Distance: 150' Wheelchair Level of Assist: 4 Wheel 50 feet with 2 turns (QC: 3 PT Plan Problem List Problem List: Activity Tolerance, Functional Strength, Safety, Balance, Gait, Transfer, Bed Mobility, ROM Treatment/Plan Treatment Plan: Continue Plan of Care Treatment Plan: Bed Mobility, Concurrent Therapy, Education, Functional Activity Tony, Functional Strength, Group Therapy, Safety, Therapeutic Exercise , Transfers Treatment Duration: Apr 19, 2017 Frequency: Modified Program (IRF) Estimated Hrs Per Day: 1.5 hours per day Patient and/or Family Agrees t: Yes Safety Risks/Education Patient Education: Transfer Techniques, Correct Positioning, Safety Issues Teaching Recipient: Patient Teaching Methods: Demonstration, Discussion Response to Teaching: Reinforcement Needed Time/GCodes Time In: 1000 Time Out: 1100 Total Billed Treatment Time: 60 Total Billed Treatment 1 visit NM 15' EX 15' FA 30' Co-treated for the whole 60 min with OT. PT worked on bed mobility, transfers, LE ROM, and sitting balance. OT assisted with bed mobility and transfers, and performed cleaning, grooming, dressing, and worked on UE positioning during sitting balance activities. VALDEMAR LALA PT Apr 02, 2017 11:04
--- NOTE | 2017-04-02 11:28 | Occupational Ther Daily Note ---
OT Current Status-Daily Note Subjective Pt's eyes open and lying in bed. Only acknowledgement that pt gave is to look at ZAPATA, did not vocalize. OT/PT co-treat due to skill level needed for transfers, mobility and ADLs. Mental Status/Objective Patient Orientation: Non-Verbal/Aphasic Functional [place] Measure 0=Not Assessed/NA 4=Minimal Assistance 1=Total Assistance 5=Supervision or Setup 2=Maximal Assistance 6=Modified [place] 3=Moderate Assistance 7=Complete [place] Attachments: Spicer Catheter ADL-Treatment Completed bed bath with pt. Gave pt moist cloth to wash face, pt held onto cloth but would not wash face even with hand over hand assist. ZAPATA cleansed body and attempted to get pt to wash selene area, pt would not complete. As ZAPATA cleansed selene area pt pushed ZAPATA away. Then PT assist to roll pt side to side to cleanse buttocks and apply cream to area. Pt clenched buttocks and attempted to use L hand to push ZAPATA away. PT worked on bed mobility, transfers , LE stretching, sitting balance and standing. OT worked on ADLs, UE stretching , dynamic sitting balance. Pt required min to mod A to sit on edge of mat, leaning toward R side and looking toward L. PT attempted to get pt to reach with L hand and hold onto edge of mat to stabilize self, pt kept putting L hand in lap. R UE was placed but needed stabilization to stay where placed. Pastoral care came into gym to give communion. Pt was asked if she wanted communion, pt looked at supervisor sewer system and sat up by self. Did not attempt to voice yes or no. Time Motion Analyst gave pt communion and pt opened mouth and stuck out tongue so supervisor sewer system could put wafer on it. Pt then was transferred back to w/c and transported to room. Transferred and position in recliner. Call light placed in reach. All needs met in room. Functional [place] Measure 0=Not Assessed/NA 4=Minimal Assistance 1=Total Assistance 5=Supervision or Setup 2=Maximal Assistance 6=Modified [place] 3=Moderate Assistance 7=Complete IndependenceIRFPAI Quality Coding Scale 6 Independent with activity with or without an assistive device 5 Patient requires set up or clean up by helper. Patient completes activity by themselves 4 Supervision or touching assist (CGA). [place] provide cues , steadying assist 3 The helper provides less than half the effort to complete the activity 2 The helper provides more than half the effort to complete the activity 1 Dependent. The helper does all the effort to complete an activity 7 Patient refused to complete or attempt activity 9 The patient did not perform the activity before the current illness or injury 88 Not attempted due to Medical conditions or safety concerns OT Short Term Goals Short Term Goals Time Frame: Mar 31, 2017 Grooming(FIM): 2 Toilet/Commode Transfer(FIM): 2 Additional Short Term Goals: 3-ImproveStrength/Tony 1=Demonstrate adherence to instructed precautions during ADL tasks. 2=Patient will verbalize/demonstrate understanding of assistive devices/ modifications for ADL. 3=Patient will improve strength/tolerance for activity to enable patient to perform ADL's. OT Penitentiary Goals Penitentiary Goals Time Frame: Apr 14, 2017 Eating (FIM): 3 Eating (QC): 3 Groomin Oral Hygiene (QC): 3 Bathing(FIM): 2 Shower/Bathe Self (QC): 2 Upper Body Dressing(FIM): 3 Upper Body Dressing (QC): 3 Lower Body Dressing(FIM): 2 Lower Body Dressing (QC): 2 On/Off Footwear (QC): 2 Toileting(FIM): 3 Toileting Hygiene (QC): 3 Toilet/Commode Transfer(FIM): 3 Toilet/Commode Transfer (QC): 3 Shower Transfer(FIM): 3 Comprehension(FIM): 2 Expression (FIM): 2 Social Interaction(FIM): 2 Problem Solving(FIM): 2 Memory(FIM): 2 Additional Goals: 3-ImproveStrength/Tony 1=Demonstrate adherence to instructed precautions during ADL tasks. 2=Patient will verbalize/demonstrate understanding of assistive devices/ modifications for ADL. 3=Patient will improve strength/tolerance for activity to enable patient to perform ADL's. OT Education/Plan Discharge Recommendations Plan/Recommendations: Continue POC Treatment Plan/Plan of Care Patient would benefit from OT for education, treatment and training to promote independence in ADL's, mobility, safety and/or upper extremity function for ADL' s. Plan of Care: ADL Retraining, Cognitive Retraining, Functional Mobility, Group Exercise/Act as Ind, UE Funct Exercise/Act, UE Neuromus Re-Ed/Coord, Visual/ Perceptual Retrain Treatment Duration: Apr 14, 2017 Frequency: Modified Program (IRF) (07/11) Estimated Hrs Per Day: 1.5 hours per day Agreement: Yes Rehab Potential: Poor Time/GCodes Start Time: 09:45 Stop Time: 11:00 Total Time Billed (hr/min): 75 Billed Treatment Time 1 visit-FA 5 (75 min) JADE GARCIA Apr 02, 2017 11:28
--- NOTE | 2017-04-02 12:26 | Occupational Ther Daily Note ---
OT Current Status-Daily Note Subjective Pt sitting in recliner with nrsg initiating feeding. ZAPATA took over care of pt for feeding. Mental Status/Objective Patient Orientation: Non-Verbal/Aphasic Functional [place] Measure 0=Not Assessed/NA 4=Minimal Assistance 1=Total Assistance 5=Supervision or Setup 2=Maximal Assistance 6=Modified [place] 3=Moderate Assistance 7=Complete [place] Attachments: Spicer Catheter ADL-Treatment Pt chose between a bite of food and drink. When spoon or fork placed in pt's hand, pt would grasp loosely and bring to mouth. 50% of the time pt able to get utensil in mouth, other times assist to stabilize utensil to get to mouth. Pt able to hold cup and bring to mouth for a drink. Pt did initiate reach for cup 2x's during treatment. Pt typically will wait for items to be placed in hand. After therapy, nrsg took over care to finish lunch. All needs met in room. Functional [place] Measure 0=Not Assessed/NA 4=Minimal Assistance 1=Total Assistance 5=Supervision or Setup 2=Maximal Assistance 6=Modified [place] 3=Moderate Assistance 7=Complete IndependenceIRFPAI Quality Coding Scale 6 Independent with activity with or without an assistive device 5 Patient requires set up or clean up by helper. Patient completes activity by themselves 4 Supervision or touching assist (CGA). [place] provide cues , steadying assist 3 The helper provides less than half the effort to complete the activity 2 The helper provides more than half the effort to complete the activity 1 Dependent. The helper does all the effort to complete an activity 7 Patient refused to complete or attempt activity 9 The patient did not perform the activity before the current illness or injury 88 Not attempted due to Medical conditions or safety concerns OT Short Term Goals Short Term Goals Time Frame: Mar 31, 2017 Grooming(FIM): 2 Toilet/Commode Transfer(FIM): 2 Additional Short Term Goals: 3-ImproveStrength/Tony 1=Demonstrate adherence to instructed precautions during ADL tasks. 2=Patient will verbalize/demonstrate understanding of assistive devices/ modifications for ADL. 3=Patient will improve strength/tolerance for activity to enable patient to perform ADL's. OT Mcfp Goals Mcfp Goals Time Frame: Apr 14, 2017 Eating (FIM): 3 Eating (QC): 3 Groomin Oral Hygiene (QC): 3 Bathing(FIM): 2 Shower/Bathe Self (QC): 2 Upper Body Dressing(FIM): 3 Upper Body Dressing (QC): 3 Lower Body Dressing(FIM): 2 Lower Body Dressing (QC): 2 On/Off Footwear (QC): 2 Toileting(FIM): 3 Toileting Hygiene (QC): 3 Toilet/Commode Transfer(FIM): 3 Toilet/Commode Transfer (QC): 3 Shower Transfer(FIM): 3 Comprehension(FIM): 2 Expression (FIM): 2 Social Interaction(FIM): 2 Problem Solving(FIM): 2 Memory(FIM): 2 Additional Goals: 3-ImproveStrength/Tony 1=Demonstrate adherence to instructed precautions during ADL tasks. 2=Patient will verbalize/demonstrate understanding of assistive devices/ modifications for ADL. 3=Patient will improve strength/tolerance for activity to enable patient to perform ADL's. OT Education/Plan Discharge Recommendations Plan/Recommendations: Continue POC Treatment Plan/Plan of Care Patient would benefit from OT for education, treatment and training to promote independence in ADL's, mobility, safety and/or upper extremity function for ADL' s. Plan of Care: ADL Retraining, Cognitive Retraining, Functional Mobility, Group Exercise/Act as Ind, UE Funct Exercise/Act, UE Neuromus Re-Ed/Coord, Visual/ Perceptual Retrain Treatment Duration: Apr 14, 2017 Frequency: Modified Program (IRF) (07/11) Estimated Hrs Per Day: 1.5 hours per day Agreement: Yes Rehab Potential: Poor Time/GCodes Start Time: 11:55 Stop Time: 12:10 Total Time Billed (hr/min): 15 Billed Treatment Time 1 visit-FA 1 (15 min) JADE GARCIA Apr 02, 2017 12:26
[2017-04-02] MEDS: AUGMENTIN 875 MG TAB (AMOXICILLIN/CLAVULANATE) PO SCH (17:59)
[2017-04-02 18:00] VITALS: BP 118/74
[2017-04-02] MEDS: POLYETHYLENE GLYCOL 17 GM (MIRALAX) PACK PO SCH (19:55)
[2017-04-02] MEDS: inSUlin DETERMIR 1 UNIT/0.01 ML (LEVEMIR) CHARGE PER UNIT SQ SCH (21:24)
[2017-04-03] MEDS: ONDANSETRON 4 MG (ZOFRAN) ORAL DISSOLVE TAB PO SCH ×4 (01:37→20:06)
[2017-04-03 06:02] VITALS: BP 111/74
[2017-04-03] MEDS: inSUlin ASPART (NovoLOG) 1 UNIT/0.01 ML (CHARGE PER UNIT) SC SCH ×3 (06:26→16:49)
[2017-04-03] MEDS: AUGMENTIN 875 MG TAB (AMOXICILLIN/CLAVULANATE) PO SCH ×2 (06:26→16:49)
[2017-04-03] MEDS: DEXAMETHASONE 4 MG TAB (DECADRON) PO SCH ×2 (08:32→20:06)
[2017-04-03] MEDS: ATENOLOL 25 MG (TENORMIN) TAB PO SCH (08:32)
[2017-04-03] MEDS: PANTOPRAZOLE 20 MG TABLET (PROTONIX) PO SCH (08:32)
[2017-04-03] MEDS: SUCRALFATE 1 GM (CARAFATE) TAB PO SCH ×2 (08:32→20:06)
[2017-04-03] MEDS: SENNA W/DOCUSATE (SENOKOT S) TABLET PO PRN (08:32)
[2017-04-03] MEDS: LEVETIRACETAM 1,000 MG (KEPPRA) TABLET PO SCH ×2 (08:32→20:06)
[2017-04-03] MEDS: ZINC OXIDE 16% OINT (BUTT PASTE) 113 GM TUBE TOP SCH ×2 (08:33→20:09)
[2017-04-03] MEDS: ZINC OXIDE 16% OINT (BUTT PASTE) 113 GM TUBE TOP PRN (08:33)
--- NOTE | 2017-04-03 09:35 | Physical Therapy Daily Note ---
PT Daily Note-Current Subjective Pt. non verbal, nods occas, faint vocal noted. Sister friend present and very supportive and wants to observe and help with Rx and learn about pts. functional status Mental Status Patient Orientation: Non-Verbal/Aphasic Attachments: Spicer Catheter Transfers Functional [place] Measure 0=Not Assessed/NA 4=Minimal Assistance 1=Total Assistance 5=Supervision or Setup 2=Maximal Assistance 6=Modified [place] 3=Moderate Assistance 7=Complete IndependenceIRFPAI Quality Coding Scale 6 Independent with activity with or without an assistive device 5 Patient requires set up or clean up by helper. Patient completes activity by themselves 4 Supervision or touching assist (CGA). [place] provide cues , steadying assist 3 The helper provides less than half the effort to complete the activity 2 The helper provides more than half the effort to complete the activity 1 Dependent. The helper does all the effort to complete an activity 7 Patient refused to complete or attempt activity 9 The patient did not perform the activity before the current illness or injury 88 Not attempted due to Medical conditions or safety concerns Transfers (B, C, W/C) (FIM): 2 Scootin Rollin Supine to/from Sit: 2 Sit to/from Stand: 2 Bed to/from Chair: 2 max assist 1-2 bed to chair Weight Bearing Right Lower Extremity: Right Weight Bearing/Tolerated Left Lower Extremity: Left Weight Bearing/Tolerated Gait Training Does the Patient Walk?: No and Walking Goal NOT indicated Exercises Supine Ex: Ankle pumps, Rolling, Heel Slides, Hip abd/add Supine Reps: 15 (AAROM) Treatments sup to sit and rolling all mod to MAX assist, sitting EOB with mod assist heavy list to right, max assist to TRF bed to recliner, up in recliner for assist for breakfast from friend Assessment Current Status: Poor Progress max dependent today PT Short Term Goals Short Term Goals Time Frame: Mar 31, 2017 Wheelchair (FIM): 2 Wheelchair Distance: 50' Wheelchair Level of Assist: 4 PT Consumer Marketing Analyst Goals Custodial Goals PT Custodial Goals Time Frame: Apr 14, 2017 Transfers (B,C,W/C) (FIM): 3 Sit to Lying (QC): 2 Lying-Sitting on Side/Bed(QC): 2 Sit to Stand (QC): 2 Rollin Roll Left to Right (QC): 2 Chair/Nsi-ve-Pebtq Xfer(QC): 2 Car Transfer (QC): 2 Does the Patient Walk: No and Walking Goal NOT indicated Wheelchair (FIM): 4 Distance: 150' Wheelchair Level of Assist: 4 Wheel 50 feet with 2 turns (QC: 3 PT Plan Treatment/Plan Treatment Plan: Continue Plan of Care Treatment Plan: Bed Mobility, Concurrent Therapy, Education, Functional Activity Tony, Functional Strength, Group Therapy, Safety, Therapeutic Exercise , Transfers Treatment Duration: Apr 19, 2017 Frequency: Modified Program (IRF) Estimated Hrs Per Day: 1.5 hours per day Patient and/or Family Agrees t: Yes Safety Risks/Education Patient Education: Transfer Techniques Teaching Recipient: Friend Teaching Methods: Demonstration Response to Teaching: Verbalize Understanding Time/GCodes Time In: 855 Time Out: 925 Total Billed Treatment Time: 30 Total Billed Treatment 1,FA30m G Codes Necessary: MIGUEL ANGEL Avilez OPTICAL ENGINEER Apr 03, 2017 09:35
[2017-04-03 18:00] VITALS: BP 114/61
[2017-04-03] MEDS: POLYETHYLENE GLYCOL 17 GM (MIRALAX) PACK PO SCH (20:06)
[2017-04-03] MEDS: inSUlin DETERMIR 1 UNIT/0.01 ML (LEVEMIR) CHARGE PER UNIT SQ SCH (20:09)
[2017-04-04] MEDS: ONDANSETRON 4 MG (ZOFRAN) ORAL DISSOLVE TAB PO SCH ×4 (02:17→21:32)
[2017-04-04 06:03] VITALS: BP 123/82
[2017-04-04] MEDS: AUGMENTIN 875 MG TAB (AMOXICILLIN/CLAVULANATE) PO SCH ×2 (06:07→16:53)
[2017-04-04] MEDS: inSUlin ASPART (NovoLOG) 1 UNIT/0.01 ML (CHARGE PER UNIT) SC SCH ×3 (06:07→16:53)
[2017-04-04] MEDS: SUCRALFATE 1 GM (CARAFATE) TAB PO SCH ×2 (07:48→21:33)
[2017-04-04] MEDS: SENNA W/DOCUSATE (SENOKOT S) TABLET PO PRN (07:48)
[2017-04-04] MEDS: LEVETIRACETAM 1,000 MG (KEPPRA) TABLET PO SCH ×2 (07:48→21:32)
[2017-04-04] MEDS: PANTOPRAZOLE 20 MG TABLET (PROTONIX) PO SCH (07:49)
[2017-04-04] MEDS: ATENOLOL 25 MG (TENORMIN) TAB PO SCH (07:49)
[2017-04-04] MEDS: DEXAMETHASONE 4 MG TAB (DECADRON) PO SCH ×2 (07:49→21:33)
[2017-04-04] MEDS: ZINC OXIDE 16% OINT (BUTT PASTE) 113 GM TUBE TOP SCH ×2 (10:54→21:33)
[2017-04-04 18:35] VITALS: BP 104/69
[2017-04-04] MEDS: POLYETHYLENE GLYCOL 17 GM (MIRALAX) PACK PO SCH (21:31)
[2017-04-04] MEDS: inSUlin DETERMIR 1 UNIT/0.01 ML (LEVEMIR) CHARGE PER UNIT SQ SCH (21:32)
[2017-04-05] MEDS: ONDANSETRON 4 MG (ZOFRAN) ORAL DISSOLVE TAB PO SCH ×4 (02:13→20:31)
[2017-04-05] MEDS: AUGMENTIN 875 MG TAB (AMOXICILLIN/CLAVULANATE) PO SCH ×2 (05:14→18:07)
[2017-04-05] MEDS: inSUlin ASPART (NovoLOG) 1 UNIT/0.01 ML (CHARGE PER UNIT) SC SCH ×3 (05:15→18:07)
[2017-04-05 05:22] VITALS: BP 107/67
--- NOTE | 2017-04-05 08:21 | Progress Note (SOAP) ---
Subjective Time Seen by Provider: 08:20 Subjective/Events-last exam hemorrhagic brain tumor. Metastatic cancer. Seizures. diabetes. patient resting comfortably today Objective Exam Vital Signs Date Time Temp Pulse Resp B/P (MAP) Pulse Ox O2 Delivery O2 Flow Rate FiO2 04/05/17 05:22 99.5 71 16 107/67 (80) 95 04/04/17 20:00 Room Air 04/04/17 18:35 98.5 85 14 104/69 (81) 97 I & O 04/05/17 07:00 Intake Total 1035 ml Output Total 900 ml Balance 135 ml Capillary Refill : General Appearance: No Apparent Distress, WD/WN Respiratory: No Accessory Muscle Use Cardiovascular: Regular Rate, Rhythm, No Murmur Results Lab Laboratory Tests 04/04/17 10:47: Glucometer 147H 04/04/17 16:20: Glucometer 207H 04/04/17 20:39: Glucometer 270H 04/05/17 05:06: Glucometer 197H Microbiology 04/01/17 Urine Culture - Final, Complete Escherichia Coli Presumptive Beatriz Albicans Assessment/Plan Assessment/Plan Assess & Plan/Chief Complaint breast cancer with metastasis to brain and bone. cortisone-induced hyperglycemia. Aphasia.. . 03/26/17. 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 Hypoglycemia due to cortisone. Patient sleeping is not awake this a.m.. . 05/30/16. 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 Diabetes area Patient awake this a.m. but nonverbal. . 03/30/17. 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 Diabetes Patient makes sounds that I don't understand Family to speak with committee today . 06/02/16. patient seen yesterday and was awake. Patient not communicating. Patient this morning resting comfortably honestly Hemorrhagic brain tumor. Seizure. diabetes. . . 04/02/17. patient awake this morning. Patient not listening to commands. patient just saying ah. Hemorrhagic brain tumor. Diabetes. 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 . 04/05/17. Patient resting comfortably. 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 Cortisone-induced hyperglycemia. Aphasia. Clinical Quality Measures DVT/VTE Risk/Contraindication: Risk Factor Score Per Nursin RFS Level Per Nursing on Admit: 4+=Very High SUNDAR SELLERS DO Apr 05, 2017 08:21
[2017-04-05] MEDS: LEVETIRACETAM 1,000 MG (KEPPRA) TABLET PO SCH ×2 (08:53→20:31)
[2017-04-05] MEDS: SUCRALFATE 1 GM (CARAFATE) TAB PO SCH ×2 (08:54→20:31)
[2017-04-05] MEDS: ATENOLOL 25 MG (TENORMIN) TAB PO SCH (08:54)
[2017-04-05] MEDS: PANTOPRAZOLE 20 MG TABLET (PROTONIX) PO SCH (08:54)
[2017-04-05] MEDS: oxyCODONE/APAP 7.5-325 MG (PERCOCET 7.5) TABLET PO PRN (08:55)
[2017-04-05] MEDS: DEXAMETHASONE 4 MG TAB (DECADRON) PO SCH (08:55)
[2017-04-05] MEDS: ZINC OXIDE 16% OINT (BUTT PASTE) 113 GM TUBE TOP SCH ×2 (09:00→20:34)
--- NOTE | 2017-04-05 10:50 | Speech Therapy Daily Note ---
Speech Daily Progress Note Subjective Date Seen by Provider: Apr 05, 2017 Time Seen by Provider: 10:00 The patient was seated upright in bed upon entrance. The patient did not greet the clinician via eye gaze, nonverbal communication, or verbalizations. Objective Intermittent eye contact was made, most when the clinician was seated to the right throughout the session. No meaningful, purposeful communication was achieved. Yes/No: The patient would not respond to yes/no questions via head nod/shake, eye gaze, verbalization, or pointing to yes and no words. 1-Step: The patient was unable to follow simple one step commands with direct clinician modeling and maximum verbal prompting. The patient required maximum clinician verbal prompting for limited alertness. The patient frequently closed eyes throughout the session. Assessment Assessment Current Status: Poor Progress Treatment Plan Continue Plan of Care Communication Comprehension: 1 Expression: 1 Social Cognition Social Interaction: 1 Problem Solvin Memory: 1 Speech Short Term Goals Short Term Goals Short Term Goals 1. The patient will complete yes and no questions via head nod with 40% accuracy. 2. The patient will follow one step commands with direct modeling and 40% accuracy. Time Frame-STG: One Week Speech Binding Folder Machine Goals Usp Goals 1. The patient will demonstrate improved cognitive linguistic skills for increased function and safety in the least restrictive setting. 2. The patient will tolerate the least restrictive diet without signs/symptoms of aspiration or laryngeal penetration. Time Frame: Three Weeks Comprehension: 2 Expression: 2 Social Interaction: 2 Problem Solvin Memory: 2 Speech-Plan Treatment Plan Speech Therapy Treatment Plan: Continue Plan of Care Continue skilled speech pathology to target improved functional communication. Treatment Duration: Apr 15, 2017 Frequency: Modified Program (IRF) (Four to five times per week.) Estimated Hrs Per Day: .5 hour per day Rehab Potential: Poor Safety Risks/Education Teaching Recipient: Patient Teaching Methods: Discussion Response to Teaching: Unable to Comprehend Education Topics Provided: Orientation Strategies Time Speech Therapy Time In: 10:00 Speech Therapy Time Out: 10:30 Total Billed Time: 30 Billed Treatment Time FLORINA Arevalo ELIZADIVINA FRASER Apr 05, 2017 10:50
--- NOTE | 2017-04-05 11:44 | Physical Therapy Daily Note ---
PT Daily Note-Current Subjective Pt did not verbalize this date. Pt between being awake and sleeping. She did not resist therapy. Transfers Functional [place] Measure 0=Not Assessed/NA 4=Minimal Assistance 1=Total Assistance 5=Supervision or Setup 2=Maximal Assistance 6=Modified [place] 3=Moderate Assistance 7=Complete IndependenceIRFPAI Quality Coding Scale 6 Independent with activity with or without an assistive device 5 Patient requires set up or clean up by helper. Patient completes activity by themselves 4 Supervision or touching assist (CGA). [place] provide cues , steadying assist 3 The helper provides less than half the effort to complete the activity 2 The helper provides more than half the effort to complete the activity 1 Dependent. The helper does all the effort to complete an activity 7 Patient refused to complete or attempt activity 9 The patient did not perform the activity before the current illness or injury 88 Not attempted due to Medical conditions or safety concerns Transfers (B, C, W/C) (FIM): 1 Roll Left to Right (QC): 1 Sit to Lying (QC): 1 Sit to Stand (QC): 1 Chair/Muu-et-Zxfjt Xfer(QC): 1 Car Transfer (QC): 1 Total dependent this date for transfers; pt did bear weight with standing but did not take steps to transfer. Sat EOB several minutes with min-mod assist with OT addressing UE dressing to change her gown. Pt unable to sit upright at EOB without assist with no reactive response to LOB episode. SPT x 2 dependent but bearing weight. Pt up in chair with legs elevated post treatment with needs met. Co treat wth OT entire session due to pt being dependent and requires skilled caregivers of both disciplines for hand placment, cues and completion of tasks. Weight Bearing Right Lower Extremity: Right Weight Bearing/Tolerated Left Lower Extremity: Left Weight Bearing/Tolerated Gait Training Does the Patient Walk?: No and Walking Goal IS indicated Gait (FIM): 0 Distance (FIM): 0=does not occure Walk 10 feet (QC): 1 Walk 50 ft with 2 Turns(QC): 1 Walk 150 ft (QC): 1 Walking 10ft/uneven surface-QC: 1 Wheelchair Training Does the Pt Use a Wheelchair?: Yes Wheelchair (FIM): 1 Wheel 50 ft with 2 turns (QC): 1 Wheel 150 ft (QC): 1 Type of Wheelchair: Manual Stair Training 1 Step (curb) (QC): 1 4 Steps (QC): 1 12 Steps (QC): 1 total dependent; unable to go up/down steps . Balance Picking up an Object (QC): 1 Treatments Co treat with OT addressed transfers, bed mobility, dressing, seated balance and functional mobiltiy. Assessment No noted functional progress at this time. Pt very lethargic this date. Dependent for all care and mobility. PT Short Term Goals Short Term Goals Time Frame: Mar 31, 2017 Wheelchair (FIM): 2 Wheelchair Distance: 50' Wheelchair Level of Assist: 4 PT Intermediate Goals Data Analytics Analyst Goals PT Intermediate Goals Time Frame: Apr 14, 2017 Transfers (B,C,W/C) (FIM): 3 (unmet) Sit to Lying (QC): 2 (unmet) Lying-Sitting on Side/Bed(QC): 2 (unmet) Sit to Stand (QC): 2 (unmet) Rollin Roll Left to Right (QC): 2 (unmet) Chair/Rvs-rp-Rlvbx Xfer(QC): 2 Car Transfer (QC): 2 (unmet) Does the Patient Walk: No and Walking Goal NOT indicated Wheelchair (FIM): 4 (unmet) Distance: 150' Wheelchair Level of Assist: 4 Wheel 50 feet with 2 turns (QC: 3 (unmet) PT Plan Problem List Problem List: Activity Tolerance, Functional Strength, Safety Treatment/Plan Treatment Plan: Continue Plan of Care (Plan to dc tomorrow. ) Treatment Plan: Bed Mobility, Concurrent Therapy, Education, Functional Activity Tony, Functional Strength, Group Therapy, Safety, Therapeutic Exercise , Transfers Treatment Duration: Apr 19, 2017 Frequency: Modified Program (IRF) Estimated Hrs Per Day: 1.5 hours per day Patient and/or Family Agrees t: Yes Safety Risks/Education Patient Education: Transfer Techniques, Safety Issues Teaching Recipient: Patient Teaching Methods: Demonstration, Discussion Response to Teaching: Reinforcement Needed Discharge Recommendations Therapy D/C Recommendations: [facility] (TCU[facility]) Time/GCodes Time In: 1030 Time Out: 1130 Total Billed Treatment Time: 60 Total Billed Treatment visit FA 60 JADE KEENE PT Apr 05, 2017 11:44
--- NOTE | 2017-04-05 12:47 | Occupational Ther Daily Note ---
OT Current Status-Daily Note Subjective Pt asleep, lying in bed. Difficult time waking pt. Pt did not resist therapy. Mental Status/Objective Patient Orientation: Non-Verbal/Aphasic Functional [place] Measure 0=Not Assessed/NA 4=Minimal Assistance 1=Total Assistance 5=Supervision or Setup 2=Maximal Assistance 6=Modified [place] 3=Moderate Assistance 7=Complete [place] Attachments: Griffiths Catheter ADL-Treatment Functional [place] Measure 0=Not Assessed/NA 4=Minimal Assistance 1=Total Assistance 5=Supervision or Setup 2=Maximal Assistance 6=Modified [place] 3=Moderate Assistance 7=Complete IndependenceIRFPAI Quality Coding Scale 6 Independent with activity with or without an assistive device 5 Patient requires set up or clean up by helper. Patient completes activity by themselves 4 Supervision or touching assist (CGA). [place] provide cues , steadying assist 3 The helper provides less than half the effort to complete the activity 2 The helper provides more than half the effort to complete the activity 1 Dependent. The helper does all the effort to complete an activity 7 Patient refused to complete or attempt activity 9 The patient did not perform the activity before the current illness or injury 88 Not attempted due to Medical conditions or safety concerns Eating (FIM): 2 (Set up required. Pt has honey thick liquids and pureed food. When cup is placed in hand, pt is able to bring drink to mouth. Pt will brass pickler appropriate finger food from helper's hand then bring to mouth. If utensil is place in hand with fingers close to bowel of spoon pt will bring to mouth. Pt tends to close eyes when eating and does not initiate eating/feeding/ drinking.) Eating (QC): 2 Grooming (FIM): 1 (Placing cleansing cloth in hand and directing hand up to face, pt still will not wash face. Pt will not use cleansing cloth or reach out to water to wash hands. Pt will take oral sponge that is placed in hand and place in mouth then will only chew on it not use it to cleanse mouth. Assist to cleanse mouth.) Oral Hygiene (QC): 1 Bathing (FIM): 1 (Per nrsg report. ) Shower/Bathe Self (QC): 1 Upper Body (FIM): 1 (Pt will not attempt to raise L arm to assist with donning/ doffing hospital gown. Assist to pull up arms and place over head.) Upper Body Dressing (QC): 1 Lower Body Dressing (FIM): 1 (Dependent in donning/doffing socks and briefs.) Lower Body Dressing (QC): 1 On/Off Footwear (QC): 1 Toileting (FIM): 1 (Per nrsg notes. Per nrsg notes, pt is incontinent of bowel and has griffiths catheter. Pt is total assist. Pt will attempt to push helper's hands away when cleansing selene area/buttocks.) Toileting Hygiene (QC): 1 Toilet/Commode Transfer (FIM): 1 Toilet Transfer (QC): 1 Shower Transfer(FIM): 1 Other Treatment Co treat wth PT due to pt being dependent and requires skilled caregivers of both disciplines for hand placement, cues and completion of tasks. PT worked on transfers and sitting EOB. OT worked on dressing, grooming and feeding. Per nrsg notes for bathing. After therapy, pt sitting in recliner with call light in reach. Left in care of nrsg. All needs met. OT Short Term Goals Short Term Goals Time Frame: Mar 31, 2017 Grooming(FIM): 2 Toilet/Commode Transfer(FIM): 2 Additional Short Term Goals: 3-ImproveStrength/Tony 1=Demonstrate adherence to instructed precautions during ADL tasks. 2=Patient will verbalize/demonstrate understanding of assistive devices/ modifications for ADL. 3=Patient will improve strength/tolerance for activity to enable patient to perform ADL's. OT Medical Data Analyst Goals Medical Data Analyst Goals Time Frame: Apr 14, 2017 Eating (FIM): 3 Eating (QC): 3 Groomin Oral Hygiene (QC): 3 Bathing(FIM): 2 Shower/Bathe Self (QC): 2 Upper Body Dressing(FIM): 3 Upper Body Dressing (QC): 3 Lower Body Dressing(FIM): 2 Lower Body Dressing (QC): 2 On/Off Footwear (QC): 2 Toileting(FIM): 3 Toileting Hygiene (QC): 3 Toilet/Commode Transfer(FIM): 3 Toilet/Commode Transfer (QC): 3 Shower Transfer(FIM): 3 Comprehension(FIM): 2 Expression (FIM): 2 Social Interaction(FIM): 2 Problem Solving(FIM): 2 Memory(FIM): 2 Additional Goals: 3-ImproveStrength/Tony 1=Demonstrate adherence to instructed precautions during ADL tasks. 2=Patient will verbalize/demonstrate understanding of assistive devices/ modifications for ADL. 3=Patient will improve strength/tolerance for activity to enable patient to perform ADL's. OT Education/Plan Discharge Recommendations Plan/Recommendations: Continue POC Treatment Plan/Plan of Care Patient would benefit from OT for education, treatment and training to promote independence in ADL's, mobility, safety and/or upper extremity function for ADL' s. Plan of Care: ADL Retraining, Cognitive Retraining, Functional Mobility, Group Exercise/Act as Ind, UE Funct Exercise/Act, UE Neuromus Re-Ed/Coord, Visual/ Perceptual Retrain Treatment Duration: Apr 14, 2017 Frequency: Modified Program (IRF) (07/11) Estimated Hrs Per Day: 1.5 hours per day Agreement: Yes Rehab Potential: Poor Time/GCodes Start Time: 10:30 Stop Time: 12:15 Total Time Billed (hr/min): 105 Billed Treatment Time 1 visit-FA 7 (105 min) Co-treat with PT 60 min ([id number]), Individual 45 min ( [id number]) JADE GARCIA Apr 05, 2017 12:47
[2017-04-05 18:00] VITALS: BP 110/70
[2017-04-05] MEDS: POLYETHYLENE GLYCOL 17 GM (MIRALAX) PACK PO SCH (20:31)
[2017-04-05] MEDS: inSUlin DETERMIR 1 UNIT/0.01 ML (LEVEMIR) CHARGE PER UNIT SQ SCH (20:34)
[2017-04-06] MEDS: ONDANSETRON 4 MG (ZOFRAN) ORAL DISSOLVE TAB PO SCH ×2 (02:11→09:00)
[2017-04-06 05:48] VITALS: BP 91/56
[2017-04-06] MEDS: inSUlin ASPART (NovoLOG) 1 UNIT/0.01 ML (CHARGE PER UNIT) SC SCH ×2 (05:56→12:12)
[2017-04-06] MEDS: AUGMENTIN 875 MG TAB (AMOXICILLIN/CLAVULANATE) PO SCH (05:56)
--- NOTE | 2017-04-06 08:18 | Progress Note (SOAP) ---
Subjective Time Seen by Provider: 08:15 Subjective/Events-last exam patient resting comfortably today. hemorrhagic brain tumor. Metastatic breast cancer with bone and had metastasis Patient not communicating. Patient awake this morning. Patient be transferred to long-term in [place] Objective Exam Vital Signs Date Time Temp Pulse Resp B/P (MAP) Pulse Ox O2 Delivery O2 Flow Rate FiO2 04/06/17 05:48 98.0 71 16 91/56 (68) 98 Room Air 04/05/17 18:00 99.0 77 18 110/70 (83) 95 I & O 04/06/17 07:00 Intake Total 270 ml Output Total 570 ml Balance -300 ml Capillary Refill : General Appearance: No Apparent Distress, WD/WN Results Lab Laboratory Tests 04/05/17 15:56: Glucometer 221H 04/05/17 20:33: Glucometer 228H 04/06/17 05:29: Glucometer 217H Microbiology 04/01/17 Urine Culture - Final, Complete Escherichia Coli Presumptive Beatriz Albicans Assessment/Plan Assessment/Plan Assess & Plan/Chief Complaint breast cancer with metastasis to brain and bone. cortisone-induced hyperglycemia. Aphasia.. . 03/26/17. 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 Hypoglycemia due to cortisone. Patient sleeping is not awake this a.m.. . 05/30/16. 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 Diabetes area Patient awake this a.m. but nonverbal. . 03/30/17. 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 Diabetes Patient makes sounds that I don't understand Family to speak with committee today . 06/02/16. patient seen yesterday and was awake. Patient not communicating. Patient this morning resting comfortably honestly Hemorrhagic brain tumor. Seizure. diabetes. . . 04/02/17. patient awake this morning. Patient not listening to commands. patient just saying ah. Hemorrhagic brain tumor. Diabetes. Breast cancer with metastasis to brain and bone.. . 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 Cortisone-induced hyperglycemia. Aphasia Patient be transferred to long-term in [place] . 04/05/17. Patient resting comfortably. 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 Cortisone-induced hyperglycemia. Aphasia. Clinical Quality Measures DVT/VTE Risk/Contraindication: Risk Factor Score Per Nursin RFS Level Per Nursing on Admit: 4+=Very High SUNDAR SELLERS DO Apr 06, 2017 08:18
[2017-04-06] MEDS: LEVETIRACETAM 1,000 MG (KEPPRA) TABLET PO SCH (08:53)
[2017-04-06] MEDS: SUCRALFATE 1 GM (CARAFATE) TAB PO SCH (08:53)
[2017-04-06] MEDS: DEXAMETHASONE 4 MG TAB (DECADRON) PO SCH (08:54)
[2017-04-06] MEDS: PANTOPRAZOLE 20 MG TABLET (PROTONIX) PO SCH (08:54)
[2017-04-06] MEDS: ATENOLOL 25 MG (TENORMIN) TAB PO SCH (09:02)
[2017-04-06] MEDS: ZINC OXIDE 16% OINT (BUTT PASTE) 113 GM TUBE TOP PRN (09:07)
[2017-04-06] MEDS: ZINC OXIDE 16% OINT (BUTT PASTE) 113 GM TUBE TOP SCH (09:08)
[2017-04-06] MEDS ORDERED: DEXA2TAB PO (10:22)
--- NOTE | 2017-04-06 10:28 | Therapy Team Discharge Summary ---
Therapy Discharge Summary Discharge Recommendations Date of Discharge Therapy D/C Recommendations: [facility] (TCU/NH) Physical Therapy Patient came to rehab with right side hemiparesis following a stroke. Upon admission patient was dependent for bed mobility and transfers and wheelchair mobility, did not ambulate. She has been performing bed mobility and transfer training, balance and endurance training, family training and education. Patient has made poor progress and has not met any of her alf goals. Patient continues to be dependent for all mobility. Patient is being discharged from this facility today and will be discharged from PT at this time. Occupational Therapy Decreased Activ Tolerance, Decreased Safety Aware, Decreased UE Strength, Dependent Transfers, Impaired Bed Mobility, Impaired Cognition, Impaired Coordination, Impaired Funct Balance, Impaired I ADL's, Impaired Self-Care Skills, Restricted Funct UE ROM PT Half-Way Goals Half-Way Goals PT Fertilizer Applicator Goals Time Frame: Apr 14, 2017 Transfers (B,C,W/C) (FIM): 3 (unmet) Roll Left to Right (QC): 2 (unmet) Sit to Lying (QC): 2 (unmet) Lying-Sitting on Side/Bed(QC): 2 (unmet) Sit to Stand (QC): 2 (unmet) Chair/Ptu-uw-Vgkrq Xfer(QC): 2 Car Transfer (QC): 2 (unmet) Does the Patient Walk: No and Walking Goal NOT indicated Wheelchair (FIM): 4 (unmet) Distance: 150' Wheelchair Level of Assist: 4 Wheel 50 feet with 2 turns (QC: 3 (unmet) OT Half-Way Goals Fertilizer Applicator Goals Time Frame: Apr 14, 2017 Eating (FIM): 3 Eating (QC): 3 Oral Hygiene (QC): 3 Grooming(FIM): 3 Bathing(FIM): 2 Shower/Bathe Self (QC): 2 Upper Body Dressing(FIM): 3 Upper Body Dressing (QC): 3 Lower Body Dressing(FIM): 2 Lower Body Dressing (QC): 2 On/Off Footwear (QC): 2 Toileting(FIM): 3 Toileting Hygiene (QC): 3 Toilet/Commode Transfer(FIM): 3 Toilet/Commode Transfer (QC): 3 Shower Transfer(FIM): 3 Comprehension(FIM): 2 Expression (FIM): 2 Social Interaction(FIM): 2 Problem Solving(FIM): 2 Memory(FIM): 2 Additional Goals: 3-ImproveStrength/Tony 1=Demonstrate adherence to instructed precautions during ADL tasks. 2=Patient will verbalize/demonstrate understanding of assistive devices/ modifications for ADL. 3=Patient will improve strength/tolerance for activity to enable patient to perform ADL's. Speech Fertilizer Applicator Goals Half-Way Goals 1. The patient will demonstrate improved cognitive linguistic skills for increased function and safety in the least restrictive setting. 2. The patient will tolerate the least restrictive diet without signs/symptoms of aspiration or laryngeal penetration. Time Frame: Three Weeks Comprehension: 2 Expression: 2 Social Interaction: 2 Problem Solvin Memory: 2 VALDEMAR LALA PT Apr 06, 2017 10:28
--- NOTE | 2017-04-06 11:46 | Therapy Team Discharge Summary ---
Therapy Discharge Summary Discharge Recommendations Date of Discharge Therapy D/C Recommendations: [facility] (TCU/[facility]) Occupational Therapy Pt admitted to ARU following CVA with right hemiparesis. On admission pt was dependent for all ADLs and transfers. Skilled OT intervention focused on ADL training, transfers, ROM/strengthening. Pt made poor progress with therapy. At d /c pt is able to complete eating with max assist, but is dependent for all other ADLs and transfers. Pt did not meet any OT LTG. Plan is for pt to d/c to SNF today for continued care. D/C ARU OT at this time. Decreased Activ Tolerance, Decreased Safety Aware, Decreased UE Strength, Dependent Transfers, Impaired Bed Mobility, Impaired Cognition, Impaired Coordination, Impaired Funct Balance, Impaired I ADL's, Impaired Self-Care Skills, Restricted Funct UE ROM PT Half-Way Goals Certified Control Systems Technician Goals PT Certified Control Systems Technician Goals Time Frame: Apr 14, 2017 Transfers (B,C,W/C) (FIM): 3 (unmet) Roll Left to Right (QC): 2 (unmet) Sit to Lying (QC): 2 (unmet) Lying-Sitting on Side/Bed(QC): 2 (unmet) Sit to Stand (QC): 2 (unmet) Chair/Bnw-mz-Cuzzw Xfer(QC): 2 Car Transfer (QC): 2 (unmet) Does the Patient Walk: No and Walking Goal NOT indicated Wheelchair (FIM): 4 (unmet) Distance: 150' Wheelchair Level of Assist: 4 Wheel 50 feet with 2 turns (QC: 3 (unmet) OT Certified Control Systems Technician Goals Certified Control Systems Technician Goals Time Frame: Apr 14, 2017 Eating (FIM): 3 Eating (QC): 3 Oral Hygiene (QC): 3 Grooming(FIM): 3 Bathing(FIM): 2 Shower/Bathe Self (QC): 2 Upper Body Dressing(FIM): 3 Upper Body Dressing (QC): 3 Lower Body Dressing(FIM): 2 Lower Body Dressing (QC): 2 On/Off Footwear (QC): 2 Toileting(FIM): 3 Toileting Hygiene (QC): 3 Toilet/Commode Transfer(FIM): 3 Toilet/Commode Transfer (QC): 3 Shower Transfer(FIM): 3 Comprehension(FIM): 2 Expression (FIM): 2 Social Interaction(FIM): 2 Problem Solving(FIM): 2 Memory(FIM): 2 Additional Goals: 3-ImproveStrength/Tony 1=Demonstrate adherence to instructed precautions during ADL tasks. 2=Patient will verbalize/demonstrate understanding of assistive devices/ modifications for ADL. 3=Patient will improve strength/tolerance for activity to enable patient to perform ADL's. Speech Half-Way Goals Certified Control Systems Technician Goals 1. The patient will demonstrate improved cognitive linguistic skills for increased function and safety in the least restrictive setting. 2. The patient will tolerate the least restrictive diet without signs/symptoms of aspiration or laryngeal penetration. Time Frame: Three Weeks Comprehension: 2 Expression: 2 Social Interaction: 2 Problem Solvin Memory: 2 REMIGIO IVY OT Apr 06, 2017 11:46
--- NOTE | 2017-04-06 12:54 | Therapy Team Discharge Summary ---
Therapy Discharge Summary Discharge Recommendations Date of Discharge Therapy D/C Recommendations: [facility] ([facility]U/[facility]) Occupational Therapy Decreased Activ Tolerance, Decreased Safety Aware, Decreased UE Strength, Dependent Transfers, Impaired Bed Mobility, Impaired Cognition, Impaired Coordination, Impaired Funct Balance, Impaired I ADL's, Impaired Self-Care Skills, Restricted Funct UE ROM Speech-Language Pathology The patient was admitted to 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 Upon arrival, the patient displayed severe global aphasia demonstrating limited to no ability to communicate verbally or nonverbally. Skilled speech pathology focused on yes and no reliability (verbal or nonverbal), one-step directions, and diet consistency tolerance (puree and honey-thick liquids). The patient did not reach any goals placed by speech pathology and did not demonstrate any progress throughout her inpatient rehabilitation stay. At this time, the patient is discharged to a retirement facility. Continued speech services are not warranted post discharge. PT Care Home Goals Care Home Goals PT Fellmongering Machine Operator Goals Time Frame: Apr 14, 2017 Transfers (B,C,W/C) (FIM): 3 (unmet) Roll Left to Right (QC): 2 (unmet) Sit to Lying (QC): 2 (unmet) Lying-Sitting on Side/Bed(QC): 2 (unmet) Sit to Stand (QC): 2 (unmet) Chair/Szt-rd-Yaqgr Xfer(QC): 2 Car Transfer (QC): 2 (unmet) Does the Patient Walk: No and Walking Goal NOT indicated Wheelchair (FIM): 4 (unmet) Distance: 150' Wheelchair Level of Assist: 4 Wheel 50 feet with 2 turns (QC: 3 (unmet) OT Fellmongering Machine Operator Goals Care Home Goals Time Frame: Apr 14, 2017 Eating (FIM): 3 Eating (QC): 3 Oral Hygiene (QC): 3 Grooming(FIM): 3 Bathing(FIM): 2 Shower/Bathe Self (QC): 2 Upper Body Dressing(FIM): 3 Upper Body Dressing (QC): 3 Lower Body Dressing(FIM): 2 Lower Body Dressing (QC): 2 On/Off Footwear (QC): 2 Toileting(FIM): 3 Toileting Hygiene (QC): 3 Toilet/Commode Transfer(FIM): 3 Toilet/Commode Transfer (QC): 3 Shower Transfer(FIM): 3 Comprehension(FIM): 2 Expression (FIM): 2 Social Interaction(FIM): 2 Problem Solving(FIM): 2 Memory(FIM): 2 Additional Goals: 3-ImproveStrength/Tony 1=Demonstrate adherence to instructed precautions during ADL tasks. 2=Patient will verbalize/demonstrate understanding of assistive devices/ modifications for ADL. 3=Patient will improve strength/tolerance for activity to enable patient to perform ADL's. Speech Fellmongering Machine Operator Goals Care Home Goals 1. The patient will demonstrate improved cognitive linguistic skills for increased function and safety in the least restrictive setting. 2. The patient will tolerate the least restrictive diet without signs/symptoms of aspiration or laryngeal penetration. Time Frame: Three Weeks Comprehension: 2 (NOT MET) Expression: 2 (NOT MET) Social Interaction: 2 (NOT MET) Problem Solvin (NOT MET) Memory: 2 (NOT MET) WILBERTO FARAH Apr 06, 2017 12:54
[2017-04-06 13:00] VITALS: BP 110/75
--- NOTE | 2017-04-06 15:40 | PM & R (SOAP) Progress Note ---
Subjective Time Seen by Provider: 12:00 Subjective/Events-last exam Patient discharged to SNU for ongoing care Appreciate DR charlton note and therapy notes See orders F/U with Physician at [facility] Objective Exam Last Set of Vital Signs Vital Signs Date Time Temp Pulse Resp B/P (MAP) Pulse Ox O2 Delivery O2 Flow Rate FiO2 04/06/17 13:00 81 18 110/75 98 Room Air 04/06/17 05:48 98.0 Capillary Refill : I&O Intake and Output 04/05/17 23:59 Intake Total 295 ml Output Total 720 ml Balance -425 ml Intake Oral 295 ml Output Urine Total 720 ml # Bowel Movements 1 General: Alert, Oriented X3, Cooperative, No Acute Distress HEENT: PERRLA, EOMI, Mucous Memb Moist/[place], Other (incision healing well) Neck: Supple, No JVD Lungs: Clear to Auscultation Heart: Regular Rate Abdomen: Normal Bowel Sounds, Soft Extremities: No Edema Neuro: Other (Flaccid RT side patient fatiques easily patient with dysphagia and aphasia) Results Lab Laboratory Tests 04/03/17 16:03: Glucometer 136H 04/03/17 20:08: Glucometer 363H 04/04/17 06:06: Glucometer 144H 04/04/17 10:47: Glucometer 147H 04/04/17 16:20: Glucometer 207H 04/04/17 20:39: Glucometer 270H 04/05/17 05:06: Glucometer 197H 04/05/17 15:56: Glucometer 221H 04/05/17 20:33: Glucometer 228H 04/06/17 05:29: Glucometer 217H 04/06/17 11:03: Glucometer 153H Microbiology 04/01/17 Urine Culture - Final, Complete Escherichia Coli Presumptive Beatriz Albicans Assessment/Plan Assessment 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
== END 2017-04-06 13:00 | DRG 57 ==
PROVIDERS: ADMIT Physical Medicine & Rehabilitation; ATTEND Physical Medicine & Rehabilitation
DX: I69.351 Hemiplegia and hemiparesis following cerebral infarction affecting right dominant side (principal); I69.320 Aphasia following cerebral infarction; I69.391 Dysphagia following cerebral infarction; R25.9 Unspecified abnormal involuntary movements; G40.909 Epilepsy, unspecified, not intractable, without status epilepticus; C79.31 Secondary malignant neoplasm of brain; C79.51 Secondary malignant neoplasm of bone; E11.65 Type 2 diabetes mellitus with hyperglycemia; R33.9 Retention of urine, unspecified; I10 Essential (primary) hypertension; Z85.3 Personal history of malignant neoplasm of breast; T38.0X5A Adverse effect of glucocorticoids and synthetic analogues, initial encounter
CPT/HCPCS: 36415; 80048; 80053; 81000; 82962; 83036; 85025; 87077; 87088; 87186